=== PATIENT | male | born 1955 | race Caucasian/White ===

== ENCOUNTER 2016-12-25 14:58 | Emergency (ER) | payer MEDICARE ==
--- NOTE | 2016-12-25 15:22 | RAD ---
SINGLE VIEW OF CHEST: Date: 12/25/16 COMPARISON: 06/21/16. HISTORY: Shortness of breath with weakness and dyspnea. FINDINGS: Single view of the chest shows an enlarged but stable cardiomediastinal silhouette. The patient is s tatus post sternotomy. There is no evidence of consolidation, mass, or pleural effusion. Degenerativ e changes are seen in the spine. IMPRESSION: Cardiomegaly without evidence of acute cardiopulmonary disease. POS: [facility]
[2016-12-25 15:29] LABS: #Basophils 0.1 thou/uL (0.0-0.2); #Eosinphils 0.4 thou/uL (0.0-0.7); #Lymphocytes 1.6 thou/uL (1.20-3.40); #Monocytes 0.6 thou/uL (0.11-0.59); #Neutrophils 5.6 thou/uL (1.40-6.50); %Basophils 0.8 % (0.0-1.0); %Eosinophils 4.4 % (0.0-10.0); %Lymphocytes 19.2 % (21.0-51.0); %Monocytes 7.5 % (0.0-10.0); Mean Platelet Volume 7.3 fL (7.4-10.4); Red Blood Cell (RBC) Count 3.84 mill/uL (4.70-6.10); White Blood Cell (WBC) Count 8.2 thou/uL (4.8-10.8)
[2016-12-25 15:55] LABS: ALT (SGPT) 12 U/L (8-55); AST (SGOT) 14 U/L (5-34); Alkaline Phosphatase 75 U/L (40-150); Anion Gap 11 mmol/L (10-20); BUN (Urea Nitrogen) 30 mg/dL (8.4-25.7); Bilirubin, Total 0.6 mg/dL (0.2-1.2); Calc. Creatinine Clearance 0 mL/min (70-130); Calcium 9.1 mg/dL (7.8-10.44); Carbon Dioxide 25 mmol/L (22-29); Chloride 106 mmol/L (98-107); Estimated GFR-MDRD 26; Globulin 3.4 g/dL (2.4-3.5); Protein, Total 7.2 g/dL (6.0-8.3)
[2016-12-25 15:57] LABS: Troponin I 0.016 ng/mL (< 0.028)
== END 2016-12-25 19:02 | disposition home or self-care (01) ==
LOC: ERS 14:58
DX: I11.0 Hypertensive heart disease with heart failure (principal); I50.9 Heart failure, unspecified; E78.5 Hyperlipidemia, unspecified; M10.9 Gout, unspecified; I25.2 Old myocardial infarction; E11.9 Type 2 diabetes mellitus without complications; J45.909 Unspecified asthma, uncomplicated; Z87.891 Personal history of nicotine dependence; Z79.82 Long term (current) use of aspirin; Z79.84 Long term (current) use of oral hypoglycemic drugs; Z86.73 Personal history of transient ischemic attack (TIA), and cerebral infarction without residual deficits; Z79.899 Other long term (current) drug therapy
CPT/HCPCS: 71010; 80053; 82553; 83880; 84484; 85025; 93005

== ENCOUNTER 2017-02-10 22:29 | Inpatient (IN) | payer MEDICARE ==
[2017-02-10 23:31] LABS: #Basophils 0.1 thou/uL (0.0-0.2); #Eosinphils 0.4 thou/uL (0.0-0.7); #Lymphocytes 1.8 thou/uL (1.20-3.40); #Monocytes 0.8 thou/uL (0.11-0.59); #Neutrophils 8.7 thou/uL (1.40-6.50); %Basophils 0.7 % (0.0-1.0); %Eosinophils 3.8 % (0.0-10.0); %Lymphocytes 14.8 % (21.0-51.0); Hematocrit 35.1 % (42.0-52.0); Mean Platelet Volume 7.4 fL (7.4-10.4); Red Blood Cell (RBC) Count 3.78 mill/uL (4.70-6.10); White Blood Cell (WBC) Count 11.8 thou/uL (4.8-10.8)
[2017-02-10 23:52] LABS: ALT (SGPT) 11 U/L (8-55); AST (SGOT) 21 U/L (5-34); Alkaline Phosphatase 91 U/L (40-150); Anion Gap 14 mmol/L (10-20); BUN (Urea Nitrogen) 27 mg/dL (8.4-25.7); Bilirubin, Total 0.9 mg/dL (0.2-1.2); CK (CPK) 74 U/L (30-200); Calc. Creatinine Clearance 0 mL/min (70-130); Carbon Dioxide 24 mmol/L (22-29); Chloride 105 mmol/L (98-107); Estimated GFR-MDRD 22; Globulin 3.8 g/dL (2.4-3.5); Magnesium 2.1 mg/dL (1.6-2.6); Protein, Total 7.6 g/dL (6.0-8.3)
[2017-02-10 23:56] LABS: Troponin I 0.018 ng/mL (< 0.028)
[2017-02-11] MEDS ORDERED: Promethazine HCl 25 MG/ML VIAL ONE (02:35)
[2017-02-11] MEDS ORDERED: Nitroglycerin 2% Ointment 1 INCH/1 GM Packet ONE (02:35)
[2017-02-11] MEDS ORDERED: Morphine 4 MG/ML VIAL ONE (02:35)
[2017-02-11] MEDS ORDERED: Ondansetron HCl/PF 4 MG/2 ML Vial ONE (02:35)
[2017-02-11] MEDS ORDERED: Furosemide 40 MG/4 ML VIAL ONE (03:21)
[2017-02-11 05:32] VITALS: BMI 38.2
[2017-02-11] MEDS ORDERED: PROVENTIL INHALER 6.7 G (200 INHALATIONS) INH PRN (06:14)
[2017-02-11] MEDS ORDERED: Benzonatate 100 MG CAP PO PRN (06:14)
--- NOTE | 2017-02-11 06:14 | PDOC.EVN ---
Event Note - Event Note Event Note: [id number] H&P Dictated 1. Acute CHF Exacerbation 2. HTN 3. Abdominal pain, nausea and vomiting 4. ckd STAGE 4 PLAN: SEE ORDERS
[2017-02-11] MEDS ORDERED: cefTRIAXone\\ROCEPHIN 1 GM in Sodium Chloride 0.9% 100 ML IVPB SCH (06:30)
--- NOTE | 2017-02-11 07:05 | HP ---
DATE OF ADMISSION: 02/11/2017 CHIEF COMPLAINT: Abdominal pain, dyspnea, bilateral lower extremity swelling. HISTORY OF PRESENT ILLNESS: Patient is a 61-year-old male with past medical history of coronary artery disease, congestive heart failure, hypertension, diabetes mellitus, chronic kidney disease stage 4, now came to the ER complaining of bilateral lower extremity swelling. The patient said he is having swelling for the past few weeks, swelling become more persistent. Complaints of dyspnea also, dyspnea occurs at rest and with exertion also. The patient also started having abdominal pain for the last 4 days. Abdominal pain is all over the abdomen, intermittent, in mild to moderate and associated with nausea and vomiting since yesterday. Denies any fever, denies any chills, denies any chest pain, denies any palpations. The patient's symptoms persisted , so he came to the ER. PAST MEDICAL HISTORY: As per HPI. PAST SURGICAL HISTORY: Coronary artery bypass graft. SOCIAL HISTORY: Denies smoking, denies alcohol, denies any drugs. FAMILY HISTORY: Positive for heart problems. REVIEW OF SYSTEMS: Constitutional: Denies any fever, denies any chills. Eyes : Denies any vision problems. Ears: Denies any hearing loss. Neck: Denies any neck pain. Cardiovascular: Denies any chest pain. Respiratory: Positive for dyspnea. Gastrointestinal: Positive for abdominal pain, nausea and vomiting. Musculoskeletal: Positive for bilateral lower extremity edema. Cranial Nerve System: Denies syncope. Positive for dizziness. Integumentary: Denies any rash. Psychiatric: Denies depression, denies anxiety. All other review of systems are reviewed and are negative. PHYSICAL EXAMINATION: CONSTITUTIONAL/VITAL SIGNS: At the time of H&P performed, blood pressure is 141 /83, temperature 98.5, heart rate 62, respiratory rate 18, pulse ox 92%. GENERAL: The patient appears tired. HEENT: Anterior nares patent. Nose normal. Ears normal. Teeth intact. Tongue is moist. NECK: Supple. No JVD. CARDIOVASCULAR: S1, S2 present. Regular rate and rhythm. No murmurs, no rubs , no gallops. RESPIRATORY: Positive for crackles. No wheezing, no rhonchi. Diminished at the bases. GASTROINTESTINAL: Abdomen is distended, soft, no guarding, no rebound tenderness, no organomegaly. MUSCULOSKELETAL: Bilateral lower extremity, 2+ edema present. INTEGUMENTARY: No rashes seen. PSYCHIATRIC: Mood appropriate at this time. : No suprapubic or inguinal tenderness LABORATORY DATA AND IMAGING: At the time of H&P performed, white count 11.8, hemoglobin 11.2, platelet count is 204. BMP showed sodium 139, potassium 4.3, chloride 105, CO2 24, BUN 27, creatinine 2.9, troponin 0.018. BNP 841, albumin 3.8. Chest x-ray, report is pending. CT abdomen and pelvis, report is pending. ASSESSMENT AND PLAN: The patient is a 61-year-old male: 1. Acute congestive heart failure exacerbation. Patient is off Lasix for the past few months. Because of the fluid overload, we will go ahead and start the patient on Lasix 40 mg IV b.i.d. We will go ahead and consult Cardiology to evaluate the patient. The patient's last echo was done in 2013, we will go ahead and check new echo. 2. Chronic kidney disease stage 4. We will monitor creatinine closely. Plan to consult Nephrology to evaluate the patient. 3. Abdominal pain, nausea, and vomiting, etiology unclear. CT of the abdomen and pelvis is pending. We will start the patient empirically on Cipro and Flagyl for possible colitis. We will monitor the patient closely. 4. History of hypertension, monitor blood pressures, continue home medications. 5. Diabetes type 2. Monitor blood sugars. We will do insulin sliding scale. 6. History of coronary artery disease. Continue aspirin. The case was discussed in detail with the patient. Patient is FULL CODE. MTDD
--- NOTE | 2017-02-11 07:59 | RAD ---
PORTABLE CHEST: Date: 02/10/17 HISTORY: Shortness of breath. COMPARISON: 12/25/16. FINDINGS: Cardiomegaly with postop sternotomy change. Mild vascular engorgement. No evidence of focal infiltrat e and no significant effusion. No significant interstitial edema. IMPRESSION: Cardiomegaly and mild vascular engorgement. POS: [facility]
[2017-02-11] MEDS ORDERED: Carvedilol 25 MG TAB PO SCH (08:00)
[2017-02-11] MEDS: hydrALAZINE 25 MG TAB PO SCH ×3 (08:19→21:41)
[2017-02-11] MEDS: Clopidogrel Bisulfate 75 MG TAB PO SCH (08:19)
[2017-02-11] MEDS: Colchicine 0.6 MG TAB PO SCH (08:20)
[2017-02-11] MEDS: Carvedilol 25 MG TAB PO SCH ×3 (08:20→18:00)
[2017-02-11] MEDS: Loratadine 10 MG TAB PO SCH (08:20)
[2017-02-11] MEDS: Fluticasone Propionate Nasal Spray 16 gm Bottle NASAL SCH (08:21)
[2017-02-11] MEDS: cefTRIAXone\\ROCEPHIN 1 GM, Syringe 0.4 ML in Sterile Water 9.6 ML SLOW IVP SCH (08:23)
[2017-02-11] MEDS ORDERED: Pantoprazole 40 MG GRANULES PACKET PO SCH (09:00)
[2017-02-11] MEDS ORDERED: Furosemide 40 MG/4 ML VIAL SLOW IVP SCH (09:00)
[2017-02-11] MEDS ORDERED: Loratadine 10 MG TAB PO SCH (09:00)
[2017-02-11] MEDS ORDERED: Amlodipine 5 MG TAB PO SCH (09:00)
[2017-02-11] MEDS ORDERED: Famotidine 20 MG TAB PO PRN (09:00)
--- NOTE | 2017-02-11 09:38 | CT ---
PRELIMINARY REPORT/[facility]/EMERGENCY AFTER HOURS PROCEDURE: EXAM: CT Abdomen and Pelvis Without Intravenous Contrast CLINICAL HISTORY: 61 years old, male; Pain; Abdominal pain; Generalized TECHNIQUE: Axial computed tomography images of the abdomen and pelvis without intravenous contrast. Coronal reformatted images were created and reviewed. COMPARISON: No relevant prior studies available. FINDINGS: The lung bases are clear. Mild to moderate cardiomegaly. There may be some mucosal/wall thickening involving the lower esophagus. This is nonspecific, but cou ld represent evidence for esophagitis. Please correlate clinically. No definite gallbladder abnormality by CT. No biliary tree dilation. Ultrasound could be more sensitive for detecting gallstones, if clinically needed. Numerous prominent bilateral renal cysts. Largest cyst in each kidney in the upper pole, 6.5 cm on th e right, 6 cm on the left. No hydronephrosis of either kidney. No visible ureteral calculus. Unremarkable appearance of the liver, spleen, adrenal glands, and pancreas. Possibility of somewhat thickened mucosa/wall in the distal antrum of the stomach. This is a nonspeci fic appearance, and could be transient on CT, but could also represent evidence for gastritis or pept ic ulcer disease. Please correlate clinically. No free air, ascites, or bowel distention. 2-3 cm umbilical region ventral hernia, containing no bowel. There is some increased attenuation in the fat within the hernia, and possibly some fluid. Please cor relate clinically for pain in this region. No evidence for abdominal aortic aneurysm. No retroperitoneal adenopathy. CT pelvis: The appendix is visualized and appears normal. There are no CT findings to strongly suggest diverticulitis. No abnormal mass or fluid collection in the pelvis. IMPRESSION: No free air or bowel distention. Possible thickened mucosa/wall in the distal stomach, see above discussion. Prominent renal cysts, details above. No hydronephrosis of either kidney. No visible ureteral calculus. Small umbilical hernia, see above. Possibly some thickening of the lower esophagus, see above discussion. Normal appendix. No diverticulitis. Other findings discussed above. Thank you for allowing us to participate in the care of your patient. Dictated and Authenticated by: Raghav Leonard MD 02/11/2017 3:41 AM Central Time ([place] & [place] FINAL REPORT CT ABDOMEN AND PELVIS WITHOUT IV CONTRAST: No acute intraabdominal process. There are nonacute findings as described on preliminary report. I am in agreement with the preliminary report. POS: [facility]
[2017-02-11 11:14] LABS: Bilirubin Negative (Negative); Blood, Urine Negative (Negative); Glucose, Urine (Dipstick) Negative (Negative); Ketone, Urine Negative (Negative); Nitrite Negative (Negative); Protein, Urine (Dipstick) 30 mg/dL (Neg-Trace)
[2017-02-11 11:16] LABS: Bacteria/HPF None Seen HPF (None Seen); Hyaline Casts/LPF 0-3 HYALINE CAST LPF (0-3 Hyaline); RBC/HPF 0-3 HPF (0-3); Squamous Epithelial None Seen HPF (0-3); WBC/HPF 0-3 HPF (0-3)
[2017-02-11] MEDS: Furosemide 40 MG/4 ML VIAL SLOW IVP SCH (14:07)
[2017-02-11] MEDS: metroNIDAZOLE 500 MG in Premix Bag 1 BAG IVPB SCH ×2 (14:10→22:52)
--- NOTE | 2017-02-11 14:33 | PDOC.EVN ---
Event Note - Event Note Event Note: pt seen and examined.chart reviewed.care discussed with family. Admitted for CHF exacrebation ,MARIE/CKD,and AP. pt reports feeling better. breathing easier and no more abd pain.no stools since admission. CTA b/l. RRR. abdomen is obese,soft,non tender. CT A/P- unremarkable. Cont empiric ABx untill GI evaluation. check C.Diff. Cont IV lasix with close monitoring of renal FX. Home meds as started. monitor hemodynamics. GI,nephrology and cardiology recs requested. am labs
[2017-02-11] MEDS ORDERED: Iopamidol 370 76% 50 ML VIAL FS ONE (15:38)
[2017-02-11] MEDS ORDERED: Non-Formulary Item 1 EACH (Insulin Glargine,Hum.Rec.Anlog 16 UNIT) SQ SCH (21:00)
[2017-02-11] MEDS: Atorvastatin Calcium 10 MG TAB PO SCH (21:41)
[2017-02-11] MEDS: Allopurinol 100 MG TAB PO SCH (21:41)
[2017-02-11] MEDS: Insulin Detemir 100 UNITS/ML 16 UNITS in Pre-Filled Syringe 1 EACH SC SCH (21:42)
[2017-02-11] MEDS: Magnesium Oxide 400 MG TAB PO SCH (21:45)
--- NOTE | 2017-02-11 22:28 | CON ---
NEPHROLOGY CONSULTATION NOTE DATE OF CONSULTATION: 02/11/2017 CONSULTING PHYSICIAN: Dr. Colindres. REASON FOR CONSULTATION: Acute kidney injury on chronic kidney disease. REASON FOR ADMISSION: Swelling. HISTORY OF PRESENT ILLNESS: A 61-year-old white male with history of coronary artery disease, congestive heart failure, CKD, hypertension and diabetes who came to the hospital with swelling and Nephrology is consulted. The patient has been having swelling for the last few days. He has been limiting fluid intake and he used Lasix p.r.n., but the swelling is not getting better. No chest pain, no shortness of breath, no fever or chills, no nausea or vomiting. PAST MEDICAL HISTORY: Positive for possible CHF, coronary artery disease, CKD, hypertension, type 2 diabetes and obesity. PAST SURGICAL HISTORY: CABG. HOME MEDICATIONS: Include hydralazine, magnesium, Lantus, glimepiride, pravastatin, aspirin, furosemide, carvedilol, amlodipine, Ventolin, allopurinol , Protonix and colchicine. ALLERGIES: HYDROCODONE, LEVOFLOXACIN and LOSARTAN. SOCIAL HISTORY: No smoking or alcohol use. FAMILY HISTORY: Positive for heart disease. REVIEW OF SYSTEMS: The following complete review of systems was negative, unless otherwise mentioned in the HPI or below: Constitutional: Weight loss or gain, ability to conduct usual activities. Skin: Rash, itching. Eyes: Double vision, pain. ENT/Mouth: Nose bleeding, neck stiffness, pain, tenderness. Cardiovascular: Palpitations, dyspnea on exertion, orthopnea. Respiratory: Shortness of breath, wheezing, cough, hemoptysis, fever or night sweats. Gastrointestinal: Poor appetite, abdominal pain, heartburn, nausea, vomiting, constipation, or diarrhea. Genitourinary: Urgency, frequency, dysuria, nocturia. Musculoskeletal: Pain, swelling. Neurologic/Psychiatric: Anxiety, depression. Allergy/Immunologic: Skin rash, bleeding tendency. PHYSICAL EXAMINATION: GENERAL: This is an obese male in no apparent distress. VITAL SIGNS: Temperature is 98.3, pulse 64, respiratory 20 and blood pressure 124/67. HEENT: Atraumatic and normocephalic. Oral mucosa is moist. NECK: Supple. CARDIOVASCULAR: S1 and S2 heard. Rate and rhythm regular. RESPIRATORY: Clear to auscultation. GASTROINTESTINAL: Abdomen is soft. MUSCULOSKELETAL: No tenderness. No edema. DERMATOLOGIC: No skin rash. NEUROLOGIC: Alert, awake and oriented x3. No focal neurologic deficits. Moving all the extremities. PSYCHIATRIC: Mood and affect normal LABORATORY DATA: Potassium is 4.3, BUN is 27 and creatinine is 2.9. ASSESSMENT AND PLAN: 1. Acute kidney injury on chronic kidney stage IV. The patient with fluid overload, possible congestive heart failure exacerbation. Agree with Lasix for now. We will monitor the renal function closely. Monitor electrolytes. 2. Anemia, mild. 3. Edema. 4. Fluid overload. 5. Cardiorenal syndrome. 6. Mild hypoalbuminemia. 7. Hypertension, stable. 8. Obesity. 9. Agree with Lasix for now with close monitoring of renal function, avoid nephrotoxins and we will follow. Thank you for the consult. EVELYN
--- NOTE | 2017-02-11 23:26 | PRG ---
DATE OF SERVICE: 02/11/2017 SUBJECTIVE: Mr. Sellers is breathing better now. He is admitted to the hospital with congestive he art failure. OBJECTIVE: VITAL SIGNS: His blood pressure is 125/67 and pulse in the 60s, it is regular. LUNGS: Clear. CARDIAC: Normal S1 and S2. ABDOMEN: Soft and nontender. EXTREMITIES: Only mild edema now. ASSESSMENT: 1. Congestive heart failure. Suspect systolic and diastolic mixed echos, report is pending. 2. Stage IV renal failure. PLAN: 1. Repeat review echo. 2. Continue intravenous diuretics. 3. Reduce carvedilol until he is well compensated. We will continue to follow with you.
--- NOTE | 2017-02-12 04:44 | CON ---
DATE OF CONSULTATION: 02/11/2017 GASTROENTEROLOGY CONSULTATION CHIEF COMPLAINT: Abdominal pain. HISTORY OF PRESENT ILLNESS: Mr. Sellers is a 61-year-old man who presented to the emergency room with abdominal pain and lower extremity swelling. He reports an aching pain in the epigastr ic to right periumbilical region that started a week ago. He initially had some diarrhea on the day and then his bowel movements were back to normal. The day of admission, he again had episodes of diarrhea as well as nausea and vomiting. He has had no blood in the stool. No weight loss or fev er. He was treated with diuretics for exacerbation of congestive heart failure. He did have a CT sc an of the abdomen and pelvis, which was performed in the ER that showed some thickening of the gastri c antrum and also the distal esophagus. He was treated with Cipro and Flagyl. He takes omeprazole a round once a month for heartburn. PAST MEDICAL HISTORY: Coronary artery disease, congestive heart failure, hypertension, diabetes cosme itus, chronic kidney disease, hyperlipidemia. PAST SURGICAL HISTORY: Coronary artery bypass graft. FAMILY HISTORY: Negative for GI malignancies. SOCIAL HISTORY: No alcohol, tobacco, or drugs. ALLERGIES: HYDROCODONE, LEVOFLOXACIN, LOSARTAN. MEDICATIONS: Currently include allopurinol, aspirin, ceftriaxone, clopidogrel, colchicine, famotidin e, hydralazine, pantoprazole, Ranexa, metronidazole, magnesium oxide, loratadine, insulin. REVIEW OF SYSTEMS: Negative x10 systems reviewed except as stated in the history of present illness. PHYSICAL EXAMINATION: VITAL SIGNS: Temperature 97.7, pulse 65, blood pressure 120/59. GENERAL: He is in no acute distress. He is alert and oriented x3. HEENT: Eyes have no scleral icterus. Oropharynx is clear without lesions. NECK: No cervical or supraclavicular lymphadenopathy. LUNGS: Clear to auscultation bilaterally. HEART: Regular rate and rhythm without murmur. ABDOMEN: Soft, nontender, nondistended. Bowel sounds are present. EXTREMITIES: Positive lower extremity edema. LABORATORY DATA: White blood cell count 11.8, hemoglobin 11.3, platelets 204, creatinine 2.91. LFTs were unremarkable. Albumin 3.8. IMPRESSION: 1. Epigastric pain with nausea and vomiting, and diarrhea. This could have been an infectious gastr oenteritis. He has been going on for a week now, but he is finally improving. 2. Abnormal CT scan of the stomach showing thickening at the antrum and thickening of the distal eso phagus. We will plan endoscopy to evaluate this. 3. Congestive heart failure and coronary artery disease, breathing much better now after diuresis. He is on Plavix. RECOMMENDATIONS: 1. Proton-pump inhibitor. 2. EGD tomorrow. 3. Please note that the patient states he had a colonoscopy by the [facility] around 3 years ago and was told this was normal.
[2017-02-12 05:28] LABS: #Basophils 0.1 thou/uL (0.0-0.2); #Eosinphils 0.4 thou/uL (0.0-0.7); #Lymphocytes 1.4 thou/uL (1.20-3.40); #Monocytes 0.8 thou/uL (0.11-0.59); #Neutrophils 5.4 thou/uL (1.40-6.50); %Basophils 0.9 % (0.0-1.0); %Eosinophils 4.7 % (0.0-10.0); %Lymphocytes 17.8 % (21.0-51.0); %Monocytes 9.4 % (0.0-10.0); Mean Platelet Volume 7.2 fL (7.4-10.4); Red Blood Cell (RBC) Count 3.34 mill/uL (4.70-6.10); White Blood Cell (WBC) Count 8.1 thou/uL (4.8-10.8)
[2017-02-12] MEDS: Furosemide 40 MG/4 ML VIAL SLOW IVP SCH ×2 (05:35→14:08)
[2017-02-12] MEDS: metroNIDAZOLE 500 MG in Premix Bag 1 BAG IVPB SCH ×3 (05:35→22:21)
[2017-02-12 05:42] LABS: Anion Gap 12 mmol/L (10-20); BUN (Urea Nitrogen) 32 mg/dL (8.4-25.7); Calc. Creatinine Clearance 43 mL/min (70-130); Calcium 8.4 mg/dL (7.8-10.44); Carbon Dioxide 26 mmol/L (22-29); Chloride 103 mmol/L (98-107); Estimated GFR-MDRD 20
[2017-02-12] MEDS: Carvedilol 25 MG TAB PO SCH ×2 (08:49→18:12)
[2017-02-12] MEDS: cefTRIAXone\\ROCEPHIN 1 GM, Syringe 0.4 ML in Sterile Water 9.6 ML SLOW IVP SCH (09:06)
--- NOTE | 2017-02-12 09:17 | PDOC.PN ---
- Subjective Encounter Start Date: 02/12/17 Encounter Start Time: 07:10 -: old records requested/rev pt has nausea, he is NPO for procedure, still has leg edema, no chest pain - Objective Resuscitation Status: Resuscitation Status FULL:Full Resuscitation MAR Reviewed: Yes Vital Signs & Weight: Vital Signs (12 hours) Temp Pulse Resp BP Pulse Ox 02/12/17 07:54 99.3 F 69 16 02/12/17 07:39 98.6 F 66 18 114/68 94 L 02/12/17 04:28 99.3 F 69 16 122/75 97 02/11/17 23:48 98.7 F 65 20 120/59 L 92 L 02/11/17 21:41 64 Weight Weight 272 lb 9.6 oz I&O: 02/11/17 02/12/17 02/13/17 06:59 06:59 06:59 Intake Total 1318 Output Total 850 975 Balance 468 -975 Result Diagrams: 02/12/17 05:02 02/12/17 05:02 Additional Labs: Accuchecks 02/11/17 02/11/17 02/11/17 20:49 16:54 11:00 POC Glucose 145 H 128 H 145 H EKG Reviewed by me: Yes (NSR) Phys Exam - Physical Examination Constitutional: NAD HEENT: PERRLA, moist MMs, sclera anicteric Neck: no JVD, supple Respiratory: no wheezing, no rales, no rhonchi Cardiovascular: RRR, no significant murmur, no rub Gastrointestinal: soft, non-tender, no distention, positive bowel sounds obesity+ Musculoskeletal: pulses present, edema present Neurological: non-focal, normal sensation, moves all 4 limbs Lymphatic: no nodes Psychiatric: normal affect, A&O x 3 Skin: no rash, normal turgor Dx/Plan (1) Acute on chronic diastolic (congestive) heart failure Code(s): I50.33 - ACUTE ON CHRONIC DIASTOLIC (CONGESTIVE) HEART FAILURE Status : Acute (2) Acute worsening of stage 3 chronic kidney disease Code(s): N18.3 - CHRONIC KIDNEY DISEASE, STAGE 3 (MODERATE) Status: Acute (3) Epigastric abdominal pain Code(s): R10.13 - EPIGASTRIC PAIN Status: Acute (4) Gastroenteritis/colitis, infectious Code(s): A09 - INFECTIOUS GASTROENTERITIS AND COLITIS, UNSPECIFIED Status: Acute (5) Atrial fibrillation Code(s): I48.91 - UNSPECIFIED ATRIAL FIBRILLATION Status: Chronic Comment: Rate controlled (6) CAD (coronary artery disease) Code(s): I25.10 - ATHSCL HEART DISEASE OF [place] CORONARY ARTERY W/O ANG PCTRS Status: Chronic (7) Carotid Artery Disease Code(s): I77.9 - DISORDER OF ARTERIES AND ARTERIOLES, UNSPECIFIED Status: Chronic (8) Dyslipidemia Code(s): E78.5 - HYPERLIPIDEMIA, UNSPECIFIED Status: Chronic (9) GERD (gastroesophageal reflux disease) Code(s): K21.9 - GASTRO-ESOPHAGEAL REFLUX DISEASE WITHOUT ESOPHAGITIS Status: Chronic (10) Gout Code(s): M10.9 - GOUT, UNSPECIFIED Status: Chronic (11) HTN (hypertension) Code(s): I10 - ESSENTIAL (PRIMARY) HYPERTENSION Status: Chronic (12) Obesity (BMI 30-39.9) Code(s): E66.9 - OBESITY, UNSPECIFIED Status: Chronic - Plan cont current plan of care, continue antibiotics * pt still needs diuresis * today plan for EGD * continue selected home medication. * medication reviewed as below * symptomatic treatment * will adjust meds today * expecting discharge soon. * continue rocephin and flagyl Review of Systems - Review of Systems Constitutional: negative: Fever, Chills, Sweats, Weakness, Malaise, Other Eyes: negative: Pain, Vision Change, Conjunctivae Inflammation, Eyelid Inflammation, Redness, Other ENT: negative: Ear Pain, Ear Discharge, Nose Pain, Nose Discharge, Nose Congestion, Mouth Pain, Mouth Swelling, Throat Pain, Throat Swelling, Other Respiratory: negative: Cough, Dry, Shortness of Breath, Hemoptysis, SOB with Excertion, Pleuritic Pain, Sputum, Wheezing Cardiovascular: Edema. negative: Chest Pain, Palpitations, Orthopnea, Paroxysmal Noc. Dyspnea, Light Headedness, Other Gastrointestinal: Abdominal Pain. negative: Nausea, Vomiting, Diarrhea, Constipation, Melena, Hematochezia, Other Genitourinary: negative: Dysuria, Frequency, Incontinence, Hematuria, Retention , Other Musculoskeletal: negative: Neck Pain, Shoulder Pain, Arm Pain, Back Pain, Hand Pain, Leg Pain, Foot Pain, Other Skin: negative: Rash, Lesions, Ced, Bruising, Other - Medications/Allergies Allergies/Adverse Reactions: Allergies Allergy/AdvReac Type Severity Reaction Status Date / Time hydrocodone bitartrate Allergy Verified 02/11/17 05:35 [From [place]] levofloxacin [From Levaquin] Allergy Verified 02/11/17 05:35 losartan Allergy Verified 02/11/17 05:35 Medications: Current Medications Albuterol Sulfate (Proventil Hfa) 2 puff INH Q4H PRN PRN Reason: SOB &/or Wheezing Allopurinol (Zyloprim) 200 mg PO HS [facility] Last Admin: 02/11/17 21:41 Dose: 200 mg Aspirin (Aspirin Chewable) 81 mg PO DAILY [facility] Last Admin: 02/11/17 08:20 Dose: 81 mg Atorvastatin Calcium (Lipitor) 10 mg PO BID [facility] Last Admin: 02/11/17 21:41 Dose: 10 mg Benzonatate (Tessalon) 100 mg PO TID PRN PRN Reason: Cough Carvedilol (Coreg) 12.5 mg PO BID[facility] Last Admin: 02/12/17 08:49 Dose: 12.5 mg Clopidogrel Bisulfate (Plavix) 75 mg PO DAILY [facility] Last Admin: 02/11/17 08:19 Dose: 75 mg Colchicine (Colcrys) 0.6 mg PO DAILY [facility] Last Admin: 02/11/17 08:20 Dose: 0.6 mg Famotidine (Pepcid) 20 mg PO DAILYPRN PRN PRN Reason: INDIGESTION Fluticasone Propionate (Flonase Nasal [place]) 0 gm NASAL DAILY [facility] Last Admin: 02/11/17 08:21 Dose: Not Given Furosemide (Lasix) 40 mg SLOW IVP 0600,1400 [facility] Last Admin: 02/12/17 05:35 Dose: 40 mg Hydralazine HCl (Apresoline) 75 mg PO TID [facility] Last Admin: 02/11/17 21:41 Dose: 75 mg Metronidazole 500 mg/ Device 100 mls @ 100 mls/hr IVPB Q8HR [facility] Last Admin: 02/12/17 05:35 Dose: 100 mls Ceftriaxone Sodium 1 gm/ (Syringe 0.4 ml/ Sterile Water) 10 mls @ 120 mls/hr SLOW IVP 0800 [facility] Last Admin: 02/12/17 09:06 Dose: 10 mls Insulin Detemir 16 units/ (Miscellaneous Medication) 0.16 mls @ 0 mls/hr SC HS [facility] PRN Reason: As Directed Last Admin: 02/11/17 21:42 Dose: 0.16 mls Loratadine (Claritin) 10 mg PO DAILY [facility] Last Admin: 02/11/17 08:20 Dose: 10 mg Magnesium Oxide (Magnesium Oxide) 400 mg PO HS [facility] Last Admin: 02/11/17 21:45 Dose: 400 mg Pantoprazole Sodium (Protonix) 40 mg PO DAILY [facility] Ranolazine (Ranexa) 500 mg PO BID [facility] Last Admin: 02/11/17 21:41 Dose: 500 mg Sodium Chloride (Flush - Normal Saline) 10 ml IVF PRN PRN PRN Reason: Saline Flush Last Admin: 02/12/17 08:51 Dose: 10 ml
[2017-02-12] MEDS: Fluticasone Propionate Nasal Spray 16 gm Bottle NASAL SCH (11:00)
[2017-02-12] MEDS: Loratadine 10 MG TAB PO SCH (11:00)
[2017-02-12] MEDS: Clopidogrel Bisulfate 75 MG TAB PO SCH (11:00)
[2017-02-12] MEDS: Colchicine 0.6 MG TAB PO SCH (11:00)
[2017-02-12] MEDS: hydrALAZINE 25 MG TAB PO SCH ×3 (11:00→22:20)
[2017-02-12] MEDS: Atorvastatin Calcium 10 MG TAB PO SCH ×2 (11:00→22:20)
[2017-02-12] MEDS ORDERED: Lidocaine 1% PF 5 ML VIAL ONE (16:08)
[2017-02-12] MEDS ORDERED: Promethazine HCl 25 MG/ML VIAL IM PRN (17:17)
[2017-02-12] MEDS ORDERED: Promethazine HCl 25 MG/ML VIAL SLOW IVP PRN (17:17)
[2017-02-12] MEDS ORDERED: Ondansetron HCl/PF 4 MG/2 ML Vial IVP PRN (17:17)
--- NOTE | 2017-02-12 20:48 | OP ---
PREOPERATIVE DIAGNOSES: 1. Epigastric pain. 2. Nausea and vomiting. 3. Abnormal CT of the stomach. PROCEDURE: After informed consent was obtained, the patient was placed in the left lateral decubitus position. Anesthesia was administered per the Anesthesia Department. Forward-viewing endoscope was inserted into esophagus under direct visualization with ease and passed to the second portion of the duodenum with ease. Second portion of the duodenum and duodenal bulb were normal. Pylorus was norm al. In the prepyloric antrum, several large gastric folds were noted. No ulcerations or other abnor malities were noted with these folds, but they are quite prominent. Biopsies were taken from several different areas. Retroflexion in the stomach was normal. The esophagus was normal throughout. No blood was seen in the upper GI tract. ASSESSMENT: 1. Enlarged antral folds - status post biopsy. 2. Otherwise, normal esophagogastroduodenoscopy. RECOMMENDATIONS: 1. Continue proton pump inhibitor. 2. Await histopathology. 3. Resume diet.
--- NOTE | 2017-02-12 21:29 | PRG ---
DATE OF SERVICE: 02/12/2017 SUBJECTIVE: Patient was seen and examined at bedside and overnight events noted. Patient denies any shortness of breath or chest pain or palpitation. No history of nausea or vomiting or diarrhea or f ever or chills or cramps. OBJECTIVE: GENERAL: Obese male in no apparent distress. VITAL SIGNS: Temperature 98.2, pulse 60, respiratory rate 18, blood pressure 156/74. HEENT: Atraumatic, normocephalic. Oral mucosa is moist. NECK: Supple. CARDIOVASCULAR: S1, S2 heard. Rate and rhythm regular. RESPIRATORY: Clear to auscultation. GASTROINTESTINAL: Abdomen is soft. MUSCULOSKELETAL: No tenderness, no edema. DERMATOLOGIC: No skin rash. NEUROLOGIC: Alert and awake and oriented x3. No focal neurologic deficits. Moving all the extremit ies. PSYCHIATRIC: Mood and affect normal. LABORATORY DATA: Potassium is 3.7, BUN is 32, creatinine 3.1. ASSESSMENT AND PLAN: 1. Acute kidney injury on chronic kidney disease stage 4. Renal function continues to get worse wit h diuretics. We will continue to monitor. 2. Cardiorenal syndrome. 3. Fluid overload. 4. Edema, better. 5. Hypertension. 6. Obesity. Monitor renal function closely, currently on diuretics. We will follow.
--- NOTE | 2017-02-12 21:47 | PRG ---
DATE OF SERVICE: 02/12/2017 SUBJECTIVE: Mr. Sellers is doing better today. He is breathing much better, can sleep better. The re has been no chest pain. OBJECTIVE: VITAL SIGNS: Blood pressure 166/79, pulse 62 and regular. LUNGS: Clear. CARDIAC: Normal S1, S2. ABDOMEN: Soft, nontender. EXTREMITIES: There is only mild edema. The patient has good urinary output at -2 liters yesterday. ASSESSMENT: 1. Congestive heart failure, systolic, acute on chronic, improved. 2. Underlying coronary disease. 3. Hypercholesterolemia. 4. Renal failure, stable stage 3 to 4 though creatinine is 3.18. PLAN: 1. Continue IV diuretics. 2. Recheck base met tomorrow. 3. Mildly anemic tomorrow we will also draw iron levels.
[2017-02-12] MEDS: Allopurinol 100 MG TAB PO SCH (22:19)
[2017-02-12] MEDS: Insulin Detemir 100 UNITS/ML 16 UNITS in Pre-Filled Syringe 1 EACH SC SCH (22:19)
[2017-02-12] MEDS: Magnesium Oxide 400 MG TAB PO SCH (22:21)
[2017-02-13 05:20] LABS: Anion Gap 12 mmol/L (10-20); BUN (Urea Nitrogen) 35 mg/dL (8.4-25.7); Calc. Creatinine Clearance 43 mL/min (70-130); Carbon Dioxide 27 mmol/L (22-29); Chloride 101 mmol/L (98-107); Estimated GFR-MDRD 20; Iron 23 ug/dL (65-175)
[2017-02-13] MEDS: metroNIDAZOLE 500 MG in Premix Bag 1 BAG IVPB SCH (07:07)
[2017-02-13] MEDS: Furosemide 40 MG/4 ML VIAL SLOW IVP SCH (07:08)
--- NOTE | 2017-02-13 09:10 | PDOC.PN ---
- Subjective Encounter Start Date: 02/13/17 Encounter Start Time: 07:30 Patient seen and examined. No new complaints. No overnight events - Objective Resuscitation Status: Resuscitation Status FULL:Full Resuscitation MAR Reviewed: Yes Vital Signs & Weight: Vital Signs (12 hours) Temp Pulse Resp BP Pulse Ox 02/13/17 08:00 98.2 F 64 20 146/75 H 95 02/12/17 22:20 86 02/12/17 22:00 98.8 F 69 18 148/70 H 95 Weight Weight 272 lb 9.6 oz I&O: 02/12/17 02/13/17 02/14/17 06:59 06:59 06:59 Intake Total 1318 1040 Output Total 850 3875 Balance 468 -1287 Result Diagrams: 02/12/17 05:02 02/13/17 04:25 Additional Labs: Accuchecks 02/13/17 02/12/17 02/12/17 05:43 20:27 18:21 POC Glucose 104 137 H 74 02/12/17 11:21 POC Glucose 77 EKG Reviewed by me: Yes Phys Exam - Physical Examination Constitutional: NAD HEENT: PERRLA, moist MMs, sclera anicteric Neck: no JVD, supple Respiratory: no wheezing, no rales, no rhonchi Cardiovascular: RRR, no significant murmur, no rub Gastrointestinal: soft, non-tender, no distention, positive bowel sounds Musculoskeletal: pulses present, edema present Neurological: non-focal, normal sensation, moves all 4 limbs Psychiatric: normal affect, A&O x 3 Skin: no rash, normal turgor Dx/Plan (1) Acute on chronic diastolic (congestive) heart failure Code(s): I50.33 - ACUTE ON CHRONIC DIASTOLIC (CONGESTIVE) HEART FAILURE Status : Acute (2) Acute worsening of stage 3 chronic kidney disease Code(s): N18.3 - CHRONIC KIDNEY DISEASE, STAGE 3 (MODERATE) Status: Acute (3) Epigastric abdominal pain Code(s): R10.13 - EPIGASTRIC PAIN Status: Acute (4) Gastroenteritis/colitis, infectious Code(s): A09 - INFECTIOUS GASTROENTERITIS AND COLITIS, UNSPECIFIED Status: Acute (5) Atrial fibrillation Code(s): I48.91 - UNSPECIFIED ATRIAL FIBRILLATION Status: Chronic Comment: Rate controlled (6) CAD (coronary artery disease) Code(s): I25.10 - ATHSCL HEART DISEASE OF [place] CORONARY ARTERY W/O ANG PCTRS Status: Chronic (7) Carotid Artery Disease Code(s): I77.9 - DISORDER OF ARTERIES AND ARTERIOLES, UNSPECIFIED Status: Chronic (8) Dyslipidemia Code(s): E78.5 - HYPERLIPIDEMIA, UNSPECIFIED Status: Chronic (9) GERD (gastroesophageal reflux disease) Code(s): K21.9 - GASTRO-ESOPHAGEAL REFLUX DISEASE WITHOUT ESOPHAGITIS Status: Chronic (10) Gout Code(s): M10.9 - GOUT, UNSPECIFIED Status: Chronic (11) HTN (hypertension) Code(s): I10 - ESSENTIAL (PRIMARY) HYPERTENSION Status: Chronic (12) Obesity (BMI 30-39.9) Code(s): E66.9 - OBESITY, UNSPECIFIED Status: Chronic - Plan cont current plan of care, plan discussed w/ family * DC antibiotics * continue protonix * medication reviewed as below * symptomatic treatment * pt wants to go home * discussed with nephro, no need of HD, he will follow up with him outpt * see discharge juice. Review of Systems - Review of Systems ENT: negative: Ear Pain, Ear Discharge, Nose Pain, Nose Discharge, Nose Congestion, Mouth Pain, Mouth Swelling, Throat Pain, Throat Swelling, Other Respiratory: negative: Cough, Dry, Shortness of Breath, Hemoptysis, SOB with Excertion, Pleuritic Pain, Sputum, Wheezing Cardiovascular: negative: Chest Pain, Palpitations, Orthopnea, Paroxysmal Noc. Dyspnea, Edema, Light Headedness, Other Gastrointestinal: negative: Nausea, Vomiting, Abdominal Pain, Diarrhea, Constipation, Melena, Hematochezia, Other Genitourinary: negative: Dysuria, Frequency, Incontinence, Hematuria, Retention , Other Musculoskeletal: negative: Neck Pain, Shoulder Pain, Arm Pain, Back Pain, Hand Pain, Leg Pain, Foot Pain, Other - Medications/Allergies Allergies/Adverse Reactions: Allergies Allergy/AdvReac Type Severity Reaction Status Date / Time hydrocodone bitartrate Allergy Verified 02/11/17 05:35 [From [place]] levofloxacin [From Levaquin] Allergy Verified 02/11/17 05:35 losartan Allergy Verified 02/11/17 05:35 Medications: Current Medications Albuterol Sulfate (Proventil Hfa) 2 puff INH Q4H PRN PRN Reason: SOB &/or Wheezing Allopurinol (Zyloprim) 200 mg PO HS [facility] Last Admin: 02/12/17 22:19 Dose: 200 mg Aspirin (Aspirin Chewable) 81 mg PO DAILY [facility] Last Admin: 02/12/17 11:00 Dose: Not Given Atorvastatin Calcium (Lipitor) 10 mg PO BID [facility] Last Admin: 02/12/17 22:20 Dose: 10 mg Benzonatate (Tessalon) 100 mg PO TID PRN PRN Reason: Cough Carvedilol (Coreg) 12.5 mg PO BID[facility] Last Admin: 02/12/17 18:12 Dose: 12.5 mg Clopidogrel Bisulfate (Plavix) 75 mg PO DAILY [facility] Last Admin: 02/12/17 11:00 Dose: Not Given Colchicine (Colcrys) 0.6 mg PO DAILY [facility] Last Admin: 02/12/17 11:00 Dose: Not Given Famotidine (Pepcid) 20 mg PO DAILYPRN PRN PRN Reason: INDIGESTION Fluticasone Propionate (Flonase Nasal [place]) 0 gm NASAL DAILY [facility] Last Admin: 02/12/17 11:00 Dose: 1 spray Furosemide (Lasix) 40 mg SLOW IVP 0600,1400 [facility] Last Admin: 02/13/17 07:08 Dose: 40 mg Hydralazine HCl (Apresoline) 75 mg PO TID [facility] Last Admin: 02/12/17 22:20 Dose: 75 mg Metronidazole 500 mg/ Device 100 mls @ 100 mls/hr IVPB Q8HR [facility] Last Admin: 02/13/17 07:07 Dose: Not Given Ceftriaxone Sodium 1 gm/ (Syringe 0.4 ml/ Sterile Water) 10 mls @ 120 mls/hr SLOW IVP 0800 [facility] Last Admin: 02/12/17 09:06 Dose: 10 mls Insulin Detemir 16 units/ (Miscellaneous Medication) 0.16 mls @ 0 mls/hr SC [facility] PRN Reason: As Directed Last Admin: 02/12/17 22:19 Dose: 0.16 mls Loratadine (Claritin) 10 mg PO DAILY [facility] Last Admin: 02/12/17 11:00 Dose: Not Given Magnesium Oxide (Magnesium Oxide) 400 mg PO [facility] Last Admin: 02/12/17 22:21 Dose: 400 mg Pantoprazole Sodium (Protonix) 40 mg PO DAILY [facility] Last Admin: 02/12/17 11:00 Dose: Not Given Ranolazine (Ranexa) 500 mg PO BID [facility] Last Admin: 02/12/17 22:20 Dose: 500 mg Sodium Chloride (Flush - Normal Saline) 10 ml IVF PRN PRN PRN Reason: Saline Flush Last Admin: 02/12/17 08:51 Dose: 10 ml
[2017-02-13] MEDS: cefTRIAXone\\ROCEPHIN 1 GM, Syringe 0.4 ML in Sterile Water 9.6 ML SLOW IVP SCH (09:16)
[2017-02-13] MEDS: Clopidogrel Bisulfate 75 MG TAB PO SCH (09:19)
[2017-02-13] MEDS: Atorvastatin Calcium 10 MG TAB PO SCH (09:20)
[2017-02-13] MEDS: hydrALAZINE 25 MG TAB PO SCH (09:20)
[2017-02-13] MEDS: Colchicine 0.6 MG TAB PO SCH (09:20)
[2017-02-13] MEDS: Loratadine 10 MG TAB PO SCH (09:21)
[2017-02-13] MEDS: Fluticasone Propionate Nasal Spray 16 gm Bottle NASAL SCH (09:21)
[2017-02-13] MEDS: Carvedilol 25 MG TAB PO SCH (09:21)
--- NOTE | 2017-02-13 12:25 | DIS ---
DATE OF ADMISSION: 02/11/2017 DATE OF DISCHARGE: 02/13/2017 PRIMARY CARE PHYSICIAN: Dr. Randolph. DISCHARGE DIAGNOSES: 1. Acute on chronic combined systolic and diastolic congestive heart failure exacerbation. 2. Acute on chronic kidney failure. Baseline chronic kidney disease stage 3. 3. Epigastric abdominal pain, likely due to gastritis. 4. Gastroenteritis, resolved. SECONDARY DISCHARGE DIAGNOSES: Chronic atrial fibrillation, coronary artery disease, carotid artery disease, obesity with BMI of 38, gastroesophageal reflux disease, dyslipidemia, gout, hypertension. PRIMARY PROCEDURE/OPERATION: Product Info Specialist did upper endoscopy and found with enlarge antral fo ld, otherwise normal upper endoscopy. RADIOLOGICAL INVESTIGATION: Echocardiography during this admission showed echo EF 35-40%. TEST RESULTS PENDING ON DISCHARGE: None. ALLERGIES: HYDROCODONE, LEVOFLOXACIN, LOSARTAN. DISCHARGE MEDICATIONS: Allopurinol 200 mg p.o. at bedtime, amlodipine 5 mg p.o. daily, aspirin 81 mg p.o. daily, Coreg 25 mg p.o. b.i.d., Plavix 75 mg p.o. daily, colchicine 0.6 mg p.o. daily, Perla 180 mg p.o. daily, Flonase nasal spray daily, Lasix 40 mg p.o. b.i.d., Amaryl 4 mg p.o. b.i.d., hydra lazine 50 mg p.o. b.i.d., Lantus 16 units subQ at bedtime, Imdur 30 mg p.o. daily, Claritin 10 mg p.o . daily, magnesium oxide 400 mg p.o. at bedtime, Protonix 40 mg p.o. daily, pravastatin 40 mg p.o. b. i.d., Xanax 500 mcg p.o. b.i.d., Coenzyme Q10 100 mg p.o. daily, Ventolin inhaler 2 puffs q.4 hourly p.r.n., vitamin B complex 150 mg p.o. daily, Zantac 150 mg p.o. b.i.d. p.r.n. CONTRAINDICATIONS: Patient is not on KATY inhibitor and ARB because of renal failure and that is why he is not on and contraindicated, but patient is instead on hydralazine and mononitrate regimen. INPATIENT CONSULTANTS: Dr. Burgos was following for kidney failure. Dr. Sky was following for c ongestive heart failure. Dr. Cummings was following for epigastric abdominal pain. DISCHARGE PLAN: Post hospital, the patient will follow up with Dr. Cummings in 2-3 weeks. The patient h as appointment with Dr. Randolph on 02/19/2017 at 9:45 a.m. Patient will follow up with Dr. Burgos and Dr. Sky as instructed. HOSPITAL COURSE: A 61-year-old male who was admitted by Dr. Colindres. Please see his H&P for furthe r details. The patient was admitted for epigastric abdominal pain, nausea, vomiting, diarrhea as wel l as increasing bilateral lower extremity swelling and dyspnea on exertion. He was found with gastro enteritis. We presumed initially infectious and that is why we started on Rocephin and Flagyl, but cmkenna loredo did not have any further diarrhea while in hospital and that is why we discontinued antibiotic therapy on discharge, his gastroenteritis completely resolved. The patient was complaining of epigastric abdominal pain and that is why we consulted gastroenterolog ist and did upper endoscopy and found with enlarged antral fold without any acute process. In the em ergency room, the patient had CT of the abdomen and pelvis, which showed findings suggestive of gastr itis as well as esophagitis. Patient was instructed to take proton pump inhibitor upon discharge and advised to avoid NSAIDs. The patient was also having acute on chronic kidney failure, which was related with cardiorenal syndr ome and he was also having acute on chronic congestive heart failure exacerbation. We did echocardio graphy this admission and found with EF 35-40% and this patient was treated with IV Lasix with signif icant improvement. His edema was up to his baseline. His renal function is also stable, but he does not need any dialysis at this point. He is not given KATY inhibitor or ARB because of renal failure. Instead, he is started on hydralazine and mononitrate regimen. Fluid restriction, heart failure education and dietary education was given to him. At this point, radha mckeon is medically stable for discharge. All consultants cleared him for discharge as well. Total time spent on discharge day 31 minutes.
[2017-02-13 13:43] VITALS: TEMP 98.4
[2017-02-13 15:19] VITALS: BP 132/76
--- NOTE | 2017-02-14 00:18 | PRG ---
DATE OF SERVICE: 02/13/2017 SUBJECTIVE: Patient was seen and examined at bedside and overnight events noted. Patient denies any shortness of breath or chest pain or palpitation. No history of nausea or vomiting or diarrhea or f ever or chills or cramps. OBJECTIVE: GENERAL: This is an obese male, in no apparent distress. VITAL SIGNS: Temperature 98.4, pulse 67, respiratory rate 17, blood pressure 131/74. HEENT: Atraumatic, normocephalic. Oral mucosa is moist. NECK: Supple. CARDIOVASCULAR: S1, S2 heard, rate and rhythm regular. RESPIRATORY: Clear to auscultation. GASTROINTESTINAL: Abdomen is soft. MUSCULOSKELETAL: No tenderness, no edema. DERMATOLOGIC: No skin rash. NEUROLOGIC: Alert and awake and oriented x3. No focal neurologic deficits. Moving all the extremit ies. PSYCHIATRIC: Mood and affect normal. LABORATORY DATA: Potassium is 3.4, BUN is 35, potassium is 3.1. ASSESSMENT AND PLAN: 1. Acute kidney injury on chronic kidney disease, stage 4. Renal function seems to be stable. Okay with Lasix with cautious monitoring of renal function. 2. Cardiorenal syndrome . 3. Fluid overload. 4. Edema 5. Hypertension. 6. Obesity. Plan is to monitor renal function closely. Okay with Lasix. We will follow.
== END 2017-02-13 11:57 | disposition home or self-care (01) | DRG 291 ==
LOC: ERS 22:29 → 2SW 02-11 04:20 → OBSVTOIN 02-11 04:20 → 2NO 02-12 10:57
PROVIDERS: ADMIT Internal Medicine; ATTEND Internal Medicine
PROC: 0DB78ZX Excision of Stomach, Pylorus, Via Natural or Artificial Opening Endoscopic, Diagnostic (ICD-10-PCS; principal; 2017-02-12)
DX: I13.0 Hypertensive heart and chronic kidney disease with heart failure and stage 1 through stage 4 chronic kidney disease, or unspecified chronic kidney disease (principal); I50.43 Acute on chronic combined systolic (congestive) and diastolic (congestive) heart failure; E11.22 Type 2 diabetes mellitus with diabetic chronic kidney disease; N17.9 Acute kidney failure, unspecified; N18.4 Chronic kidney disease, stage 4 (severe); E88.09 Other disorders of plasma-protein metabolism, not elsewhere classified; A09 Infectious gastroenteritis and colitis, unspecified; I25.10 Atherosclerotic heart disease of native coronary artery without angina pectoris; Z95.1 Presence of aortocoronary bypass graft; E66.9 Obesity, unspecified; Z68.38 Body mass index [BMI] 38.0-38.9, adult; E78.00 Pure hypercholesterolemia, unspecified; K29.70 Gastritis, unspecified, without bleeding; I48.2 Chronic atrial fibrillation; K21.9 Gastro-esophageal reflux disease without esophagitis; M10.9 Gout, unspecified; Z88.1 Allergy status to other antibiotic agents; Z88.5 Allergy status to narcotic agent; Z88.8 Allergy status to other drugs, medicaments and biological substances; Z79.01 Long term (current) use of anticoagulants; Z79.82 Long term (current) use of aspirin; Z79.4 Long term (current) use of insulin; K20.9 Esophagitis, unspecified; D64.9 Anemia, unspecified; I77.9 Disorder of arteries and arterioles, unspecified
CPT/HCPCS: 36415; 36416; 71010; 74176; 80048; 80053; 81001; 82550; 82553; 82728; 83540; 83550; 83735; 83880; 84484; 85025; 88305; 88312; 93005; 93306; 93798; 96365; 96375; A4216; J0696; J1815; J1940; J2001; J2270; J2405; J2550

== ENCOUNTER 2017-10-20 06:16 | Day surgery (SDC) | payer MEDICARE ==
[2017-10-19 08:40] VITALS: BMI 35.0
[2017-10-20] MEDS ORDERED: PROPOFOL 200 MG/20 ML VIAL ONE (10:19)
[2017-10-20] MEDS ORDERED: Lidocaine 1% PF 5 ML VIAL ONE (10:19)
--- NOTE | 2017-10-20 10:47 | OP ---
DATE OF PROCEDURE: 10/20/2017 PROCEDURE: Esophagogastroduodenoscopy with biopsy and colonoscopy with biopsy and snare polypectomy. PREOPERATIVE DIAGNOSIS: Epigastric to periumbilical abdominal pain and family history of colon cance r. OPERATIVE NOTE: Informed consent was obtained from the patient. He was sedated with total intraveno us anesthesia. The bite block was placed and the endoscope was advanced easily to the second portion of the duodenum and retroflexion was performed in the stomach. The esophagus was normal. The GE ju nction was normal. The stomach had a long fold in the antrum, which was several centimeters long and a centimeter wide that had some polypoid overlying mucosa. Biopsies were obtained from this. The f old was soft. There were a couple other soft up to 1 cm polyps in the antrum as well and biopsies we re obtained. These are likely hyperplastic changes. Biopsies were obtained to rule out adenomatous or dysplastic changes. Retroflexed views in the stomach were normal. The pylorus and first and seco nd portions of the duodenum were normal. The patient was turned around. Rectal exam was performed a nd was normal. The preparation quality was good. The colonoscope was advanced to the terminal ileum without difficulty. The mucosa of the terminal ileum was normal. The ileocecal valve and appendice al orifice were clearly identified. A 5 mm polyp was removed by cold snare polypectomy from the prox imal ascending colon. Two polyps measuring 2 mm were removed by cold biopsy forceps from the hepatic flexure. Four polyps were removed from the transverse colon measuring 5-6 mm. Two of these were re moved with cold snare polypectomy and two were removed with hot snare polypectomy. A 5 mm polyp was removed from the descending colon by snare cautery polypectomy. There was moderate diverticulosis of the sigmoid and descending colon. Retroflex views in the rectum were unremarkable. IMPRESSION: 1. Long fold in the antrum with some polypoid overlying mucosa. The fold was soft and biopsies were obtained. This could be some hyperplastic change. Biopsies were obtained to rule out dysplastic or adenomatous changes that could potentially require further intervention. If hyperplastic or fundic gland polyp changes are seen, then no further intervention should be necessary. 2. Otherwise normal esophagogastroduodenoscopy. 3. A 5 mm ascending polyp. 4. Two polyps measuring 2 mm removed from the hepatic flexure. 5. Four polyps measuring 5-6 mm were removed from the transverse colon. 6. One 5 mm polyp was removed from the descending colon. 7. Sigmoid and descending moderate diverticulosis. RECOMMENDATIONS: 1. Await histopathology. 2. Repeat colonoscopy in 3 years if three or more of the colon polyps are adenomatous. Repeat in 5 years, otherwise. His mother had colon cancer. 3. High fiber diet. 4. Restart aspirin and Plavix today.
== END 2017-10-20 10:40 | disposition home or self-care (01) ==
LOC: SDC 06:16
PROVIDERS: ATTEND Internal Medicine Gastroenterology
PROC: 0DB78ZX Excision of Stomach, Pylorus, Via Natural or Artificial Opening Endoscopic, Diagnostic (ICD-10-PCS; principal; 2017-10-20)
PROC: 0DBK8ZX Excision of Ascending Colon, Via Natural or Artificial Opening Endoscopic, Diagnostic (ICD-10-PCS; 2017-10-20)
PROC: 0DBL8ZX Excision of Transverse Colon, Via Natural or Artificial Opening Endoscopic, Diagnostic (ICD-10-PCS; 2017-10-20)
PROC: 0DBM8ZX Excision of Descending Colon, Via Natural or Artificial Opening Endoscopic, Diagnostic (ICD-10-PCS; 2017-10-20)
PROC: 0DBL8ZX Excision of Transverse Colon, Via Natural or Artificial Opening Endoscopic, Diagnostic (ICD-10-PCS; 2017-10-20)
DX: K31.7 Polyp of stomach and duodenum (principal); D12.2 Benign neoplasm of ascending colon; D12.3 Benign neoplasm of transverse colon; K21.9 Gastro-esophageal reflux disease without esophagitis; K57.30 Diverticulosis of large intestine without perforation or abscess without bleeding; E78.00 Pure hypercholesterolemia, unspecified; I25.10 Atherosclerotic heart disease of native coronary artery without angina pectoris; I25.2 Old myocardial infarction; I48.91 Unspecified atrial fibrillation; I13.0 Hypertensive heart and chronic kidney disease with heart failure and stage 1 through stage 4 chronic kidney disease, or unspecified chronic kidney disease; E11.22 Type 2 diabetes mellitus with diabetic chronic kidney disease; N18.9 Chronic kidney disease, unspecified; I50.9 Heart failure, unspecified; Z86.73 Personal history of transient ischemic attack (TIA), and cerebral infarction without residual deficits; Z80.0 Family history of malignant neoplasm of digestive organs; Z79.02 Long term (current) use of antithrombotics/antiplatelets; Z79.4 Long term (current) use of insulin; Z79.82 Long term (current) use of aspirin; Z79.899 Other long term (current) drug therapy; Z88.1 Allergy status to other antibiotic agents; Z88.5 Allergy status to narcotic agent; Z88.8 Allergy status to other drugs, medicaments and biological substances; Z95.1 Presence of aortocoronary bypass graft
CPT/HCPCS: 88305; 88312; J2001; J2704

== ENCOUNTER 2018-02-06 11:29 | Observation (INO) | payer MEDICARE ==
[2018-02-06 11:57] LABS: #Eosinphils 0.4 thou/uL (0.0-0.7); #Lymphocytes 1.6 thou/uL (1.20-3.40); #Monocytes 0.6 thou/uL (0.11-0.59); #Neutrophils 5.7 thou/uL (1.40-6.50); %Basophils 0.5 % (0.0-1.0); %Eosinophils 5.3 % (0.0-10.0); %Lymphocytes 19.4 % (21.0-51.0); %Monocytes 7.6 % (0.0-10.0); %Neutrophils 67.3 % (42.0-75.0); Hemoglobin 10.9 g/dL (14.0-18.0); Mean Corpuscular HGB CONC 32.8 g/dL (32.0-36.0); Mean Corpuscular Hemoglobin 30.2 pg (27.0-31.0); Mean Corpuscular Volume 91.9 fL (78.0-98.0); Mean Platelet Volume 6.9 fL (7.4-10.4); Platelet Count 218 thou/uL (130-400); RBC Distribution Width 13.7 % (11.5-14.5); Red Blood Cell (RBC) Count 3.62 mill/uL (4.70-6.10); White Blood Cell (WBC) Count 8.5 thou/uL (4.8-10.8)
[2018-02-06 12:18] LABS: ALT (SGPT) 11 U/L (8-55); AST (SGOT) 14 U/L (5-34); Albumin 3.7 g/dL (3.4-4.8); Alkaline Phosphatase 76 U/L (40-150); Anion Gap 14 mmol/L (10-20); BUN (Urea Nitrogen) 31 mg/dL (8.4-25.7); Bilirubin, Total 0.5 mg/dL (0.2-1.2); CK (CPK) 74 U/L (30-200); Calc. Creatinine Clearance 0 mL/min (70-130); Calcium 8.9 mg/dL (7.8-10.44); Carbon Dioxide 25 mmol/L (23-31); Chloride 103 mmol/L (98-107); Estimated GFR-MDRD 21; Globulin 3.8 g/dL (2.4-3.5); Glucose 172 mg/dL (80-115); Lipase 39 U/L (8-78); Potassium 4.7 mmol/L (3.5-5.1); Protein, Total 7.5 g/dL (5.8-8.1); Sodium 137 mmol/L (136-145)
[2018-02-06 12:23] LABS: CKMB 1.8 ng/mL (0-6.6); Troponin I 0.014 ng/mL (< 0.028)
[2018-02-06] MEDS ORDERED: Zolpidem Tartrate 5 MG TAB PO PRN (13:52)
[2018-02-06] MEDS ORDERED: Acetaminophen 325 MG TAB PO PRN ×2 (13:52→13:57)
[2018-02-06 14:54] VITALS: BMI 37.6
[2018-02-06 15:03] LABS: Troponin I 0.015 ng/mL (< 0.028)
--- NOTE | 2018-02-06 15:36 | HP ---
DATE OF ADMISSION: 02/06/2018 PRIMARY CARE PHYSICIAN: Eden Gallego M.D. HOT BOX OPERATOR: Alissa Sky M.D. EVENT PROMOTIONS COORDINATOR: Reno Burgos M.D. CHIEF COMPLAINT: Chest pain. HISTORY OF PRESENT ILLNESS: This is a 62-year-old pleasant male who presented to the ER at [place] for chest pain, which radiated to his back. He reports this is the same pain he had prior to his CABG in 2011. The patient has a medical history of hypertension, diabetes type 2, CHF, atrial fibrillation, GERD , asthma, chronic renal disease, hyperlipidemia and is a former smoker. The patient reports the chest pain as a sharp squeeze, lasted several minutes, was a 10/10. The patient stated he was lifting his right arm to put on a jacket when the pain started. He will be admitted to the observation unit for further management. PAST MEDICAL HISTORY: As above. FAMILY HISTORY: Positive for cardiac disease. PAST SURGICAL HISTORY: CABG with 3-vessel in 2011. SOCIAL HISTORY: The patient drinks socially. He is a former drug user, abuse marijuana, smoke cigarettes, but stopped smoking 25 years ago. Lives at home with his family. ALLERGIES: Include HYDROCODONE, LEVAQUIN, LOSARTAN. CURRENT MEDICATIONS: Include aspirin 81 mg, glimepiride 4 mg, Plavix 75 mg, carvedilol 25, hydralazine 50 mg, allopurinol 100 mg, coenzyme Q 100 mg, amlodipine 5 mg, Lasix 40 mg, Ranexa 500 mg, Lantus 15 units subcu once a day, calcitriol 0.25 mcg, Crestor 40 mg, gabapentin 300 mg t.i.d., fluconazole 2 times a day, magnesium oxide 400 mg, Celexa and takes cranberry tablet every day. REVIEW OF SYSTEMS: Constitutional: Denies fever or chills. Eyes: Denies any photophobia, discharge or any change in vision. ENT: Denies any rhinorrhea, sore throat. Cardiovascular: Reports chest pain with radiation to the back. Denies any syncope. Denies any palpitations. Respiratory: Denies any shortness of breath. No cyanosis. Gastrointestinal: Denies any abdomen pain, nausea, vomiting, diarrhea or constipation. Musculoskeletal: Denies any myalgias, injury or trauma. Skin: Denies any rash or skin changes. Neurologic : Denies any focal weakness. Denies a headache. Heme/Lymphatic: Denies any abnormal clotting or easily bruising. PHYSICAL EXAMINATION: VITAL SIGNS: Blood pressure 140/81, pulse is 63, respirations 17, temperature is 97.4, pulse ox is 97% on room air. CONSTITUTIONAL: The patient is in no distress. HEAD: Atraumatic, normocephalic. EYES: Pupils are equally round and reactive to light. Extraocular muscles are intact. ENT: Mouth is normal. Mucous membranes are moist. NECK: Trachea is midline. No carotid bruits. Normal range of motion. RESPIRATORY/CHEST: Breath sounds are clear. Chest movement is symmetrical. He is in no respiratory distress. CARDIOVASCULAR: Regular rate and rhythm. No murmurs are noted. ABDOMEN: Nontender on palpation. Bowel sounds are heard. BACK: Normal inspection. No tenderness. EXTREMITIES: Upper extremities, motor strength is normal. No cyanosis, no clubbing. Lower extremities, motor strength is normal. No calf tenderness. NEUROLOGIC: The patient is oriented to person, place and time. No sensory deficits. Speech is normal. SKIN: warm and dry. Skin is normal in color. EKG interpretation, normal sinus rhythm, 60 beats per minute, no ectopics, conduction is normal. ST segments are normal. T waves are normal. IMAGING: The patient had a chest x-ray today, which showed mild cardiomegaly with postop midline sternotomy, mild vascular congestion. No pneumonia, edema, pleural effusion or other acute process. LABORATORY DATA: White blood cell count is 8.5, hemoglobin 10.9, hematocrit 33.3, platelet count is 218,000. Chemistry, sodium 137, potassium 4.7, chloride 103, carbon dioxide 25, anion gap is 14, BUN is 31, creatinine is 3.01 , estimated GFR is 21, glucose 172, calcium is 8.9. Liver enzymes are unremarkable. First troponin is undetectable. CK-MB is 1.8. BNP is 566.4. Lipase is 39. ASSESSMENT AND PLAN: 1. Chest pain. We will order a stress test and an echocardiogram. We will consult Cardiology. 2. Congestive heart failure. We will continue his Lasix. 3. Chronic renal disease. We will monitor renal function carefully. 4. Hypertension. We will monitor blood pressures. Continue home medications. 5. Diabetes type 2. We will monitor blood sugars, order insulin sliding scale. 6. History of coronary artery disease. We will continue the aspirin. 7. Hyperlipidemia. We will continue his home medications. The patient had a lipid profile done in November. Hospital course will depend on clinical findings. EVELYN
--- NOTE | 2018-02-06 16:17 | PDOC.EVN ---
Event Note - Event Note Event Note: Reviewed chart, saw patient. Collaborated with Luz Mcclelland CLASSIFICATION CONTROL CLERK. Agree with assessment and plan as documented.
[2018-02-06 18:15] LABS: Troponin I 0.023 ng/mL (< 0.028)
[2018-02-06] MEDS ORDERED: Famotidine 20 MG TAB PO SCH (21:00)
[2018-02-06] MEDS ORDERED: Benzonatate 100 MG CAP PO PRN (22:23)
[2018-02-06] MEDS ORDERED: PROVENTIL INHALER 6.7 G (200 INHALATIONS) INH PRN (22:23)
[2018-02-06] MEDS ORDERED: Insulin Glargine 15 UNITS in Pre-Filled Syringe 1 EACH SC SCH (23:00)
[2018-02-06] MEDS ORDERED: Magnesium Oxide 400 MG TAB PO SCH (23:15)
[2018-02-06] MEDS ORDERED: hydrALAZINE 25 MG TAB PO SCH (23:15)
[2018-02-06] MEDS ORDERED: Gabapentin 300 MG CAP PO SCH (23:15)
[2018-02-06] MEDS ORDERED: Carvedilol 25 MG TAB PO SCH (23:15)
[2018-02-06] MEDS ORDERED: Atorvastatin Calcium 10 MG TAB PO SCH (23:15)
[2018-02-07 07:36] LABS: #Eosinphils 0.4 thou/uL (0.0-0.7); #Lymphocytes 1.7 thou/uL (1.20-3.40); #Monocytes 0.7 thou/uL (0.11-0.59); #Neutrophils 6.6 thou/uL (1.40-6.50); %Basophils 0.5 % (0.0-1.0); %Eosinophils 4.4 % (0.0-10.0); %Lymphocytes 17.7 % (21.0-51.0); %Monocytes 7.3 % (0.0-10.0); %Neutrophils 70.2 % (42.0-75.0); Hemoglobin 10.1 g/dL (14.0-18.0); Mean Corpuscular HGB CONC 32.4 g/dL (32.0-36.0); Mean Corpuscular Hemoglobin 29.8 pg (27.0-31.0); Mean Platelet Volume 7.3 fL (7.4-10.4); Platelet Count 216 thou/uL (130-400); RBC Distribution Width 13.7 % (11.5-14.5); Red Blood Cell (RBC) Count 3.37 mill/uL (4.70-6.10); White Blood Cell (WBC) Count 9.4 thou/uL (4.8-10.8)
[2018-02-07 08:04] LABS: ALT (SGPT) 11 U/L (8-55); AST (SGOT) 12 U/L (5-34); Albumin 3.4 g/dL (3.4-4.8); Alkaline Phosphatase 76 U/L (40-150); Anion Gap 11 mmol/L (10-20); BUN (Urea Nitrogen) 29 mg/dL (8.4-25.7); Bilirubin, Total 0.4 mg/dL (0.2-1.2); Calc. Creatinine Clearance 45 mL/min (70-130); Calcium 8.7 mg/dL (7.8-10.44); Carbon Dioxide 26 mmol/L (23-31); Chloride 105 mmol/L (98-107); Estimated GFR-MDRD 22; Globulin 3.5 g/dL (2.4-3.5); Glucose 89 mg/dL (80-115); Potassium 4.1 mmol/L (3.5-5.1); Protein, Total 6.9 g/dL (5.8-8.1); Sodium 138 mmol/L (136-145)
[2018-02-07] MEDS: Carvedilol 25 MG TAB PO SCH ×2 (08:15→17:35)
[2018-02-07] MEDS ORDERED: Regadenoson 0.4 MG/5 ML SYRINGE ONE (08:38)
[2018-02-07] MEDS ORDERED: Amlodipine 5 MG TAB PO SCH (09:00)
[2018-02-07] MEDS ORDERED: Fluticasone Propionate Nasal Spray 16 gm Bottle NASAL SCH (09:00)
[2018-02-07] MEDS ORDERED: Folic Acid/Vit B Comp W-C PO SCH (09:00)
[2018-02-07] MEDS ORDERED: Clopidogrel Bisulfate 75 MG TAB PO SCH (09:00)
[2018-02-07] MEDS ORDERED: Famotidine 20 MG TAB PO PRN (09:00)
[2018-02-07] MEDS ORDERED: Furosemide 40 MG TAB PO SCH (09:00)
[2018-02-07] MEDS ORDERED: Atorvastatin Calcium 10 MG TAB PO SCH (09:00)
[2018-02-07] MEDS ORDERED: Colchicine 0.6 MG TAB PO SCH (09:00)
[2018-02-07] MEDS ORDERED: Citalopram 20 MG TAB PO SCH (09:00)
[2018-02-07] MEDS ORDERED: Ubidecarenone 50 MG CAP PO SCH (09:00)
[2018-02-07] MEDS ORDERED: Allopurinol 100 MG TAB PO SCH (09:00)
[2018-02-07] MEDS ORDERED: Loratadine 10 MG TAB PO SCH (09:00)
[2018-02-07] MEDS: Gabapentin 300 MG CAP PO SCH ×2 (12:01→15:21)
[2018-02-07] MEDS: hydrALAZINE 25 MG TAB PO SCH ×2 (12:02→15:22)
--- NOTE | 2018-02-07 12:57 | NM ---
NUCLEAR MEDICINE CARDIAC STRESS TEST WITH EJECTION FRACTION: HISTORY: Chest pain, prior CABG, coronary artery disease, congestive heart failure. COMPARISON: Exam from 2014. FINDINGS: Stress and rest performed after the intravenous administration of 31.7 and 9 mCi Technetium 99m sesta mibi. There is no evidence of reversible ischemia. There is global hypokinesia which is worse within the s eptum. The calculated ejection fraction is 43%. IMPRESSION: 1. No evidence of reversible ischemia. 2. Very attenuated and patchy radiotracer uptake suggestive of old infarctions. 3. Global hypokinesis with ejection fraction of 42%, worse at the septum. POS: SUSANA
--- NOTE | 2018-02-07 14:48 | PDOC.PN ---
- Subjective Encounter Start Date: 02/07/18 Encounter Start Time: 14:00 Subjective: f/u on admission for chest pain -: Examined today -: Denies complaints, denies chest pain, SOB today - Objective Vital Signs & Weight: Vital Signs (12 hours) Temp Pulse Resp BP Pulse Ox 02/07/18 12:02 67 02/07/18 12:00 97.3 F L 69 18 151/79 H 97 02/07/18 11:55 67 02/07/18 07:51 98.8 F 67 20 139/78 95 02/07/18 04:16 98.8 F 72 16 139/83 95 Weight Weight 120.656 kg I&O: 02/06/18 02/07/18 02/08/18 06:59 06:59 06:59 Intake Total 1160 Balance 1160 Result Diagrams: 02/07/18 06:34 02/07/18 06:34 Additional Labs: Accuchecks 02/07/18 02/07/18 02/06/18 11:57 06:12 23:44 POC Glucose 246 H 101 137 H 02/06/18 21:50 POC Glucose 182 H Phys Exam - Physical Examination Constitutional: NAD HEENT: PERRLA, moist MMs Neck: no nodes, no JVD, supple Respiratory: no wheezing, no rhonchi, clear to auscultation bilateral Cardiovascular: RRR, no significant murmur Gastrointestinal: soft, non-tender Musculoskeletal: no edema, pulses present Neurological: non-focal, normal sensation Lymphatic: no nodes Psychiatric: normal affect, A&O x 3 Skin: no rash, normal turgor Dx/Plan (1) Acute on chronic combined systolic and diastolic congestive heart failure Code(s): I50.43 - ACUTE ON CHRONIC COMBINED SYSTOLIC AND DIASTOLIC HRT FAIL Status: Acute (2) CAD (coronary artery disease) Code(s): I25.10 - ATHSCL HEART DISEASE OF [place] CORONARY ARTERY W/O ANG PCTRS Status: Chronic (3) Dyslipidemia Code(s): E78.5 - HYPERLIPIDEMIA, UNSPECIFIED Status: Chronic (4) HTN (hypertension) Code(s): I10 - ESSENTIAL (PRIMARY) HYPERTENSION Status: Chronic - Plan cont current plan of care, DVT proph w/SCDs -: Stress test performed today, no acute ischemia was noted -: EF: 42% similar to last reading. Echo taken, awaiting interpretation -: Awaiting Cardiology consult due to known CAD/CHF -: Will monitor VS and labs * .
[2018-02-07] MEDS ORDERED: Dextrose 5% in Water 1,000 ML IV PRN (15:59)
[2018-02-07] MEDS ORDERED: HumaLOG 300 UNITS/3 ML VIAL SC PRN (15:59)
[2018-02-07] MEDS ORDERED: Dextrose 50% Abboject 50 ML SYRINGE SLOW IVP PRN (15:59)
[2018-02-07 16:12] VITALS: BP 149/77; TEMP 98.2
--- NOTE | 2018-02-07 16:27 | PDOC.EVN ---
Event Note - Event Note Event Note: Reviewed chart, saw patient. Collaborated with Luz Mcclelland GI TECHNICIAN. Agree with assessment and plan as documented.
--- NOTE | 2018-02-07 17:14 | PDOC.PN ---
- Subjective Encounter Start Date: 02/06/18 Encounter Start Time: 13:00 (late entry) Pt seen re: chest pain. Reports feeling better. - Objective Vital Signs & Weight: Vital Signs (12 hours) Temp Pulse Resp BP Pulse Ox 02/07/18 15:56 98.2 F 68 20 149/77 H 95 02/07/18 15:22 67 02/07/18 12:02 67 02/07/18 12:00 97.3 F L 69 18 151/79 H 97 02/07/18 11:55 67 02/07/18 07:51 98.8 F 67 20 139/78 95 Weight Weight 266 lb I&O: 02/06/18 02/07/18 02/08/18 06:59 06:59 06:59 Intake Total 1160 Balance 1160 Result Diagrams: 02/07/18 06:34 02/07/18 06:34 Additional Labs: Accuchecks 02/07/18 02/07/18 02/07/18 16:34 11:57 06:12 POC Glucose 305 H 246 H 101 02/06/18 02/06/18 23:44 21:50 POC Glucose 137 H 182 H Phys Exam - Physical Examination Constitutional: NAD Neck: supple Cardiovascular: RRR Gastrointestinal: soft Neurological: moves all 4 limbs Psychiatric: normal affect Dx/Plan (1) Chest pain Code(s): R07.9 - CHEST PAIN, UNSPECIFIED Status: Acute Comment: workup in progress - Plan * . Reviewed chart, saw patient. Collaborated with Luz Mcclelland TECHNICIAN'S HELPER. Agree with assessment and plan as documented. Review of Systems - Medications/Allergies Allergies/Adverse Reactions: Allergies Allergy/AdvReac Type Severity Reaction Status Date / Time hydrocodone bitartrate Allergy Verified 02/11/17 05:35 [From [place]] levofloxacin [From Levaquin] Allergy Verified 02/11/17 05:35 losartan Allergy Verified 02/11/17 05:35 tramadol Allergy Verified 02/06/18 15:00 Medications: Current Medications Acetaminophen (Tylenol) 650 mg PO Q4H PRN PRN Reason: Headache/Fever/Mild Pain (1-3) Albuterol Sulfate (Proventil Hfa) 2 puff INH Q4H PRN PRN Reason: SOB &/or Wheezing Allopurinol (Zyloprim) 200 mg PO DAILY [facility] Last Admin: 02/07/18 11:58 Dose: 200 mg Amlodipine Besylate (Norvasc) 5 mg PO DAILY [facility] Last Admin: 02/07/18 11:55 Dose: 5 mg Aspirin (Aspirin Chewable) 81 mg PO DAILY [facility] Last Admin: 02/07/18 11:54 Dose: 81 mg Atorvastatin Calcium (Lipitor) 10 mg PO BID [facility] Last Admin: 02/07/18 11:55 Dose: 10 mg Benzonatate (Tessalon) 100 mg PO TIDPRN PRN PRN Reason: Cough Carvedilol (Coreg) 25 mg PO BID[facility] Last Admin: 02/07/18 08:15 Dose: Not Given Citalopram Hydrobromide (Celexa) 20 mg PO DAILY [facility] Last Admin: 02/07/18 11:57 Dose: 20 mg Clopidogrel Bisulfate (Plavix) 75 mg PO DAILY [facility] Last Admin: 02/07/18 11:57 Dose: 75 mg Coenzyme Q10 (Coenzyme Q10) 200 mg PO DAILY [facility] Last Admin: 02/07/18 11:54 Dose: 200 mg Colchicine (Colcrys) 0.6 mg PO DAILY [facility] Last Admin: 02/07/18 11:57 Dose: 0.6 mg Dextrose/Water (Dextrose 50%) 25 gm SLOW IVP PRN PRN PRN Reason: Hypoglycemia Famotidine (Pepcid) 20 mg PO DAILYPRN PRN PRN Reason: INDIGESTION Fluticasone Propionate (Flonase Nasal [place]) 0 gm NASAL BID [facility] Last Admin: 02/07/18 12:02 Dose: Not Given Furosemide (Lasix) 40 mg PO DAILY [facility] Last Admin: 02/07/18 11:59 Dose: 40 mg Gabapentin (Neurontin) 300 mg PO TID [facility] Last Admin: 02/07/18 15:21 Dose: 300 mg Glucagon (Glucagon) 1 mg IM PRN PRN PRN Reason: Hypoglycemia Hydralazine HCl (Apresoline) 50 mg PO TID [facility] Last Admin: 02/07/18 15:22 Dose: 50 mg Insulin Glargine 15 units/ (Miscellaneous Medication) 0.15 mls @ 0 mls/hr SC [facility] Dextrose/Water (D5w) 1,000 mls @ 0 mls/hr IV .Q0M PRN PRN Reason: Hypoglycemia Insulin Human Lispro (Humalog) 0 units SC .MODERATE SLIDING SC PRN PRN Reason: Moderate Correctional Scale Loratadine (Claritin) 10 mg PO DAILY [facility] Last Admin: 02/07/18 12:00 Dose: Not Given Magnesium Oxide (Magnesium Oxide) 400 mg PO HS [facility] Pantoprazole Sodium (Protonix) 40 mg PO DAILY PRN PRN Reason: Indigestion Ranolazine (Ranexa) 500 mg PO BID [facility] Last Admin: 02/07/18 11:58 Dose: 500 mg Sodium Chloride (Flush - Normal Saline) 10 ml IVF Q12HR PRN PRN Reason: Saline Flush Last Admin: 02/06/18 21:47 Dose: 10 ml Vitamin B Complex/Vit C/Folic Acid (Nephro-Rivka Tablet) 1 tab PO DAILY [facility] Last Admin: 02/07/18 11:58 Dose: 1 tab Zolpidem Tartrate (Ambien) 5 mg PO HSPRN PRN PRN Reason: Insomnia
--- NOTE | 2018-02-07 17:16 | PDOC.PN ---
- Subjective Encounter Start Date: 02/07/18 Encounter Start Time: 17:15 Pt seen for followup re: chest pain. Feels better. - Objective MAR Reviewed: Yes Vital Signs & Weight: Vital Signs (12 hours) Temp Pulse Resp BP Pulse Ox 02/07/18 15:56 98.2 F 68 20 149/77 H 95 02/07/18 15:22 67 02/07/18 12:02 67 02/07/18 12:00 97.3 F L 69 18 151/79 H 97 02/07/18 11:55 67 02/07/18 07:51 98.8 F 67 20 139/78 95 Weight Weight 266 lb I&O: 02/06/18 02/07/18 02/08/18 06:59 06:59 06:59 Intake Total 1160 Balance 1160 Result Diagrams: 02/07/18 06:34 02/07/18 06:34 Additional Labs: Accuchecks 02/07/18 02/07/18 02/07/18 16:34 11:57 06:12 POC Glucose 305 H 246 H 101 02/06/18 02/06/18 23:44 21:50 POC Glucose 137 H 182 H EKG Reviewed by me: Yes (Tele: NSR) Phys Exam - Physical Examination Constitutional: NAD HEENT: moist MMs Neck: supple Respiratory: clear to auscultation bilateral Cardiovascular: RRR Gastrointestinal: soft Neurological: moves all 4 limbs Psychiatric: normal affect Dx/Plan (1) Chest pain Code(s): R07.9 - CHEST PAIN, UNSPECIFIED Status: Acute Comment: waiting cardiology service input - Plan * . Reviewed chart, saw patient. Collaborated with Luz Mcclelland NP. Agree with assessment and plan as documented. Review of Systems - Medications/Allergies Allergies/Adverse Reactions: Allergies Allergy/AdvReac Type Severity Reaction Status Date / Time hydrocodone bitartrate Allergy Verified 02/11/17 05:35 [From [place]] levofloxacin [From Levaquin] Allergy Verified 02/11/17 05:35 losartan Allergy Verified 02/11/17 05:35 tramadol Allergy Verified 02/06/18 15:00 Medications: Current Medications Acetaminophen (Tylenol) 650 mg PO Q4H PRN PRN Reason: Headache/Fever/Mild Pain (1-3) Albuterol Sulfate (Proventil Hfa) 2 puff INH Q4H PRN PRN Reason: SOB &/or Wheezing Allopurinol (Zyloprim) 200 mg PO DAILY [facility] Last Admin: 02/07/18 11:58 Dose: 200 mg Amlodipine Besylate (Norvasc) 5 mg PO DAILY [facility] Last Admin: 02/07/18 11:55 Dose: 5 mg Aspirin (Aspirin Chewable) 81 mg PO DAILY [facility] Last Admin: 02/07/18 11:54 Dose: 81 mg Atorvastatin Calcium (Lipitor) 10 mg PO BID [facility] Last Admin: 02/07/18 11:55 Dose: 10 mg Benzonatate (Tessalon) 100 mg PO TIDPRN PRN PRN Reason: Cough Carvedilol (Coreg) 25 mg PO BID-[facility] Last Admin: 02/07/18 08:15 Dose: Not Given Citalopram Hydrobromide (Celexa) 20 mg PO DAILY [facility] Last Admin: 02/07/18 11:57 Dose: 20 mg Clopidogrel Bisulfate (Plavix) 75 mg PO DAILY [facility] Last Admin: 02/07/18 11:57 Dose: 75 mg Coenzyme Q10 (Coenzyme Q10) 200 mg PO DAILY [facility] Last Admin: 02/07/18 11:54 Dose: 200 mg Colchicine (Colcrys) 0.6 mg PO DAILY [facility] Last Admin: 02/07/18 11:57 Dose: 0.6 mg Dextrose/Water (Dextrose 50%) 25 gm SLOW IVP PRN PRN PRN Reason: Hypoglycemia Famotidine (Pepcid) 20 mg PO DAILYPRN PRN PRN Reason: INDIGESTION Fluticasone Propionate (Flonase Nasal [place]) 0 gm NASAL BID [facility] Last Admin: 02/07/18 12:02 Dose: Not Given Furosemide (Lasix) 40 mg PO DAILY [facility] Last Admin: 02/07/18 11:59 Dose: 40 mg Gabapentin (Neurontin) 300 mg PO TID [facility] Last Admin: 02/07/18 15:21 Dose: 300 mg Glucagon (Glucagon) 1 mg IM PRN PRN PRN Reason: Hypoglycemia Hydralazine HCl (Apresoline) 50 mg PO TID [facility] Last Admin: 02/07/18 15:22 Dose: 50 mg Insulin Glargine 15 units/ (Miscellaneous Medication) 0.15 mls @ 0 mls/hr SC [facility] Dextrose/Water (D5w) 1,000 mls @ 0 mls/hr IV .Q0M PRN PRN Reason: Hypoglycemia Insulin Human Lispro (Humalog) 0 units SC .MODERATE SLIDING SC PRN PRN Reason: Moderate Correctional Scale Loratadine (Claritin) 10 mg PO DAILY [facility] Last Admin: 02/07/18 12:00 Dose: Not Given Magnesium Oxide (Magnesium Oxide) 400 mg PO [facility] Pantoprazole Sodium (Protonix) 40 mg PO DAILY PRN PRN Reason: Indigestion Ranolazine (Ranexa) 500 mg PO BID [facility] Last Admin: 02/07/18 11:58 Dose: 500 mg Sodium Chloride (Flush - Normal Saline) 10 ml IVF Q12HR PRN PRN Reason: Saline Flush Last Admin: 02/06/18 21:47 Dose: 10 ml Vitamin B Complex/Vit C/Folic Acid (Nephro-Rivka Tablet) 1 tab PO DAILY [facility] Last Admin: 02/07/18 11:58 Dose: 1 tab Zolpidem Tartrate (Ambien) 5 mg PO HSPRN PRN PRN Reason: Insomnia
--- NOTE | 2018-02-07 18:36 | DIS ---
DATE OF ADMISSION: 02/06/2018 DATE OF DISCHARGE: 02/07/2018 PRIMARY CARE PHYSICIAN: Eden Gallego M.D. COAL TRAMMER: Reno Burgos M.D. DISABILITY INSURANCE CLAIM EXAMINER: Alissa Sky M.D. CONSULTANTS: Shabana Fierro M.D. PROCEDURES: The patient had a nuclear stress test today with impression: 1. No evidence of reversible ischemia. 2. Very attenuated and patchy radiotracer uptake suggestive of old infarctions. 3. Global hypokinesis with ejection fraction of 42%, worse at the septum. HOSPITAL COURSE: Mr. Sellers is a very pleasant 62-year-old male who presented to the emergency [facility] in [place] yesterday for chest pain which radiated to his back. He reports that he was putting hi s arms over his jacket when he had this pain. Reports this is the same pain he had prior to his CABG in 2011. The patient also has a history of hypertension, diabetes, congestive heart failure, and at rial fibrillation with controlled rate, GERD, asthma, chronic renal failure, hyperlipidemia, and is a former smoker. Based on symptoms and past medical history, patient was admitted to observation for further evaluation. A stress test was ordered resulted as above. Patient also had an echocardiogram , results are pending. Patient had three troponins which were also undetectable. The patient's edgar l signs have remained stable. The patient denies any current chest pain or shortness of breath. Dr. Fierro was consulted and visited with the patient. After reviewing labs and stress test, patient was safe to go home and to follow up with Dr. Sky in the next 2-3 weeks. DISCHARGE DIAGNOSES: 1. Coronary artery disease. 2. Chest pain is atypical. 3. Congestive heart failure. 4. Chronic renal disease. 5. Hypertension. 6. Diabetes type 2. 7. Hyperlipidemia. REVIEW OF SYSTEMS: The patient was seen this morning. Denies chest pain, shortness of breath and di zziness. All other symptoms were reviewed and are negative, unless stated in hospital course. PHYSICAL EXAMINATION: VITAL SIGNS: Temperature 98.8, pulse is 72, respirations 16, blood pressure is 139/83, pulse oximetr y is 95% on room air. GENERAL: Patient is in no distress. He is alert and oriented x3. HEENT: Head is atraumatic, normocephalic. Eyes equally round and reactive to light. Extraocular mu scles are intact. ENT: Mouth is normal. Mucous membranes are moist. NECK: Trachea is midline. No carotid bruits. Normal range of motion. RESPIRATORY: Chest: Breath sounds are clear. Chest movement is symmetrical. He is in no respirato ry distress. CARDIOVASCULAR: Regular rate and rhythm. No murmurs are noted. ABDOMEN: Nontender on palpation. Bowel sounds are heard x4. BACK: Normal inspection, no tenderness. EXTREMITIES: Upper extremities motor strength is normal. No cyanosis, no clubbing. Lower extremiti es, motor strength is normal. No calf tenderness. A +2 edema noted bilaterally. NEUROLOGIC: Patient is oriented to person, place and time. No sensory deficits. Speech is normal. SKIN: Warm and dry. Skin color is normal. MEDICATIONS: The patient will be continued on his medications which include aspirin 81 mg p.o. daily , allopurinol 200 mg p.o. daily, amlodipine 5 mg p.o. daily, aspirin 81 mg p.o. daily, Tessalon 100 m g t.i.d., Coreg 25 mg b.i.d., Celexa 20 mg p.o. daily, Plavix 75 mg p.o. daily, colchicine 0.6 mg p.o . daily, fexofenadine 180 mg p.o. daily, fluconazole 1 spray each nostril every day, furosemide 40 mg p.o. daily, gabapentin 300 mg p.o. t.i.d., Apresoline 50 mg p.o. t.i.d., Lantus 15 units subcu at be dtinv, magnesium oxide 400 mg p.o. at bedtime, Protonix 40 mg p.o. daily, Pravachol 40 mg p.o. b.i.d. , Ranexa 500 mg b.i.d., coenzyme Q 200 mg p.o. daily, Ventolin inhaler 2 puffs q.4 hours as needed, v itamin B complex 150 mg p.o. daily, Zantac 150 mg p.o. as needed. The patient is allergic to HYDROCODONE, LEVAQUIN, LEVOFLOXACIN, LOSARTAN, and TRAMADOL. Discharge condition is stable. Patient will be discharged home. REFERRALS: Patient is instructed to follow up with Dr. Gallego within 1 week. Also follow up with Dr. Sky within the next 2-3 weeks.
[2018-02-07] MEDS ORDERED: Insulin Glargine 15 UNITS in Pre-Filled Syringe 1 EACH SC SCH (21:00)
[2018-02-07] MEDS ORDERED: Magnesium Oxide 400 MG TAB PO SCH (21:00)
[2018-02-07] MEDS ORDERED: Non-Formulary Item 1 EACH (Insulin Glargine,Hum.Rec.Anlog [Lantus Solostar] 15 UNIT) SQ SCH (21:00)
--- NOTE | 2018-02-08 00:34 | CON ---
DATE OF CONSULTATION: 02/07/2018 CARDIOLOGY CONSULT ROOM #: [id number]. PRIMARY C DEVELOPER: Dr. Eden Gallego, Dr. Sky. PRIMARY ROAD BOSS: Dr. Burgos. GI DOCTOR: Dr. Gandhi. REASON FOR CARDIOLOGY CONSULTATION: Chest pain and history of CABG and congestive heart failure. HISTORY OF PRESENT ILLNESS: Mr. Sellers is 62-year-old male with a significant history of coronary artery disease with CABG x3 in 2011, chronic systolic heart failure, insulin-dependent diab etes, hypertension, and chronic kidney disease stage 4. Patient started having sharp pain to the med iastinal area, which radiated between shoulder blade. Since yesterday morning from 10/04/2017 at 10: 00 in the morning, after patient received nitroglycerin at the ER, patient's symptoms improved and al so patient received I believe Pepcid and patient's symptoms improved and the patient's sharp pain and pressure in the chest were improved. Patient denied any shortness of breath, dizziness, lightheaded ness, or any other cardiac complaints during the episode. Patient had a history of coronary artery d isease with status post CABG x3 in 2011. However, his symptom is really totally different from the e pisode when he has prior to the CABG in 2011. During the initial Cardiology consult assessment, chong ent denied any sharp or any discomfort in his chest or shortness of breath or any other cardiac compl aints. Patient's last echocardiogram was done in 01/2017, which shows EF 35% to 40%, mildly elevated left ve ntricular size and severely dilated left atrium, mildly enlarged right artery, mild mitral valve regu rgitation, moderate tricuspid regurgitation, and severely elevated pulmonary artery pressure. Umair t had a stress test today, which shows no evidence of reversible ischemia, EF 43%. Patient had sugge stive of old infarctions and global hypokinesis with ejection fraction 42% worsening at the septum. At this moment, the patient denied any cardiac complaints. PAST MEDICAL HISTORY: 1. Coronary artery disease, status post CABG x3 in 2011. 2. Hypertension. 3. Insulin-dependent diabetes. 4. Chronic systolic heart failure. 5. History of paroxysmal atrial fibrillation. 6. Gastroesophageal reflux disease. 7. Asthma. 8. Chronic kidney disease, stage 4. He has seen in followup with Dr. Burgos. 9. Hyperlipidemia. 10. Gout. 11. History of gastroenteritis. 12. Multiple TIAs last one in 2007. PAST SURGICAL HISTORY: CABG x3 in 2012. FAMILY HISTORY: Patient's mother has a medical history of hypertension, congestive heart failure, [place] PD, and insulin-dependent diabetes. Patient's father has diabetes. SOCIAL HISTORY: He lives with his . He has six children and one . He is ex-smoker, myron t 37 years ago. He used marijuana long time ago when he was young. He enjoys one glass of wine abou t once every 2 weeks. He tried to exercise 2 to 3 times a week. He drinks a cup of tea in the [place] ng and he has soda 2 or 3 cans a week. He tried to watch his fluid intake, which limited by [address] Burgos. He and his states that they do not use any salt intake and additional rojas t. ALLERGIES: Patient is allergic to HYDROCODONE, LEVAQUIN, and LOSARTAN. HOME MEDICATIONS: Please refers patient's home medication list on the computer and patient's medical record. REVIEW OF SYSTEMS: A 12-point review of systems was negative, unless otherwise mentioned in the HPI. PHYSICAL EXAMINATION: VITAL SIGNS: Blood pressure 139/78, temperature 98.8, pulse is 67 with sinus rhythm, respiratory rat e 20, O2 sat 95% with room air. GENERAL: The patient is alert and oriented x4, not in acute distress. HEAD: Normocephalic, atraumatic. EYES: Extraocular muscle movement intact. The patient wear glasses. ENT AND MOUTH: Patient oral and nasal mucosa moist without lesion. NECK: No JVD. Normal range of motion, supple. RESPIRATORY: Clear to auscultate bilaterally, but very diminished at the bases. No wheezing, rhonch i, click are noted. CARDIOVASCULAR: Regular rate and rhythm. Normal S1, S2. There are no S3, S4, no significant murmur , hives, thrill noted. Carotid pulse are present without bruit or thrill. EXTREMITIES: 2+ pulses in the bilateral upper and lower extremities. No edema. ABDOMEN: Nontender or mass to palpate. Bowel sounds are present. SKIN: Warm and dry. No lesions or bruise or rash noted. MUSCULOSKELETAL: Patient is able to move all extremities. Patient denied claudication. PSYCHIATRIC: Patient's mood is appropriate. NEUROLOGIC: Nonfocal. Patient alert, awake, oriented x4. LABORATORY DATA: A 12-lead EKG at ER showed sinus rhythm with IVCD, heart rate of [address]-segm ent change or T-wave inversion. . WBC 9.4, hemoglobin 10.1, hematocrit 31.1, platelet 216. So dium of 138, potassium 4.1, BUN 29, creatinine of 2.92 which was 3.01 yesterday, glucose 248. AST 12 , ALT 11, and troponin level is 0.014, 0.015, 0.023. CK-MB 1.8. The patient's total cholesterol 119 , triglyceride is 106, HDL 33, LDL 65, TSH 4.1854, vitamin D is 26.5. PTH 106.9. ASSESSMENT AND PLAN: PLAN: 1. Chest pain. Patient's stress test showing normal with old infarction. Echocardiogram was done, the result is pending at this moment. He has been on aspirin 81 mg once a day, atorvastatin 10 mg __ ___, Coreg 25 mg twice a day. At this moment, we would like to continue the current medication. 2. Chronic systolic heart failure, patient's condition is stable at this moment. Patient denies any shortness of breath or abdomen bloating and there are no edema in the bilateral lower extremities. Patient having on the beta maggy and Lasix 40 mg once a day. Patient's KATY inhibitor or ARBs are o n hold due to history of chronic kidney disease. 3. Chronic kidney disease, patient's creatinine level is slightly improved this morning. We would l ramon to continue to monitor at this moment. 4. Coronary artery disease with a history of coronary artery bypass grafting x3 in 2011. Patient's condition is stable at this moment, we would like to continue to monitor patient on the beta maggy, aspirin, and statin. 5. Hypertension. Patient's blood pressure is stable with current medication. 6. Insulin-dependent diabetes, which is managed by the primary care doctor. 7. Hyperlipidemia. Patient LDL in 11/2017 was 65 with Lipitor 10. We would like to continue to mon itor current medication. 8. History of paroxysmal atrial fibrillation, patient remained in the sinus rhythm at this moment. We would like to continue current medication. 9. Gastroesophageal reflux disease. Patient's chest pressure/pain has improved with the PPI. Rosaura farah was instructed to continue taking those medications and the patient is going on those medications. Thank you for allowing Cardiology service to participate in the care of this patient. We will follow along the patient care team and make a further evaluation as appropriate.
--- NOTE | 2018-02-08 01:52 | CON ---
DATE OF ADMISSION: 02/06/2018 DATE OF CONSULTATION: 02/07/2018 CARDIOLOGY CONSULT NOTE INDICATION FOR CONSULTATION: A 62-year-old patient with history of known coronary artery disease, congestive heart failure symptoms and history of myocardial infarction in the past, was admitted with chest pain. HISTORY OF PRESENT ILLNESS: This very unfortunate 62-year-old gentleman who underwent bypass surgery, I believe in 2013, I am uncertain exactly which date he did have bypass surgery and he has not had any stress testing since that time , at least what he says, but he had some chest pain yesterday, which he felt as very sharp pain. He presented to [facility] and was given nitroglycerin and eased the pain slightly and then overnight the pain gradually went away. He had a stress test today, which showed no evidence of ischemia. He does have an inferior scar. He also had negative enzymes. The EKG did not show any evidence of acute ischemic changes. On the EKG, he had some nonspecific IVCD, but some nonspecific T-wave inversions in 1 and aVL and decreased R-wave progression in V1 through V3 and the stress test also showed a slight decrease or mild decrease in left ventricular systolic function. Ejection fraction was in the 40% range. The lead was documented as 43% with no evidence of reversible ischemia. There was some decreased radioactive tracer uptake compatible with old myocardial infarction, but no evidence of ischemia. He did have some septal hypokinesis, which may be related to his previous bypass surgery. At this time, he has had no further chest discomfort since last night. The patient was wanting to go home and overall appears to be relatively stable per his past medical history, social history, family history, review of systems, please refer to the notes dictated by the nurse practitioner and also his most recent medications list which would also be there. LABORATORY DATA: Showed a BNP of 566. Cardiac enzymes are negative. His creatinine is 3.01. Hemoglobin was 10.1, WBC of 9.4. PHYSICAL EXAMINATION: GENERAL: Reveals a middle-aged obese gentleman who is in no acute distress. VITAL SIGNS: Blood pressure is stable, heart rates in the 60s and shows a sinus rhythm. He is afebrile, respiratory rate is about 20, O2 saturation 95%. HEENT: Shows head to be normocephalic and atraumatic. Carotid pulses are present. I did not hear any bruits. CHEST: Clear to auscultation. CARDIOVASCULAR: Exam reveals a regular rate and rhythm. I did not hear any significant murmurs, heaves, thrills, bruits or rubs. ABDOMEN: Soft and nontender. It is obese. Positive bowel sounds are present. EXTREMITIES: Showed no clubbing, cyanosis or edema. He has well-healed midline surgical incision after median sternotomy. EXTREMITIES: Show no clubbing or cyanosis. He had minimal lower extremity edema. NEUROLOGIC: The patient appears to be intact. IMPRESSION: 1. Chest pain which appears to be noncardiac in nature. I did explain to the patient that should he have further chest pain, he will need to report back to the emergency room as best stress test can be wrong in 10-15% of the population. He does have a history of known coronary artery disease. 2. History of chronic kidney disease. This appears to be relatively stable. He has not had any significant change. He also has a history of hypertension, which is under good control at this time. 3. Type 2 diabetes, which is dealt with by the primary care service. 4. History of atrial fibrillation, but remains in sinus rhythm today. 5. History of tobacco abuse in the past. He no longer smokes. He has also had a history of illicit drug use in the past. I do not believe he is no longer of using any type of illicit drug use. At this time from a cardiac standpoint, he appears to be stable. He wants to go home and I will agree with the discharge of the patient to home. He is to follow with Dr. Sky in the next 2-3 weeks in the office, but was strictly informed that should he have any further chest pain, he will need to report back to the emergency room and also he was given, I believe a prescription for nitroglycerin, which was given to him actually when he was in [place] and he still has the tablets with him. EVELYN
== END 2018-02-07 18:31 | disposition home or self-care (01) ==
LOC: ERS 11:29 → 2SW 13:21
PROVIDERS: ADMIT Internal Medicine; ATTEND Internal Medicine
DX: R07.89 Other chest pain (principal); I13.0 Hypertensive heart and chronic kidney disease with heart failure and stage 1 through stage 4 chronic kidney disease, or unspecified chronic kidney disease; E11.22 Type 2 diabetes mellitus with diabetic chronic kidney disease; N18.4 Chronic kidney disease, stage 4 (severe); I50.43 Acute on chronic combined systolic (congestive) and diastolic (congestive) heart failure; K21.9 Gastro-esophageal reflux disease without esophagitis; J45.909 Unspecified asthma, uncomplicated; E78.5 Hyperlipidemia, unspecified; I25.10 Atherosclerotic heart disease of native coronary artery without angina pectoris; F12.11 Cannabis abuse, in remission; I48.0 Paroxysmal atrial fibrillation; M10.9 Gout, unspecified; I25.2 Old myocardial infarction; E66.9 Obesity, unspecified; Z68.37 Body mass index [BMI] 37.0-37.9, adult; Z86.73 Personal history of transient ischemic attack (TIA), and cerebral infarction without residual deficits; Z87.891 Personal history of nicotine dependence; Z79.02 Long term (current) use of antithrombotics/antiplatelets; Z79.4 Long term (current) use of insulin; Z79.51 Long term (current) use of inhaled steroids; Z79.899 Other long term (current) drug therapy; Z88.1 Allergy status to other antibiotic agents; Z88.5 Allergy status to narcotic agent; Z88.8 Allergy status to other drugs, medicaments and biological substances; Z95.1 Presence of aortocoronary bypass graft
CPT/HCPCS: 78452; 80053 ×2; 82550; 82553; 82962 ×2; 83690; 83880; 84484; 85025 ×2; 90686; 93005; 93017; 93306; 94760; 97139; 99285; A9500; G0008; G0378 ×2; 36415; 36416; 90471; J2785

== ENCOUNTER 2018-04-03 20:57 | Inpatient (IN) | payer MEDICARE ==
[2018-04-03 21:44] LABS: #Basophils 0.1 thou/uL (0.0-0.2); #Eosinphils 0.4 thou/uL (0.0-0.7); #Lymphocytes 1.2 thou/uL (1.20-3.40); #Monocytes 0.6 thou/uL (0.11-0.59); #Neutrophils 7.4 thou/uL (1.40-6.50); %Basophils 0.6 % (0.0-1.0); %Eosinophils 4.4 % (0.0-10.0); %Lymphocytes 12.8 % (21.0-51.0); %Monocytes 6.2 % (0.0-10.0); Hemoglobin 10.3 g/dL (14.0-18.0); Mean Corpuscular HGB CONC 31.5 g/dL (32.0-36.0); Mean Corpuscular Hemoglobin 29.1 pg (27.0-31.0); Mean Corpuscular Volume 92.4 fL (78.0-98.0); Platelet Count 190 thou/uL (130-400); Red Blood Cell (RBC) Count 3.55 mill/uL (4.70-6.10); White Blood Cell (WBC) Count 9.7 thou/uL (4.8-10.8)
[2018-04-03 22:01] LABS: ALT (SGPT) 14 U/L (8-55); AST (SGOT) 14 U/L (5-34); Albumin 3.9 g/dL (3.4-4.8); Alkaline Phosphatase 92 U/L (40-150); Anion Gap 19 mmol/L (10-20); BUN (Urea Nitrogen) 39 mg/dL (8.4-25.7); Bilirubin, Total 0.5 mg/dL (0.2-1.2); Calc. Creatinine Clearance 0 mL/min (70-130); Carbon Dioxide 19 mmol/L (23-31); Chloride 105 mmol/L (98-107); Estimated GFR-MDRD 18; Globulin 3.6 g/dL (2.4-3.5); Glucose 130 mg/dL (80-115); Protein, Total 7.5 g/dL (5.8-8.1); Sodium 139 mmol/L (136-145)
--- NOTE | 2018-04-03 22:06 | RAD ---
PORTABLE AP CHEST X-RAY 04/03/18 HISTORY: Dyspnea. COMPARISON: 02/10/17. FINDINGS: Postsurgical changes related to CABG are again noted. The cardiac silhouette is enlarged. The pulmona ry vasculature is within normal limits. The lungs remain clear. There has been no interval change fro m prior study. IMPRESSION: 1. No acute cardiopulmonary process. 2. Cardiomegaly. POS: SUSANA
[2018-04-03] MEDS ORDERED: Nitroglycerin 2% Ointment 1 INCH/1 GM Packet ONE (22:42)
[2018-04-03] MEDS ORDERED: Furosemide 40 MG/4 ML VIAL ONE (22:42)
[2018-04-03] MEDS ORDERED: Famotidine 20 MG TAB PO PRN (23:45)
[2018-04-03] MEDS ORDERED: Benzonatate 100 MG CAP PO PRN (23:45)
[2018-04-03] MEDS ORDERED: PROVENTIL INHALER 6.7 G (200 INHALATIONS) INH PRN (23:45)
[2018-04-03] MEDS ORDERED: Acetaminophen 325 MG TAB PO PRN (23:48)
[2018-04-03] MEDS ORDERED: Ondansetron PF 4 MG/2 ML Vial IVP PRN (23:48)
[2018-04-03] MEDS ORDERED: Dextrose 50% Abboject 50 ML SYRINGE SLOW IVP PRN (23:58)
[2018-04-03] MEDS ORDERED: Dextrose 5% in Water 1,000 ML IV PRN (23:58)
[2018-04-04 01:22] VITALS: BMI 41.6
[2018-04-04 04:52] LABS: #Eosinphils 0.4 thou/uL (0.0-0.7); #Lymphocytes 1.5 thou/uL (1.20-3.40); #Monocytes 0.7 thou/uL (0.11-0.59); #Neutrophils 6.5 thou/uL (1.40-6.50); %Basophils 0.4 % (0.0-1.0); %Eosinophils 3.9 % (0.0-10.0); %Lymphocytes 16.1 % (21.0-51.0); %Monocytes 7.2 % (0.0-10.0); %Neutrophils 72.3 % (42.0-75.0); Hemoglobin 9.5 g/dL (14.0-18.0); Mean Corpuscular HGB CONC 32.4 g/dL (32.0-36.0); Mean Corpuscular Hemoglobin 29.9 pg (27.0-31.0); Mean Corpuscular Volume 92.3 fL (78.0-98.0); Mean Platelet Volume 7.5 fL (7.4-10.4); Platelet Count 170 thou/uL (130-400); RBC Distribution Width 14.9 % (11.5-14.5); Red Blood Cell (RBC) Count 3.18 mill/uL (4.70-6.10); White Blood Cell (WBC) Count 9.1 thou/uL (4.8-10.8)
[2018-04-04 05:15] LABS: Anion Gap 16 mmol/L (10-20); BUN (Urea Nitrogen) 40 mg/dL (8.4-25.7); Calc. Creatinine Clearance 44 mL/min (70-130); Calcium 8.8 mg/dL (7.8-10.44); Carbon Dioxide 22 mmol/L (23-31); Chloride 106 mmol/L (98-107); Estimated GFR-MDRD 19; Glucose 83 mg/dL (80-115); Potassium 3.5 mmol/L (3.5-5.1); Sodium 140 mmol/L (136-145)
[2018-04-04] MEDS: Furosemide 40 MG/4 ML VIAL SLOW IVP SCH ×2 (06:28→15:08)
[2018-04-04] MEDS: Allopurinol 100 MG TAB PO SCH (08:30)
[2018-04-04] MEDS: Ubidecarenone 50 MG CAP PO SCH (08:30)
[2018-04-04] MEDS: Loratadine 10 MG TAB PO SCH (08:31)
[2018-04-04] MEDS: Gabapentin 300 MG CAP PO SCH ×3 (08:31→20:42)
[2018-04-04] MEDS: hydrALAZINE 25 MG TAB PO SCH ×3 (08:32→20:42)
[2018-04-04] MEDS: Folic Acid/Vit B Comp W-C PO SCH (08:32)
[2018-04-04] MEDS: Pravastatin Sodium 40 MG TAB PO SCH ×2 (08:32→20:43)
[2018-04-04] MEDS: Citalopram 20 MG TAB PO SCH (08:32)
[2018-04-04] MEDS: Carvedilol 25 MG TAB PO SCH ×2 (08:33→15:10)
[2018-04-04] MEDS: Clopidogrel Bisulfate 75 MG TAB PO SCH (08:33)
[2018-04-04] MEDS: Amlodipine 5 MG TAB PO SCH (08:33)
[2018-04-04] MEDS: Heparin 5,000 UNITS/ML VIAL SC SCH ×3 (08:34→20:42)
[2018-04-04] MEDS ORDERED: Colchicine 0.6 MG TAB PO SCH (09:00)
--- NOTE | 2018-04-04 12:46 | HP ---
PRIMARY CARE PHYSICIAN: Dr. Gallego. CODE STATUS: Full code. TIME OF EVALUATION: 11:20 p.m. CHIEF COMPLAINT: Shortness of breath. HISTORY OF PRESENT ILLNESS: This is a 62-year-old male patient with past medical history of coronary artery disease, hypertension, CHF, came to the hospital after having gradually worsening inability to function due to shortness of breath. The symptoms have been going on for 2 months, has been gradually worsening. The patient cannot sleep at night, has to be sitting and sleep in a sitting position during the daytime only. No clear triggers, no alleviating factors. All seem to be secondary to CHF exacerbation. The patient has some question of cough. No fever. No nausea. No vomiting. No complaints of any abdominal pain. He reported as being compliant with medications. Symptoms are severe. He follows with as outpatient. Walking make his symptoms worse. REVIEW OF SYSTEMS: CONSTITUTIONAL: No fever, chills or generalized weakness. RESPIRATORY: The patient has cough. No sputum production. The patient has shortness of breath. CARDIOVASCULAR: Shortness of breath. No chest pain, palpitation, bilateral leg edema, exertional dyspnea. GASTROINTESTINAL: No nausea. No vomiting. No abdominal pain. No diarrhea. ASSOCIATE FIELD SERVICE ENGINEER: No dizziness, headache or feeling lightheaded. GENITOURINARY: No burning on urination. EXTREMITIES: Bilateral leg swelling. All other systems were reviewed and negative except for the findings mentioned noted. PAST MEDICAL HISTORY: As mentioned in the HPI. FAMILY HISTORY: Positive for mother having heart problems. Father is a step-father. SOCIAL HISTORY: The patient drinks socially twice a month. The patient is a former drug user, abuses marijuana, smokes cigarettes, but quit smoking more than 10 years ago. KNOWN ALLERGIES: Hydrocodone, compound syrup, Levaquin, and losartan. REPORTED MEDICATIONS: 1. Aspirin. 2. Glimepiride. 3. Clopidogrel. 4. Carvedilol. 5. Hydralazine. 6. Allopurinol. 7. CoQ10. 8. Amlodipine. 9. Lasix. 10. Ranexa. 11. Lantus. 12. Calcitriol. 13. Crestor. 14. Gabapentin. 15. Fluticasone. 16. Magnesium oxide. 17. Celexa. 18. Cranberry. PHYSICAL EXAMINATION: VITAL SIGNS: On presentation, blood pressure 169/83 with heart rate 70, respiratory rate 26, temperature 97.8, pain was 10, and oxygen saturation was 97% on room air. GENERAL APPEARANCE: The patient is alert, oriented, not in acute distress. HEENT: Eyes, normal conjunctivae. Moist oral mucosa. Anicteric. Bilateral JVD. RESPIRATORY: Bilateral air entry is decreased. The patient has bilateral rales. No wheezing. Symmetric expansion. CARDIOVASCULAR: Normal rate, regular rhythm. No murmurs. No gallop. Bilateral leg edema. ABDOMEN: Soft. Normal bowel sounds. MUSCULOSKELETAL: Baseline range of motion and strength. No tenderness. SKIN: Warm and intact. No pallor. No rash. No redness. Peripheral pulses are present. Capillary refill seems to be intact. NEUROLOGIC: No evidence of any new focal weakness. Baseline speech. Cranial nerves seems to be intact. PSYCHIATRIC: The patient is in good mood. No anxiety. Oriented, optimal judgment. DIAGNOSTIC DATA: Chest x-ray was reviewed. The patient has no acute cardiopulmonary process or cardiomegaly. LABORATORY DATA: The labs were reviewed. The patient has white count of 9.7 with hemoglobin 10.3, MCV 92, and platelet count 190. Chemistry: Sodium 139; potassium 4.0; chloride 105; carbon dioxide 19; anion gap 19; BUN 39; creatinine 3.47, in previous admissions, the patient has a creatinine of 3.3, so this is chronic; GFR glucose 130; calcium 9.0. LFTs were normal. Beta-natriuretic peptide was 1023. ASSESSMENT AND PLAN: The patient had been placed in the hospital with following medical problems: 1. Severe congestive heart failure exacerbation. The patient is in facundo volume overload. We will start diuresis. The patient has underlying chronic kidney disease. Follows up with Dr. Burgos as outpatient. We will start Lasix. If kidney function worsen, may need help with Dr. Burgos for fluid balance. Reconcile home medications. 2. History of chronic kidney disease, BUN and creatinine are on the same range on the previous records, that has been reviewed by myself, as mentioned above if needed may need help from Dr. Burgos for diuresis. 3. Chronic normocytic anemia. This is likely secondary to end-stage renal disease. We will defer to Nephro any further management. Does not need any acute intervention at this point. 4. History of gout, this seems to be stable, chronic, we will reconcile home medications. 5. Morbidly obese. The patient has been advised to lose weight. 6. Uncontrolled diabetes with blood sugar of 130. The patient's medication has been reconciled, and we will place the patient on sliding scale for optimal control. 7. Uncontrolled hypertension. The patient presented with systolic blood pressure of 169. We will reconcile home medications, we will adjust treatment as needed. 8. Deep venous thrombosis prophylaxis. 9. History of atrial fibrillation, this is chronic, stable, reconcile home medications, we will adjust as needed. 10. Hyperlipidemia. Low-cholesterol diet is advised, reconcile home medications. 11. History of asthma, reconcile home medications, this is chronic, seems to be stable. RISK ASSESSMENT: The patient is a high risk due to severe decompensation of congestive heart failure needing Job ID: [id number]
--- NOTE | 2018-04-04 18:39 | PDOC.PN ---
- Subjective Encounter Start Date: 04/04/18 Encounter Start Time: 18:37 Subjective: Seen and examined with no new complaint--still short of breath - Objective Resuscitation Status - Order Detail: 04/03/18 23:48 Resuscitation Status Routine Resuscitation Status: FULL: Full Resuscitation Vital Signs & Weight: Vital Signs (12 hours) Temp Pulse Resp BP BP Pulse Ox 04/04/18 15:51 98.2 F 66 18 126/67 95 04/04/18 15:09 86 108/57 L 04/04/18 11:57 98 F 86 18 108/57 L 94 L 04/04/18 08:33 67 144/71 H 04/04/18 08:32 67 144/71 H 04/04/18 08:00 95 04/04/18 07:56 98.5 F 67 18 144/71 H 95 Weight Weight 290 lb 3.2 oz I&O: 04/03/18 04/04/18 04/05/18 06:59 06:59 06:59 Intake Total 500 Output Total 925 Balance -425 Result Diagrams: 04/04/18 04:07 04/04/18 04:07 Additional Labs: Accuchecks 04/04/18 04/04/18 16:43 10:47 POC Glucose 160 H 100 Phys Exam - Physical Examination Constitutional: NAD HEENT: PERRLA, moist MMs, sclera anicteric Neck: no nodes, supple, full ROM Respiratory: no wheezing, no rhonchi, clear to auscultation bilateral Cardiovascular: no significant murmur, no rub Gastrointestinal: soft, non-tender, positive bowel sounds Musculoskeletal: pulses present, edema present Dx/Plan (1) Acute on chronic combined systolic and diastolic congestive heart failure Code(s): I50.43 - ACUTE ON CHRONIC COMBINED SYSTOLIC AND DIASTOLIC HRT FAIL Status: Acute (2) Acute worsening of stage 3 chronic kidney disease Code(s): N18.3 - CHRONIC KIDNEY DISEASE, STAGE 3 (MODERATE) Status: Acute (3) Atrial fibrillation Code(s): I48.91 - UNSPECIFIED ATRIAL FIBRILLATION Status: Chronic Comment: Rate controlled (4) CAD (coronary artery disease) Code(s): I25.10 - ATHSCL HEART DISEASE OF [place] CORONARY ARTERY W/O ANG PCTRS Status: Chronic (5) Dyslipidemia Code(s): E78.5 - HYPERLIPIDEMIA, UNSPECIFIED Status: Chronic (6) GERD (gastroesophageal reflux disease) Code(s): K21.9 - GASTRO-ESOPHAGEAL REFLUX DISEASE WITHOUT ESOPHAGITIS Status: Chronic (7) Gout Code(s): M10.9 - GOUT, UNSPECIFIED Status: Chronic (8) HTN (hypertension) Code(s): I10 - ESSENTIAL (PRIMARY) HYPERTENSION Status: Chronic (9) Obesity (BMI 30-39.9) Code(s): E66.9 - OBESITY, UNSPECIFIED Status: Chronic - Plan PT/OT, social service coordinator, respiratory therapy Diuresis -: Consider Cardiology and Renal consult * .
[2018-04-04] MEDS: HumaLOG 300 UNITS/3 ML VIAL SC PRN (20:43)
[2018-04-04] MEDS: Magnesium Oxide 400 MG TAB PO SCH (20:43)
[2018-04-05] MEDS: Furosemide 40 MG/4 ML VIAL SLOW IVP SCH ×2 (05:45→13:18)
[2018-04-05] MEDS: Ubidecarenone 50 MG CAP PO SCH (08:07)
[2018-04-05] MEDS: Folic Acid/Vit B Comp W-C PO SCH (08:08)
[2018-04-05] MEDS: Gabapentin 300 MG CAP PO SCH ×3 (08:08→20:11)
[2018-04-05] MEDS: Carvedilol 25 MG TAB PO SCH ×2 (08:08→17:06)
[2018-04-05] MEDS: Allopurinol 100 MG TAB PO SCH (08:08)
[2018-04-05] MEDS: Pravastatin Sodium 40 MG TAB PO SCH ×2 (08:08→20:10)
[2018-04-05] MEDS: Citalopram 20 MG TAB PO SCH (08:09)
[2018-04-05] MEDS: Clopidogrel Bisulfate 75 MG TAB PO SCH (08:09)
[2018-04-05] MEDS: hydrALAZINE 25 MG TAB PO SCH ×3 (08:09→20:11)
[2018-04-05] MEDS: Amlodipine 5 MG TAB PO SCH (08:09)
[2018-04-05] MEDS: Heparin 5,000 UNITS/ML VIAL SC SCH ×3 (08:09→20:11)
[2018-04-05] MEDS: Loratadine 10 MG TAB PO SCH (08:09)
[2018-04-05] MEDS ORDERED: Colchicine 0.6 MG TAB PO SCH (09:00)
--- NOTE | 2018-04-05 09:24 | PDOC.PN ---
- Subjective Encounter Start Date: 04/05/18 Encounter Start Time: 09:22 Subjective: Seen and examined feeling ok - Objective Resuscitation Status - Order Detail: 04/03/18 23:48 Resuscitation Status Routine Resuscitation Status: FULL: Full Resuscitation Vital Signs & Weight: Vital Signs (12 hours) Temp Pulse Resp BP Pulse Ox 04/05/18 08:09 61 04/05/18 07:24 98.6 F 61 20 136/80 95 04/05/18 03:36 97.7 F 61 20 127/63 95 Weight Weight 280 lb 1.6 oz I&O: 04/04/18 04/05/18 04/06/18 06:59 06:59 06:59 Intake Total 500 730 Output Total 925 1350 Balance -425 -620 Result Diagrams: 04/04/18 04:07 04/04/18 04:07 Additional Labs: Accuchecks 04/05/18 04/04/18 04/04/18 05:48 20:38 16:43 POC Glucose 111 H 214 H 160 H 04/04/18 04/04/18 10:47 00:25 POC Glucose 100 115 H Phys Exam - Physical Examination Constitutional: NAD HEENT: PERRLA, moist MMs, sclera anicteric, TM's clear Neck: no nodes, no JVD, supple, full ROM Respiratory: no wheezing, no rales, no rhonchi, clear to auscultation bilateral Cardiovascular: RRR, no significant murmur, no rub Gastrointestinal: soft, non-tender, no distention, positive bowel sounds Musculoskeletal: pulses present Dx/Plan (1) Acute on chronic combined systolic and diastolic congestive heart failure Code(s): I50.43 - ACUTE ON CHRONIC COMBINED SYSTOLIC AND DIASTOLIC HRT FAIL Status: Acute (2) Acute worsening of stage 3 chronic kidney disease Code(s): N18.3 - CHRONIC KIDNEY DISEASE, STAGE 3 (MODERATE) Status: Acute (3) Atrial fibrillation Code(s): I48.91 - UNSPECIFIED ATRIAL FIBRILLATION Status: Chronic Comment: Rate controlled (4) CAD (coronary artery disease) Code(s): I25.10 - ATHSCL HEART DISEASE OF [place] CORONARY ARTERY W/O ANG PCTRS Status: Chronic (5) Dyslipidemia Code(s): E78.5 - HYPERLIPIDEMIA, UNSPECIFIED Status: Chronic (6) GERD (gastroesophageal reflux disease) Code(s): K21.9 - GASTRO-ESOPHAGEAL REFLUX DISEASE WITHOUT ESOPHAGITIS Status: Chronic (7) Gout Code(s): M10.9 - GOUT, UNSPECIFIED Status: Chronic (8) HTN (hypertension) Code(s): I10 - ESSENTIAL (PRIMARY) HYPERTENSION Status: Chronic (9) Obesity (BMI 30-39.9) Code(s): E66.9 - OBESITY, UNSPECIFIED Status: Chronic - Plan PT/OT, vp digital marketing social media and crm, respiratory therapy Diuresis -: Cardiology consult -: Get labs today * .
[2018-04-05 10:47] LABS: Anion Gap 15 mmol/L (10-20); BUN (Urea Nitrogen) 42 mg/dL (8.4-25.7); Calc. Creatinine Clearance 36 mL/min (70-130); Calcium 8.6 mg/dL (7.8-10.44); Carbon Dioxide 24 mmol/L (23-31); Chloride 102 mmol/L (98-107); Estimated GFR-MDRD 16; Glucose 225 mg/dL (80-115); Potassium 3.6 mmol/L (3.5-5.1); Sodium 137 mmol/L (136-145)
[2018-04-05] MEDS: HumaLOG 300 UNITS/3 ML VIAL SC PRN ×2 (11:34→20:10)
--- NOTE | 2018-04-05 16:54 | CON ---
DATE OF CONSULTATION: 04/05/2018 REASON FOR CONSULTATION: Shortness of breath. PRIMARY GRIEVANCE MANAGER: Alissa Sky MD. HISTORY OF PRESENT ILLNESS: Mr. Sellers is a pleasant 62-year-old white gentleman, who comes to the hospital for worsening shortness of breath. He has noticed for the last month, his edema has increased and his abdominal girth is worse and he has been getting slowly more short of breath with any exertion now to the point where he cannot sleep, he cannot lay down at night, and he is short of breath at rest. He came in, he was diagnosed with an acute heart failure exacerbation. He was given IV Lasix. He has already put out about 12 pounds worth of fluids. He feels much better, but he still has some fluid in him. PAST MEDICAL HISTORY: 1. Coronary artery disease, status post CABG x3 in 2011. 2. Hypertension. 3. Diabetes, insulin dependent. 4. Chronic systolic heart failure, last EF at about 35% to 40% on echo and 43% on a stress MPI back in January of 2018. 5. Paroxysmal atrial fibrillation. 6. GERD. 7. Bronchial asthma. 8. Chronic kidney disease stage 4. 9. Hyperlipidemia. 10. Gout. 11. Gastroenteritis in the past. 12. TIAs in the past, last in 2007. PAST SURGICAL HISTORY: CABG x3 in 2011. SOCIAL HISTORY: Quit smoking 37 years ago. Social alcohol use. No drug use. FAMILY HISTORY: Heart failure, COPD, and diabetes in mother and father with diabetes. OUTPATIENT MEDICATIONS: 1. Hydralazine 50 mg p.o. b.i.d. 2. Vitamin B complex. 3. Ventolin inhaler. 4. CoQ10. 5. Crestor 40 mg. 6. Ranexa 500 mg b.i.d. 7. Ranitidine 150 b.i.d. 8. Pantoprazole 20 mg daily. 9. Sublingual nitroglycerin. 10. Mag-Ox. 11. Insulin Lantus. 12. Glimepiride 4 mg b.i.d. 13. Gabapentin 300 p.o. t.i.d. 14. Lasix 40 mg every day and 40 extra mg Thursday, Thursday, Thursday. 15. Flonase. 16. Fexofenadine. 17. Plavix 75 mg. 18. Celexa. 19. Coreg 25 mg b.i.d. 20. Calcitriol. 21. Tessalon Perles. 22. Aspirin 81 a day. 23. Amlodipine 5 mg a day. 24. Allopurinol 100 at bedtime. 25. Tylenol extra-strength p.r.n. ALLERGIES: 1. HYDROCODONE. 2. LEVOFLOXACIN. 3. LOSARTAN. 4. TRAMADOL. REVIEW OF SYSTEMS: A 12-point review of systems was done and was found to be negative unless stated in the history of present illness. PHYSICAL EXAMINATION: VITAL SIGNS: Temperature 97.9, pulse 61, respiratory rate 20, sat 97% on room air, and blood pressure 126/56. GENERAL: Awake, alert, and oriented x3, in no distress. HEENT: Normocephalic and atraumatic. NECK: Supple. LUNGS: Have crackles at the bases. CARDIOVASCULAR: S1 and S2. No S3 or S4. Distant heart sounds. ABDOMEN: Prominent. EXTREMITIES: 2+ edema. SKIN: Warm and dry. LABORATORY DATA: Laboratory work was reviewed. CBC and chemistries were reviewed. Creatinine of 3.86 with a GFR of 16, glucose of 225. BNP was 1023. Troponin was negative x1, undetectable actually. Albumin at 3.9. ASSESSMENT: 1. Acute on chronic systolic heart failure. 2. Ischemic cardiomyopathy, last EF at 43% on MPI. 3. Stage 4 chronic kidney disease. 4. Obesity. PLAN: 1. Continue IV diuresis. 2. We will repeat echocardiogram to assess LV function and compare to the one back in January of last year. 3. We will need to have a change in his home dose of Lasix more than likely will just need 40 in the morning and 20 in the evenings every day. 4. We will follow with you. Job ID: [id number]
[2018-04-05] MEDS: Magnesium Oxide 400 MG TAB PO SCH (20:11)
[2018-04-06 05:09] LABS: Anion Gap 15 mmol/L (10-20); BUN (Urea Nitrogen) 44 mg/dL (8.4-25.7); Calc. Creatinine Clearance 37 mL/min (70-130); Calcium 8.6 mg/dL (7.8-10.44); Carbon Dioxide 24 mmol/L (23-31); Chloride 103 mmol/L (98-107); Estimated GFR-MDRD 17; Glucose 116 mg/dL (80-115); Potassium 3.7 mmol/L (3.5-5.1); Sodium 138 mmol/L (136-145)
[2018-04-06] MEDS: Furosemide 40 MG/4 ML VIAL SLOW IVP SCH ×2 (05:47→12:49)
--- NOTE | 2018-04-06 07:24 | PDOC.PN ---
- Subjective Encounter Start Date: 04/06/18 Encounter Start Time: 07:22 Subjective: sob much improved,still has edema - Objective Resuscitation Status - Order Detail: 04/03/18 23:48 Resuscitation Status Routine Resuscitation Status: FULL: Full Resuscitation MAR Reviewed: Yes Vital Signs & Weight: Vital Signs (12 hours) Temp Pulse Resp BP Pulse Ox 04/06/18 05:44 97.9 F 61 20 156/80 H 95 04/05/18 20:11 60 Weight Weight 279 lb 1.6 oz I&O: 04/05/18 04/06/18 04/07/18 06:59 06:59 06:59 Intake Total 730 410 Output Total 1350 1975 Balance -638 -7328 Result Diagrams: 04/04/18 04:07 04/06/18 04:06 Additional Labs: Accuchecks 04/05/18 04/05/18 04/05/18 20:10 16:49 11:32 POC Glucose 264 H 134 H 223 H Phys Exam - Physical Examination Neck: no JVD Respiratory: clear to auscultation bilateral Cardiovascular: RRR, no significant murmur Gastrointestinal: soft, positive bowel sounds 2+ edema Dx/Plan (1) DM type 2 causing CKD stage 4 Code(s): E11.22 - TYPE 2 DIABETES MELLITUS W DIABETIC CHRONIC KIDNEY DISEASE; N18.4 - CHRONIC KIDNEY DISEASE, STAGE 4 (SEVERE) Status: Acute Qualifiers: Diabetes mellitus senior care insulin use: with oysterman use Qualified Code( s): E11.22 - Type 2 diabetes mellitus with diabetic chronic kidney disease; N18.4 - Chronic kidney disease, stage 4 (severe); Z79.4 - termination clerk (current) use of insulin (2) Acute on chronic combined systolic and diastolic congestive heart failure Code(s): I50.43 - ACUTE ON CHRONIC COMBINED SYSTOLIC AND DIASTOLIC HRT FAIL Status: Acute (3) Atrial fibrillation Code(s): I48.91 - UNSPECIFIED ATRIAL FIBRILLATION Status: Chronic Qualifiers: Atrial fibrillation type: paroxysmal Qualified Code(s): I48.0 - Paroxysmal atrial fibrillation Comment: Rate controlled (4) CAD (coronary artery disease) Code(s): I25.10 - ATHSCL HEART DISEASE OF [place] CORONARY ARTERY W/O ANG PCTRS Status: Chronic Qualifiers: Coronary Disease-Associated Artery/Lesion type: [place] artery [place] vs. transplanted heart: [place] heart Associated angina: without angina Qualified Code(s): I25.10 - Atherosclerotic heart disease of [place] coronary artery without angina pectoris (5) Dyslipidemia Code(s): E78.5 - HYPERLIPIDEMIA, UNSPECIFIED Status: Chronic (6) GERD (gastroesophageal reflux disease) Code(s): K21.9 - GASTRO-ESOPHAGEAL REFLUX DISEASE WITHOUT ESOPHAGITIS Status: Chronic (7) HTN (hypertension) Code(s): I10 - ESSENTIAL (PRIMARY) HYPERTENSION Status: Chronic Qualifiers: Hypertension type: essential hypertension Qualified Code(s): I10 - Essential (primary) hypertension - Plan cont iv diuresis -: cont accu/ss/ reinstitute LA insulin -: cont amlodipine , coreg, hydralazine -: no KATY , ARB- renal failure * .
[2018-04-06] MEDS: Citalopram 20 MG TAB PO SCH (08:33)
[2018-04-06] MEDS: hydrALAZINE 25 MG TAB PO SCH ×3 (08:33→21:30)
[2018-04-06] MEDS: Carvedilol 25 MG TAB PO SCH ×2 (08:33→16:51)
[2018-04-06] MEDS: Ubidecarenone 50 MG CAP PO SCH (08:33)
[2018-04-06] MEDS: Loratadine 10 MG TAB PO SCH (08:34)
[2018-04-06] MEDS: Gabapentin 300 MG CAP PO SCH ×3 (08:34→21:30)
[2018-04-06] MEDS: Allopurinol 100 MG TAB PO SCH (08:34)
[2018-04-06] MEDS: Folic Acid/Vit B Comp W-C PO SCH (08:34)
[2018-04-06] MEDS: Amlodipine 5 MG TAB PO SCH (08:34)
[2018-04-06] MEDS: Clopidogrel Bisulfate 75 MG TAB PO SCH (08:35)
[2018-04-06] MEDS: Pravastatin Sodium 40 MG TAB PO SCH ×2 (08:35→21:30)
[2018-04-06] MEDS: Heparin 5,000 UNITS/ML VIAL SC SCH ×3 (08:35→21:29)
[2018-04-06] MEDS: Rosuvastatin 20 MG TAB PO SCH (08:48)
[2018-04-06] MEDS: HumaLOG 300 UNITS/3 ML VIAL SC PRN (12:48)
--- NOTE | 2018-04-06 18:03 | PDOC.CTH ---
Cardiology Progress Note - Subjective He is doing better. He has diuresed well. - Objective Vital Signs Temp Pulse Resp BP Pulse Ox 04/06/18 15:53 97.6 F 59 L 21 H 128/70 94 L 04/06/18 15:20 58 L 04/06/18 11:13 98.2 F 58 L 20 127/61 93 L 04/06/18 07:46 98.0 F 60 24 H 128/66 94 L Weight 279 lb 1.6 oz 04/05/18 04/06/18 04/07/18 06:59 06:59 06:59 Intake Total 730 410 550 Output Total 1350 1975 1075 Balance -049 -3420 -707 - Physical Examination General/Neuro: alert & oriented x3, NAD Neck: no JVD present Lungs: CTA, unlabored respirations Heart: RRR Abdomen: NT/ND Extremities: + edema B (1+) - Telemetry Telemetry Rhythm: NSR - Labs Result Diagrams: 04/04/18 04:07 04/06/18 04:06 Troponin/CKMB Troponin I Less than 0.010 ng/mL (< 0.028) 04/03/18 21:22 - Assessment/Plan 1. Acute on chronic systolic heart failure 2. Ischemic CM 3. CAD s/p CABG x 3 in 2012 4. CKD Stage 4 PLAN: - Continue IV diuresis - Echo pending.
[2018-04-06] MEDS ORDERED: Non-Formulary Item 1 EACH (Insulin Glargine,Hum.Rec.Anlog [Lantus Solostar] 15 UNIT) SQ SCH (21:00)
[2018-04-06] MEDS ORDERED: Insulin Glargine 15 UNITS in Pre-Filled Syringe 1 EACH SC SCH (21:00)
[2018-04-06] MEDS: Magnesium Oxide 400 MG TAB PO SCH (21:30)
[2018-04-07] MEDS: Furosemide 40 MG/4 ML VIAL SLOW IVP SCH (06:04)
[2018-04-07 08:23] VITALS: BP 147/77; TEMP 97.8
--- NOTE | 2018-04-07 08:59 | DIS ---
DATE OF ADMISSION: 04/03/2018 DATE OF DISCHARGE: 04/07/2018 TRANSFER OF CARE: PRIMARY CARE PROVIDER: Eden Gallego MD DISPOSITION: Discharged home. FINAL DIAGNOSES: 1. Acute on chronic systolic heart failure. 2. Cardiomyopathy. 3. Coronary artery disease. 4. Type 2 diabetes with chronic kidney disease, stage 4. 5. Dyslipidemia. 6. Atrial fibrillation. 7. Hypertension. DISCHARGE MEDICATIONS: 1. Hydralazine 50 mg p.o. b.i.d. 2. Ventolin inhaler 2 puffs q.4 hours p.r.n. 3. Coenzyme Q10 of 200 mg a day. 4. Crestor 40 mg a day. 5. Ranexa 500 mg twice a day. 6. Ranitidine 150 mg p.o. b.i.d. 7. Protonix 20 mg p.o. daily p.r.n. 8. Lantus insulin 15 units subcu at bedtime. 9. Amaryl 4 mg p.o. b.i.d. 10. Gabapentin 300 mg t.i.d. 11. Lasix 40 mg p.o. b.i.d. 12. Plavix 75 mg a day. 13. Celexa 20 mg a day. 14. Coreg 25 mg p.o. b.i.d. 15. Aspirin 81 mg a day. 16. Amlodipine 5 mg a day. 17. Allopurinol 100 mg at bedtime. ALLERGIES: HYDROCODONE, LEVOFLOXACIN, LOSARTAN, TRAMADOL. DIET: Diabetic, salt restriction. CODE STATUS: Full. PENDING AT THE TIME OF DISCHARGE: Echocardiogram has not been read yet. HOSPITAL [facility]RSE: [facility] with shortness of breath. He was diagnosed as acute on chronic systolic heart failure. BNP was elevated to the 1093. His chest x-ray, cardiomegaly with mild vascular congestion. Laboratory, creatinine 3.47, BUN 39. Lytes are balanced. Liver function tests normal. Cardiac enzyme, troponin 0.01. The patient was diuresed with IV Lasix. Home medicines continued. Accu-Cheks and sliding scales were followed. The patient's chest cleared during his hospital stay. He had a good diuresis. His weight dropped from 290 to 279 pounds. He has trace edema in his legs. He is being discharged home on 40 mg of Lasix twice a day plus his usual home medicines. He was seen in consultation by Dr. Toni Mays, Cardiology. No procedures were done. He has been asked to see his primary care provider, Dr. Gallego in 1 week for followup. He states he already has an appointment. Job ID: [id number]
[2018-04-07] MEDS ORDERED: Calcitriol 0.25 MCG CAP PO SCH (09:00)
[2018-04-07] MEDS: Rosuvastatin 20 MG TAB PO SCH (10:23)
[2018-04-07] MEDS: Folic Acid/Vit B Comp W-C PO SCH (10:23)
[2018-04-07] MEDS: Ubidecarenone 50 MG CAP PO SCH (10:23)
[2018-04-07] MEDS: Amlodipine 5 MG TAB PO SCH (10:24)
[2018-04-07] MEDS: Gabapentin 300 MG CAP PO SCH (10:24)
[2018-04-07] MEDS: Allopurinol 100 MG TAB PO SCH (10:24)
[2018-04-07] MEDS: hydrALAZINE 25 MG TAB PO SCH (10:24)
[2018-04-07] MEDS: Carvedilol 25 MG TAB PO SCH (10:24)
[2018-04-07] MEDS: Citalopram 20 MG TAB PO SCH (10:24)
[2018-04-07] MEDS: Loratadine 10 MG TAB PO SCH (10:24)
[2018-04-07] MEDS: Clopidogrel Bisulfate 75 MG TAB PO SCH (10:25)
[2018-04-07] MEDS: Pravastatin Sodium 40 MG TAB PO SCH (10:25)
[2018-04-07] MEDS: Heparin 5,000 UNITS/ML VIAL SC SCH (10:26)
== END 2018-04-07 12:38 | disposition home or self-care (01) | DRG 291 ==
LOC: ERS 20:57 → ERHOLD 22:46 → 2SW 04-04 00:23
PROVIDERS: ADMIT Hospitalist; ATTEND Hospitalist
DX: I13.0 Hypertensive heart and chronic kidney disease with heart failure and stage 1 through stage 4 chronic kidney disease, or unspecified chronic kidney disease (principal); I50.43 Acute on chronic combined systolic (congestive) and diastolic (congestive) heart failure; N18.4 Chronic kidney disease, stage 4 (severe); Z68.41 Body mass index [BMI] 40.0-44.9, adult; E11.22 Type 2 diabetes mellitus with diabetic chronic kidney disease; Z79.4 Long term (current) use of insulin; I25.5 Ischemic cardiomyopathy; I25.10 Atherosclerotic heart disease of native coronary artery without angina pectoris; Z95.1 Presence of aortocoronary bypass graft; I48.0 Paroxysmal atrial fibrillation; E78.5 Hyperlipidemia, unspecified; K21.9 Gastro-esophageal reflux disease without esophagitis; F19.11 Other psychoactive substance abuse, in remission; F12.11 Cannabis abuse, in remission; Z87.891 Personal history of nicotine dependence; D63.1 Anemia in chronic kidney disease; M10.9 Gout, unspecified; E66.01 Morbid (severe) obesity due to excess calories; J45.909 Unspecified asthma, uncomplicated; I48.2 Chronic atrial fibrillation; Z86.73 Personal history of transient ischemic attack (TIA), and cerebral infarction without residual deficits
CPT/HCPCS: 36415; 36416; 71045; 80048; 80053; 83880; 84484; 85025; 93005; 93306; 93798; 96374; J1644; J1940

== ENCOUNTER 2018-07-25 00:49 | Inpatient (IN) | payer MEDICARE ==
[2018-07-25 01:45] LABS: #Eosinphils 0.3 thou/uL (0.0-0.7); #Lymphocytes 1.2 thou/uL (1.20-3.40); #Monocytes 0.7 thou/uL (0.11-0.59); #Neutrophils 5.6 thou/uL (1.40-6.50); %Basophils 0.6 % (0.0-1.0); %Eosinophils 3.2 % (0.0-10.0); %Lymphocytes 15.9 % (21.0-51.0); %Monocytes 8.4 % (0.0-10.0); %Neutrophils 71.9 % (42.0-75.0); Hemoglobin 9.7 g/dL (14.0-18.0); Mean Corpuscular HGB CONC 32.2 g/dL (32.0-36.0); Mean Corpuscular Hemoglobin 28.3 pg (27.0-31.0); Mean Corpuscular Volume 87.9 fL (78.0-98.0); Mean Platelet Volume 7.9 fL (7.4-10.4); Platelet Count 142 thou/uL (130-400); RBC Distribution Width 16.6 % (11.5-14.5); Red Blood Cell (RBC) Count 3.43 mill/uL (4.70-6.10); White Blood Cell (WBC) Count 7.8 thou/uL (4.8-10.8)
[2018-07-25 02:02] LABS: ALT (SGPT) 15 U/L (8-55); AST (SGOT) 21 U/L (5-34); Albumin 3.8 g/dL (3.4-4.8); Alkaline Phosphatase 128 U/L (40-150); Anion Gap 14 mmol/L (10-20); BUN (Urea Nitrogen) 41 mg/dL (8.4-25.7); Bilirubin, Total 0.6 mg/dL (0.2-1.2); Calc. Creatinine Clearance 0 mL/min (70-130); Carbon Dioxide 26 mmol/L (23-31); Chloride 103 mmol/L (98-107); Estimated GFR-MDRD 16; Globulin 3.7 g/dL (2.4-3.5); Glucose 177 mg/dL (80-115); Potassium 3.9 mmol/L (3.5-5.1); Protein, Total 7.5 g/dL (5.8-8.1); Sodium 139 mmol/L (136-145)
[2018-07-25] MEDS ORDERED: Furosemide 40 MG/4 ML VIAL ONE (03:06)
[2018-07-25 05:38] VITALS: BMI 39.3
[2018-07-25] MEDS ORDERED: Dextrose 5% in Water 1,000 ML IV PRN (06:25)
[2018-07-25] MEDS ORDERED: Dextrose 50% Abboject 50 ML SYRINGE SLOW IVP PRN (06:25)
[2018-07-25] MEDS ORDERED: Ondansetron PF 4 MG/2 ML Vial IVP PRN (06:25)
[2018-07-25] MEDS ORDERED: Ondansetron ODT 4 MG TAB PO PRN (06:25)
[2018-07-25] MEDS ORDERED: Acetaminophen 500 MG TAB PO PRN (06:27)
[2018-07-25] MEDS ORDERED: Non-Formulary Item 1 EACH (Ranitidine Hcl [Ranitidine Hcl] 150 MG) PO PRN (06:27)
[2018-07-25] MEDS ORDERED: Nitroglycerin 0.4 MG TAB (25 Tab Bottle) SL PRN (06:27)
[2018-07-25] MEDS ORDERED: Benzonatate 100 MG CAP PO PRN (06:27)
[2018-07-25] MEDS ORDERED: FEXOFENADINE HCL 180 MG PO PRN (06:27)
[2018-07-25] MEDS ORDERED: PROVENTIL INHALER 6.7 G (200 INHALATIONS) INH PRN (06:27)
[2018-07-25] MEDS ORDERED: Fluticasone Propionate Nasal Spray 16 gm Bottle NASAL PRN ×2 (06:27→06:52)
[2018-07-25] MEDS ORDERED: Citalopram 20 MG TAB PO PRN (06:27)
[2018-07-25 06:40] LABS: Troponin I 0.012 ng/mL (< 0.028)
[2018-07-25] MEDS ORDERED: Loratadine 10 MG TAB PO PRN (06:55)
[2018-07-25] MEDS ORDERED: Famotidine 20 MG TAB PO PRN (06:59)
--- NOTE | 2018-07-25 07:36 | HP ---
PRIMARY CARE DOCTOR: Dr. Eden Gallego. CODE STATUS: Full code. TIME OF EVALUATION: 4:30 CHIEF COMPLAINT: Shortness of breath. HISTORY OF PRESENT ILLNESS: This is a 63-year-old male patient with past medical history of shortness of breath, atrial fibrillation, heart valve insufficiency, diabetes, GERD, came to the hospital after having shortness of breath associated with weight gain of around 30 pounds. No clear triggers, no alleviating factors. The patient reported he is taking his Lasix, but it is not working properly. He has had some on and off associated chest pain with these symptoms and decreased tolerance to exertion. Symptoms were moderate. REVIEW OF SYSTEMS: CONSTITUTIONAL: No fever, chills, or generalized weakness. RESPIRATORY: The patient has some cough, scant sputum production, and shortness of breath. CARDIOVASCULAR: No chest pain or palpitation. GASTROINTESTINAL: No nausea. No vomiting, diarrhea, or abdominal pain. 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 GENITOURINARY: No burning on urination. EXTREMITIES: Bilateral leg swelling. All other systems were reviewed and negative except for the findings mentioned above. PAST MEDICAL HISTORY: As mentioned in the HPI. PAST SURGICAL HISTORY: Coronary artery bypass graft surgery x3 vessels. PSYCHIATRIC HISTORY: No previous psych history. SOCIAL HISTORY: The patient drinks socially twice a month. The patient is a former drug user, abused marijuana. Quit smoking more than 10 years ago. Lives at home with the family. FAMILY HISTORY: Reviewed, noncontributory for current presentation. KNOWN ALLERGIES: Hydrocodone, Levaquin, losartan, tramadol. REPORTED MEDICATIONS: 1. Aspirin. 2. Glimepiride. 3. Clopidogrel. 4. Carvedilol. 5. Hydralazine. 6. Allopurinol. 7. Coenzyme Q10. 8. Amlodipine. 9. Lasix. 10. Calcitriol. 11. Gabapentin. 12. Tamsulosin. 13. Magnesium. 14. Cranberry. 15. Fiber Choice. 16. Vitamin B and C. 17. Crestor. 18. Ranexa. 19. Ranitidine. 20. Acetaminophen. 21. Citalopram. 22. Benzonatate. PHYSICAL EXAMINATION: VITAL SIGNS: On presentation, blood pressure 133/75 with heart rate 63, respiratory rate was 18, temperature 97.8, pain 0/10, oxygen saturation 95 on room air. GENERAL APPEARANCE: The patient is alert, oriented, not in acute distress. HEENT: Eyes; normal conjunctivae. Moist oral mucosa. Anicteric. Bilateral JVD. RESPIRATORY: Bilateral air entry that is decreased. The patient has no wheezing. Symmetric expansion. The patient has bilateral rales. CARDIOVASCULAR: Normal rate. Regular rhythm. No murmurs. No gallop. Bilateral leg edema. ABDOMEN: Soft. The patient is morbidly obese. Normal bowel sounds. MUSCULOSKELETAL: Baseline range of motion and strength. No tenderness. SKIN: Warm, intact. No pallor. No rash. No redness. Peripheral pulses are present. Capillary refill seems to intact. NEURO: No evidence of any new focal weakness. Baseline speech. Cranial nerves seems to be intact. PSYCH: The patient is in good mood. No anxiety. Optimal judgment. DIAGNOSTIC DATA: EKG was reviewed. The patient has normal sinus rhythm at a rate of 62, nonspecific interventricular conduction delay. Chest x-ray was reviewed. The patient has cardiomegaly, bilateral pulmonary congestion, a sternotomy. LABORATORY DATA: The labs were reviewed. Hematology; white count 7.8, hemoglobin 9.7, MCV 87.9, platelet count 142. Chemistry: Sodium 139, potassium 3.9, chloride 103, carbon dioxide 26, anion gap 14, BUN 41, creatinine 3.87, the previous creatinine was around 3.9 or the same, GFR 16, glucose 177, calcium 9.0. Total bilirubin 0.6, AST 21, ALT 15, alkaline phosphatase 128. Troponin was negative. Beta natriuretic peptide 133. Serum total protein 7.5, albumin 3.8, globulin 3.7, albumin-globulin ratio is 1.0. ASSESSMENT AND PLAN: The patient will be placed in the hospital with following medical problems. 1. Acute exacerbation of congestive heart failure. The last echo on record was from January and shows an EF of 40% to 45% with inferior hypokinesis, also has diastolic dysfunction. We will continue Lasix. We will reconcile home medication and adjust treatment as per the patient's clinical response. The patient has an increase in creatinine, might be a component of cardiorenal, but if the chronic kidney disease is not improving or not able to diurese, might need help from Nephrology for better diuresis and fluid balance. 2. Chronic normocytic anemia, this is stable, likely secondary to chronic kidney disease, can be followed as outpatient. No need for any acute intervention. 3. Chronic kidney disease stage 4 with GFR of 16. The patient will need diuresis as mentioned above; if unable to diurese probably, may need help from Nephrology. 4. Uncontrolled diabetes with blood sugar 177. Reconcile home medications. We will adjust dosing as needed for optimal control. 5. History of coronary artery disease. Home medication has been reconciled. Initial troponin was negative. 6. Hyperlipidemia. Low-cholesterol diet is advised. Reconcile home medications. 7. Uncontrolled hypertension. The patient presented with systolic blood pressure of 150. We will reconcile home medications and adjust treatment as needed. IV p.r.n. medication may be needed for optimal control. 8. History of atrial fibrillation, this is chronic, stable, reconcile home medications. Monitor on tele. Job ID: [id number]
[2018-07-25] MEDS ORDERED: Carvedilol 25 MG TAB PO SCH (08:00)
--- NOTE | 2018-07-25 08:00 | RAD ---
CHEST 1 VIEW: Date: 07/25/18 INDICATION: Shortness of breath. COMPARISON: Prior exam dated 04/03/18. FINDINGS: There is stable cardiomegaly with mild pulmonary vascular congestion. No air space opacity or pleural effusion is evident. No acute osseous abnormality is evident. IMPRESSION: Stable cardiomegaly and mild pulmonary vascular congestion. POS: BH
[2018-07-25] MEDS: hydrALAZINE 25 MG TAB PO SCH ×2 (08:41→20:46)
[2018-07-25] MEDS: Carvedilol 25 MG TAB PO SCH ×2 (08:42→17:50)
[2018-07-25] MEDS: Gabapentin 300 MG CAP PO SCH ×3 (08:42→20:46)
[2018-07-25] MEDS: Aspirin Chewable 81 MG TAB PO SCH (08:42)
[2018-07-25] MEDS: Clopidogrel Bisulfate 75 MG TAB PO SCH (08:42)
[2018-07-25] MEDS: Amlodipine 5 MG TAB PO SCH (08:42)
[2018-07-25] MEDS: Glimepiride 4 MG TAB PO SCH ×2 (08:42→17:50)
[2018-07-25] MEDS: Ubidecarenone 50 MG CAP PO SCH (08:43)
[2018-07-25] MEDS: Stress 600 With Zinc 1 TAB PO SCH (08:43)
[2018-07-25] MEDS: Rosuvastatin 20 MG TAB PO SCH (08:44)
[2018-07-25 08:56] LABS: Troponin I 0.019 ng/mL (< 0.028)
[2018-07-25] MEDS ORDERED: Non-Formulary Item 1 EACH (Rosuvastatin Calcium [Crestor] 40 MG) PO SCH (09:00)
[2018-07-25] MEDS ORDERED: Pantoprazole 40 MG GRANULES PACKET PO PRN (09:00)
[2018-07-25] MEDS ORDERED: Enoxaparin Sodium 40 MG/0.4 ML SYRINGE SC SCH (09:00)
[2018-07-25] MEDS ORDERED: HYDRALAZINE HCL PO SCH (09:00)
[2018-07-25] MEDS ORDERED: RANOLAZINE 500 MG PO SCH (09:00)
[2018-07-25] MEDS ORDERED: Non-Formulary Item 1 EACH (Ubidecarenone [Co Q-10] 200 MG) PO SCH (09:00)
[2018-07-25] MEDS ORDERED: VITAMIN B COMPLEX VIT C NO 4 150 MG PO SCH (09:00)
[2018-07-25] MEDS: HumaLOG 300 UNITS/3 ML VIAL SC PRN ×2 (11:12→17:49)
--- NOTE | 2018-07-25 13:36 | PDOC.PN ---
- Subjective Encounter Start Date: 07/25/18 Encounter Start Time: 08:00 Subjective: breathing better, still has exertional sob -: no chest pain -: at bedside - Objective Resuscitation Status - Order Detail: 07/25/18 06:25 Resuscitation Status Routine Resuscitation Status: FULL: Full Resuscitation MAR Reviewed: Yes Vital Signs & Weight: Vital Signs (12 hours) Temp Pulse Resp BP BP Pulse Ox 07/25/18 12:00 98.7 F 62 16 131/72 96 07/25/18 08:44 92 L 07/25/18 08:42 63 158/87 H 07/25/18 08:41 63 158/87 H 07/25/18 07:58 98.0 F 65 16 158/87 H 90 L 07/25/18 05:47 97 07/25/18 04:45 98.0 F 62 16 149/90 H 97 Weight Weight 281 lb 12.8 oz I&O: 07/24/18 07/25/18 07/26/18 06:59 06:59 06:59 Intake Total 580 Output Total 475 Balance 105 Result Diagrams: 07/25/18 01:33 07/25/18 01:33 Additional Labs: Accuchecks 07/25/18 10:46 POC Glucose 203 H Phys Exam - Physical Examination HEENT: PERRLA, moist MMs Neck: no JVD, supple Respiratory: no wheezing rales+ Cardiovascular: RRR, no significant murmur Gastrointestinal: soft, non-tender, positive bowel sounds Musculoskeletal: pulses present, edema present Neurological: non-focal, moves all 4 limbs Psychiatric: normal affect, A&O x 3 Dx/Plan (1) Acute on chronic combined systolic and diastolic congestive heart failure Code(s): I50.43 - ACUTE ON CHRONIC COMBINED SYSTOLIC AND DIASTOLIC HRT FAIL Status: Acute (2) Acute worsening of stage 3 chronic kidney disease Code(s): N18.3 - CHRONIC KIDNEY DISEASE, STAGE 3 (MODERATE) Status: Acute (3) DM type 2 causing CKD stage 4 Code(s): E11.22 - TYPE 2 DIABETES MELLITUS W DIABETIC CHRONIC KIDNEY DISEASE; N18.4 - CHRONIC KIDNEY DISEASE, STAGE 4 (SEVERE) Status: Acute Qualifiers: Diabetes mellitus ad terminal makeup operator insulin use: with mcfp use (4) Atrial fibrillation Code(s): I48.91 - UNSPECIFIED ATRIAL FIBRILLATION Status: Chronic Qualifiers: Atrial fibrillation type: chronic Qualified Code(s): I48.2 - Chronic atrial fibrillation Comment: Rate controlled (5) CAD (coronary artery disease) Code(s): I25.10 - ATHSCL HEART DISEASE OF [place] CORONARY ARTERY W/O ANG PCTRS Status: Chronic Qualifiers: Coronary Disease-Associated Artery/Lesion type: bypass graft [place] vs. transplanted heart: [place] heart Associated angina: without angina Qualified Code(s): I25.810 - Atherosclerosis of coronary artery bypass graft(s) without angina pectoris Comment: cabgx3 done at [facility] in [place] 08/2011 (6) Dyslipidemia Code(s): E78.5 - HYPERLIPIDEMIA, UNSPECIFIED Status: Chronic (7) GERD (gastroesophageal reflux disease) Code(s): K21.9 - GASTRO-ESOPHAGEAL REFLUX DISEASE WITHOUT ESOPHAGITIS Status: Chronic Qualifiers: Esophagitis presence: esophagitis presence not specified Qualified Code(s) : K21.9 - Gastro-esophageal reflux disease without esophagitis (8) Gout Code(s): M10.9 - GOUT, UNSPECIFIED Status: Chronic Qualifiers: Gout site: unspecified site Gout etiology: unspecified cause Chronicity: chronic Presence of tophus: without tophus Qualified Code(s): M1A.9XX0 - Chronic gout, unspecified, without tophus (tophi) (9) HTN (hypertension) Code(s): I10 - ESSENTIAL (PRIMARY) HYPERTENSION Status: Chronic Qualifiers: (10) Obesity (BMI 30-39.9) Code(s): E66.9 - OBESITY, UNSPECIFIED Status: Chronic - Plan is on lasix, watch for renal function -: continue home dose of coreg, hydralazine, norvasc, ranexa -: asp, plavix, crestor, lantus and glimepride -: to mobilize as tolerated -: will obtain consultation with renal and cardio * . Review of Systems - Medications/Allergies Allergies/Adverse Reactions: Allergies Allergy/AdvReac Type Severity Reaction Status Date / Time hydrocodone bitartrate Allergy Verified 07/25/18 05:02 [From [place]] levofloxacin [From Levaquin] Allergy Verified 07/25/18 05:02 losartan Allergy Verified 07/25/18 05:02 tramadol Allergy Verified 07/25/18 05:02 Medications: Current Medications Acetaminophen (Tylenol) 1,000 mg PO Q6H PRN PRN Reason: Pain Albuterol Sulfate (Proventil Hfa) 2 puff INH Q4H PRN PRN Reason: SOB &/or Wheezing Allopurinol (Zyloprim) 100 mg PO [facility] Amlodipine Besylate (Norvasc) 5 mg PO DAILY REPLACED BY [facility] Last Admin: 07/25/18 08:42 Dose: 5 mg Aspirin (Aspirin Chewable) 81 mg PO DAILY REPLACED BY [facility] Last Admin: 07/25/18 08:42 Dose: 81 mg Benzonatate (Tessalon) 100 mg PO Q4H PRN PRN Reason: Cough Calcitriol (Rocaltrol) 0.[address] [facility] Last Admin: 07/25/18 08:42 Dose: 25 mg Citalopram Hydrobromide (Celexa) 20 mg PO DAILY PRN PRN Reason: anxiety Clopidogrel Bisulfate (Plavix) 75 mg PO DAILY REPLACED BY [facility] Last Admin: 07/25/18 08:42 Dose: 75 mg Coenzyme Q10 (Coenzyme Q10) 200 mg PO DAILY REPLACED BY [facility] Last Admin: 07/25/18 08:43 Dose: 200 mg Dextrose/Water (Dextrose 50%) 25 gm SLOW IVP PRN PRN PRN Reason: Hypoglycemia Enoxaparin Sodium (Lovenox) 40 mg SC 0900 REPLACED BY [facility] Last Admin: 07/25/18 08:43 Dose: 40 mg Famotidine (Pepcid) 20 mg PO BIDPRN PRN PRN Reason: INDIGESTION Fluticasone Propionate (Flonase Nasal [place]) 0 gm NASAL BID PRN PRN Reason: Allergies Furosemide (Lasix) 40 mg SLOW IVP 0600,1400 REPLACED BY [facility] Gabapentin (Neurontin) 300 mg PO TID REPLACED BY [facility] Last Admin: 07/25/18 08:42 Dose: 300 mg [facility] (Amaryl) [facility] Last Admin: 07/25/18 08:42 Dose: 4 mg Glucagon (Glucagon) 1 mg IM PRN PRN PRN Reason: Hypoglycemia Hydralazine HCl (Apresoline) 50 mg PO BID REPLACED BY [facility] Last Admin: 07/25/18 08:41 Dose: 50 mg Dextrose/Water (D5w) 1,000 mls @ 0 mls/hr IV .Q0M PRN PRN Reason: Hypoglycemia Insulin Glargine 15 units/ (Miscellaneous Medication) 0.15 mls @ 0 mls/hr SC [facility] Insulin Human Lispro (Humalog) 0 units SC .MILD SLIDING SCALE PRN PRN Reason: Mild Correctional Scale Last Admin: 07/25/18 11:12 Dose: 3 unit Loratadine (Claritin) 10 mg PO DAILYPRN PRN PRN Reason: ALLERGY Magnesium Oxide (Magnesium Oxide) 250 mg PO [facility] Multivitamins/Zinc (Stress 600 With Zinc) 1 tab PO DAILY REPLACED BY [facility] Last Admin: 07/25/18 08:43 Dose: 1 tab Nitroglycerin (Nitrostat) 0.4 mg SL Q5MIN PRN PRN Reason: Chest Pain Ondansetron HCl (Zofran Odt) 4 mg PO Q6H PRN PRN Reason: Nausea/Vomiting Ondansetron HCl (Zofran) 4 mg IVP Q6H PRN PRN Reason: Nausea/Vomiting Pantoprazole Sodium (Protonix) 20 mg PO DAILYPRN PRN PRN Reason: INDIGESTION Ranolazine (Ranexa) 500 mg PO BID REPLACED BY [facility] Last Admin: 07/25/18 08:43 Dose: 500 mg Rosuvastatin Calcium (Crestor) 40 mg PO DAILY REPLACED BY [facility] Last Admin: 07/25/18 08:44 Dose: 40 mg Sodium Chloride (Flush - Normal Saline) 10 ml IVF Q12HR REPLACED BY [facility] Last Admin: 07/25/18 08:44 Dose: 10 ml Sodium Chloride (Flush - Normal Saline) 10 ml IVF PRN PRN PRN Reason: Saline Flush Tamsulosin HCl (Flomax) 0.4 mg PO [facility]
[2018-07-25] MEDS: Furosemide 40 MG/4 ML VIAL SLOW IVP SCH (14:38)
[2018-07-25] MEDS: Magnesium Oxide 250 MG TAB PO SCH (20:45)
[2018-07-25] MEDS: Allopurinol 100 MG TAB PO SCH (20:45)
[2018-07-25] MEDS: Tamsulosin HCl 0.4 MG CAP PO SCH (20:46)
[2018-07-25] MEDS: Insulin Glargine 15 UNITS in Pre-Filled Syringe 1 EACH SC SCH (20:47)
[2018-07-25] MEDS ORDERED: MAGNESIUM OXIDE 250 MG PO SCH (21:00)
[2018-07-25] MEDS ORDERED: Non-Formulary Item 1 EACH (Insulin Glargine,Hum.Rec.Anlog [Lantus Solostar] 15 UNIT) SQ SCH (21:00)
--- NOTE | 2018-07-26 01:03 | CON ---
DATE OF CONSULTATION: CONSULTING PHYSICIAN: Apurva Almazan MD. REASON FOR CONSULT: Acute kidney injury. REASON FOR ADMISSION: Shortness of breath. HISTORY OF PRESENT ILLNESS: This is a 63-year-old male with history of congestive heart failure, chronic kidney disease, atrial fibrillation, GERD, came to the hospital with shortness of breath, found to have CHF exacerbation, is being treated for CHF exacerbation with IV Lasix. Acute renal function, worsened from baseline. Nephrology was consulted. The patient does have CKD stage 4. No nausea or vomiting. No chest pain palpitation reported. No fever or chills. No rash. PAST MEDICAL HISTORY: Positive for CHF, atrial fibrillation, type 2 diabetes, chronic kidney disease stage 4. PAST SURGICAL HISTORY: CABG. HOME MEDICATION: 1. Aspirin. 2. Glimepiride. 3. Plavix. 4. Carvedilol. 5. Hydralazine. 6. Allopurinol. 7. Amlodipine. 8. Lasix. 9. Gabapentin. 10. Tamsulosin. 11. Cranberry. 12. Restoril. 13. Ranexa. 14. Ranitidine. 15. Tylenol. 16. Citalopram. 17. Benzonatate. ALLERGIES: HYDROCODONE, LEVOFLOXACIN, LOSARTAN, TRAMADOL. SOCIAL HISTORY: No smoking, alcohol or drugs. FAMILY HISTORY: No significant disease. REVIEW OF SYSTEMS: CONSTITUTIONAL: Negative for weight loss or gain, sense of well-being, ability to conduct usual activities, exercise tolerance. SKIN/BREAST: Negative for rash, itching, changes in hair growth or loss, nail changes, breast lumps, tenderness, swelling, nipple discharge. EYES: Negative for vision, double vision, tearing, blind spots, pain. ENT/MOUTH: Negative for headaches, vertigo, lightheadedness, injury. Vision, double vision, tearing, blind spots, pain, nose bleeding, colds, obstruction, discharge, dental difficulties, gingival bleeding, dentures, neck stiffness, pain, tenderness, masses in thyroid or other areas CARDIOVASCULAR: Negative for precordial pain, substernal distress, palpitations, syncope, dyspnea on exertion, orthopnea, nocturnal paroxysmal dyspnea, edema, cyanosis, hypertension, heart murmurs, varicosities, phlebitis, claudication. RESPIRATORY: Negative for pain, shortness of breath, wheezing, stridor, cough, hemoptysis, fever or night sweats GASTROINTESTINAL: Negative for poor appetite, dysphagia, indigestion, abdominal pain, heartburn, eructation, nausea, vomiting, hematemesis, jaundice, constipation, or diarrhea, abnormal stools (aaron-colored, tarry, bloody, greasy, foul smelling), flatulence, hemorrhoids, recent changes in bowel habits. GENITOURINARY: Negative for urgency, frequency, dysuria, nocturia, hematuria, polyuria, oliguria, unusual (or change in) color of urine, stones, hesitancy, change in size of stream, dribbling, acute retention or incontinence, libido, potency. MUSCULOSKELETAL: Negative for pain, swelling, redness or heat of muscles or joints, limitation of motion, muscular weakness, atrophy, cramps. NEUROLOGIC/PSYCHIATRIC: Negative for convulsions, paralyses, tremor, incoordination, parasthesias, difficulties with memory of speech, sensory or motor disturbances, or muscular coordination (ataxia, tremor), emotional problems, anxiety, depression, previous psychiatric care, unusual perceptions, hallucinations. ALLERGY/IMMUNOLOGIC: Negative for skin rash, anemia, bleeding tendency, polydipsia, polyuria, intolerance to heat or cold. PHYSICAL EXAMINATION: GENERAL: This is obese a male, in no apparent distress. VITAL SIGNS: Temperature 98.2, pulse 64, respiratory rate 22, blood pressure 123/62. HEENT: Atraumatic and normocephalic. Oral mucosa is moist. NECK: Supple. CVS: S1, S2 heard. RESPIRATORY: Clear. GI: Abdomen is soft. MUSCULOSKELETAL: 2+ edema. DERMATOLOGIC: No skin rash. NEUROLOGIC: Alert and awake. PSYCHIATRIC: Normal mood and affect. LABORATORY DATA: Hemoglobin is 9.7, potassium 3.9, BUN is 41, creatinine is 3.8. ASSESSMENT AND PLAN: 1. Acute kidney disease on chronic kidney disease stage 4 with worsening renal function, most likely from cardiorenal syndrome. Agree with IV Lasix. We will monitor. 2. Elevated BNP. 3. Cardiorenal syndrome with fluid overload. 4. Edema, remove fluid with diuretics. Continue Lasix. 5. Anemia. 6. Morbid obesity. 7. Mild hypoalbuminemia. 8. History of hypertension, stable. 9. Plan to continue on IV Lasix. Monitor renal function and electrolytes closely. Check magnesium and potassium levels and we will follow. Thank you for the consult. Job ID: [id number]
[2018-07-26 05:37] LABS: #Basophils 0.1 thou/uL (0.0-0.2); #Eosinphils 0.2 thou/uL (0.0-0.7); #Lymphocytes 1.2 thou/uL (1.20-3.40); #Monocytes 0.6 thou/uL (0.11-0.59); #Neutrophils 4.8 thou/uL (1.40-6.50); %Basophils 0.9 % (0.0-1.0); %Lymphocytes 17.1 % (21.0-51.0); %Monocytes 8.2 % (0.0-10.0); %Neutrophils 70.7 % (42.0-75.0); Hemoglobin 9.5 g/dL (14.0-18.0); Mean Corpuscular Hemoglobin 28.3 pg (27.0-31.0); Mean Corpuscular Volume 88.4 fL (78.0-98.0); Mean Platelet Volume 7.9 fL (7.4-10.4); Platelet Count 123 thou/uL (130-400); RBC Distribution Width 16.6 % (11.5-14.5); Red Blood Cell (RBC) Count 3.35 mill/uL (4.70-6.10); White Blood Cell (WBC) Count 6.8 thou/uL (4.8-10.8)
[2018-07-26] MEDS: Furosemide 40 MG/4 ML VIAL SLOW IVP SCH ×2 (05:56→14:30)
[2018-07-26 06:06] LABS: Anion Gap 14 mmol/L (10-20); BUN (Urea Nitrogen) 41 mg/dL (8.4-25.7); Calc. Creatinine Clearance 38 mL/min (70-130); Calcium 8.7 mg/dL (7.8-10.44); Carbon Dioxide 25 mmol/L (23-31); Chloride 103 mmol/L (98-107); Estimated GFR-MDRD 17; Glucose 129 mg/dL (80-115); Magnesium 2.2 mg/dL (1.6-2.6); Potassium 3.6 mmol/L (3.5-5.1); Sodium 138 mmol/L (136-145)
[2018-07-26] MEDS: Carvedilol 25 MG TAB PO SCH ×2 (08:51→16:28)
[2018-07-26] MEDS: Glimepiride 4 MG TAB PO SCH ×2 (08:51→16:28)
[2018-07-26] MEDS: Amlodipine 5 MG TAB PO SCH (08:51)
[2018-07-26] MEDS: hydrALAZINE 25 MG TAB PO SCH ×2 (08:52→21:36)
[2018-07-26] MEDS: Calcitriol 0.25 MCG CAP PO SCH (08:52)
[2018-07-26] MEDS: Gabapentin 300 MG CAP PO SCH ×3 (08:52→21:36)
[2018-07-26] MEDS: Aspirin Chewable 81 MG TAB PO SCH (08:52)
[2018-07-26] MEDS: Clopidogrel Bisulfate 75 MG TAB PO SCH (08:52)
[2018-07-26] MEDS: Ubidecarenone 50 MG CAP PO SCH (08:53)
[2018-07-26] MEDS: Rosuvastatin 20 MG TAB PO SCH (08:53)
[2018-07-26] MEDS: Stress 600 With Zinc 1 TAB PO SCH (08:53)
[2018-07-26] MEDS ORDERED: Potassium Chloride 20 MEQ TAB PO SCH (10:30)
--- NOTE | 2018-07-26 10:56 | PRG ---
DATE OF SERVICE: 07/26/2018 SUBJECTIVE: Patient was seen and examined at bedside and overnight events noted. Patient denies any shortness of breath or chest pain or palpitation. No history of nausea or vomiting or diarrhea or fever or chills or cramps. OBJECTIVE: GENERAL: This is an obese male, in no apparent distress. VITAL SIGNS: Temperature 97.6. Heart rate 59. Respiratory rate 16. Blood pressure 148/76. HEENT: Atraumatic, normocephalic. Oral mucosa is moist NECK: Supple. CARDIOVASCULAR: S1, S2 heard. Rate and rhythm regular. RESPIRATORY: Clear to auscultation. GASTROINTESTINAL: Abdomen is soft. MUSCULOSKELETAL: No tenderness. No edema. DERMATOLOGIC: No skin rash. NEUROLOGIC: Alert and awake and oriented X3. No focal neurologic deficits. Moving all the extremities. PSYCHIATRIC: Mood and affect normal. LABORATORY DATA: Potassium is 3.6, BUN is 41, creatinine is 3.0. ASSESSMENT AND PLAN: 1. Acute kidney injury on chronic kidney disease, stage 4, with improvement in renal function, most likely from cardiorenal syndrome. Continue diuretics with close monitoring. 2. Cardiorenal syndrome. Continue diuretics. 3. Fluid overload. 4. Anemia. 5. Morbid obesity. 6. History of hypertension. Plan to continue diuretics with close monitoring of renal function. Potassium and magnesium levels are stable, although replace potassium 1 dose today. We will follow. Job ID: [id number]
--- NOTE | 2018-07-26 12:43 | PDOC.PN ---
- Subjective Encounter Start Date: 07/26/18 Encounter Start Time: 08:00 Subjective: sob is better, is amb in hallway -: no chest pain or palp -: at bedside - Objective Resuscitation Status - Order Detail: 07/25/18 06:25 Resuscitation Status Routine Resuscitation Status: FULL: Full Resuscitation MAR Reviewed: Yes Vital Signs & Weight: Vital Signs (12 hours) Temp Pulse Resp BP BP Pulse Ox 07/26/18 11:54 98.4 F 59 L 18 112/60 95 07/26/18 08:52 59 L 148/76 H 07/26/18 08:51 59 L 148/76 H 07/26/18 07:50 95 07/26/18 07:29 97.6 F 59 L 16 148/76 H 95 07/26/18 04:00 98.2 F 67 20 147/67 H 93 L Weight Weight 280 lb 9.6 oz I&O: 07/25/18 07/26/18 07/27/18 06:59 06:59 06:59 Intake Total 1340 300 Output Total 1475 550 Balance -135 -250 Result Diagrams: 07/26/18 05:05 07/26/18 05:05 Additional Labs: Accuchecks 07/26/18 07/26/18 07/25/18 10:50 06:15 21:14 POC Glucose 185 H 146 H 113 H 07/25/18 16:45 POC Glucose 224 H Phys Exam - Physical Examination HEENT: PERRLA, moist MMs Neck: no JVD, supple Respiratory: no wheezing, no rales Cardiovascular: RRR, no significant murmur Gastrointestinal: soft, non-tender, positive bowel sounds Musculoskeletal: pulses present, edema present Neurological: non-focal, moves all 4 limbs Psychiatric: normal affect, A&O x 3 Dx/Plan (1) Acute on chronic combined systolic and diastolic congestive heart failure Code(s): I50.43 - ACUTE ON CHRONIC COMBINED SYSTOLIC AND DIASTOLIC HRT FAIL Status: Acute Comment: ef of 40%, Class C (2) Acute worsening of stage 3 chronic kidney disease Code(s): N18.3 - CHRONIC KIDNEY DISEASE, STAGE 3 (MODERATE) Status: Acute (3) DM type 2 causing CKD stage 4 Code(s): E11.22 - TYPE 2 DIABETES MELLITUS W DIABETIC CHRONIC KIDNEY DISEASE; N18.4 - CHRONIC KIDNEY DISEASE, STAGE 4 (SEVERE) Status: Chronic Qualifiers: Diabetes mellitus long-term insulin use: with long-term use (4) Atrial fibrillation Code(s): I48.91 - UNSPECIFIED ATRIAL FIBRILLATION Status: Chronic Qualifiers: Atrial fibrillation type: chronic Qualified Code(s): I48.2 - Chronic atrial fibrillation Comment: Rate controlled (5) CAD (coronary artery disease) Code(s): I25.10 - ATHSCL HEART DISEASE OF [place] CORONARY ARTERY W/O ANG PCTRS Status: Chronic Qualifiers: Coronary Disease-Associated Artery/Lesion type: bypass graft [place] vs. transplanted heart: [place] heart Associated angina: without angina Qualified Code(s): I25.810 - Atherosclerosis of coronary artery bypass graft(s) without angina pectoris Comment: cabgx3 done at [facility] 08/2011 (6) Dyslipidemia Code(s): E78.5 - HYPERLIPIDEMIA, UNSPECIFIED Status: Chronic (7) GERD (gastroesophageal reflux disease) Code(s): K21.9 - GASTRO-ESOPHAGEAL REFLUX DISEASE WITHOUT ESOPHAGITIS Status: Chronic Qualifiers: Esophagitis presence: esophagitis presence not specified Qualified Code(s) : K21.9 - Gastro-esophageal reflux disease without esophagitis (8) Gout Code(s): M10.9 - GOUT, UNSPECIFIED Status: Chronic Qualifiers: Gout site: unspecified site Gout etiology: unspecified cause Chronicity: chronic Presence of tophus: without tophus Qualified Code(s): M1A.9XX0 - Chronic gout, unspecified, without tophus (tophi) (9) HTN (hypertension) Code(s): I10 - ESSENTIAL (PRIMARY) HYPERTENSION Status: Chronic Qualifiers: (10) Obesity (BMI 30-39.9) Code(s): E66.9 - OBESITY, UNSPECIFIED Status: Chronic - Plan continue gentle diuresis, renal function is holding up -: on coreg, norvasc, hydralazine, ranexa, crestor, asp, plavix -: no pamela/arb's due to jefe/ckd -: to mobilize more in hallway -: carissa wilson to [place] * . Review of Systems - Medications/Allergies Allergies/Adverse Reactions: Allergies Allergy/AdvReac Type Severity Reaction Status Date / Time hydrocodone bitartrate Allergy Verified 07/25/18 05:02 [From [place]] levofloxacin [From Levaquin] Allergy Verified 07/25/18 05:02 losartan Allergy Verified 07/25/18 05:02 tramadol Allergy Verified 07/25/18 05:02 Medications: Current Medications Acetaminophen (Tylenol) 1,000 mg PO Q6H PRN PRN Reason: Pain Albuterol Sulfate (Proventil Hfa) 2 puff INH Q4H PRN PRN Reason: SOB &/or Wheezing Allopurinol (Zyloprim) 100 mg PO HS [facility] Last Admin: 07/25/18 20:45 Dose: 100 mg Amlodipine Besylate (Norvasc) 5 mg PO DAILY [facility] Last Admin: 07/26/18 08:51 Dose: 5 mg Aspirin (Aspirin Chewable) 81 mg PO DAILY [facility] Last Admin: 07/26/18 08:52 Dose: 81 mg Benzonatate (Tessalon) 100 mg PO Q4H PRN PRN Reason: Cough Calcitriol (Rocaltrol) 0.25 mcg PO MWF [facility] Last Admin: 07/26/18 08:52 Dose: 0.25 mcg Carvedilol (Coreg) 25 mg PO BID-[facility] Last Admin: 07/26/18 08:51 Dose: 25 mg Citalopram Hydrobromide (Celexa) 20 mg PO DAILY PRN PRN Reason: anxiety Clopidogrel Bisulfate (Plavix) 75 mg PO DAILY [facility] Last Admin: 07/26/18 08:52 Dose: 75 mg Coenzyme Q10 (Coenzyme Q10) 200 mg PO DAILY [facility] Last Admin: 07/26/18 08:53 Dose: 200 mg Dextrose/Water (Dextrose 50%) 25 gm SLOW IVP PRN PRN PRN Reason: Hypoglycemia Enoxaparin Sodium (Lovenox) 30 mg SC 2100 [facility] Famotidine (Pepcid) 20 mg PO BIDPRN PRN PRN Reason: INDIGESTION Fluticasone Propionate (Flonase Nasal [place]) 0 gm NASAL BID PRN PRN Reason: Allergies Furosemide (Lasix) 40 mg SLOW IVP 0600,1400 [facility] Last Admin: 07/26/18 05:56 Dose: 40 mg Gabapentin (Neurontin) 300 mg PO TID [facility] Last Admin: 07/26/18 08:52 Dose: 300 mg Glimepiride (Amaryl) 4 mg PO BID-[facility] Last Admin: 07/26/18 08:51 Dose: 4 mg Glucagon (Glucagon) 1 mg IM PRN PRN PRN Reason: Hypoglycemia Hydralazine HCl (Apresoline) 50 mg PO BID [facility] Last Admin: 07/26/18 08:52 Dose: 50 mg Dextrose/Water (D5w) 1,000 mls @ 0 mls/hr IV .Q0M PRN PRN Reason: Hypoglycemia Insulin Glargine 15 units/ (Miscellaneous Medication) 0.15 mls @ 0 mls/hr SC [facility] Last Admin: 07/25/18 20:47 Dose: Not Given Insulin Human Lispro (Humalog) 0 units SC .MILD SLIDING SCALE PRN PRN Reason: Mild Correctional Scale Last Admin: 07/25/18 17:49 Dose: 3 unit Loratadine (Claritin) 10 mg PO DAILYPRN PRN PRN Reason: ALLERGY Magnesium Oxide (Magnesium Oxide) 250 mg PO [facility] Last Admin: 07/25/18 20:45 Dose: 250 mg Multivitamins/Zinc (Stress 600 With Zinc) 1 tab PO DAILY [facility] Last Admin: 07/26/18 08:53 Dose: 1 tab Nitroglycerin (Nitrostat) 0.4 mg SL Q5MIN PRN PRN Reason: Chest Pain Ondansetron HCl (Zofran Odt) 4 mg PO Q6H PRN PRN Reason: Nausea/Vomiting Ondansetron HCl (Zofran) 4 mg IVP Q6H PRN PRN Reason: Nausea/Vomiting Pantoprazole Sodium (Protonix) 20 mg PO DAILYPRN PRN PRN Reason: INDIGESTION Ranolazine (Ranexa) 500 mg PO BID [facility] Last Admin: 07/26/18 08:53 Dose: 500 mg Rosuvastatin Calcium (Crestor) 40 mg PO DAILY [facility] Last Admin: 07/26/18 08:53 Dose: 40 mg Sodium Chloride (Flush - Normal Saline) 10 ml IVF Q12HR [facility] Last Admin: 07/26/18 08:53 Dose: 10 ml Sodium Chloride (Flush - Normal Saline) 10 ml IVF PRN PRN PRN Reason: Saline Flush Last Admin: 07/26/18 05:57 Dose: 10 ml Tamsulosin HCl (Flomax) 0.4 mg PO [facility] Last Admin: 07/25/18 20:46 Dose: 0.4 mg
--- NOTE | 2018-07-26 15:54 | CON ---
DATE OF CONSULTATION: 07/26/2018 REASON FOR CONSULTATION: Congestive heart failure. HISTORY OF PRESENT ILLNESS: Mr. Sellers is a very pleasant 63-year-old gentleman with history of renal insufficiency, coronary artery disease, and congestive heart failure. He is admitted to the hospital with refractory swelling of his lower extremities. He is receiving intravenous diuretics now with good response. No chest pain or pressure. He cannot lie flat, but he said he has never been able to lie flat even as a child. He states that his main complaint is increasing amounts of edema in his lower extremities, swelling of his legs, which is not responding to the diuretics. PAST MEDICAL HISTORY: 1. The patient does have a history of previous bypass. 2. Congestive heart failure. 3. Stage 4 renal failure. 4. Morbid obesity. 5. Gout. MEDICATIONS: Currently, he is on intravenous diuretics. At home, he was on, 1. Oral furosemide 40 mg twice a day. 2. Plavix 75 mg a day. 3. Aspirin 81 mg a day. 4. Coreg 25 mg twice a day. 5. Hydralazine 50 mg twice a day. 6. Amlodipine 5 mg a day. 7. Ranexa 1000 mg twice a day. 8. Vitamin B. 9. Insulin. 10. Gabapentin. 11. Rosuvastatin. 12. Ranitidine. 13. Tamsulosin. ALLERGIES: HYDROCODONE, LEVOFLOXACIN, LOSARTAN, TRAMADOL. REVIEW OF SYSTEMS: CONSTITUTIONAL: No significant weight loss. He has been gaining weight due to fluid. VISION: No changes. HEARING: No changes. PULMONARY: No cough or wheezing. CARDIAC: As outlined above. No chest pain. GASTROINTESTINAL: No nausea, vomiting, or diarrhea. SKIN: No rashes. NEUROLOGIC: No unilateral weakness or numbness. PSYCHIATRIC: No unusual depression or anxiety. FAMILY HISTORY: Negative for heart disease at young age. PHYSICAL EXAMINATION: GENERAL: This is a pleasant 63-year-old man in no distress. VITAL SIGNS: Blood pressure 148/76, pulse 60, it is sinus. HEENT: Eyes, sclerae are nonicteric. Mouth, mucous membranes are moist. NECK: Supple. No lymphadenopathy. LUNGS: Clear. No wheezing, rales, or rhonchi. CARDIAC: Normal S1. Normal S2. ABDOMEN: Obese and nontender. EXTREMITIES: No clubbing or cyanosis. There is severe peripheral edema. Peripheral pulses, I still feel dorsalis pedis pulses bilaterally. PERTINENT LABORATORY DATA: Creatinine 3.87 on admission, 3.66 at followup. Estimated GFR 17. BNP 933. IMAGING STUDIES: The EKG shows sinus rhythm. Most recent echocardiogram in last January, ejection fraction 40% to 45%. ASSESSMENT: 1. Congestive heart failure, systolic-diastolic mixed, acute on chronic. 2. Coronary artery disease, previous bypass surgery. 3. Stage IV renal failure. 4. Hypertension. 5. Hypercholesterolemia. PLAN: 1. Agree with intravenous diuretics. 2. Agree with not giving KATY inhibitors or angiotensin receptor blockers with stage IV renal failure. 3. We will be glad to follow with you. No other recommendations currently. Job ID: [id number]
[2018-07-26] MEDS: HumaLOG 300 UNITS/3 ML VIAL SC PRN (17:45)
[2018-07-26] MEDS: Allopurinol 100 MG TAB PO SCH (21:34)
[2018-07-26] MEDS: Enoxaparin Sodium 30 MG/0.3 ML SYRINGE SC SCH (21:34)
[2018-07-26] MEDS: Tamsulosin HCl 0.4 MG CAP PO SCH (21:36)
[2018-07-26] MEDS: Insulin Glargine 15 UNITS in Pre-Filled Syringe 1 EACH SC SCH (21:37)
[2018-07-26] MEDS: Magnesium Oxide 250 MG TAB PO SCH (21:37)
[2018-07-27] MEDS: Furosemide 40 MG/4 ML VIAL SLOW IVP SCH ×2 (06:38→15:29)
[2018-07-27 09:18] LABS: Anion Gap 12 mmol/L (10-20); BUN (Urea Nitrogen) 41 mg/dL (8.4-25.7); Calc. Creatinine Clearance 39 mL/min (70-130); Calcium 8.6 mg/dL (7.8-10.44); Carbon Dioxide 28 mmol/L (23-31); Chloride 102 mmol/L (98-107); Estimated GFR-MDRD 17; Glucose 88 mg/dL (80-115); Potassium 3.9 mmol/L (3.5-5.1); Sodium 138 mmol/L (136-145)
[2018-07-27] MEDS: Carvedilol 25 MG TAB PO SCH ×2 (09:32→16:52)
[2018-07-27] MEDS: Glimepiride 4 MG TAB PO SCH ×2 (09:32→16:52)
[2018-07-27] MEDS: Aspirin Chewable 81 MG TAB PO SCH (09:32)
[2018-07-27] MEDS: Amlodipine 5 MG TAB PO SCH (09:32)
[2018-07-27] MEDS: Clopidogrel Bisulfate 75 MG TAB PO SCH (09:33)
[2018-07-27] MEDS: Rosuvastatin 20 MG TAB PO SCH (09:33)
[2018-07-27] MEDS: hydrALAZINE 25 MG TAB PO SCH ×2 (09:33→20:34)
[2018-07-27] MEDS: Gabapentin 300 MG CAP PO SCH ×3 (09:33→20:35)
[2018-07-27] MEDS: Ubidecarenone 50 MG CAP PO SCH (09:34)
[2018-07-27] MEDS: Stress 600 With Zinc 1 TAB PO SCH (09:34)
--- NOTE | 2018-07-27 11:24 | PDOC.PN ---
- Subjective Encounter Start Date: 07/27/18 Encounter Start Time: 06:45 Subjective: no sob, is amb in hallway -: no chest pain or palp -: leg swelling is better with carissa wilson - Objective Resuscitation Status - Order Detail: 07/25/18 06:25 Resuscitation Status Routine Resuscitation Status: FULL: Full Resuscitation MAR Reviewed: Yes Vital Signs & Weight: Vital Signs (12 hours) Temp Pulse Resp BP BP Pulse Ox 07/27/18 09:33 63 97/54 L 07/27/18 09:32 63 97/54 L 07/27/18 07:50 94 L 07/27/18 07:32 98.3 F 63 18 97/54 L 94 L 07/27/18 04:00 98.4 F 63 19 125/75 97 07/26/18 23:55 98.1 F 61 19 145/85 H 98 Weight Weight 281 lb I&O: 07/26/18 07/27/18 07/28/18 06:59 06:59 06:59 Intake Total 1340 1380 Output Total 1475 5855 9941 Balance 917 -215 -9295 Result Diagrams: 07/26/18 05:05 07/27/18 08:38 Additional Labs: Accuchecks 07/27/18 07/27/18 07/26/18 10:44 06:02 19:10 POC Glucose 136 H 109 335 H 07/26/18 16:44 POC Glucose 273 H Phys Exam - Physical Examination HEENT: PERRLA, moist MMs Neck: no JVD, supple Respiratory: no wheezing, no rales Cardiovascular: RRR, no significant murmur Gastrointestinal: soft, non-tender, positive bowel sounds Musculoskeletal: pulses present, edema present Neurological: non-focal, moves all 4 limbs Psychiatric: normal affect, A&O x 3 Dx/Plan (1) Acute on chronic combined systolic and diastolic congestive heart failure Code(s): I50.43 - ACUTE ON CHRONIC COMBINED SYSTOLIC AND DIASTOLIC HRT FAIL Status: Acute Comment: ef of 40%, Class C (2) DM type 2 causing CKD stage 4 Code(s): E11.22 - TYPE 2 DIABETES MELLITUS W DIABETIC CHRONIC KIDNEY DISEASE; N18.4 - CHRONIC KIDNEY DISEASE, STAGE 4 (SEVERE) Status: Chronic Qualifiers: Diabetes mellitus intermediate teacher insulin use: with intermediate teacher use (3) Atrial fibrillation Code(s): I48.91 - UNSPECIFIED ATRIAL FIBRILLATION Status: Chronic Qualifiers: Atrial fibrillation type: chronic Qualified Code(s): I48.2 - Chronic atrial fibrillation Comment: Rate controlled (4) CAD (coronary artery disease) Code(s): I25.10 - ATHSCL HEART DISEASE OF [place] CORONARY ARTERY W/O ANG PCTRS Status: Chronic Qualifiers: Coronary Disease-Associated Artery/Lesion type: bypass graft [place] vs. transplanted heart: [place] heart Associated angina: without angina Qualified Code(s): I25.810 - Atherosclerosis of coronary artery bypass graft(s) without angina pectoris Comment: cabgx3 done at [facility] in [place] 08/2011 (5) Dyslipidemia Code(s): E78.5 - HYPERLIPIDEMIA, UNSPECIFIED Status: Chronic (6) GERD (gastroesophageal reflux disease) Code(s): K21.9 - GASTRO-ESOPHAGEAL REFLUX DISEASE WITHOUT ESOPHAGITIS Status: Chronic Qualifiers: Esophagitis presence: esophagitis presence not specified Qualified Code(s) : K21.9 - Gastro-esophageal reflux disease without esophagitis (7) Gout Code(s): M10.9 - GOUT, UNSPECIFIED Status: Chronic Qualifiers: Gout site: unspecified site Gout etiology: unspecified cause Chronicity: chronic Presence of tophus: without tophus Qualified Code(s): M1A.9XX0 - Chronic gout, unspecified, without tophus (tophi) (8) HTN (hypertension) Code(s): I10 - ESSENTIAL (PRIMARY) HYPERTENSION Status: Chronic Qualifiers: (9) Obesity (BMI 30-39.9) Code(s): E66.9 - OBESITY, UNSPECIFIED Status: Chronic (10) CKD (chronic kidney disease) stage 4, GFR 15-29 ml/min Code(s): N18.4 - CHRONIC KIDNEY DISEASE, STAGE 4 (SEVERE) Status: Chronic - Plan is gently diuresing, renal funciton is holding up -: continue coreg, norvasc, hydralazine, ranexa, crestor, asp, plavix -: on lantus and glimepride for dm -: hemostable -: will need some more active diuresis prior to dc * . Review of Systems - Medications/Allergies Allergies/Adverse Reactions: Allergies Allergy/AdvReac Type Severity Reaction Status Date / Time hydrocodone bitartrate Allergy Verified 07/25/18 05:02 [From [place]] levofloxacin [From Levaquin] Allergy Verified 07/25/18 05:02 losartan Allergy Verified 07/25/18 05:02 tramadol Allergy Verified 07/25/18 05:02 Medications: Current Medications Acetaminophen (Tylenol) 1,000 mg PO Q6H PRN PRN Reason: Pain Albuterol Sulfate (Proventil Hfa) 2 puff INH Q4H PRN PRN Reason: SOB &/or Wheezing Allopurinol (Zyloprim) 100 mg PO HS [facility] Last Admin: 07/26/18 21:34 Dose: 100 mg Amlodipine Besylate (Norvasc) 5 mg PO DAILY [facility] Last Admin: 07/27/18 09:32 Dose: 5 mg Aspirin (Aspirin Chewable) 81 mg PO DAILY [facility] Last Admin: 07/27/18 09:32 Dose: 81 mg Benzonatate (Tessalon) 100 mg PO Q4H PRN PRN Reason: Cough Calcitriol (Rocaltrol) 0.25 mcg PO MWF [facility] Last Admin: 07/26/18 08:52 Dose: 0.25 mcg Carvedilol (Coreg) 25 mg PO BID-[facility] Last Admin: 07/27/18 09:32 Dose: 25 mg Citalopram Hydrobromide (Celexa) 20 mg PO DAILY PRN PRN Reason: anxiety Clopidogrel Bisulfate (Plavix) 75 mg PO DAILY [facility] Last Admin: 07/27/18 09:33 Dose: 75 mg Coenzyme Q10 (Coenzyme Q10) 200 mg PO DAILY [facility] Last Admin: 07/27/18 09:34 Dose: 200 mg Dextrose/Water (Dextrose 50%) 25 gm SLOW IVP PRN PRN PRN Reason: Hypoglycemia Enoxaparin Sodium (Lovenox) 30 mg SC 2100 [facility] Last Admin: 07/26/18 21:34 Dose: 30 mg Famotidine (Pepcid) 20 mg PO BIDPRN PRN PRN Reason: INDIGESTION Fluticasone Propionate (Flonase Nasal [place]) 0 gm NASAL BID PRN PRN Reason: Allergies Furosemide (Lasix) 40 mg SLOW IVP 0600,1400 [facility] Last Admin: 07/27/18 06:38 Dose: 40 mg Gabapentin (Neurontin) 300 mg PO TID [facility] Last Admin: 07/27/18 09:33 Dose: 300 mg Glimepiride (Amaryl) 4 mg PO BID-[facility] Last Admin: 07/27/18 09:32 Dose: 4 mg Glucagon (Glucagon) 1 mg IM PRN PRN PRN Reason: Hypoglycemia Hydralazine HCl (Apresoline) 50 mg PO BID [facility] Last Admin: 07/27/18 09:33 Dose: 50 mg Dextrose/Water (D5w) 1,000 mls @ 0 mls/hr IV .Q0M PRN PRN Reason: Hypoglycemia Insulin Glargine 15 units/ (Miscellaneous Medication) 0.15 mls @ 0 mls/hr SC [facility] Last Admin: 07/26/18 21:37 Dose: 0.15 mls Insulin Human Lispro (Humalog) 0 units SC .MILD SLIDING SCALE PRN PRN Reason: Mild Correctional Scale Last Admin: 07/26/18 17:45 Dose: 4 unit Loratadine (Claritin) 10 mg PO DAILYPRN PRN PRN Reason: ALLERGY Magnesium Oxide (Magnesium Oxide) 250 mg PO [facility] Last Admin: 07/26/18 21:37 Dose: 250 mg Multivitamins/Zinc (Stress 600 With Zinc) 1 tab PO DAILY [facility] Last Admin: 07/27/18 09:34 Dose: 1 tab Nitroglycerin (Nitrostat) 0.4 mg SL Q5MIN PRN PRN Reason: Chest Pain Ondansetron HCl (Zofran Odt) 4 mg PO Q6H PRN PRN Reason: Nausea/Vomiting Ondansetron HCl (Zofran) 4 mg IVP Q6H PRN PRN Reason: Nausea/Vomiting Pantoprazole Sodium (Protonix) 20 mg PO DAILYPRN PRN PRN Reason: INDIGESTION Ranolazine (Ranexa) 500 mg PO BID [facility] Last Admin: 07/27/18 09:33 Dose: 500 mg Rosuvastatin Calcium (Crestor) 40 mg PO DAILY [facility] Last Admin: 07/27/18 09:33 Dose: 40 mg Sodium Chloride (Flush - Normal Saline) 10 ml IVF Q12HR [facility] Last Admin: 07/27/18 09:34 Dose: 10 ml Sodium Chloride (Flush - Normal Saline) 10 ml IVF PRN PRN PRN Reason: Saline Flush Last Admin: 07/26/18 05:57 Dose: 10 ml Tamsulosin HCl (Flomax) 0.4 mg PO [facility] Last Admin: 07/26/18 21:36 Dose: 0.4 mg
--- NOTE | 2018-07-27 15:40 | PRG ---
DATE OF SERVICE: 07/27/2018 SUBJECTIVE: Patient was seen and examined at bedside and overnight events noted. Patient denies any shortness of breath or chest pain or palpitation. No history of nausea or vomiting or diarrhea or fever or chills or cramps. OBJECTIVE: GENERAL: This is a well-built male, in no apparent distress. VITAL SIGNS: Temperature 97. Heart rate 59. Respiratory rate 18. Blood pressure 112/60. HEENT: Atraumatic, normocephalic. Oral mucosa is moist NECK: Supple. CARDIOVASCULAR: S1, S2 heard. Rate and rhythm regular. RESPIRATORY: Clear to auscultation. GASTROINTESTINAL: Abdomen is soft. MUSCULOSKELETAL: No tenderness. No edema. DERMATOLOGIC: No skin rash. NEUROLOGIC: Alert and awake and oriented X3. No focal neurologic deficits. Moving all the extremities. PSYCHIATRIC: Mood and affect normal. LABORATORY DATA: Potassium is 3.9, BUN is 41, and creatinine is 3.5. ASSESSMENT AND PLAN: 1. Acute kidney injury on chronic kidney disease stage 4. Cardiorenal syndrome with stable creatinine. 2. Cardiorenal syndrome on diuretic. 3. Fluid overload. 4. Morbid obesity. 5. History of hypertension. Plan, we will monitor renal function closely. Job ID: [id number]
[2018-07-27] MEDS ORDERED: Famotidine 20 MG TAB PO PRN (17:44)
[2018-07-27] MEDS: Allopurinol 100 MG TAB PO SCH (20:34)
[2018-07-27] MEDS: Tamsulosin HCl 0.4 MG CAP PO SCH (20:34)
[2018-07-27] MEDS: Magnesium Oxide 250 MG TAB PO SCH (20:34)
[2018-07-27] MEDS: Enoxaparin Sodium 30 MG/0.3 ML SYRINGE SC SCH (20:34)
[2018-07-27] MEDS: Insulin Glargine 15 UNITS in Pre-Filled Syringe 1 EACH SC SCH (20:35)
[2018-07-28 05:41] LABS: Anion Gap 13 mmol/L (10-20); BUN (Urea Nitrogen) 40 mg/dL (8.4-25.7); Calc. Creatinine Clearance 39 mL/min (70-130); Calcium 8.8 mg/dL (7.8-10.44); Carbon Dioxide 29 mmol/L (23-31); Chloride 101 mmol/L (98-107); Estimated GFR-MDRD 18; Glucose 94 mg/dL (80-115); Potassium 3.7 mmol/L (3.5-5.1); Sodium 139 mmol/L (136-145)
[2018-07-28] MEDS: Furosemide 40 MG/4 ML VIAL SLOW IVP SCH ×2 (05:55→14:56)
[2018-07-28] MEDS: Stress 600 With Zinc 1 TAB PO SCH (08:53)
[2018-07-28] MEDS: Gabapentin 300 MG CAP PO SCH ×3 (08:54→22:36)
[2018-07-28] MEDS: Ubidecarenone 50 MG CAP PO SCH (08:55)
[2018-07-28] MEDS: Clopidogrel Bisulfate 75 MG TAB PO SCH (08:56)
[2018-07-28] MEDS: Rosuvastatin 20 MG TAB PO SCH (08:56)
[2018-07-28] MEDS: Calcitriol 0.25 MCG CAP PO SCH (08:57)
[2018-07-28] MEDS: Aspirin Chewable 81 MG TAB PO SCH (08:57)
[2018-07-28] MEDS: Glimepiride 4 MG TAB PO SCH ×2 (08:57→17:31)
[2018-07-28] MEDS: hydrALAZINE 25 MG TAB PO SCH ×2 (09:05→22:36)
[2018-07-28] MEDS: Amlodipine 5 MG TAB PO SCH (09:06)
[2018-07-28] MEDS: Carvedilol 25 MG TAB PO SCH ×2 (09:06→17:32)
--- NOTE | 2018-07-28 13:35 | PDOC.PN ---
- Subjective Encounter Start Date: 07/28/18 Encounter Start Time: 07:40 Subjective: no sob, is sleeping better - Objective Resuscitation Status - Order Detail: 07/25/18 06:25 Resuscitation Status Routine Resuscitation Status: FULL: Full Resuscitation MAR Reviewed: Yes Vital Signs & Weight: Vital Signs (12 hours) Temp Pulse Resp BP BP Pulse Ox 07/28/18 11:38 97.9 F 63 16 116/58 L 94 L 07/28/18 09:06 60 157/88 H 07/28/18 09:05 60 157/88 H 07/28/18 08:49 94 L 07/28/18 07:39 97.6 F 60 17 116/60 94 L 07/28/18 04:00 97.9 F 61 19 117/70 96 Weight Weight 275 lb 7 oz I&O: 07/27/18 07/28/18 07/29/18 06:59 06:59 06:59 Intake Total 1380 1080 Output Total 1999 2375 Balance -515 -0444 Result Diagrams: 07/26/18 05:05 07/28/18 04:51 Additional Labs: Accuchecks 07/28/18 07/28/18 07/27/18 10:36 05:56 19:40 POC Glucose 132 H 94 239 H 07/27/18 16:32 POC Glucose 111 H Phys Exam - Physical Examination HEENT: PERRLA, moist MMs Neck: no JVD, supple Respiratory: no wheezing, no rales Cardiovascular: RRR, no significant murmur Gastrointestinal: soft, non-tender, positive bowel sounds Musculoskeletal: pulses present, edema present Neurological: non-focal, moves all 4 limbs Psychiatric: normal affect, A&O x 3 Dx/Plan (1) Acute on chronic combined systolic and diastolic congestive heart failure Code(s): I50.43 - ACUTE ON CHRONIC COMBINED SYSTOLIC AND DIASTOLIC HRT FAIL Status: Acute Comment: ef of 40%, Class C (2) DM type 2 causing CKD stage 4 Code(s): E11.22 - TYPE 2 DIABETES MELLITUS W DIABETIC CHRONIC KIDNEY DISEASE; N18.4 - CHRONIC KIDNEY DISEASE, STAGE 4 (SEVERE) Status: Chronic Qualifiers: Diabetes mellitus manager intermediate insulin use: with snf use (3) Atrial fibrillation Code(s): I48.91 - UNSPECIFIED ATRIAL FIBRILLATION Status: Chronic Qualifiers: Atrial fibrillation type: chronic Qualified Code(s): I48.2 - Chronic atrial fibrillation Comment: Rate controlled (4) CAD (coronary artery disease) Code(s): I25.10 - ATHSCL HEART DISEASE OF [place] CORONARY ARTERY W/O ANG PCTRS Status: Chronic Qualifiers: Coronary Disease-Associated Artery/Lesion type: bypass graft [place] vs. transplanted heart: [place] heart Associated angina: without angina Qualified Code(s): I25.810 - Atherosclerosis of coronary artery bypass graft(s) without angina pectoris Comment: cabgx3 done at [facility] in [place] 08/2011 (5) Dyslipidemia Code(s): E78.5 - HYPERLIPIDEMIA, UNSPECIFIED Status: Chronic (6) GERD (gastroesophageal reflux disease) Code(s): K21.9 - GASTRO-ESOPHAGEAL REFLUX DISEASE WITHOUT ESOPHAGITIS Status: Chronic Qualifiers: Esophagitis presence: esophagitis presence not specified Qualified Code(s) : K21.9 - Gastro-esophageal reflux disease without esophagitis (7) Gout Code(s): M10.9 - GOUT, UNSPECIFIED Status: Chronic Qualifiers: Gout site: unspecified site Gout etiology: unspecified cause Chronicity: chronic Presence of tophus: without tophus Qualified Code(s): M1A.9XX0 - Chronic gout, unspecified, without tophus (tophi) (8) HTN (hypertension) Code(s): I10 - ESSENTIAL (PRIMARY) HYPERTENSION Status: Chronic Qualifiers: (9) Obesity (BMI 30-39.9) Code(s): E66.9 - OBESITY, UNSPECIFIED Status: Chronic (10) CKD (chronic kidney disease) stage 4, GFR 15-29 ml/min Code(s): N18.4 - CHRONIC KIDNEY DISEASE, STAGE 4 (SEVERE) Status: Chronic - Plan gentle diuresis, says he is passing more urine now as he stopped drinking -: -soda from day before, last 24hrs UO is 2375ml -: is on asp, plavix, coreg, hydralazine, ranexa and crestor -: continue lantus, glimepride -: renal function is holding, dc plan per cardio adv * . Review of Systems - Medications/Allergies Allergies/Adverse Reactions: Allergies Allergy/AdvReac Type Severity Reaction Status Date / Time hydrocodone bitartrate Allergy Verified 07/25/18 05:02 [From [place]] levofloxacin [From Levaquin] Allergy Verified 07/25/18 05:02 losartan Allergy Verified 07/25/18 05:02 tramadol Allergy Verified 07/25/18 05:02 Medications: Current Medications Acetaminophen (Tylenol) 1,000 mg PO Q6H PRN PRN Reason: Pain Albuterol Sulfate (Proventil Hfa) 2 puff INH Q4H PRN PRN Reason: SOB &/or Wheezing Allopurinol (Zyloprim) [address] [facility] Last Admin: 07/27/18 20:34 Dose: 100 mg Amlodipine Besylate (Norvasc) [address] [facility] Last Admin: 07/28/18 09:06 Dose: 5 mg Aspirin (Aspirin Chewable) [address] [facility] Last Admin: 07/28/18 08:57 Dose: 81 mg Benzonatate (Tessalon) 100 mg PO Q4H PRN PRN Reason: Cough Calcitriol (Rocaltrol) 0.[address] [facility] Last Admin: 07/28/18 08:57 Dose: 0.25 mcg Carvedilol (Coreg) 25 mg PO BID-[facility] Last Admin: 07/28/18 09:06 Dose: 25 mg Citalopram Hydrobromide (Celexa) 20 mg PO DAILY PRN PRN Reason: anxiety Clopidogrel Bisulfate (Plavix) [address] [facility] Last Admin: 07/28/18 08:56 Dose: 75 mg Coenzyme Q10 (Coenzyme Q10) [address] [facility] Last Admin: 07/28/18 08:55 Dose: 200 mg Dextrose/Water (Dextrose 50%) 25 gm SLOW IVP PRN PRN PRN Reason: Hypoglycemia Enoxaparin Sodium (Lovenox) [address] [facility] Last Admin: 07/27/18 20:34 Dose: 30 mg Famotidine (Pepcid) 20 mg PO DAILYPRN PRN PRN Reason: INDIGESTION Fluticasone Propionate (Flonase Nasal [place]) 0 gm NASAL BID PRN PRN Reason: Allergies Furosemide (Lasix) 40 mg SLOW IVP 0600,1400 [facility] Last Admin: 07/28/18 05:55 Dose: 40 mg Gabapentin (Neurontin) [address] [facility] Last Admin: 07/28/18 08:54 Dose: 300 mg Glimepiride (Amaryl) 4 mg PO BID-[facility] Last Admin: 07/28/18 08:57 Dose: 4 mg Glucagon (Glucagon) 1 mg IM PRN PRN PRN Reason: Hypoglycemia Hydralazine HCl (Apresoline) [address] [facility] Last Admin: 07/28/18 09:05 Dose: 50 mg Dextrose/Water (D5w) 1,000 mls @ 0 mls/hr IV .Q0M PRN PRN Reason: Hypoglycemia Insulin Glargine 15 units/ (Miscellaneous Medication) 0.15 mls @ 0 mls/hr SC [facility] Last Admin: 07/27/18 20:35 Dose: 0.15 mls Insulin Human Lispro (Humalog) 0 units SC .MILD SLIDING SCALE PRN PRN Reason: Mild Correctional Scale Last Admin: 07/26/18 17:45 Dose: 4 unit Loratadine (Claritin) 10 mg PO DAILYPRN PRN PRN Reason: ALLERGY Magnesium Oxide (Magnesium Oxide) 250 mg PO [facility] Last Admin: 07/27/18 20:34 Dose: 250 mg Multivitamins/Zinc (Stress 600 With Zinc) [address] [facility] Last Admin: 07/28/18 08:53 Dose: 1 tab Nitroglycerin (Nitrostat) 0.4 mg SL Q5MIN PRN PRN Reason: Chest Pain Ondansetron HCl (Zofran Odt) 4 mg PO Q6H PRN PRN Reason: Nausea/Vomiting Ondansetron HCl (Zofran) 4 mg IVP Q6H PRN PRN Reason: Nausea/Vomiting Pantoprazole Sodium (Protonix) 20 mg PO DAILYPRN PRN PRN Reason: INDIGESTION Ranolazine (Ranexa) [address] [facility] Last Admin: 07/28/18 08:53 Dose: 500 mg Rosuvastatin Calcium (Crestor) [address] [facility] Last Admin: 07/28/18 08:56 Dose: 40 mg Sodium Chloride (Flush - Normal Saline) [address] [facility] Last Admin: 07/28/18 08:58 Dose: 10 ml Sodium Chloride (Flush - Normal Saline) 10 ml IVF PRN PRN PRN Reason: Saline Flush Last Admin: 07/28/18 05:55 Dose: 10 ml Tamsulosin HCl (Flomax) 0.4 mg PO [facility] Last Admin: 07/27/18 20:34 Dose: 0.4 mg
--- NOTE | 2018-07-28 16:02 | PRG ---
DATE OF SERVICE: 07/28/2018 SUBJECTIVE: Patient was seen and examined at bedside and overnight events noted. Patient denies any shortness of breath or chest pain or palpitation. No history of nausea or vomiting or diarrhea or fever or chills or cramps. OBJECTIVE: GENERAL: This is an obese male, in no apparent distress. VITAL SIGNS: Temperature 97.9. Heart rate 63. Respiratory rate 18. Blood pressure 116/58. HEENT: Atraumatic, normocephalic. Oral mucosa is moist NECK: Supple. CARDIOVASCULAR: S1, S2 heard. Rate and rhythm regular. RESPIRATORY: Clear to auscultation. GASTROINTESTINAL: Abdomen is soft. MUSCULOSKELETAL: No tenderness. No edema. DERMATOLOGIC: No skin rash. NEUROLOGIC: Alert and awake and oriented X3. No focal neurologic deficits. Moving all the extremities. PSYCHIATRIC: Mood and affect normal. LABORATORY DATA: Potassium 3.7, BUN is 40, and creatinine 3.4. ASSESSMENT AND PLAN: 1. Acute kidney injury, chronic kidney disease stage 4, better. 2. Cardiorenal syndrome. 3. Fluid overload. 4. Morbid obesity. 5. Hypertension. Overall feeling better. Continue diuretics. We with close monitoring of renal function twice. We will follow. Job ID: [id number]
[2018-07-28] MEDS: HumaLOG 300 UNITS/3 ML VIAL SC PRN (17:32)
[2018-07-28] MEDS: Allopurinol 100 MG TAB PO SCH (22:35)
[2018-07-28] MEDS: Magnesium Oxide 250 MG TAB PO SCH (22:35)
[2018-07-28] MEDS: Enoxaparin Sodium 30 MG/0.3 ML SYRINGE SC SCH (22:36)
[2018-07-28] MEDS: Insulin Glargine 15 UNITS in Pre-Filled Syringe 1 EACH SC SCH (22:37)
[2018-07-28] MEDS: Tamsulosin HCl 0.4 MG CAP PO SCH (22:37)
[2018-07-29] MEDS: HumaLOG 300 UNITS/3 ML VIAL SC PRN ×2 (06:35→17:38)
[2018-07-29] MEDS: Furosemide 40 MG/4 ML VIAL SLOW IVP SCH ×2 (06:35→15:23)
--- NOTE | 2018-07-29 08:45 | PRG ---
DATE OF SERVICE: 07/29/2018 SUBJECTIVE: Patient was seen and examined at bedside and overnight events noted. Patient denies any shortness of breath or chest pain or palpitation. No history of nausea or vomiting or diarrhea or fever or chills or cramps. OBJECTIVE: GENERAL: This is an obese male in no apparent distress. VITAL SIGNS: Temperature Heart rate 62. Respiratory rate 18. Blood pressure 139/73. HEENT: Atraumatic, normocephalic. Oral mucosa is moist NECK: Supple. CARDIOVASCULAR: S1, S2 heard. Rate and rhythm regular. RESPIRATORY: Clear to auscultation. GASTROINTESTINAL: Abdomen is soft. MUSCULOSKELETAL: No tenderness. No edema. DERMATOLOGIC: No skin rash. NEUROLOGIC: Alert and awake and oriented X3. No focal neurologic deficits. Moving all the extremities. PSYCHIATRIC: Mood and affect normal. LABORATORY DATA: Not done today. ASSESSMENT AND PLAN: 1. Acute kidney injury on chronic kidney disease stage IV secondary to cardiorenal syndrome. Continue diuresis. 2. Cardiorenal syndrome. 3. Fluid overload, better. 4. Morbid obesity. 5. Hypertension, stable. Continue diuretics. Monitor renal function. Job ID: [id number]
[2018-07-29] MEDS: Aspirin Chewable 81 MG TAB PO SCH (09:17)
[2018-07-29] MEDS: Ubidecarenone 50 MG CAP PO SCH (09:18)
[2018-07-29] MEDS: Stress 600 With Zinc 1 TAB PO SCH (09:18)
[2018-07-29] MEDS: Rosuvastatin 20 MG TAB PO SCH (09:18)
[2018-07-29] MEDS: Clopidogrel Bisulfate 75 MG TAB PO SCH (09:19)
[2018-07-29] MEDS: Gabapentin 300 MG CAP PO SCH ×3 (09:19→20:40)
[2018-07-29] MEDS: Glimepiride 4 MG TAB PO SCH ×2 (09:19→17:38)
[2018-07-29] MEDS: Carvedilol 25 MG TAB PO SCH ×2 (09:20→17:38)
[2018-07-29] MEDS: Amlodipine 5 MG TAB PO SCH (09:20)
[2018-07-29] MEDS: hydrALAZINE 25 MG TAB PO SCH ×2 (09:20→20:40)
--- NOTE | 2018-07-29 10:58 | PRG ---
DATE OF SERVICE: 07/29/2018 SUBJECTIVE: Mr. Sellers is breathing better, feels better. OBJECTIVE: VITAL SIGNS: Blood pressure 134/76, pulse 60, it is regular. LUNGS: Clear. CARDIAC: Normal S1 and S2. ABDOMEN: Soft and nontender. EXTREMITIES: Still moderate edema. LABORATORY DATA: Most recent creatinine is 3.48, estimated GFR is 18. ASSESSMENT: 1. Congestive heart failure, systolic, acute on chronic, improved, but still volume overloaded. 2. Stage 4 renal failure. PLAN: 1. Should be able to go back to oral furosemide tomorrow 40 mg twice a day. 2. Other medicines to be unchanged. Prognosis long-term is poor, and chance of dialysis in the near future is significant. Job ID: [id number]
--- NOTE | 2018-07-29 12:11 | PDOC.PN ---
- Subjective Encounter Start Date: 07/29/18 Encounter Start Time: 07:15 Subjective: no sob, is ambulating well in hallway -: still has edema in legs but is wearing carissa hose -: no chest pain or palp, at bedside - Objective Resuscitation Status - Order Detail: 07/25/18 06:25 Resuscitation Status Routine Resuscitation Status: FULL: Full Resuscitation MAR Reviewed: Yes Vital Signs & Weight: Vital Signs (12 hours) Temp Pulse Resp BP BP Pulse Ox 07/29/18 11:54 97.3 F L 66 18 117/67 97 07/29/18 09:25 95 07/29/18 09:20 59 L 134/76 07/29/18 07:53 97.3 F L 62 18 139/73 95 07/29/18 04:00 97.6 F 61 16 112/64 94 L Weight Weight 274 lb 4 oz I&O: 07/28/18 07/29/18 07/30/18 06:59 06:59 06:59 Intake Total 1080 720 Output Total 2375 1800 Balance -1295 -1080 Result Diagrams: 07/26/18 05:05 07/28/18 04:51 Additional Labs: Accuchecks 07/29/18 07/29/18 07/28/18 10:36 06:00 20:32 POC Glucose 155 H 345 H 189 H 07/28/18 17:01 POC Glucose 210 H Phys Exam - Physical Examination HEENT: PERRLA, moist MMs Neck: no JVD, supple Respiratory: no wheezing, no rales Cardiovascular: RRR, no significant murmur Gastrointestinal: soft, non-tender, positive bowel sounds Musculoskeletal: pulses present, edema present Neurological: non-focal, moves all 4 limbs Psychiatric: normal affect, A&O x 3 Dx/Plan (1) Acute on chronic combined systolic and diastolic congestive heart failure Code(s): I50.43 - ACUTE ON CHRONIC COMBINED SYSTOLIC AND DIASTOLIC HRT FAIL Status: Acute Comment: ef of 40%, Class C (2) DM type 2 causing CKD stage 4 Code(s): E11.22 - TYPE 2 DIABETES MELLITUS W DIABETIC CHRONIC KIDNEY DISEASE; N18.4 - CHRONIC KIDNEY DISEASE, STAGE 4 (SEVERE) Status: Chronic Qualifiers: Diabetes mellitus middle or intermediate school principal insulin use: with middle or intermediate school principal use (3) Atrial fibrillation Code(s): I48.91 - UNSPECIFIED ATRIAL FIBRILLATION Status: Chronic Qualifiers: Atrial fibrillation type: chronic Qualified Code(s): I48.2 - Chronic atrial fibrillation Comment: Rate controlled (4) CAD (coronary artery disease) Code(s): I25.10 - ATHSCL HEART DISEASE OF [place] CORONARY ARTERY W/O ANG PCTRS Status: Chronic Qualifiers: Coronary Disease-Associated Artery/Lesion type: bypass graft [place] vs. transplanted heart: [place] heart Associated angina: without angina Qualified Code(s): I25.810 - Atherosclerosis of coronary artery bypass graft(s) without angina pectoris Comment: cabgx3 done at [facility] 08/2011 (5) Dyslipidemia Code(s): E78.5 - HYPERLIPIDEMIA, UNSPECIFIED Status: Chronic (6) GERD (gastroesophageal reflux disease) Code(s): K21.9 - GASTRO-ESOPHAGEAL REFLUX DISEASE WITHOUT ESOPHAGITIS Status: Chronic Qualifiers: Esophagitis presence: esophagitis presence not specified Qualified Code(s) : K21.9 - Gastro-esophageal reflux disease without esophagitis (7) Gout Code(s): M10.9 - GOUT, UNSPECIFIED Status: Chronic Qualifiers: Gout site: unspecified site Gout etiology: unspecified cause Chronicity: chronic Presence of tophus: without tophus Qualified Code(s): M1A.9XX0 - Chronic gout, unspecified, without tophus (tophi) (8) HTN (hypertension) Code(s): I10 - ESSENTIAL (PRIMARY) HYPERTENSION Status: Chronic Qualifiers: (9) Obesity (BMI 30-39.9) Code(s): E66.9 - OBESITY, UNSPECIFIED Status: Chronic (10) CKD (chronic kidney disease) stage 4, GFR 15-29 ml/min Code(s): N18.4 - CHRONIC KIDNEY DISEASE, STAGE 4 (SEVERE) Status: Chronic - Plan hemostable, has lost a total of 7 lbs so far -: gentle diuresis, renal function is holding up -: d/w , likely dc in am -: continue asp, plavix, coreg, hydralazine, ranexa, crestor -: glimepride and lantus for dm * . Review of Systems - Medications/Allergies Allergies/Adverse Reactions: Allergies Allergy/AdvReac Type Severity Reaction Status Date / Time hydrocodone bitartrate Allergy Verified 07/25/18 05:02 [From [place]] levofloxacin [From Levaquin] Allergy Verified 07/25/18 05:02 losartan Allergy Verified 07/25/18 05:02 tramadol Allergy Verified 07/25/18 05:02 Medications: Current Medications Acetaminophen (Tylenol) 1,000 mg PO Q6H PRN PRN Reason: Pain Albuterol Sulfate (Proventil Hfa) 2 puff INH Q4H PRN PRN Reason: SOB &/or Wheezing Allopurinol (Zyloprim) 100 mg PO HS [facility] Last Admin: 07/28/18 22:35 Dose: 100 mg Amlodipine Besylate (Norvasc) 5 mg PO DAILY [facility] Last Admin: 07/29/18 09:20 Dose: 5 mg Aspirin (Aspirin Chewable) 81 mg PO DAILY [facility] Last Admin: 07/29/18 09:17 Dose: 81 mg Benzonatate (Tessalon) 100 mg PO Q4H PRN PRN Reason: Cough Calcitriol (Rocaltrol) 0.25 mcg PO MWF [facility] Last Admin: 07/28/18 08:57 Dose: 0.25 mcg Carvedilol (Coreg) 25 mg PO BID-[facility] Last Admin: 07/29/18 09:20 Dose: 25 mg Citalopram Hydrobromide (Celexa) 20 mg PO DAILY PRN PRN Reason: anxiety Clopidogrel Bisulfate (Plavix) 75 mg PO DAILY [facility] Last Admin: 07/29/18 09:19 Dose: 75 mg Coenzyme Q10 (Coenzyme Q10) 200 mg PO DAILY [facility] Last Admin: 07/29/18 09:18 Dose: 200 mg Dextrose/Water (Dextrose 50%) 25 gm SLOW IVP PRN PRN PRN Reason: Hypoglycemia Enoxaparin Sodium (Lovenox) 30 mg SC 2100 [facility] Last Admin: 07/28/18 22:36 Dose: 30 mg Famotidine (Pepcid) 20 mg PO DAILYPRN PRN PRN Reason: INDIGESTION Fluticasone Propionate (Flonase Nasal [place]) 0 gm NASAL BID PRN PRN Reason: Allergies Furosemide (Lasix) 40 mg SLOW IVP 0600,1400 [facility] Last Admin: 07/29/18 06:35 Dose: 40 mg Gabapentin (Neurontin) 300 mg PO TID [facility] Last Admin: 05/16/19 09:19 Dose: 300 mg Glimepiride (Amaryl) 4 mg PO BID-[facility] Last Admin: 07/29/18 09:19 Dose: 4 mg Glucagon (Glucagon) 1 mg IM PRN PRN PRN Reason: Hypoglycemia Hydralazine HCl (Apresoline) 50 mg PO BID [facility] Last Admin: 07/29/18 09:20 Dose: 50 mg Dextrose/Water (D5w) 1,000 mls @ 0 mls/hr IV .Q0M PRN PRN Reason: Hypoglycemia Insulin Glargine 15 units/ (Miscellaneous Medication) 0.15 mls @ 0 mls/hr SC [facility] Last Admin: 07/28/18 22:37 Dose: 0.15 mls Insulin Human Lispro (Humalog) 0 units SC .MILD SLIDING SCALE PRN PRN Reason: Mild Correctional Scale Last Admin: 07/29/18 06:35 Dose: 5 unit Loratadine (Claritin) 10 mg PO DAILYPRN PRN PRN Reason: ALLERGY Magnesium Oxide (Magnesium Oxide) [address] [facility] Last Admin: 07/28/18 22:35 Dose: 250 mg Multivitamins/Zinc (Stress 600 With Zinc) 1 tab PO DAILY [facility] Last Admin: 07/29/18 09:18 Dose: 1 tab Nitroglycerin (Nitrostat) 0.4 mg SL Q5MIN PRN PRN Reason: Chest Pain Ondansetron HCl (Zofran Odt) 4 mg PO Q6H PRN PRN Reason: Nausea/Vomiting Ondansetron HCl (Zofran) 4 mg IVP Q6H PRN PRN Reason: Nausea/Vomiting Pantoprazole Sodium (Protonix) 20 mg PO DAILYPRN PRN PRN Reason: INDIGESTION Ranolazine (Ranexa) 500 mg PO BID [facility] Last Admin: 07/29/18 09:18 Dose: 500 mg Rosuvastatin Calcium (Crestor) 40 mg PO DAILY [facility] Last Admin: 07/29/18 09:18 Dose: 40 mg Sodium Chloride (Flush - Normal Saline) 10 ml IVF Q12HR [facility] Last Admin: 07/29/18 09:21 Dose: 10 ml Sodium Chloride (Flush - Normal Saline) 10 ml IVF PRN PRN PRN Reason: Saline Flush Last Admin: 07/28/18 05:55 Dose: 10 ml Tamsulosin HCl (Flomax) 0.[address] [facility] Last Admin: 07/28/18 22:37 Dose: 0.4 mg
[2018-07-29] MEDS ORDERED: Ipratropium Oral Inhaler (200 INHALATIONS) ONE (19:29)
[2018-07-29] MEDS: Insulin Glargine 15 UNITS in Pre-Filled Syringe 1 EACH SC SCH (20:38)
[2018-07-29] MEDS: Enoxaparin Sodium 30 MG/0.3 ML SYRINGE SC SCH (20:39)
[2018-07-29] MEDS: Allopurinol 100 MG TAB PO SCH (20:40)
[2018-07-29] MEDS: Magnesium Oxide 250 MG TAB PO SCH (20:40)
[2018-07-29] MEDS: Tamsulosin HCl 0.4 MG CAP PO SCH (20:40)
[2018-07-30] MEDS: Furosemide 40 MG TAB PO SCH ×2 (06:01→14:38)
[2018-07-30 07:50] LABS: Anion Gap 12 mmol/L (10-20); BUN (Urea Nitrogen) 39 mg/dL (8.4-25.7); Calc. Creatinine Clearance 35 mL/min (70-130); Calcium 8.9 mg/dL (7.8-10.44); Carbon Dioxide 31 mmol/L (23-31); Chloride 99 mmol/L (98-107); Estimated GFR-MDRD 16; Glucose 104 mg/dL (80-115); Potassium 3.9 mmol/L (3.5-5.1); Sodium 138 mmol/L (136-145)
[2018-07-30] MEDS: Ubidecarenone 50 MG CAP PO SCH (10:07)
[2018-07-30] MEDS: Calcitriol 0.25 MCG CAP PO SCH (10:07)
[2018-07-30] MEDS: Stress 600 With Zinc 1 TAB PO SCH (10:07)
[2018-07-30] MEDS: Rosuvastatin 20 MG TAB PO SCH (10:07)
[2018-07-30] MEDS: Amlodipine 5 MG TAB PO SCH (10:08)
[2018-07-30] MEDS: Clopidogrel Bisulfate 75 MG TAB PO SCH (10:08)
[2018-07-30] MEDS: Glimepiride 4 MG TAB PO SCH (10:08)
[2018-07-30] MEDS: Aspirin Chewable 81 MG TAB PO SCH (10:08)
[2018-07-30] MEDS: Gabapentin 300 MG CAP PO SCH ×2 (10:08→14:38)
[2018-07-30] MEDS: Carvedilol 25 MG TAB PO SCH (10:09)
[2018-07-30] MEDS: hydrALAZINE 25 MG TAB PO SCH (10:09)
--- NOTE | 2018-07-30 11:34 | PDOC.PN ---
- Subjective Encounter Start Date: 07/30/18 Encounter Start Time: 08:00 Subjective: no sob, feels better -: wants to go home - Objective Resuscitation Status - Order Detail: 07/25/18 06:25 Resuscitation Status Routine Resuscitation Status: FULL: Full Resuscitation MAR Reviewed: Yes Vital Signs & Weight: Vital Signs (12 hours) Temp Pulse Resp BP BP BP Pulse Ox 07/30/18 10:09 61 122/66 07/30/18 10:08 61 122/66 07/30/18 07:51 98.4 F 61 14 122/66 95 07/30/18 03:34 98.1 F 72 16 121/72 93 L 07/29/18 23:35 98.4 F 65 20 129/62 94 L Weight Weight 272 lb 11.2 oz I&O: 07/29/18 07/30/18 07/31/18 06:59 06:59 06:59 Intake Total 720 1490 Output Total 1800 1625 Balance -1080 -135 Result Diagrams: 07/26/18 05:05 07/30/18 07:06 Additional Labs: Accuchecks 07/30/18 07/30/18 07/29/18 10:40 05:35 20:40 POC Glucose 202 H 115 H 179 H 07/29/18 17:00 POC Glucose 242 H Phys Exam - Physical Examination HEENT: PERRLA, moist MMs Neck: no JVD, supple Respiratory: no wheezing, no rales Cardiovascular: RRR, no significant murmur Gastrointestinal: soft, non-tender, positive bowel sounds Musculoskeletal: pulses present, edema present Neurological: non-focal, moves all 4 limbs Psychiatric: normal affect, A&O x 3 Dx/Plan (1) Acute on chronic combined systolic and diastolic congestive heart failure Code(s): I50.43 - ACUTE ON CHRONIC COMBINED SYSTOLIC AND DIASTOLIC HRT FAIL Status: Acute Comment: ef of 40%, Class C (2) DM type 2 causing CKD stage 4 Code(s): E11.22 - TYPE 2 DIABETES MELLITUS W DIABETIC CHRONIC KIDNEY DISEASE; N18.4 - CHRONIC KIDNEY DISEASE, STAGE 4 (SEVERE) Status: Chronic Qualifiers: Diabetes mellitus residential insulin use: with residential use (3) Atrial fibrillation Code(s): I48.91 - UNSPECIFIED ATRIAL FIBRILLATION Status: Chronic Qualifiers: Atrial fibrillation type: chronic Qualified Code(s): I48.2 - Chronic atrial fibrillation Comment: Rate controlled (4) CAD (coronary artery disease) Code(s): I25.10 - ATHSCL HEART DISEASE OF [place] CORONARY ARTERY W/O ANG PCTRS Status: Chronic Qualifiers: Coronary Disease-Associated Artery/Lesion type: bypass graft [place] vs. transplanted heart: [place] heart Associated angina: without angina Qualified Code(s): I25.810 - Atherosclerosis of coronary artery bypass graft(s) without angina pectoris Comment: cabgx3 done at [facility] in [place] 08/2011 (5) Dyslipidemia Code(s): E78.5 - HYPERLIPIDEMIA, UNSPECIFIED Status: Chronic (6) GERD (gastroesophageal reflux disease) Code(s): K21.9 - GASTRO-ESOPHAGEAL REFLUX DISEASE WITHOUT ESOPHAGITIS Status: Chronic Qualifiers: Esophagitis presence: esophagitis presence not specified Qualified Code(s) : K21.9 - Gastro-esophageal reflux disease without esophagitis (7) Gout Code(s): M10.9 - GOUT, UNSPECIFIED Status: Chronic Qualifiers: Gout site: unspecified site Gout etiology: unspecified cause Chronicity: chronic Presence of tophus: without tophus Qualified Code(s): M1A.9XX0 - Chronic gout, unspecified, without tophus (tophi) (8) HTN (hypertension) Code(s): I10 - ESSENTIAL (PRIMARY) HYPERTENSION Status: Chronic Qualifiers: (9) Obesity (BMI 30-39.9) Code(s): E66.9 - OBESITY, UNSPECIFIED Status: Chronic (10) CKD (chronic kidney disease) stage 4, GFR 15-29 ml/min Code(s): N18.4 - CHRONIC KIDNEY DISEASE, STAGE 4 (SEVERE) Status: Chronic - Plan hemostable -: has adv ckd, likely will need outpt fistula in prep for HD -: may dc home if ok with -: counselled reg fluid restriction and diet along with med compliance -: meds reconciled for discharge, no new meds * .
--- NOTE | 2018-07-30 11:53 | PRG ---
DATE OF SERVICE: 07/30/2018 SUBJECTIVE: A 63-year-old gentleman being seen for acute kidney injury. The patient denied any nausea, vomiting, or chest pain. OBJECTIVE: See above. CONSTITUTIONAL: The patient is awake, alert, in no acute distress. VITAL SIGNS: Afebrile. Pulse 75, breathing 16, blood pressure 132/60. GENERAL APPEARANCE AND MENTAL STATUS: Fair. HEAD/NECK: Normocephalic. Atraumatic. EYES: EOMI. No deformity. EARS: Clear. No ulcers. NOSE: Intact. No lesions. MOUTH: Clear. No discharge. THROAT: Clear. No exudate. LUNGS: Clear. No crackles. CARDIAC: S1, S2. No rub. ABDOMEN: Benign. Bowel sounds positive. GENITALIA/RECTUM: Ledbetter absent. BACK/EXTREMITIES: Edema 0+. NEUROLOGICAL: Alert and motor intact. SKIN: LYMPHATICS: LABORATORY DATA: Reviewed. IMPRESSION AND PLAN: 1. Stage 5 chronic kidney disease. No indication for dialysis. 2. Hypertension, stable. 3. Anemia, stable. 4. Medication based on GFR, decrease Neurontin to 100 b.i.d. and avoid Lovenox. Job ID: [id number]
[2018-07-30 12:25] VITALS: BP 127/66; TEMP 97.6
[2018-07-30] MEDS: HumaLOG 300 UNITS/3 ML VIAL SC PRN (12:45)
--- NOTE | 2018-07-31 11:12 | DIS ---
DATE OF ADMISSION: 07/25/2018 DATE OF DISCHARGE: 07/30/2018 DISCHARGE DISPOSITION: To home. PRIMARY DISCHARGE DIAGNOSES: 1. Acute congestive heart exacerbation with ejection fraction of around 40%, class C. 2. Acute worsening of chronic kidney disease, stage 4. SECONDARY DISCHARGE DIAGNOSES: 1. Diabetes mellitus, type 2. 2. Chronic atrial fibrillation. 3. Coronary artery disease with prior coronary artery bypass grafting done in [facility] in August of 2011. 4. History of gout. 5. Hypertension. 6. Dyslipidemia. 7. Gastroesophageal reflux disease. 8. Obesity. PROCEDURES DONE DURING HOSPITALIZATION: Chest x-ray done on the day of admission showed cardiomegaly with mild pulmonary vascular congestion. H and H 9.5 and 29 , platelet count 123, and MCV is 88. Discharge BUN and creatinine are 39 and 3.8. Had a BNP of 933 on the day of admission. Troponin x3 was negative. DISCHARGE MEDICATIONS: 1. Allopurinol 100 mg p.o. at bedtime. 2. Norvasc 5 mg p.o. daily. 3. Aspirin 81 mg p.o. daily. 4. Calcitriol 0.25 mcg p.o. on Mondays, Wednesdays and Fridays. 5. Coreg 25 mg twice daily. 6. Celexa 20 mg daily. 7. Plavix 75 mg daily. 8. Fluticasone nasal spray twice daily p.r.n. 9. Gabapentin 300 mg 3 times daily. 10. Glimepiride 4 mg twice daily. 11. Hydralazine 50 mg twice daily. 12. Lantus 15 units subcu at bedtime. 13. Protonix 40 mg daily. 14. Ranexa 500 mg twice daily. 15. Crestor 40 mg daily. 16. Flomax 0.4 mg p.o. at bedtime. 17. CoQ10 of 200 mg p.o. daily. 18. Lasix 80 mg twice daily. ALLERGIES: TO HYDROCODONE, LEVAQUIN, LOSARTAN, AND ULTRAM. INPATIENT CONSULTS: 1. Dr. Sky for Cardiology. 2. Dr. Burgos/[place] for Nephrology. DISCHARGE PLAN: The patient to follow up with Dr. Sky in 4 weeks and he also needs to follow up with Dr. Figueroa in 2 weeks and primary care physician in 1 week. BRIEF COURSE DURING HOSPITALIZATION: The patient initially came to ER with complaints of shortness of breath with prior history of chronic kidney disease, stage 4 and heart failure. He had gained nearly 30 pounds prior to arrival here. The patient had gentle diuresis done in view of his CKD, stage 4. He had massive edema in both lower extremities. The patient also has a BMI of 38. He has had consultations with Dr. Sky for Cardiology and Dr. Burgos for Nephrology. The patient's renal function has remained stable with gentle diuresis. The patient has lost around 9 pounds during his stay with cautious diuresis. He has been placed on 80 mg Lasix, which he needs to continue twice daily and follow strict 2 g sodium and 1500 mL per day fluid restricted diet. He was counseled with regarding the same and medication compliance as well. The patient appears to be very close to end- stage renal disease. Please see a [id number] documentation for the day of discharge on [employer]. Prior to discharge, the patient is ambulating with his in the hallway. Job ID: [id number] [facility]
== END 2018-07-30 14:58 | disposition home or self-care (01) | DRG 291 ==
LOC: ERS 00:49 → 2SE 03:22
PROVIDERS: ADMIT Hospitalist; ATTEND Hospitalist
DX: I13.0 Hypertensive heart and chronic kidney disease with heart failure and stage 1 through stage 4 chronic kidney disease, or unspecified chronic kidney disease (principal); I50.43 Acute on chronic combined systolic (congestive) and diastolic (congestive) heart failure; N18.4 Chronic kidney disease, stage 4 (severe); N17.9 Acute kidney failure, unspecified; E11.22 Type 2 diabetes mellitus with diabetic chronic kidney disease; K21.9 Gastro-esophageal reflux disease without esophagitis; D63.1 Anemia in chronic kidney disease; I25.10 Atherosclerotic heart disease of native coronary artery without angina pectoris; I48.2 Chronic atrial fibrillation; M10.9 Gout, unspecified; E78.00 Pure hypercholesterolemia, unspecified; E66.01 Morbid (severe) obesity due to excess calories; Z88.8 Allergy status to other drugs, medicaments and biological substances; Z79.82 Long term (current) use of aspirin; Z95.1 Presence of aortocoronary bypass graft; Z87.891 Personal history of nicotine dependence; Z88.5 Allergy status to narcotic agent; Z88.1 Allergy status to other antibiotic agents; Z79.899 Other long term (current) drug therapy; Z79.4 Long term (current) use of insulin
CPT/HCPCS: 36415; 36416; 71045; 80048; 80053; 83735; 83880; 84484; 85025; 93005; 96374; J1650; J1825; J1940

== ENCOUNTER 2019-01-11 09:19 | Outpatient (CLI) | payer MEDICARE, MEDICAID ==
--- NOTE | 2019-01-11 11:51 | MRI ---
MRI Lumbar Spine Noncontrast: HISTORY: Pain and radiculopathy COMPARISON: None FINDINGS: Conus medullaris is normal in morphology and terminates at the L1 level. Numerous cysts, some of which are complex with septation are demonstrated involving kidneys, bilatera lly, incompletely evaluated. Correlate with recent CT exam 11/27/2018 for additional details.. There is multilevel bilateral moderate facet osteoarthritis throughout the lumbar spine. L1-2:Mild disc bulge without significant central canal or foraminal stenosis L2-3:Broad-based disc bulge without significant central canal stenosis. There is minimal narrowing of the neural foramina bilaterally. L3-4:Broad-based disc osteophyte results in mild narrowing of the central canal. There is mild bilate ral neural foraminal stenosis. L4-5:Broad-based disc osteophyte results in moderate central canal stenosis and crowding of the bilat eral traversing L5 nerve roots. There is mild bilateral neural foraminal stenosis. L5-S1:No significant central canal or neural foraminal stenosis IMPRESSION: Multilevel degenerative change of the lumbar spine, as outlined above. Findings are most pronounced a t L4-5 level. Transcribed Date/Time: 01/11/2019 12:03 PM
== END 2019-01-11 09:20 | disposition home or self-care (01) ==
LOC: BICMRI 09:19
PROVIDERS: ATTEND Internal Medicine
DX: M47.26 Other spondylosis with radiculopathy, lumbar region (principal)
CPT/HCPCS: 71046; 72148; J1885

== ENCOUNTER 2019-01-11 12:09 | Emergency (ER) | payer MEDICARE, MEDICAID ==
--- NOTE | 2019-01-11 13:22 | RAD ---
XR Chest Pa Lat STANDARD History: Rib pain. Comparison: Rib radiograph November 2018 Findings: Heart size is enlarged. No pneumothorax. No effusion. Mild increased extra pleural fat left lateral hemithorax. Numerous midline median sternotomy wires. Impression: No acute intrathoracic abnormality.
[2019-01-11] MEDS ORDERED: Ketorolac Tromethamine 30 MG/ML VIAL ONE (13:35)
== END 2019-01-11 14:15 | disposition home or self-care (01) ==
LOC: ERS 12:09
DX: R07.81 Pleurodynia (principal); I25.10 Atherosclerotic heart disease of native coronary artery without angina pectoris; I13.2 Hypertensive heart and chronic kidney disease with heart failure and with stage 5 chronic kidney disease, or end stage renal disease; E11.22 Type 2 diabetes mellitus with diabetic chronic kidney disease; N18.6 End stage renal disease; I50.9 Heart failure, unspecified; I25.2 Old myocardial infarction; I49.9 Cardiac arrhythmia, unspecified; I48.91 Unspecified atrial fibrillation; K21.9 Gastro-esophageal reflux disease without esophagitis; E78.5 Hyperlipidemia, unspecified; E78.00 Pure hypercholesterolemia, unspecified; M10.9 Gout, unspecified; J45.909 Unspecified asthma, uncomplicated; Z87.891 Personal history of nicotine dependence; Z79.82 Long term (current) use of aspirin; Z79.01 Long term (current) use of anticoagulants; Z99.2 Dependence on renal dialysis; Z79.899 Other long term (current) drug therapy; Z79.84 Long term (current) use of oral hypoglycemic drugs; Z86.73 Personal history of transient ischemic attack (TIA), and cerebral infarction without residual deficits
CPT/HCPCS: 71046; J1885

== ENCOUNTER 2019-04-17 22:14 | Observation (INO) | payer MEDICARE, MEDICAID ==
[2019-04-17 23:04] LABS: #Basophils 0.1 thou/uL (0.0-0.2); #Eosinphils 0.3 thou/uL (0.0-0.7); #Monocytes 0.7 thou/uL (0.11-0.59); #Neutrophils 6.6 thou/uL (1.40-6.50); %Basophils 0.7 % (0.0-1.0); %Eosinophils 2.8 % (0.0-10.0); %Lymphocytes 20.6 % (21.0-51.0); %Monocytes 7.3 % (0.0-10.0); %Neutrophils 68.7 % (42.0-75.0); Hemoglobin 10.8 g/dL (14.0-18.0); Mean Corpuscular HGB CONC 33.8 g/dL (32.0-36.0); Mean Corpuscular Hemoglobin 32.5 pg (27.0-31.0); Mean Corpuscular Volume 96.1 fL (78.0-98.0); Mean Platelet Volume 7.2 fL (7.4-10.4); Platelet Count 202 thou/uL (130-400); RBC Distribution Width 12.8 % (11.5-14.5); Red Blood Cell (RBC) Count 3.33 mill/uL (4.70-6.10); White Blood Cell (WBC) Count 9.7 thou/uL (4.8-10.8)
--- NOTE | 2019-04-17 23:09 | RAD ---
XR Knee Rt 4 View STANDARD: 04/17/2019 10:26 PM CLINICAL INDICATION: Right knee pain COMPARISON: None. FINDINGS: Bones: No acute fracture is demonstrated. Joints: There is moderate to severe osteoarthrosis of the right knee. No joint capsular distention is noted.. Soft Tissue: There are moderate vascular calcifications seen involving the visualized vasculature. Th ere are surgical clips within the posterior medial right foreleg soft tissues likely related to saphenous vein graft harvesting. IMPRESSION: No acute osseous abnormality..
--- NOTE | 2019-04-17 23:09 | RAD ---
Chest AP view INDICATION: Fall with chest pain COMPARISON: July 25, 2018 FINDINGS: Lungs:The lungs are clear Cardiac silhouette:Stable post-CABG change and moderate cardiomegaly Pulmonary vasculature:Normal Pleural spaces:No pleural effusion or pneumothorax is demonstrated. Upper abdomen:No abnormality seen. Osseous structures: No acute osseous abnormality. Additional findings:None. IMPRESSION: No acute cardiopulmonary abnormality.
[2019-04-17 23:32] LABS: ALT (SGPT) 16 U/L (8-55); AST (SGOT) 17 U/L (5-34); Albumin 3.6 g/dL (3.4-4.8); Alkaline Phosphatase 85 U/L (40-110); Anion Gap 14 mmol/L (10-20); BUN (Urea Nitrogen) 46 mg/dL (8.4-25.7); Bilirubin, Total 0.4 mg/dL (0.2-1.2); Calc. Creatinine Clearance 0 mL/min (70-130); Calcium 8.7 mg/dL (7.8-10.44); Carbon Dioxide 27 mmol/L (23-31); Chloride 101 mmol/L (98-107); Estimated GFR-MDRD 16; Globulin 3.7 g/dL (2.4-3.5); Glucose 338 mg/dL (80-115); Potassium 4.2 mmol/L (3.5-5.1); Protein, Total 7.3 g/dL (5.8-8.1); Sodium 138 mmol/L (136-145)
--- NOTE | 2019-04-17 23:32 | CT ---
CT Brain WO Con: 04/17/2019 11:01 PM CLINICAL HISTORY: Syncope. IMAGING TECHNIQUE: Multiple CT images were obtained of the brain without IV contrast. COMPARISON: None. FINDINGS: Brain: No acute infarct or hemorrhage is evident. No midline shift. Ventricles: Normal. No hydrocephalus. Skull: Intact. Visualized Paranasal sinuses: There is complete opacification of the left maxillary sinus. There is m oderate mucosal thickening involving the left anterior to mid ethmoid air cells and right anterior ethmoid air cells. Mastoid air cells:Clear. Extracranial soft tissues:Normal. IMPRESSION: No acute intracranial abnormality. Moderate paranasal sinus disease.
[2019-04-17] MEDS ORDERED: Aspirin 325 MG TAB ONE (23:50)
[2019-04-17 23:54] LABS: CKMB 2.2 ng/mL (0-6.6)
[2019-04-18 01:14] LABS: Bacteria/HPF None Seen HPF (None Seen); Bilirubin Negative (Negative); Blood, Urine Negative (Negative); Clarity Clear (Clear); Glucose, Urine (Dipstick) 200 mg/dL (Negative); Leukocyte Negative Leu/uL (Negative); Nitrite Negative (Negative); Protein, Urine (Dipstick) 70 mg/dL (Neg-Trace); RBC/HPF 0-3 HPF (0-3); Squamous Epithelial 0-3 HPF (0-3); Urobilinogen Normal mg/dL (Less than 2); WBC/HPF 0-3 HPF (0-3)
[2019-04-18 02:00] VITALS: BMI 37.3
[2019-04-18 02:54] LABS: Troponin I 0.033 ng/mL (< 0.028)
[2019-04-18] MEDS ORDERED: Nitroglycerin 0.4 MG TAB (25 Tab Bottle) PO PRN (03:46)
[2019-04-18] MEDS ORDERED: Acetaminophen 325 MG TAB PO PRN (03:47)
[2019-04-18] MEDS ORDERED: Bisacodyl 10 MG SUPP PR PRN (03:47)
[2019-04-18] MEDS ORDERED: Calcium Carbonate 500 MG ChewTAB PO PRN (03:47)
[2019-04-18] MEDS ORDERED: Fluticasone Propionate Nasal Spray 16 gm Bottle NASAL PRN (03:49)
[2019-04-18] MEDS ORDERED: Meclizine HCl 25 MG TAB PO PRN (03:49)
[2019-04-18] MEDS ORDERED: Benzonatate 100 MG CAP PO PRN (03:49)
[2019-04-18] MEDS ORDERED: Citalopram 20 MG TAB PO PRN (03:49)
--- NOTE | 2019-04-18 04:10 | HP ---
CHIEF COMPLAINT: Syncopal episode. PRIMARY CARE: Eden Gallego MD. PRIMARY STATION WORKER: Alissa Sky MD. HISTORY OF PRESENT ILLNESS: The patient is a 63-year-old male, with diabetes mellitus type 2, coronary artery disease status post CABG, hypertension, dyslipidemia, and combined heart failure with ejection fraction 40% range, presented to the emergency room with above complaints. The patient had 3 episodes of syncope between 3 p.m. to 5 p.m. During the first episode he gradually landed on the floor without significant injury. During the 2nd episode, he landed on the ground with an injury on his head. Prior to the above episode, he felt dizzy and lightheaded. No chest pain or palpitations reported. He lost consciousness for few seconds. There was no confusion after the episodes. No tongue biting or incontinence reported. No similar episodes in the past. No recent changes in his medications except for insulin dose. Last month, he was evaluated by Cardiology, Dr. Sky and had an echocardiogram that was in normal range according to the family. He presented to the emergency room around 10 p.m. since he did not want to miss the [place] Bowl. In the emergency room, his initial vital signs showed temperature 97.8, respirations 21, pulse of 71 with a blood pressure of 131/63 with O2 saturation 97% on room air. His EKG showed sinus rhythm. He received aspirin in the emergency room. PAST MEDICAL HISTORY: 1. Chronic systolic and diastolic heart failure, ejection fraction 40% range. 2. CKD, stage 4, followed by Dr. Burgos. 3. Diabetes mellitus type 2. 4. Paroxysmal atrial fibrillation. 5. Coronary artery disease status post CABG in 2011. 6. Hypertension. 7. Dyslipidemia. 8. GERD. 9. Obesity with a BMI of 37.4. 10. History of gout. 11. History of CVA. 12. Degenerative joint disease. 13. Polycystic kidney disease. PAST SURGICAL HISTORY: 1. Coronary artery bypass grafting. 2. Penile surgery in the remote past due to accident. ALLERGIES: THE PATIENT IS ALLERGIC TO HYDROCODONE, LEVAQUIN, LOSARTAN, AND TRAMADOL. CURRENT HOME MEDICATIONS: 1. Allopurinol 100 mg at bedtime. 2. Aspirin 81 mg daily. 3. Calcitriol Thursday, Thursday, Thursday. 4. Carvedilol 25 mg b.i.d. 5. Celexa as needed. 6. Plavix 75 mg daily. 7. Gabapentin 300 mg 3 times a day. 8. Glimepiride 4 mg b.i.d. 9. Hydralazine 50 mg b.i.d. 10. Lantus 25 units at bedtime. 11. Meclizine as needed. 12. Protonix as needed. 13. Ranitidine as needed. 14. Ranexa 1000 mg b.i.d. 15. Crestor 40 mg daily. 16. Flomax 0.4 at bedtime. 17. Lasix 80 mg b.i.d. 18. Albuterol inhaler as needed. 19. Sublingual nitroglycerin as needed. SOCIAL HISTORY: The patient currently lives at home with his . The patient is a former smoker. He quit smoking more than 40 years ago. Drinks alcohol socially. FAMILY HISTORY: Negative for heart disease. REVIEW OF SYSTEMS: All other review of systems was reviewed and were found negative. PHYSICAL EXAMINATION: VITAL SIGNS: As discussed above. GENERAL: A 63-year-old male, in no apparent distress. HEENT: Head, atraumatic and normocephalic. Sclerae anicteric. Moist mucous membranes. No oral lesion. NECK: Supple. No JVD. No carotid bruit. LUNGS: Clear to auscultation bilaterally. No wheezing, rales, or rhonchi. HEART: S1 and S2 present. Regular rate and rhythm. Healed midline scar from previous CABG. No heaves or pulsation. ABDOMEN: Soft. Bowel sounds present. No rebound or guarding. EXTREMITIES: No edema or calf tenderness. NEUROLOGY: Grossly nonfocal. Moves all 4 extremities. Power was 5/5 in all extremities. PSYCHIATRY: Alert, awake, oriented x3. SKIN: Warm and dry. LYMPH NODES: No palpable lymph nodes in the neck. PERIPHERAL VASCULAR: Radial pulses palpable bilaterally. MUSCULOSKELETAL: No joint swelling tenderness. LABORATORY FINDINGS: WBC 9.7 with hemoglobin 10.8, platelet 202. Creatinine 3.91 with normal sodium, potassium, chloride, and bicarbonate. Troponin of 0.044. BNP was 304. EKG by my review as discussed above. CT scan of the brain by my review was negative for acute findings. It showed moderate paranasal sinus disease. Chest x-ray by my review was negative for infiltrate or edema. IMPRESSION: 1. Syncope, suspected cardiogenic. 2. Chronic systolic and diastolic heart failure. 3. Coronary artery disease status post coronary artery bypass graft. 4. Chronic kidney disease, stage 4. 5. Hypertension. 6. Hyperlipidemia. 7. Type 2 myocardial infarction. 8. Obesity with a BMI of 37.4. 9. Chronic anemia, suspected due to renal insufficiency. 10. Diabetes mellitus type 2 with diabetic nephropathy. 11. Paroxysmal atrial fibrillation. 12. Gastroesophageal reflux disease. PLAN: The patient will be monitored on the telemetry unit as observation. He will be kept n.p.o. for Cardiology evaluation. The patient had an echocardiogram last month with Dr. Sky. Cardiology will be consulted. Orthostatic vitals will be checked. We will resume most of his medications. We will start him on sliding scale. Fall precaution. Physical Therapy evaluation. The patient and the family understands the above plan of care. Job ID: [id number]
[2019-04-18] MEDS ORDERED: Aspirin 325 MG TAB PO SCH (08:00)
[2019-04-18] MEDS: Aspirin Chewable 81 MG TAB PO SCH (09:00)
[2019-04-18] MEDS: Gabapentin 300 MG CAP PO SCH ×3 (09:00→20:43)
[2019-04-18] MEDS: Ubidecarenone 50 MG CAP PO SCH (09:00)
[2019-04-18] MEDS ORDERED: Calcitriol 0.25 MCG CAP PO SCH (09:00)
[2019-04-18] MEDS: Clopidogrel Bisulfate 75 MG TAB PO SCH (09:00)
--- NOTE | 2019-04-18 12:01 | CON ---
DATE OF CONSULTATION: 04/18/2019 REASON FOR CONSULTATION: One episode of near syncope and one episode of true syncope. HISTORY OF PRESENT ILLNESS: Mr. Sellers is a 63-year-old gentleman with a history of congestive heart failure and previous coronary artery disease. The patient had 2 episodes of concern yesterday. One he had taken a family member to visit a grandchild who was incarcerated, they were on the grounds and were walking, he felt lightheaded, felt he extremely dizzy like, he was losing his balance, was able to sit down, and that resolved. Later at about 5 in the afternoon, he had been in a car, he got out of the car, walked around to the other side, started feeling more lightheaded, and then next thing he knew he was found himself on the ground. The patient otherwise had been doing relatively well. No chest pain or pressure. No shortness of breath. PAST MEDICAL HISTORY: 1. The patient has a history of previous coronary artery bypass grafting. 2. Moderately depressed left ventricular function as will be outlined below. 3. Stage 4 renal failure, very close to dialysis levels. 4. Diabetes. MEDICATIONS: 1. Clopidogrel. 2. Amaryl. 3. Aspirin. 4. Carvedilol 25 mg twice a day. 5. Hydralazine 50 mg twice a day. 6. Ranexa 1000 mg twice a day. 7. Ventolin inhaler. 8. Rosuvastatin. 9. Ranitidine. 10. Nitroglycerin. 11. Tamsulosin 0.4 mg at bedtime. 12. Lasix 80 mg twice a day. 13. Meclizine. ALLERGIES: HYDROCODONE, LEVOFLOXACIN, LOSARTAN, AND TRAMADOL. REVIEW OF SYSTEMS: CONSTITUTIONAL: Otherwise has been feeling relatively well. No significant weight gain or loss. VISION: No changes. HEARING: No changes. PULMONARY: No cough or wheezing. GASTROINTESTINAL: No nausea, vomiting, or diarrhea. SKIN: No rashes. NEUROLOGIC: No unilateral weakness or numbness. PSYCHIATRIC: No unusual depression or anxiety. PHYSICAL EXAMINATION: GENERAL: This is a pleasant gentleman, in no distress. VITAL SIGNS: Blood pressure earlier today supine was 156/78, it dropped to 99/50 standing. Pulse 62. EYES: Sclerae nonicteric. MOUTH: Mucous membranes moist. NECK: Supple. No lymphadenopathy. LUNGS: Clear. No wheezing. CARDIAC: Normal S1 and normal S2. ABDOMEN: Obese and nontender. EXTREMITIES: No clubbing or cyanosis. There is no edema. PERTINENT LABORATORY DATA: Troponin 0.044, probably within normal limits for the patient with stage 4 renal failure. Creatinine is 3.9 and estimated GFR 16. EKG, looks like a normal sinus rhythm, rate of 64, no acute changes. ASSESSMENT: 1. Syncopal episode, probably orthostatic hypotension, but due to some degree of left ventricular dysfunction, he is at increased risk for dysrhythmias. 2. Stage 4 renal failure. 3. Congestive heart failure, systolic, chronic, may be mildly volume depleted. 4. Previous coronary artery disease with previous bypass surgery. PLAN: 1. Stress testing to risk stratify. 2. Repeat echocardiogram. 3. Continue to monitor. 4. We will give him some intravenous fluid. 5. Hold blood pressure medicines for now. Job ID: [id number]
[2019-04-18] MEDS ORDERED: Regadenoson 0.4 MG/5 ML SYRINGE ONE (12:11)
--- NOTE | 2019-04-18 14:45 | NM ---
Exam: Nuclear medicine cardiac stress with EF and wall motion HISTORY: Coronary disease. Status post CABG. Congestive heart failure. COMPARISON: 02/07/2018 TECHNIQUE: Patient was administered 9.10 mCi of technetium 99 sestamibi for rest imaging and 29 mCi o f technetium sestamibi for stress imaging. Cardiac gating was performed FINDINGS: Homogeneous distribution of radiotracer on the stress attenuation correction images. There does not a ppear to be any significant reversibility. End-diastolic volume is 162 mL End systolic volume is 89 mL TID is 1.0 Cardiac gating: Decreased motion and thickening involving the septum. Overall, there is also evidence of global hypokinesis. 45% ejection fraction IMPRESSION: 1. No reversibility. 2. Global hypokinesis with decreased motion of the septum. 45% ejection fraction
[2019-04-18] MEDS: Glimepiride 4 MG TAB PO SCH ×2 (14:57→17:13)
[2019-04-18] MEDS: Sodium Chloride 0.9% 1,000 ML IV SCH (14:57)
[2019-04-18] MEDS: hydrALAZINE 25 MG TAB PO SCH ×2 (14:57→20:53)
[2019-04-18] MEDS: Furosemide 80 MG TAB PO SCH ×2 (14:57→20:53)
[2019-04-18] MEDS: Carvedilol 25 MG TAB PO SCH ×2 (14:57→17:13)
[2019-04-18] MEDS ORDERED: Allopurinol 100 MG TAB PO SCH (21:00)
[2019-04-18] MEDS ORDERED: Rosuvastatin 20 MG TAB PO SCH (21:00)
[2019-04-18] MEDS ORDERED: Tamsulosin HCl 0.4 MG CAP PO SCH (21:00)
[2019-04-18] MEDS ORDERED: Dextrose 5% in Water 1,000 ML IV PRN (21:22)
[2019-04-18] MEDS ORDERED: HumaLOG 300 UNITS/3 ML VIAL SC PRN ×2 (21:22)
[2019-04-18] MEDS ORDERED: Dextrose 50% Abboject 50 ML SYRINGE SLOW IVP PRN (21:22)
[2019-04-19] MEDS: Sodium Chloride 0.9% 1,000 ML IV SCH (04:56)
[2019-04-19 04:59] LABS: #Basophils 0.1 thou/uL (0.0-0.2); #Eosinphils 0.4 thou/uL (0.0-0.7); #Lymphocytes 1.9 thou/uL (1.20-3.40); #Monocytes 0.7 thou/uL (0.11-0.59); #Neutrophils 6.3 thou/uL (1.40-6.50); %Basophils 0.9 % (0.0-1.0); %Eosinophils 3.8 % (0.0-10.0); %Lymphocytes 20.2 % (21.0-51.0); %Monocytes 7.3 % (0.0-10.0); %Neutrophils 67.9 % (42.0-75.0); Hemoglobin 10.2 g/dL (14.0-18.0); Mean Corpuscular Hemoglobin 30.8 pg (27.0-31.0); Mean Corpuscular Volume 96.3 fL (78.0-98.0); Mean Platelet Volume 7.3 fL (7.4-10.4); Platelet Count 185 thou/uL (130-400); RBC Distribution Width 12.9 % (11.5-14.5); White Blood Cell (WBC) Count 9.3 thou/uL (4.8-10.8)
[2019-04-19 05:09] LABS: Anion Gap 11 mmol/L (10-20); BUN (Urea Nitrogen) 38 mg/dL (8.4-25.7); Calc. Creatinine Clearance 38 mL/min (70-130); Calcium 8.5 mg/dL (7.8-10.44); Carbon Dioxide 27 mmol/L (23-31); Chloride 105 mmol/L (98-107); Estimated GFR-MDRD 18; Glucose 108 mg/dL (80-115); Potassium 4.1 mmol/L (3.5-5.1); Sodium 139 mmol/L (136-145)
[2019-04-19] MEDS: Glimepiride 4 MG TAB PO SCH (08:06)
[2019-04-19] MEDS: Ubidecarenone 50 MG CAP PO SCH (08:06)
[2019-04-19] MEDS: Gabapentin 300 MG CAP PO SCH ×2 (08:06→14:02)
[2019-04-19] MEDS: Aspirin Chewable 81 MG TAB PO SCH (08:06)
[2019-04-19] MEDS: Clopidogrel Bisulfate 75 MG TAB PO SCH (08:06)
[2019-04-19] MEDS: Carvedilol 25 MG TAB PO SCH (08:08)
[2019-04-19] MEDS: hydrALAZINE 25 MG TAB PO SCH (08:09)
--- NOTE | 2019-04-19 08:46 | PDOC.HOSPP ---
- Subjective Encounter Date: 04/19/19 Encounter Time: 10:50 Subjective: Patient feeling better today. Still with orthostatic BPs this AM, but numbers are higher and no dizzy/syncope with standing if goes slow. No chest pain or other symptoms. - Objective Vital Signs & Weight: Vital Signs (12 hours) Temp Pulse Resp BP BP BP Pulse Ox 04/19/19 08:00 97.9 F 63 19 170/81 H 146/77 H 146/69 H 97 04/19/19 07:35 97 04/19/19 04:09 98.5 F 65 19 159/76 H 97 04/18/19 23:25 98.9 F 67 18 168/89 H 97 04/18/19 20:53 60 Weight Weight 262 lb I&O: 04/18/19 04/19/19 04/20/19 06:59 06:59 06:59 Intake Total 2076 Output Total 1025 Balance 1051 Result Diagrams: 04/19/19 04:35 04/19/19 04:35 Additional Labs: Accuchecks 04/18/19 21:03 POC Glucose 382 H Hospitalist ROS - Review of Systems Constitutional: denies: fever, chills Respiratory: denies: cough, shortness of breath Cardiovascular: denies: chest pain, palpitations Gastrointestinal: denies: nausea, vomiting, abdominal pain Neurological: denies: weakness - Medication Medications: Active Medications Generic Name Dose Route Start Last Admin Trade Name Freq PRN Reason Stop Dose Admin Allopurinol 100 mg 04/18/19 21:00 04/18/19 20:43 Zyloprim PO 100 mg HS ARY Administration Aspirin 81 mg 04/18/19 09:00 04/19/19 08:06 Aspirin Chewable PO 81 mg DAILY ARY Administration Calcitriol 0.25 mcg 04/18/19 09:00 04/18/19 09:00 Rocaltrol PO 0.25 mcg MoWeFr ARY Administration Carvedilol 25 mg 04/18/19 08:00 04/19/19 08:08 Coreg PO Not Given BID-WM ARY Clopidogrel Bisulfate 75 mg 04/18/19 09:00 04/19/19 08:06 Plavix PO 75 mg DAILY ARY Administration Coenzyme Q10 200 mg 04/18/19 09:00 04/19/19 08:06 Coenzyme Q10 PO 200 mg DAILY ARY Administration Gabapentin 300 mg 04/18/19 09:00 04/19/19 08:06 Neurontin PO 300 mg TID ARY Administration Glimepiride 4 mg 04/18/19 08:00 04/19/19 08:06 Amaryl PO 4 mg BID-WM ARY Administration Hydralazine HCl 50 mg 04/18/19 09:00 04/19/19 08:09 Apresoline PO Not Given BID ARY Sodium Chloride 1,000 mls @ 75 mls/hr 04/18/19 10:15 04/19/19 04:56 Normal Saline 0.9% IV 1,000 mls .[id number] ARY Administration Insulin Human Lispro 0 units 04/18/19 21:22 04/18/19 21:54 Humalog SC 5 units .BEDTIME SLIDING SC PRN Administration Bedtime Correctional Scale Ranolazine 1,000 mg 04/18/19 09:00 04/19/19 08:06 Ranexa PO 1,000 mg BID ARY Administration Rosuvastatin Calcium 40 mg 04/18/19 21:00 04/18/19 21:55 Crestor PO 40 mg HS ARY Administration Tamsulosin HCl 0.4 mg 04/18/19 21:00 04/18/19 20:43 Flomax PO 0.4 mg HS ARY Administration - Exam General Appearance: NAD, awake alert ENT: moist mucosa Heart: RRR, no murmur, no gallops, no rubs Respiratory: CTAB, no wheezes, no rales, no ronchi Gastrointestinal: soft, non-tender, non-distended, normal bowel sounds Extremities: no cyanosis, no clubbing, no edema Psychiatric: normal affect, normal behavior, A&O x 3 Hosp A/P (1) Syncope Code(s): R55 - SYNCOPE AND COLLAPSE Status: Acute (2) Orthostatic hypotension Code(s): I95.1 - ORTHOSTATIC HYPOTENSION Status: Acute (3) Chronic combined systolic and diastolic CHF (congestive heart failure) Code(s): I50.42 - CHRONIC COMBINED SYSTOLIC AND DIASTOLIC HRT FAIL Status: Acute (4) CKD (chronic kidney disease) stage 4, GFR 15-29 ml/min Code(s): N18.4 - CHRONIC KIDNEY DISEASE, STAGE 4 (SEVERE) Status: Chronic (5) Diabetes mellitus type 2 in obese Code(s): E11.69 - TYPE 2 DIABETES MELLITUS WITH OTHER SPECIFIED COMPLICATION; E66.9 - OBESITY, UNSPECIFIED Status: Chronic (6) Paroxysmal atrial fibrillation Code(s): I48.0 - PAROXYSMAL ATRIAL FIBRILLATION Status: Chronic (7) CAD (coronary artery disease) Code(s): I25.10 - ATHSCL HEART DISEASE OF [place] CORONARY ARTERY W/O ANG PCTRS Status: Chronic Qualifiers: Coronary Disease-Associated Artery/Lesion type: bypass graft [place] vs. transplanted heart: [place] heart Associated angina: without angina Qualified Code(s): I25.810 - Atherosclerosis of coronary artery bypass graft(s) without angina pectoris (8) Carotid Artery Disease Code(s): I77.9 - DISORDER OF ARTERIES AND ARTERIOLES, UNSPECIFIED Status: Chronic (9) Dyslipidemia Code(s): E78.5 - HYPERLIPIDEMIA, UNSPECIFIED Status: Chronic (10) GERD (gastroesophageal reflux disease) Code(s): K21.9 - GASTRO-ESOPHAGEAL REFLUX DISEASE WITHOUT ESOPHAGITIS Status: Chronic Qualifiers: Esophagitis presence: esophagitis presence not specified Qualified Code(s) : K21.9 - Gastro-esophageal reflux disease without esophagitis (11) Gout Code(s): M10.9 - GOUT, UNSPECIFIED Status: Chronic Qualifiers: Gout site: unspecified site Gout etiology: unspecified cause Chronicity: chronic Presence of tophus: without tophus Qualified Code(s): M1A.9XX0 - Chronic gout, unspecified, without tophus (tophi) (12) HTN (hypertension) Code(s): I10 - ESSENTIAL (PRIMARY) HYPERTENSION Status: Chronic Qualifiers: (13) Obesity (BMI 30-39.9) Code(s): E66.9 - OBESITY, UNSPECIFIED Status: Chronic - Plan Patient better after fluids yesterday. Still with orthostatic drop in blood pressures. Stress test negative for inducible ischemia. Spoke with Dr. Sky and he cleared him to discharge home, adjusted meds to minimize orthostasis, restarted Lasix at lower dose.
[2019-04-19 11:31] VITALS: BP 164/78; TEMP 97.5
--- NOTE | 2019-04-19 14:29 | PRG ---
DATE OF SERVICE: 04/19/2019 SUBJECTIVE: Mr. Sellers is doing better. He has been receiving normal saline 75 mL an hour since yesterday. His blood pressure is now elevated. OBJECTIVE: VITAL SIGNS: Blood pressure 170/80, drops to 146/69 standing. LUNGS: Clear. CARDIAC: Normal S1 and normal S2. ABDOMEN: Soft and nontender. ASSESSMENT: 1. Orthostatic hypotension. 2. Left ventricular ejection fraction 35% to 40% on echocardiogram. 3. Ejection fraction 45% on nuclear medicine scanning with no reversible ischemia, it is global hypokinesis. At this time, it looks likely this is orthostatic hypotension. PLAN: 1. Change hydralazine to 25 mg three times a day. 2. Reduce furosemide to 40 mg twice a day. 3. Continue carvedilol. 4. If needed, increase furosemide to 80 mg in the morning and 40 in the afternoon. 5. His creatinine is improved with intravenous fluid. As would be expected, his creatinine is down to 3.4. He still has stage 4 renal failure. Hopefully, we tried to keep him off dialysis as long as possible. Estimated GFR was 16 yesterday and 18 today. 6. Other medicines unchanged for completeness and we will go ahead and put an event monitor on him for a couple of weeks. The symptoms sound like orthostatic hypotension. He does have some degree of left ventricular dysfunction; therefore, we will screen for dysrhythmias. Job ID: [id number]
[2019-04-19] MEDS ORDERED: Non-Formulary Item 1 EACH (Insulin Glargine,Hum.Rec.Anlog [Lantus Solostar] 25 UNIT) SQ SCH (21:00)
[2019-04-19] MEDS ORDERED: Insulin Glargine 25 UNITS in Pre-Filled Syringe 1 EACH SC SCH (21:00)
[2019-04-20] MEDS ORDERED: Furosemide 40 MG TAB PO SCH (09:00)
--- NOTE | 2019-04-20 11:34 | DIS ---
DATE OF ADMISSION: 04/18/2019 DATE OF DISCHARGE: 04/19/2019 PRIMARY CARE PHYSICIAN: Dr. Gallego. REASON FOR ADMISSION: Syncopal episode. DIAGNOSES AT DISCHARGE: 1. Syncope secondary to orthostatic hypotension. 2. Chronic combined systolic and diastolic congestive heart failure. 3. Chronic kidney disease, stage 4. 4. Hypertension. 5. Diabetes mellitus type 2. 6. Paroxysmal atrial fibrillation. 7. Coronary artery disease. 8. Carotid artery disease. 9. Dyslipidemia. 10. Gastroesophageal reflux disease. 11. Gout. 12. Obesity. PROCEDURES: 1. CT brain without contrast showing moderate paranasal sinus disease, but no acute intracranial abnormality. 2. Nuclear medicine stress test showing no reversible ischemia, but with global hypokinesis. 3. Echocardiogram showing ejection fraction of 35% to 40% and markedly elevated pulmonary artery pressure. CONSULTATIONS: Cardiology, Dr. Sky. SUMMARY OF HOSPITAL COURSE: This is a 63-year-old male with a history of known coronary artery disease, status post CABG along with combined systolic and diastolic congestive heart failure and hypertension and chronic renal failure from diabetes. He presented with three episodes of syncope. He was brought to the emergency room. His monitor technician has been okay. Since he arrived in the hospital, he had marked orthostatic hypotension. Dr. Sky was consulted. The patient was given gentle fluids. He had echocardiogram and stress test done with the above results. The patient's symptoms improved. He remained orthostatically hypotensive, but the blood pressure on the day of discharge was dropping from the 150s down to the 120s from lying to standing and he had minimal dizziness with standing and walking. Dr. Sky determined that orthostatic hypotension was likely the source of his syncopal episode. He did make some changes, specifically broke up the hydralazine into three times per day with a smaller dose and made some other medication alterations and cleared him to be discharged. DISCHARGE MANAGEMENT: Discharged home. Follow up with Dr. Sky in [address] Randolph in one week. ACTIVITY: As tolerated. DIET: Healthy heart fluid-restricted low-sodium diet. MEDICATIONS: 1. Furosemide decreased to 40 mg twice a day, 60 tablets dispensed. 2. Change hydralazine to 25 mg 3 times a day 90 tablets dispensed. 3. Allopurinol 100 mg at night. 4. Aspirin 81 mg daily. 5. Tessalon Perles as needed for cough. 6. Calcitriol 0.25 mcg three times a week. 7. Carvedilol 25 mg twice a day. 8. Citalopram 20 mg daily. 9. Clopidogrel 75 mg daily. 10. Fluticasone one spray each nostril twice a day. 11. Gabapentin 300 mg 3 times a day. 12. Glimepiride 4 mg twice a day. 13. Meclizine 1 tablet daily as needed for dizziness. 14. Ranexa 1000 mg twice a day. 15. Crestor 40 mg daily. 16. Flomax 0.4 mg at night. 17. CoQ10 of 200 mg daily. 18. Acetaminophen as needed for pain and fever. 19. Lantus insulin 25 units at night. 20. Nitroglycerin as needed for pain. 21. Protonix 20 mg daily. 22. Ranitidine as needed. 23. Ventolin as needed. 24. Super B complex 150 mg daily. Job ID: [id number]
--- NOTE | 2019-04-25 12:47 | STRESS ---
Acquisition Time: 2019-04-18 12:19:19 Total Exercise Time: 00:01:00 Test Indications: Syncope Medications: Protocol: LEXISCAN Max HR: 075 BPM 47% of Pred: 158 BPM Max BP: 110/072 mmHG Max Work Load: 1.0 METS RESTING ECG: SINUS BRADYCARDIA AT 58 BPM WITH FIRST DEGREE AV BLOCK, POOR R-WAVE PROGRESSION, NON-SPECIFIC ST SEGMENT AND T-WAVE CHANGES SYMPTOMS: NONE NORMAL BP RESPONSE ECTOPY: RARE PVC'S ECG STRESS: NO SIGNIFICANT CHANGES INTERPRETATION: INDETERMINATE ECG/AWAIT NUCLEAR IMAGES FOR DEFINITIVE DIAGNOSIS Confirmed by ALTAGRACIA MCNALLY ([id number]) on 04/25/2019 12:47:35 PM Referred By: MD Olga CALLAHAN Confirmed By:ALTAGRACIA MCNALLY
== END 2019-04-19 14:30 | disposition home or self-care (01) ==
LOC: ERS 22:14 → 2SW 04-18 00:43
PROVIDERS: ADMIT Internal Medicine; ATTEND Internal Medicine
DX: I95.1 Orthostatic hypotension (principal); I13.0 Hypertensive heart and chronic kidney disease with heart failure and stage 1 through stage 4 chronic kidney disease, or unspecified chronic kidney disease; E11.22 Type 2 diabetes mellitus with diabetic chronic kidney disease; N18.4 Chronic kidney disease, stage 4 (severe); I50.43 Acute on chronic combined systolic (congestive) and diastolic (congestive) heart failure; D63.1 Anemia in chronic kidney disease; I48.0 Paroxysmal atrial fibrillation; I25.10 Atherosclerotic heart disease of native coronary artery without angina pectoris; I77.9 Disorder of arteries and arterioles, unspecified; E78.5 Hyperlipidemia, unspecified; K21.9 Gastro-esophageal reflux disease without esophagitis; M10.9 Gout, unspecified; M19.90 Unspecified osteoarthritis, unspecified site; Q61.3 Polycystic kidney, unspecified; E11.21 Type 2 diabetes mellitus with diabetic nephropathy; J32.9 Chronic sinusitis, unspecified; E66.9 Obesity, unspecified; Z68.37 Body mass index [BMI] 37.0-37.9, adult; Z86.73 Personal history of transient ischemic attack (TIA), and cerebral infarction without residual deficits; Z87.891 Personal history of nicotine dependence; Z79.02 Long term (current) use of antithrombotics/antiplatelets; Z79.4 Long term (current) use of insulin; Z79.82 Long term (current) use of aspirin; Z79.899 Other long term (current) drug therapy; Z88.1 Allergy status to other antibiotic agents; Z88.5 Allergy status to narcotic agent; Z88.8 Allergy status to other drugs, medicaments and biological substances; Z95.1 Presence of aortocoronary bypass graft
CPT/HCPCS: 70450; 71045; 73564; 78452; 80048; 80053; 82553; 82962 ×2; 83880; 84484 ×2; 85025 ×2; 93005; 93017; 93306; 96360; 96361 ×2; 97139 ×3; 99285; A9500; G0378 ×3; 36415; 36416; 81003; 81015; J2785

== ENCOUNTER 2019-09-15 17:14 | Emergency (ER) | payer MEDICARE, MEDICAID ==
[2019-09-15 17:44] LABS: #Eosinphils 0.1 thou/uL (0.0-0.7); #Lymphocytes 1.3 thou/uL (1.20-3.40); #Monocytes 0.5 thou/uL (0.11-0.59); #Neutrophils 5.7 thou/uL (1.40-6.50); %Basophils 0.6 % (0.0-1.0); %Eosinophils 1.6 % (0.0-10.0); %Lymphocytes 17.2 % (21.0-51.0); %Monocytes 6.9 % (0.0-10.0); %Neutrophils 73.7 % (42.0-75.0); Mean Corpuscular HGB CONC 32.9 g/dL (32.0-36.0); Mean Corpuscular Hemoglobin 31.1 pg (27.0-31.0); Mean Corpuscular Volume 94.5 fL (78.0-98.0); Mean Platelet Volume 7.1 fL (7.4-10.4); Platelet Count 194 thou/uL (130-400); RBC Distribution Width 14.6 % (11.5-14.5); Red Blood Cell (RBC) Count 3.53 mill/uL (4.70-6.10); White Blood Cell (WBC) Count 7.8 thou/uL (4.8-10.8)
[2019-09-15 18:03] LABS: ALT (SGPT) 11 U/L (8-55); AST (SGOT) 12 U/L (5-34); Albumin 4.1 g/dL (3.4-4.8); Alkaline Phosphatase 85 U/L (40-110); Anion Gap 13 mmol/L (10-20); BUN (Urea Nitrogen) 37 mg/dL (8.4-25.7); Bilirubin, Total 0.7 mg/dL (0.2-1.2); Calc. Creatinine Clearance 0 mL/min (70-130); Calcium 9.6 mg/dL (7.8-10.44); Carbon Dioxide 25 mmol/L (23-31); Chloride 102 mmol/L (98-107); Estimated GFR-MDRD 16; Globulin 3.8 g/dL (2.4-3.5); Glucose 108 mg/dL (80-115); Lipase 26 U/L (8-78); Potassium 3.8 mmol/L (3.5-5.1); Protein, Total 7.9 g/dL (5.8-8.1); Sodium 136 mmol/L (136-145)
[2019-09-15] MEDS ORDERED: Ondansetron PF 4 MG/2 ML Vial ONE (18:32)
--- NOTE | 2019-09-15 18:38 | CT ---
CT Abdomen Pelvis WO Con History: Epigastric pain. Comparison: CT exam 2019 Findings: Lung bases are clear. No pericardial effusion. Numerous cysts throughout both kidneys somew hat calcified septations. Small fat-containing periumbilical hernia. No free intraperitoneal gas or fluid. No dilated loops of large or small bowel. The appendix is visualized and is normal. Mild parietal atrophy of the pancreas. Multiple calcified granulomas of the spleen. Gallbladder is un remarkable. No retroperitoneal periaortic adenopathy. Moderate degenerative disc space disease and facet arthrosi s of the lumbar spine. No acute osseous abnormality Impression: No acute inflammatory process in the abdomen or pelvis. Chronic findings.
[2019-09-15] MEDS ORDERED: Famotidine/PF 20 mg/2ml Vial ONE (18:50)
[2019-09-15 18:51] LABS: CKMB 1.1 ng/mL (0-6.6)
== END 2019-09-15 19:46 | disposition home or self-care (01) ==
LOC: ERS 17:14
DX: I13.2 Hypertensive heart and chronic kidney disease with heart failure and with stage 5 chronic kidney disease, or end stage renal disease (principal); I50.9 Heart failure, unspecified; N18.6 End stage renal disease; E11.22 Type 2 diabetes mellitus with diabetic chronic kidney disease; R11.2 Nausea with vomiting, unspecified; R79.89 Other specified abnormal findings of blood chemistry; I25.2 Old myocardial infarction; I48.91 Unspecified atrial fibrillation; K21.9 Gastro-esophageal reflux disease without esophagitis; E78.5 Hyperlipidemia, unspecified; M10.9 Gout, unspecified; Z86.73 Personal history of transient ischemic attack (TIA), and cerebral infarction without residual deficits; F32.9 Major depressive disorder, single episode, unspecified; Z87.891 Personal history of nicotine dependence; Z79.899 Other long term (current) drug therapy; Z79.82 Long term (current) use of aspirin
CPT/HCPCS: 74176; 80053; 82553; 83690; 84484; 85025; 93005; 96374; J2405; S0028

== ENCOUNTER 2019-09-27 23:33 | Inpatient (IN) | payer MEDICARE, MEDICAID, OTHER ==
[2019-09-28] MEDS ORDERED: metroNIDAZOLE 500 MG/100 ML BAG ONE (00:30)
[2019-09-28] MEDS ORDERED: Calcium Carbonate 500 MG ChewTAB PO PRN (04:27)
[2019-09-28] MEDS ORDERED: Acetaminophen 325 MG TAB PO PRN (04:27)
[2019-09-28] MEDS ORDERED: Acetaminophen 650 MG Suppository PR PRN (04:27)
--- NOTE | 2019-09-28 04:33 | PDOC.HHP ---
Hospitalist HPI - History of Present Illness nause vomiting chest pain History of Present Illness: Case of an 64y/o male with pmhx of atrial fibrillation, hx of cva, htn , hld, chf, cad and ckd secondary to pkd who comes to hospital due to nause vomiting and chest pain. patient states he was on his usual states of health until today when he woke up and had diarrhea. patient refers 4 episodes of watery diarrhea non bloody in the morning. after that he refers he got hungry and his made an frozen pizzas and after about 1 hour patient started with multiple episodes of vomiting. at some point after a few episodes of vomiting patient started with chest pain for which he took a sublingual nitro with resolution of his pain. patient continued to have nause and vomiting for which he ask his to bring him to the ED. there patient was diagnosed with possible sepsis due to elevated LA at 2.3 and fever. Hospitalist ROS - Review of Systems All other systems reviewed; all pertinent +/- noted in HPI/Subj Hospitalist History - Past Surgical History Past Surgical History: reports: CABG - Social History Alcohol: reports: None, Rare - Exam General Appearance: NAD, awake alert Eye: PERRL, anicteric sclera ENT: normocephalic atraumatic, no oropharyngeal lesions Neck: supple, symmetric, no JVD, no thyromegaly Heart: RRR, no murmur, no gallops Respiratory: CTAB, no wheezes, no rales Gastrointestinal: soft, non-tender, non-distended Extremities: no cyanosis, no clubbing, no edema Skin: normal turgor, no lesions, no rashes Neurological: cranial nerve grossly intact, normal sensation to touch Musculoskeletal: normal strength, no muscle wasting Psychiatric: normal affect, normal behavior, A&O x 3 Hospitalist H&P A/P - Problem (1) Sepsis Code(s): A41.9 - SEPSIS, UNSPECIFIED ORGANISM Status: Acute (2) Nausea and vomiting Code(s): R11.2 - NAUSEA WITH VOMITING, UNSPECIFIED Status: Acute (3) CKD (chronic kidney disease) Code(s): N18.9 - CHRONIC KIDNEY DISEASE, UNSPECIFIED Status: Acute (4) Polycystic kidney disease Code(s): Q61.3 - POLYCYSTIC KIDNEY, UNSPECIFIED Status: Acute (5) Chest pain Code(s): R07.9 - CHEST PAIN, UNSPECIFIED Status: Acute (6) Chronic combined systolic and diastolic CHF (congestive heart failure) Code(s): I50.42 - CHRONIC COMBINED SYSTOLIC AND DIASTOLIC HRT FAIL Status: Acute (7) Gastroenteritis/colitis, infectious Code(s): A09 - INFECTIOUS GASTROENTERITIS AND COLITIS, UNSPECIFIED Status: Acute (8) Atrial fibrillation Code(s): I48.91 - UNSPECIFIED ATRIAL FIBRILLATION Status: Chronic Qualifiers: Atrial fibrillation type: chronic (9) Diabetes mellitus type 2 in obese Code(s): E11.69 - TYPE 2 DIABETES MELLITUS WITH OTHER SPECIFIED COMPLICATION; E66.9 - OBESITY, UNSPECIFIED Status: Chronic (10) Dyslipidemia Code(s): E78.5 - HYPERLIPIDEMIA, UNSPECIFIED Status: Chronic (11) Gout Code(s): M10.9 - GOUT, UNSPECIFIED Status: Chronic Qualifiers: Gout site: unspecified site Gout etiology: unspecified cause Chronicity: chronic Presence of tophus: without tophus Qualified Code(s): M1A.9XX0 - Chronic gout, unspecified, without tophus (tophi) (12) HTN (hypertension) Code(s): I10 - ESSENTIAL (PRIMARY) HYPERTENSION Status: Chronic Qualifiers: - Plan Plan: chest pain - hx of cad on ranexa - troponins chronically elevated likely due to ckd, seems to be at base will trend - chest pain improve after sublingual nitro - no acute ischemic st changes nause / vomiting - symptomatic tx prn sepsis secondary to gastroenteritis - LA 2.8 + fever complaining of diarrha nause and vomiting - ivfs - cultures taken - had a similar episode about 2 weeks ago - covid test negative - on zosyn - f/u LA - elevated LA might be due to dehydration, has remain afebrile. states his temp was up because of his car heated seats afib /cad/ hn / hld /chf continue home meds for chronic conditons
[2019-09-28] MEDS: Sodium Chloride 0.9% 1,000 ML IV SCH ×2 (04:53→17:41)
[2019-09-28] MEDS ORDERED: Piperacillin/Tazobactam 4.5 GM VIAL ONE ×3 (05:12→13:29)
[2019-09-28 05:49] LABS: Troponin I 0.072 ng/mL (< 0.028)
[2019-09-28] MEDS: Piperacillin/Tazobactam 4.5 GM in Sodium Chloride 0.9% 100 ML IVPB SCH ×4 (05:54→23:26)
[2019-09-28] MEDS ORDERED: Enoxaparin Sodium 30 MG/0.3 ML SYRINGE ONE (08:51)
[2019-09-28] MEDS ORDERED: Famotidine/PF 20 mg/2ml Vial ONE (08:51)
[2019-09-28] MEDS: Famotidine/PF 20 mg/2ml Vial SLOW IVP SCH (08:58)
[2019-09-28] MEDS: Enoxaparin Sodium 30 MG/0.3 ML SYRINGE SC SCH (08:58)
[2019-09-28 09:03] LABS: Lactic Acid 2.3 mmol/L (0.5-2.2)
[2019-09-28 09:13] LABS: Troponin I 0.056 ng/mL (< 0.028)
[2019-09-28 11:20] LABS: ALT (SGPT) 130 U/L (8-55); AST (SGOT) 168 U/L (5-34); Albumin 3.6 g/dL (3.4-4.8); Alkaline Phosphatase 109 U/L (40-110); Anion Gap 19 mmol/L (10-20); BUN (Urea Nitrogen) 43 mg/dL (8.4-25.7); Bilirubin, Total 0.8 mg/dL (0.2-1.2); Calc. Creatinine Clearance 0 mL/min (70-130); Calcium 8.9 mg/dL (7.8-10.44); Carbon Dioxide 21 mmol/L (23-31); Chloride 102 mmol/L (98-107); Estimated GFR-MDRD 16; Glucose 142 mg/dL (80-115); Potassium 4.7 mmol/L (3.5-5.1); Protein, Total 7.6 g/dL (5.8-8.1); Sodium 137 mmol/L (136-145)
[2019-09-28 16:40] VITALS: BMI 37.3
[2019-09-28 18:20] LABS: Troponin I 0.041 ng/mL (< 0.028)
--- NOTE | 2019-09-28 18:48 | PDOC.EVN ---
Event Note - Event Note Event Note: pt seen and examined, will get ruq ultrasound. will recheck lactic acid and trops. elevated trops possible demand related type 2 mi. Recent stress test .
--- NOTE | 2019-09-28 19:04 | ULT ---
RIGHT UPPER QUADRANT ULTRASOUND: 09/28/19 INDICATIONS: Nausea and vomiting. Gallbladder has a normal sonographic appearance. No evidence of gallstones. Common duct is mildly pro minent measured at approximately 7 mm. No evidence of intrahepatic ductal dilatation. The visualized liver appears unremarkable. The pancreas is obscured. The right kidney shows multiple cysts which wer e also noted on recent CT dated 09/15/19. IMPRESSION: 1. No evidence of gallstones. 2. Mildly prominent common bile duct of uncertain significance. POS: AGW
[2019-09-29 05:02] LABS: #Eosinphils 0.3 thou/uL (0.0-0.7); #Lymphocytes 1.4 thou/uL (1.20-3.40); #Monocytes 0.8 thou/uL (0.11-0.59); #Neutrophils 5.8 thou/uL (1.40-6.50); %Basophils 0.4 % (0.0-1.0); %Eosinophils 3.5 % (0.0-10.0); %Lymphocytes 16.7 % (21.0-51.0); %Monocytes 9.4 % (0.0-10.0); %Neutrophils 70.1 % (42.0-75.0); Hemoglobin 9.5 g/dL (14.0-18.0); Mean Corpuscular HGB CONC 31.9 g/dL (32.0-36.0); Mean Corpuscular Hemoglobin 30.9 pg (27.0-31.0); Mean Corpuscular Volume 96.7 fL (78.0-98.0); Mean Platelet Volume 8.1 fL (7.4-10.4); Platelet Count 123 thou/uL (130-400); RBC Distribution Width 14.4 % (11.5-14.5); Red Blood Cell (RBC) Count 3.08 mill/uL (4.70-6.10); White Blood Cell (WBC) Count 8.2 thou/uL (4.8-10.8)
[2019-09-29 05:03] LABS: ALT (SGPT) 82 U/L (8-55); AST (SGOT) 64 U/L (5-34); Alkaline Phosphatase 83 U/L (40-110); Anion Gap 13 mmol/L (10-20); BUN (Urea Nitrogen) 36 mg/dL (8.4-25.7); Bilirubin, Total 0.9 mg/dL (0.2-1.2); Calc. Creatinine Clearance 35 mL/min (70-130); Calcium 8.4 mg/dL (7.8-10.44); Carbon Dioxide 21 mmol/L (23-31); Chloride 106 mmol/L (98-107); Estimated GFR-MDRD 17; Globulin 3.1 g/dL (2.4-3.5); Glucose 76 mg/dL (80-115); Potassium 4.3 mmol/L (3.5-5.1); Protein, Total 6.1 g/dL (5.8-8.1); Sodium 136 mmol/L (136-145)
[2019-09-29] MEDS: Piperacillin/Tazobactam 4.5 GM in Sodium Chloride 0.9% 100 ML IVPB SCH ×2 (05:26→12:50)
[2019-09-29] MEDS: hydrALAZINE 25 MG TAB PO SCH ×2 (08:43→21:18)
[2019-09-29] MEDS: Enoxaparin Sodium 30 MG/0.3 ML SYRINGE SC SCH (08:43)
[2019-09-29] MEDS: Famotidine/PF 20 mg/2ml Vial SLOW IVP SCH (08:43)
[2019-09-29] MEDS: Glimepiride 4 MG TAB PO SCH ×2 (08:44→17:44)
[2019-09-29] MEDS: Carvedilol 25 MG TAB PO SCH (08:45)
[2019-09-29] MEDS: Aspirin Chewable 81 MG TAB PO SCH (08:45)
[2019-09-29] MEDS: Gabapentin 300 MG CAP PO SCH ×3 (08:45→21:18)
[2019-09-29] MEDS: Clopidogrel Bisulfate 75 MG TAB PO SCH (08:45)
[2019-09-29] MEDS ORDERED: Non-Formulary Item 1 EACH (Ranolazine [Ranexa] 1,000 MG) PO SCH (09:00)
[2019-09-29] MEDS ORDERED: Non-Formulary Item 1 EACH (Rosuvastatin Calcium [Crestor] 40 MG) PO SCH (09:00)
[2019-09-29] MEDS ORDERED: VITAMIN B COMPLEX VIT C NO 4 150 MG PO SCH (09:00)
[2019-09-29] MEDS: Sodium Chloride 0.9% 1,000 ML IV SCH (09:43)
[2019-09-29] MEDS: Stress 600 With Zinc 1 TAB PO SCH (09:44)
--- NOTE | 2019-09-29 17:45 | PDOC.HOSPP ---
- Subjective Encounter Date: 09/29/19 Encounter Time: 12:30 Subjective: pt up in bed no complains. He has had 3 bm one was diarrhea. - Objective Vital Signs & Weight: Vital Signs (12 hours) Temp Pulse Resp BP BP BP Pulse Ox 09/29/19 16:15 97.7 F 53 L 16 174/84 H 100 09/29/19 12:49 98.2 F 55 L 14 152/73 H 98 09/29/19 08:43 64 153/78 H 97 09/29/19 07:15 97.4 F L 64 13 153/78 H 97 Weight Weight 259 lb 14.8 oz I&O: 09/28/19 09/29/19 09/30/19 06:59 06:59 06:59 Intake Total 540 240 Output Total 600 Balance -60 240 Result Diagrams: 09/29/19 04:20 09/29/19 04:20 Additional Labs: Accuchecks 09/29/19 09/29/19 09/28/19 17:13 10:50 20:25 POC Glucose 143 H 147 H 148 H Hospitalist ROS - Review of Systems Cardiovascular: denies: chest pain, palpitations, orthopnea, paroxysmal noc. dyspnea, edema, light headedness, other Gastrointestinal: denies: nausea, vomiting, abdominal pain, diarrhea, constipation, melena, hematochezia, other Genitourinary: denies: dysuria, frequency, incontinence, hematuria, retention, other - Medication Medications: Active Medications Generic Name Dose Route Start Last Admin Trade Name Freq PRN Reason Stop Dose Admin Aspirin 81 mg 09/29/19 09:00 09/29/19 08:45 Aspirin Chewable PO 81 mg DAILY ARY Administration Carvedilol 25 mg 09/29/19 09:00 09/29/19 08:45 Coreg PO 25 mg DAILY ARY Administration Clopidogrel Bisulfate 75 mg 09/29/19 09:00 09/29/19 08:45 Plavix PO 75 mg DAILY ARY Administration Enoxaparin Sodium 30 mg 09/28/19 09:00 09/29/19 08:43 Lovenox SC 30 mg 0900 ARY Administration Famotidine 20 mg 09/28/19 09:00 09/29/19 08:43 Pepcid SLOW IVP 20 mg QAM ARY Administration Gabapentin 300 mg 09/29/19 09:00 09/29/19 14:19 Neurontin PO 300 mg TID ARY Administration Glimepiride 4 mg 09/29/19 08:00 09/29/19 08:44 Amaryl PO 4 mg BID-WM ARY Administration Hydralazine HCl 25 mg 09/29/19 09:00 09/29/19 08:43 Apresoline PO 25 mg BID ARY Administration Multivitamins/Zinc 1 tab 09/29/19 09:00 09/29/19 09:44 Stress 600 With Zinc PO 1 tab DAILY ARY Administration Ranolazine 1,000 mg 09/29/19 09:00 09/29/19 08:44 Ranexa PO 1,000 mg BID ARY Administration Sodium Chloride 10 ml 09/29/19 09:00 09/29/19 08:45 Flush - Normal Saline IVF 10 ml Q12HR ARY Administration - Exam Heart: negative: RRR, no murmur, no gallops, no rubs, normal peripheral pulses, irregular, diminshed peripheral pulses, murmur present, II/IV, III/IV Respiratory: negative: CTAB, no wheezes, no rales, no ronchi, normal chest expansion, no tachypnea, normal percussion, rales, rhonchi, tachypneic, wheezes Gastrointestinal: negative: soft, non-tender, non-distended, normal bowel sounds , no palpable masses, no hepatomegaly, no splenomegaly, no bruit, no guarding, no rigidity, tender to palpation, distended, diminished bowl sounds, voluntary guarding Extremities: negative: no cyanosis, no clubbing, no edema, 1+ LE edema, 2+ LE edema, clubbing Hosp A/P (1) Elevated troponin Code(s): R79.89 - OTHER SPECIFIED ABNORMAL FINDINGS OF BLOOD CHEMISTRY Status : Acute (2) Nausea and vomiting Code(s): R11.2 - NAUSEA WITH VOMITING, UNSPECIFIED Status: Acute (3) GERD (gastroesophageal reflux disease) Code(s): K21.9 - GASTRO-ESOPHAGEAL REFLUX DISEASE WITHOUT ESOPHAGITIS Status: Chronic Qualifiers: Esophagitis presence: esophagitis presence not specified Qualified Code(s) : K21.9 - Gastro-esophageal reflux disease without esophagitis (4) HTN (hypertension) Code(s): I10 - ESSENTIAL (PRIMARY) HYPERTENSION Status: Chronic Qualifiers: (5) Obesity (BMI 30-39.9) Code(s): E66.9 - OBESITY, UNSPECIFIED Status: Chronic - Plan stool studies negative but had elevated wbc's. will advance diet and if he does well possible discharge in am. His RUQ ultrasound indicated mild elevated cbd possible from N/v. pt had ct abd/pel which did not show any new findings.
[2019-09-29] MEDS ORDERED: Rosuvastatin 20 MG TAB PO SCH (21:00)
[2019-09-29] MEDS ORDERED: Allopurinol 100 MG TAB PO SCH (21:00)
[2019-09-29] MEDS ORDERED: Tamsulosin HCl 0.4 MG CAP PO SCH (21:00)
[2019-09-30 08:38] LABS: ALT (SGPT) 78 U/L (8-55); AST (SGOT) 50 U/L (5-34); Albumin 3.3 g/dL (3.4-4.8); Alkaline Phosphatase 105 U/L (40-110); Anion Gap 14 mmol/L (10-20); BUN (Urea Nitrogen) 32 mg/dL (8.4-25.7); Bilirubin, Total 0.6 mg/dL (0.2-1.2); Calc. Creatinine Clearance 34 mL/min (70-130); Calcium 8.7 mg/dL (7.8-10.44); Carbon Dioxide 22 mmol/L (23-31); Chloride 107 mmol/L (98-107); Estimated GFR-MDRD 17; Globulin 3.5 g/dL (2.4-3.5); Glucose 135 mg/dL (80-115); Potassium 4.3 mmol/L (3.5-5.1); Protein, Total 6.8 g/dL (5.8-8.1); Sodium 139 mmol/L (136-145)
[2019-09-30] MEDS: Glimepiride 4 MG TAB PO SCH (08:46)
[2019-09-30] MEDS: Clopidogrel Bisulfate 75 MG TAB PO SCH (08:46)
[2019-09-30] MEDS: Enoxaparin Sodium 30 MG/0.3 ML SYRINGE SC SCH (08:46)
[2019-09-30] MEDS: Aspirin Chewable 81 MG TAB PO SCH (08:46)
[2019-09-30] MEDS: hydrALAZINE 25 MG TAB PO SCH (08:46)
[2019-09-30] MEDS: Famotidine/PF 20 mg/2ml Vial SLOW IVP SCH (08:46)
[2019-09-30] MEDS: Gabapentin 300 MG CAP PO SCH (08:46)
[2019-09-30] MEDS: Stress 600 With Zinc 1 TAB PO SCH (08:46)
[2019-09-30] MEDS: Carvedilol 25 MG TAB PO SCH (08:46)
[2019-09-30 11:44] VITALS: BP 154/84; TEMP 97.6
--- NOTE | 2019-09-30 22:13 | DIS ---
DATE OF ADMISSION: 09/28/2019 DATE OF DISCHARGE: 09/30/2019 DISCHARGE DIAGNOSES: As of the followin. Nausea, vomiting, diarrhea. 2. Mildly elevated troponins. 3. Hypertension. 4. Systolic heart failure, compensated. HOSPITAL COURSE: The patient is a 64-year-old male, who initially presented to the hospital with abdominal pain, nausea, vomiting, diarrhea. At this time, he had similar symptoms prior. Earlier this month, he underwent a CT abdomen and pelvis, which was essentially normal. I went ahead and did a right upper quadrant ultrasound, which was normal. It only indicated CBD dilation of 7 mm. The patient was watched overnight and was hydrated. His diarrhea resolved. He was able to eat soft diet. He had mildly elevated LFTs, which improved. He had no more chest pain. His troponins were mildly elevated, however, they were trending downwards. He did not have any chest pain while he was in the hospital. He recently had a stress test done in April of 2019, which was essentially normal. PHYSICAL EXAMINATION: VITAL SIGNS: Temperature 97.6, pulse 65, respirations 18, blood pressure 154/84. GENERAL: He is awake, alert, and oriented x3. Does not appear in distress. CV: S1, S2 with no murmurs, rubs, or gallops. MEDICATIONS: His home medications were all resumed. They are: 1. Carvedilol 25 twice a day. 2. Calcitriol 0.25 mcg Thursday, Thursday, Thursday. 3. Tessalon Perles 100 mg as needed. 4. Aspirin 81 mg daily. 5. Allopurinol 100 mg at bedtime. 6. Gabapentin 300 mg t.i.d. 7. Lasix 40 mg b.i.d. 8. Clopidogrel 75 mg daily. 9. Meclizine 1 tab as needed. 10. Glimepiride 4 mg twice a day. 11. Pantoprazole 20 mg daily. 12. Flomax 0.4 mg daily. 13. Ranexa 1000 mg b.i.d. Again, the patient will be discharged home to follow up with his primary and he has an appointment with his heart doctor next month. Job ID: [id number]
--- NOTE | 2019-10-02 06:59 | PQF ---
CLINICAL DOCUMENTATION CLARIFICATION FORM: Dear : ____Martha Clayton Date / Time: ____10/02/2019__ Please exercise your independent, professional judgment in responding to the clarification form. Clinical indicators are provided on the bottom of this form for your review Please check appropriate box(es) to clarify if the following diagnosis has been ruled in our ruled out: Sepsis [ ] Ruled in diagnosis [ ] Continue to treat [ x ] Resolved [ ] Ruled out diagnosis [ ] Improving [ ] Cannot rule out diagnosis [ ] Other diagnosis [ ] Unable to determine Physician Signature: Date/Time: For continuity of documentation, please document condition throughout progress notes and discharge summary. Thank You. To be completed by CDI/Coding staff for physician review: w Present w Clinical Indicators - Signs / Symptoms / Labs w Results and Location in Medical Record w [ x] w Sepsis 2/2 gastroenteritis w H&P, 09/27, Fercho Yuan MD w [ x] w Temp: 96.9F on 09/28, 97.4F on 09/29 w Vital signs report w [ x] w WBC: 8.2 w Laboratory report, 09/28 w [ x] w Possible sepsis due to elevated LA at 2.3 and fever w H&P, 09/27, Fercho Yuan MD w Present w Risk Factors w Results and Location in Medical Record w [ x] w Gastroenteritis w H&P, 09/27, Fercho Yuan MD w w w w w w w w w w Present w Treatments w Results and Location in Medical Record w [ x] w Zosyn.IV w MAR, 09/27 w w w w w w w w w CDS/Leather Lacer Signature: Arturo Motnalvo Phone #: [phone] Date/Time:_ 10/02/2019 This is a permanent part of the Medical Record [facility]
== END 2019-09-30 14:40 | disposition home or self-care (01) | DRG 871 ==
LOC: ERS 23:33 → ERHOLD 09-28 02:57 → 2NO 09-28 16:38
PROVIDERS: ADMIT Internal Medicine; ATTEND Internal Medicine
PROC: 8E0ZXY6 Isolation (ICD-10-PCS; principal; 2019-09-28)
DX: A41.9 Sepsis, unspecified organism (principal); N18.6 End stage renal disease; I13.2 Hypertensive heart and chronic kidney disease with heart failure and with stage 5 chronic kidney disease, or end stage renal disease; I50.42 Chronic combined systolic (congestive) and diastolic (congestive) heart failure; I48.20 Chronic atrial fibrillation, unspecified; Z20.828 Contact with and (suspected) exposure to other viral communicable diseases; K52.9 Noninfective gastroenteritis and colitis, unspecified; K21.9 Gastro-esophageal reflux disease without esophagitis; E86.0 Dehydration; I25.10 Atherosclerotic heart disease of native coronary artery without angina pectoris; E66.9 Obesity, unspecified; E78.00 Pure hypercholesterolemia, unspecified; F32.9 Major depressive disorder, single episode, unspecified; M1A.9XX0 Chronic gout, unspecified, without tophus (tophi); E78.5 Hyperlipidemia, unspecified; F12.10 Cannabis abuse, uncomplicated; R79.89 Other specified abnormal findings of blood chemistry; Z86.73 Personal history of transient ischemic attack (TIA), and cerebral infarction without residual deficits; Z95.1 Presence of aortocoronary bypass graft; Z88.6 Allergy status to analgesic agent; Z88.1 Allergy status to other antibiotic agents; Z88.8 Allergy status to other drugs, medicaments and biological substances; Z68.37 Body mass index [BMI] 37.0-37.9, adult
CPT/HCPCS: 36415; 36416; 76705; 80053; 83605; 83630; 83735; 84484; 85025; 87040; 87045; 87046; 87324; 87427; 87449; 96365; J1650; J2543; J3490; S0028; U0002

== ENCOUNTER 2020-05-18 19:04 | Inpatient (IN) | payer MEDICARE, MEDICAID ==
[2020-05-18 20:06] LABS: #Eosinphils 0.1 thou/uL (0.0-0.7); #Lymphocytes 0.8 thou/uL (1.20-3.40); #Monocytes 0.6 thou/uL (0.11-0.59); #Neutrophils 6.8 thou/uL (1.40-6.50); %Basophils 0.4 % (0.0-1.0); %Eosinophils 1.6 % (0.0-10.0); %Monocytes 7.4 % (0.0-10.0); %Neutrophils 81.6 % (42.0-75.0); Mean Corpuscular HGB CONC 33.2 g/dL (32.0-36.0); Mean Corpuscular Hemoglobin 31.7 pg (27.0-31.0); Mean Corpuscular Volume 95.5 fL (78.0-98.0); Mean Platelet Volume 7.9 fL (7.4-10.4); Platelet Count 150 thou/uL (130-400); RBC Distribution Width 14.4 % (11.5-14.5); Red Blood Cell (RBC) Count 3.14 mill/uL (4.70-6.10); White Blood Cell (WBC) Count 8.3 thou/uL (4.8-10.8)
[2020-05-18 20:25] LABS: ALT (SGPT) 25 U/L (8-55); AST (SGOT) 17 U/L (5-34); Albumin 3.4 g/dL (3.4-4.8); Alkaline Phosphatase 84 U/L (40-110); Anion Gap 16 mmol/L (10-20); BUN (Urea Nitrogen) 45 mg/dL (8.4-25.7); Bilirubin, Total 0.5 mg/dL (0.2-1.2); Calc. Creatinine Clearance 0 mL/min (70-130); Calcium 7.9 mg/dL (7.8-10.44); Carbon Dioxide 24 mmol/L (23-31); Chloride 102 mmol/L (98-107); Glucose 102 mg/dL (80-115); Potassium 4.2 mmol/L (3.5-5.1); Protein, Total 6.4 g/dL (5.8-8.1); Sodium 138 mmol/L (136-145)
[2020-05-18] MEDS ORDERED: Boostrix 0.5 ML (Tdap) VIAL ONE (20:30)
[2020-05-18 20:51] LABS: CKMB 1.6 ng/mL (0-6.6)
[2020-05-18] MEDS ORDERED: Acetaminophen 500 MG TAB ONE (22:19)
[2020-05-18] MEDS ORDERED: Dextrose 5% in Water 1,000 ML IV PRN (22:26)
[2020-05-18] MEDS ORDERED: HumaLOG 300 UNITS/3 ML VIAL SC PRN (22:26)
[2020-05-18] MEDS ORDERED: Dextrose 50% Abboject 50 ML SYRINGE SLOW IVP PRN (22:26)
[2020-05-18] MEDS ORDERED: Calcium Carbonate 500 MG ChewTAB PO PRN (22:28)
[2020-05-18] MEDS ORDERED: Ondansetron PF 4 MG/2 ML Vial IVP PRN (22:28)
[2020-05-18] MEDS ORDERED: Senokot S 8.6-50 MG TAB PO PRN (22:28)
[2020-05-18] MEDS ORDERED: Bisacodyl 5 MG TAB PO PRN (22:28)
[2020-05-18] MEDS ORDERED: Ondansetron ODT 4 MG TAB PO PRN (22:28)
[2020-05-18] MEDS ORDERED: Albuterol Sulfate 2.5 mg/3 ml Neb NEB PRN (22:38)
[2020-05-18 22:39] LABS: Bacteria/HPF None Seen HPF (None Seen); Bilirubin Negative (Negative); Blood, Urine Negative (Negative); Clarity Clear (Clear); Glucose, Urine (Dipstick) Normal (Negative); Ketone, Urine Negative (Negative); Leukocyte Negative Leu/uL (Negative); Nitrite Negative (Negative); Protein, Urine (Dipstick) 70 mg/dL (Neg-Trace); RBC/HPF 0-3 HPF (0-3); Specific Gravity, Urine 1.013 (1.002-1.036); Squamous Epithelial None Seen HPF (0-3); Urobilinogen Normal mg/dL (Less than 2); WBC/HPF 0-3 HPF (0-3); pH, Urine 6.5 (5.0-9.0)
[2020-05-18 22:49] LABS: Amphetamine Not Detected (NotDetected); Barbiturates Screen Not Detected (NotDetected); Benzodiazepine Screen Not Detected (NotDetected); Cocaine Metabolite Screen Not Detected (NotDetected); Medtox Control Line Valid? VALID (VALID); Medtox Reader # READER 4; Methadone Not Detected (NotDetected); Methamphetamine Not Detected (NotDetected); Opiate Screen Not Detected (NotDetected); Oxycodone Screen Not Detected (NotDetected); Phencyclidine (PCP) Not Detected (NotDetected); THC/Cannabinoid Screen Not Detected (NotDetected); Tricyclic Screen Not Detected (NotDetected)
[2020-05-18 23:51] LABS: Magnesium 2.1 mg/dL (1.6-2.6)
[2020-05-18 23:57] LABS: Troponin I 0.057 ng/mL (< 0.028)
[2020-05-19 05:55] LABS: SARS-CoV-2 PCR by NAA DETECTED (NotDetected)
[2020-05-19 06:15] LABS: #Eosinphils 0.2 thou/uL (0.0-0.7); #Lymphocytes 0.8 thou/uL (1.20-3.40); #Monocytes 0.4 thou/uL (0.11-0.59); #Neutrophils 4.1 thou/uL (1.40-6.50); %Basophils 0.3 % (0.0-1.0); %Eosinophils 4.4 % (0.0-10.0); %Lymphocytes 14.1 % (21.0-51.0); %Monocytes 7.3 % (0.0-10.0); Hemoglobin 9.4 g/dL (14.0-18.0); Mean Corpuscular HGB CONC 33.1 g/dL (32.0-36.0); Mean Corpuscular Hemoglobin 31.8 pg (27.0-31.0); Mean Corpuscular Volume 96.1 fL (78.0-98.0); Mean Platelet Volume 7.9 fL (7.4-10.4); Platelet Count 126 thou/uL (130-400); RBC Distribution Width 14.6 % (11.5-14.5); Red Blood Cell (RBC) Count 2.95 mill/uL (4.70-6.10); White Blood Cell (WBC) Count 5.6 thou/uL (4.8-10.8)
[2020-05-19] MEDS: Acetaminophen 325 MG TAB PO PRN ×2 (06:32→21:24)
[2020-05-19 06:33] LABS: Anion Gap 13 mmol/L (10-20); BUN (Urea Nitrogen) 47 mg/dL (8.4-25.7); Calc. Creatinine Clearance 31 mL/min (70-130); Calcium 8.1 mg/dL (7.8-10.44); Carbon Dioxide 26 mmol/L (23-31); Chloride 102 mmol/L (98-107); Glucose 161 mg/dL (80-115); Potassium 4.3 mmol/L (3.5-5.1); Sodium 137 mmol/L (136-145)
[2020-05-19 07:00] LABS: Thyroid Stimulating Hormone 1.5892 uIU/mL (0.35-4.94)
[2020-05-19] MEDS ORDERED: Clopidogrel Bisulfate 75 MG TAB PO SCH (09:00)
[2020-05-19] MEDS ORDERED: Aspirin Chewable 81 MG TAB PO SCH (09:00)
[2020-05-19] MEDS: Famotidine 20 MG TAB PO SCH (09:03)
[2020-05-19] MEDS: Triple Antibiotic Ointment 30 GM TUBE TOP SCH ×2 (09:15→21:20)
[2020-05-19] MEDS: Insulin Glargine 15 UNITS in Pre-Filled Syringe 1 EACH SC SCH (12:11)
[2020-05-19] MEDS: HumaLOG 300 UNITS/3 ML VIAL SC PRN (12:13)
[2020-05-19 18:34] LABS: Hemoglobin A1c 7.3 % (4.0-6.0)
[2020-05-19] MEDS ORDERED: Heparin 5,000 UNITS/ML VIAL SC SCH (21:00)
[2020-05-19] MEDS: Gabapentin 300 MG CAP PO SCH (21:19)
[2020-05-19] MEDS: Allopurinol 100 MG TAB PO SCH (21:20)
[2020-05-19] MEDS ORDERED: guaiFENesin 200 MG TAB PO PRN (22:36)
[2020-05-20] MEDS: Acetaminophen 500 MG TAB PO PRN ×2 (03:50→19:50)
[2020-05-20 03:59] LABS: #Eosinphils 0.4 thou/uL (0.0-0.7); #Lymphocytes 1.1 thou/uL (1.20-3.40); #Monocytes 0.5 thou/uL (0.11-0.59); #Neutrophils 4.7 thou/uL (1.40-6.50); %Basophils 0.2 % (0.0-1.0); %Eosinophils 6.2 % (0.0-10.0); %Lymphocytes 15.8 % (21.0-51.0); %Monocytes 7.6 % (0.0-10.0); %Neutrophils 70.2 % (42.0-75.0); Hemoglobin 10.1 g/dL (14.0-18.0); Mean Corpuscular HGB CONC 32.8 g/dL (32.0-36.0); Mean Corpuscular Hemoglobin 31.8 pg (27.0-31.0); Mean Platelet Volume 8.1 fL (7.4-10.4); Platelet Count 134 thou/uL (130-400); RBC Distribution Width 14.9 % (11.5-14.5); Red Blood Cell (RBC) Count 3.19 mill/uL (4.70-6.10); White Blood Cell (WBC) Count 6.6 thou/uL (4.8-10.8)
[2020-05-20 04:05] LABS: INR-International Normal Ratio 1.2; PTT 39.5 sec (22.9-36.1); Prothrombin Time 15.8 sec (12.0-14.7)
[2020-05-20 04:21] LABS: Anion Gap 17 mmol/L (10-20); BUN (Urea Nitrogen) 44 mg/dL (8.4-25.7); Calc. Creatinine Clearance 32 mL/min (70-130); Calcium 8.3 mg/dL (7.8-10.44); Carbon Dioxide 21 mmol/L (23-31); Chloride 102 mmol/L (98-107); Glucose 108 mg/dL (80-115); Magnesium 2.2 mg/dL (1.6-2.6); Potassium 4.1 mmol/L (3.5-5.1); Sodium 136 mmol/L (136-145)
[2020-05-20 04:27] LABS: Troponin I 0.056 ng/mL (< 0.028)
[2020-05-20] MEDS: Benzonatate 100 MG CAP PO PRN (04:51)
[2020-05-20] MEDS ORDERED: Labetalol HCl 100 MG/20 ML VIAL SLOW IVP PRN (04:56)
[2020-05-20] MEDS ORDERED: Electrolyte Replacement Protocol 1 EACH IVPB ONE (04:56)
[2020-05-20 05:31] VITALS: BMI 37.8
[2020-05-20] MEDS ORDERED: hydrALAZINE 20 MG/ML VIAL ONE (06:02)
[2020-05-20] MEDS: hydrALAZINE 20 MG/ML VIAL SLOW IVP PRN ×3 (06:11→23:41)
[2020-05-20] MEDS: Gabapentin 300 MG CAP PO SCH ×3 (08:25→19:51)
[2020-05-20] MEDS: Triple Antibiotic Ointment 30 GM TUBE TOP SCH ×2 (08:26→19:52)
[2020-05-20] MEDS: Famotidine 20 MG TAB PO SCH (08:26)
[2020-05-20] MEDS: Insulin Glargine 15 UNITS in Pre-Filled Syringe 1 EACH SC SCH (08:26)
[2020-05-20] MEDS: Senokot S 8.6-50 MG TAB PO SCH ×2 (08:26→19:50)
[2020-05-20] MEDS: Allopurinol 100 MG TAB PO SCH (19:52)
[2020-05-21 03:39] LABS: Cardiac Risk 3.2 (Less than 4.5)
[2020-05-21] MEDS: Famotidine 20 MG TAB PO SCH (07:46)
[2020-05-21] MEDS: Gabapentin 300 MG CAP PO SCH ×3 (07:46→20:26)
[2020-05-21] MEDS: Triple Antibiotic Ointment 30 GM TUBE TOP SCH ×2 (07:47→20:27)
[2020-05-21] MEDS: Senokot S 8.6-50 MG TAB PO SCH ×2 (07:47→20:26)
[2020-05-21] MEDS: Insulin Glargine 15 UNITS in Pre-Filled Syringe 1 EACH SC SCH (12:21)
[2020-05-21] MEDS: Acetaminophen 500 MG TAB PO PRN (14:07)
[2020-05-21] MEDS: Allopurinol 100 MG TAB PO SCH (20:26)
[2020-05-21] MEDS: Acetaminophen 325 MG TAB PO PRN (20:46)
[2020-05-21] MEDS: hydrALAZINE 20 MG/ML VIAL SLOW IVP PRN (23:00)
[2020-05-22] MEDS: Acetaminophen 325 MG TAB PO PRN ×3 (00:42→21:53)
[2020-05-22] MEDS: Ubidecarenone 50 MG CAP PO SCH (09:07)
[2020-05-22] MEDS: Triple Antibiotic Ointment 30 GM TUBE TOP SCH ×2 (09:07→21:54)
[2020-05-22] MEDS: Senokot S 8.6-50 MG TAB PO SCH ×3 (09:07→21:51)
[2020-05-22] MEDS: Famotidine 20 MG TAB PO SCH (09:08)
[2020-05-22] MEDS: Gabapentin 300 MG CAP PO SCH ×3 (09:08→21:53)
[2020-05-22] MEDS: Carvedilol 6.25 MG TAB PO SCH ×2 (09:09→21:51)
[2020-05-22] MEDS: Insulin Glargine 5 UNITS in Pre-Filled Syringe 1 EACH SC SCH ×2 (09:09→09:38)
[2020-05-22] MEDS: Citalopram 20 MG TAB PO SCH (09:09)
[2020-05-22] MEDS: Tamsulosin HCl 0.4 MG CAP PO SCH ×2 (09:09→21:51)
[2020-05-22] MEDS: HumaLOG 300 UNITS/3 ML VIAL SC PRN (12:06)
[2020-05-22] MEDS: Rosuvastatin 20 MG TAB PO SCH (21:52)
[2020-05-22] MEDS: Allopurinol 100 MG TAB PO SCH (21:53)
[2020-05-23] MEDS: Gabapentin 300 MG CAP PO SCH ×3 (08:28→20:51)
[2020-05-23] MEDS: Triple Antibiotic Ointment 30 GM TUBE TOP SCH ×2 (08:28→20:53)
[2020-05-23] MEDS: Citalopram 20 MG TAB PO SCH (08:28)
[2020-05-23] MEDS: Carvedilol 6.25 MG TAB PO SCH ×2 (08:28→20:50)
[2020-05-23] MEDS: Calcitriol 0.25 MCG CAP PO SCH (08:28)
[2020-05-23] MEDS: Famotidine 20 MG TAB PO SCH (08:28)
[2020-05-23] MEDS: Tamsulosin HCl 0.4 MG CAP PO SCH ×2 (08:28→20:52)
[2020-05-23] MEDS: Ubidecarenone 50 MG CAP PO SCH (08:29)
[2020-05-23] MEDS: Insulin Glargine 5 UNITS in Pre-Filled Syringe 1 EACH SC SCH (08:30)
[2020-05-23] MEDS: Senokot S 8.6-50 MG TAB PO SCH ×2 (08:30→21:13)
[2020-05-23] MEDS: Acetaminophen 325 MG TAB PO PRN ×2 (08:43→18:11)
[2020-05-23] MEDS: HumaLOG 300 UNITS/3 ML VIAL SC PRN (12:17)
[2020-05-23] MEDS: Allopurinol 100 MG TAB PO SCH (20:50)
[2020-05-23] MEDS: Rosuvastatin 20 MG TAB PO SCH (20:52)
[2020-05-23] MEDS: Benzonatate 100 MG CAP PO PRN (20:53)
[2020-05-24] MEDS: Acetaminophen 325 MG TAB PO PRN ×2 (06:07→20:13)
[2020-05-24] MEDS ORDERED: hydrALAZINE 25 MG TAB PO SCH (09:00)
[2020-05-24] MEDS: Insulin Glargine 5 UNITS in Pre-Filled Syringe 1 EACH SC SCH (10:12)
[2020-05-24] MEDS: hydrALAZINE 25 MG TAB PO SCH ×3 (10:14→20:12)
[2020-05-24] MEDS: Citalopram 20 MG TAB PO SCH (10:15)
[2020-05-24] MEDS: Carvedilol 6.25 MG TAB PO SCH ×2 (10:15→20:11)
[2020-05-24] MEDS: Tamsulosin HCl 0.4 MG CAP PO SCH ×2 (10:16→20:12)
[2020-05-24] MEDS: Furosemide 40 MG TAB PO SCH (10:16)
[2020-05-24] MEDS: Senokot S 8.6-50 MG TAB PO SCH ×3 (10:16→20:37)
[2020-05-24] MEDS: Gabapentin 300 MG CAP PO SCH ×3 (10:16→20:11)
[2020-05-24] MEDS: Triple Antibiotic Ointment 30 GM TUBE TOP SCH ×2 (10:22→20:37)
[2020-05-24] MEDS: HumaLOG 300 UNITS/3 ML VIAL SC PRN (12:58)
[2020-05-24 16:18] LABS: #Eosinphils 0.3 thou/uL (0.0-0.7); #Lymphocytes 1.1 thou/uL (1.20-3.40); #Monocytes 0.6 thou/uL (0.11-0.59); #Neutrophils 4.4 thou/uL (1.40-6.50); %Basophils 0.6 % (0.0-1.0); %Eosinophils 4.4 % (0.0-10.0); %Lymphocytes 16.6 % (21.0-51.0); %Monocytes 9.5 % (0.0-10.0); Hemoglobin 9.6 g/dL (14.0-18.0); Mean Corpuscular HGB CONC 32.4 g/dL (32.0-36.0); Mean Corpuscular Hemoglobin 31.5 pg (27.0-31.0); Mean Corpuscular Volume 97.1 fL (78.0-98.0); Mean Platelet Volume 6.9 fL (7.4-10.4); Platelet Count 177 thou/uL (130-400); RBC Distribution Width 15.6 % (11.5-14.5); Red Blood Cell (RBC) Count 3.05 mill/uL (4.70-6.10); White Blood Cell (WBC) Count 6.3 thou/uL (4.8-10.8)
[2020-05-24 16:25] LABS: INR-International Normal Ratio 1.2; Prothrombin Time 15.1 sec (12.0-14.7)
[2020-05-24 16:36] LABS: Anion Gap 10 mmol/L (10-20); BUN (Urea Nitrogen) 34 mg/dL (8.4-25.7); Calc. Creatinine Clearance 41 mL/min (70-130); Calcium 8.4 mg/dL (7.8-10.44); Carbon Dioxide 29 mmol/L (23-31); Chloride 103 mmol/L (98-107); Glucose 97 mg/dL (80-115); Potassium 4.9 mmol/L (3.5-5.1); Sodium 137 mmol/L (136-145)
[2020-05-24] MEDS: Allopurinol 100 MG TAB PO SCH (20:11)
[2020-05-24] MEDS: Rosuvastatin 20 MG TAB PO SCH (20:12)
[2020-05-25] MEDS: Senokot S 8.6-50 MG TAB PO SCH (07:53)
[2020-05-25] MEDS: Tamsulosin HCl 0.4 MG CAP PO SCH (07:53)
[2020-05-25] MEDS: Calcitriol 0.25 MCG CAP PO SCH (07:54)
[2020-05-25] MEDS: Furosemide 40 MG TAB PO SCH (07:54)
[2020-05-25] MEDS: Carvedilol 6.25 MG TAB PO SCH (07:54)
[2020-05-25] MEDS: Citalopram 20 MG TAB PO SCH (07:55)
[2020-05-25] MEDS: Gabapentin 300 MG CAP PO SCH (07:55)
[2020-05-25] MEDS: hydrALAZINE 25 MG TAB PO SCH (07:55)
[2020-05-25] MEDS: Insulin Glargine 5 UNITS in Pre-Filled Syringe 1 EACH SC SCH (07:56)
[2020-05-25 08:16] VITALS: BP 168/88; TEMP 97.5
[2020-05-25] MEDS: Triple Antibiotic Ointment 30 GM TUBE TOP SCH (10:04)
== END 2020-05-25 10:14 | disposition home health service (06) | DRG 82 ==
LOC: ERS 19:04 → T4-B 21:45 → OBSVTOIN 21:45 → CCU 05-20 05:18 → IMCU/EMU 05-20 13:16 → T4-B 05-21 15:32
PROVIDERS: ADMIT Student in an Organized Health Care Education/Training Program; ATTEND Internal Medicine
PROC: 3E0234Z Introduction of Serum, Toxoid and Vaccine into Muscle, Percutaneous Approach (ICD-10-PCS; principal; 2020-05-18)
DX: S06.6X0A Traumatic subarachnoid hemorrhage without loss of consciousness, initial encounter (principal); U07.1 COVID-19; S06.5X9A Traumatic subdural hemorrhage with loss of consciousness of unspecified duration, initial encounter; Z23 Encounter for immunization; I50.42 Chronic combined systolic (congestive) and diastolic (congestive) heart failure; N18.4 Chronic kidney disease, stage 4 (severe); I13.2 Hypertensive heart and chronic kidney disease with heart failure and with stage 5 chronic kidney disease, or end stage renal disease; I25.10 Atherosclerotic heart disease of native coronary artery without angina pectoris; E11.22 Type 2 diabetes mellitus with diabetic chronic kidney disease; E78.5 Hyperlipidemia, unspecified; R77.8 Other specified abnormalities of plasma proteins; R29.6 Repeated falls; I08.1 Rheumatic disorders of both mitral and tricuspid valves; I48.0 Paroxysmal atrial fibrillation; J45.909 Unspecified asthma, uncomplicated; K21.9 Gastro-esophageal reflux disease without esophagitis; N52.9 Male erectile dysfunction, unspecified; M10.9 Gout, unspecified; F32.9 Major depressive disorder, single episode, unspecified; E66.9 Obesity, unspecified; S00.81XA Abrasion of other part of head, initial encounter; S80.211A Abrasion, right knee, initial encounter; W18.30XA Fall on same level, unspecified, initial encounter; E11.40 Type 2 diabetes mellitus with diabetic neuropathy, unspecified; M51.36 Other intervertebral disc degeneration, lumbar region; R55 Syncope and collapse; S01.512A Laceration without foreign body of oral cavity, initial encounter; W18.12XA Fall from or off toilet with subsequent striking against object, initial encounter; Y92.231 Patient bathroom in hospital as the place of occurrence of the external cause; R40.2362 Coma scale, best motor response, obeys commands, at arrival to emergency department; R40.2142 Coma scale, eyes open, spontaneous, at arrival to emergency department; R40.2252 Coma scale, best verbal response, oriented, at arrival to emergency department; Q61.3 Polycystic kidney, unspecified; Z95.1 Presence of aortocoronary bypass graft; Z87.891 Personal history of nicotine dependence; Z86.73 Personal history of transient ischemic attack (TIA), and cerebral infarction without residual deficits; Z88.1 Allergy status to other antibiotic agents; Z88.5 Allergy status to narcotic agent; Z88.8 Allergy status to other drugs, medicaments and biological substances; Z79.01 Long term (current) use of anticoagulants; Z79.82 Long term (current) use of aspirin; Z79.4 Long term (current) use of insulin; Z79.51 Long term (current) use of inhaled steroids; Z79.899 Other long term (current) drug therapy; Z68.37 Body mass index [BMI] 37.0-37.9, adult; I25.2 Old myocardial infarction
CPT/HCPCS: 36415; 36416; 70450; 72125; 72141; 72146; 72148; 80048; 80053; 80061; 80306; 81003; 81015; 82550; 82553; 82607; 82746; 83036; 83735; 83930; 84146; 84443; 84484; 85025; 85610; 85730; 87635; 90471; 90715; 93005; 93010; 96372; G0378; J0360; J1644; J1815; U0003; U0005

== ENCOUNTER 2020-06-23 19:08 | Inpatient (IN) | payer MEDICARE, MEDICAID ==
[2020-06-23 22:42] LABS: #Eosinphils 0.1 thou/uL (0.0-0.7); #Lymphocytes 1.1 thou/uL (1.20-3.40); #Monocytes 0.5 thou/uL (0.11-0.59); #Neutrophils 6.1 thou/uL (1.40-6.50); %Basophils 0.2 % (0.0-1.0); %Eosinophils 1.8 % (0.0-10.0); %Monocytes 6.7 % (0.0-10.0); %Neutrophils 77.3 % (42.0-75.0); Hemoglobin 9.5 g/dL (14.0-18.0); Mean Corpuscular HGB CONC 32.9 g/dL (32.0-36.0); Mean Corpuscular Hemoglobin 31.6 pg (27.0-31.0); Mean Corpuscular Volume 96.1 fL (78.0-98.0); Mean Platelet Volume 7.4 fL (7.4-10.4); Platelet Count 165 thou/uL (130-400); RBC Distribution Width 15.6 % (11.5-14.5); Red Blood Cell (RBC) Count 2.99 mill/uL (4.70-6.10); White Blood Cell (WBC) Count 7.9 thou/uL (4.8-10.8)
[2020-06-23 23:02] LABS: ALT (SGPT) 26 U/L (8-55); AST (SGOT) 20 U/L (5-34); Albumin 3.4 g/dL (3.4-4.8); Alkaline Phosphatase 88 U/L (40-110); Anion Gap 14 mmol/L (10-20); BUN (Urea Nitrogen) 52 mg/dL (8.4-25.7); Bilirubin, Total 0.4 mg/dL (0.2-1.2); Calc. Creatinine Clearance 0 mL/min (70-130); Calcium 8.2 mg/dL (7.8-10.44); Carbon Dioxide 26 mmol/L (23-31); Chloride 101 mmol/L (98-107); Globulin 3.4 g/dL (2.4-3.5); Glucose 144 mg/dL (80-115); Potassium 4.5 mmol/L (3.5-5.1); Protein, Total 6.8 g/dL (5.8-8.1); Sodium 136 mmol/L (136-145)
[2020-06-23 23:57] LABS: Bacteria/HPF None Seen HPF (None Seen); Bilirubin Negative (Negative); Blood, Urine Negative (Negative); Clarity Clear (Clear); Glucose, Urine (Dipstick) Normal (Negative); Ketone, Urine Negative (Negative); Leukocyte Negative Leu/uL (Negative); Nitrite Negative (Negative); Protein, Urine (Dipstick) 70 mg/dL (Neg-Trace); RBC/HPF 0-3 HPF (0-3); Specific Gravity, Urine 1.012 (1.002-1.036); Squamous Epithelial None Seen HPF (0-3); Urobilinogen Normal mg/dL (Less than 2); WBC/HPF 0-3 HPF (0-3)
[2020-06-23] MEDS ORDERED: Acetaminophen 500 MG TAB ONE (23:59)
[2020-06-24] MEDS ORDERED: Ondansetron PF 4 MG/2 ML Vial IVP PRN (01:15)
[2020-06-24] MEDS ORDERED: Sodium Chloride 0.9% 1,000 ML IV SCH (01:15)
[2020-06-24] MEDS ORDERED: Ondansetron ODT 4 MG TAB SL PRN (01:15)
[2020-06-24] MEDS ORDERED: Acetaminophen 325 MG TAB PO PRN (01:15)
[2020-06-24 02:42] VITALS: BMI 38.0
[2020-06-24] MEDS ORDERED: HYDROcodone/Acetaminophen 5/325 mg Tablet PO PRN (04:04)
[2020-06-24] MEDS ORDERED: Dextrose 5% in Water 1,000 ML IV PRN (08:25)
[2020-06-24] MEDS ORDERED: Insulin Regular 300 UNITS/3 ML VIAL SC PRN (08:25)
[2020-06-24] MEDS ORDERED: Dextrose 50% Abboject 50 ML SYRINGE SLOW IVP PRN (08:25)
[2020-06-24] MEDS ORDERED: Heparin 5,000 UNITS/ML VIAL SC SCH (09:00)
[2020-06-24] MEDS: hydrALAZINE 25 MG TAB PO SCH ×3 (09:14→21:48)
[2020-06-24] MEDS: Acetaminophen 325 MG TAB PO PRN (21:47)
[2020-06-24] MEDS: hydrALAZINE 20 MG/ML VIAL SLOW IVP PRN (21:47)
[2020-06-24] MEDS: Ondansetron PF 4 MG/2 ML Vial IVP PRN (21:47)
[2020-06-25] MEDS: hydrALAZINE 20 MG/ML VIAL SLOW IVP PRN (00:19)
[2020-06-25] MEDS ORDERED: Labetalol HCl 100 MG/20 ML VIAL SLOW IVP PRN (03:11)
[2020-06-25 05:29] LABS: #Eosinphils 0.1 thou/uL (0.0-0.7); #Lymphocytes 0.6 thou/uL (1.20-3.40); #Monocytes 0.4 thou/uL (0.11-0.59); #Neutrophils 6.7 thou/uL (1.40-6.50); %Eosinophils 1.1 % (0.0-10.0); %Lymphocytes 8.2 % (21.0-51.0); %Monocytes 5.3 % (0.0-10.0); %Neutrophils 85.4 % (42.0-75.0); Hemoglobin 9.7 g/dL (14.0-18.0); Mean Corpuscular HGB CONC 33.1 g/dL (32.0-36.0); Mean Corpuscular Hemoglobin 31.8 pg (27.0-31.0); Mean Platelet Volume 7.5 fL (7.4-10.4); Platelet Count 146 thou/uL (130-400); RBC Distribution Width 15.5 % (11.5-14.5); Red Blood Cell (RBC) Count 3.04 mill/uL (4.70-6.10); White Blood Cell (WBC) Count 7.8 thou/uL (4.8-10.8)
[2020-06-25 05:49] LABS: Anion Gap 14 mmol/L (10-20); BUN (Urea Nitrogen) 47 mg/dL (8.4-25.7); Calc. Creatinine Clearance 33 mL/min (70-130); Calcium 8.3 mg/dL (7.8-10.44); Carbon Dioxide 23 mmol/L (23-31); Chloride 101 mmol/L (98-107); Glucose 172 mg/dL (80-115); Potassium 4.3 mmol/L (3.5-5.1); Sodium 134 mmol/L (136-145)
[2020-06-25] MEDS: Insulin Regular 300 UNITS/3 ML VIAL SC PRN (05:51)
[2020-06-25] MEDS: hydrALAZINE 25 MG TAB PO SCH ×4 (09:23→22:14)
[2020-06-25] MEDS: Acetaminophen 325 MG TAB PO PRN (14:20)
[2020-06-25] MEDS: guaiFENesin ER 600 MG TAB PO SCH (15:02)
[2020-06-25] MEDS: Gabapentin 300 MG CAP PO SCH ×2 (15:02→22:15)
[2020-06-25] MEDS: Rosuvastatin 20 MG TAB PO SCH (22:14)
[2020-06-26] MEDS: Acetaminophen 325 MG TAB PO PRN (02:40)
[2020-06-26] MEDS: hydrALAZINE 20 MG/ML VIAL SLOW IVP PRN ×2 (06:46→19:51)
[2020-06-26] MEDS ORDERED: Labetalol HCl 100 MG/20 ML VIAL SLOW IVP PRN (07:49)
[2020-06-26] MEDS: Allopurinol 100 MG TAB PO SCH (09:13)
[2020-06-26] MEDS: Fluticasone Propionate Nasal Spray 16 gm Bottle NASAL SCH (09:13)
[2020-06-26] MEDS: guaiFENesin ER 600 MG TAB PO SCH (09:15)
[2020-06-26] MEDS: Tamsulosin HCl 0.4 MG CAP PO SCH (09:15)
[2020-06-26] MEDS: hydrALAZINE 25 MG TAB PO SCH ×2 (09:15→18:06)
[2020-06-26] MEDS: Gabapentin 300 MG CAP PO SCH ×3 (09:15→23:59)
[2020-06-26] MEDS ORDERED: Bacitracin Zinc Ointment 30 gm TUBE ONE (11:47)
[2020-06-26] MEDS ORDERED: Thrombin 5000 UNITS/5 ML VIAL ONE (11:47)
[2020-06-26] MEDS ORDERED: Lidocaine 0.5%/Epinephrine 1:200,000 50 ml Vial ONE (11:47)
[2020-06-26] MEDS ORDERED: Fentanyl 100 MCG/2 ML VIAL ONE ×2 (13:02→16:54)
[2020-06-26] MEDS ORDERED: PROPOFOL 200 MG/20 ML VIAL ONE (13:09)
[2020-06-26] MEDS ORDERED: Lidocaine 1% PF 5 ML VIAL ONE (13:09)
[2020-06-26] MEDS ORDERED: ePHEDrine Sulfate 50 MG/10 ML VIAL ONE (13:09)
[2020-06-26] MEDS ORDERED: PHENYLEPHRINE-NS 100 MCG/ML 10 ML SYRINGE ONE (13:09)
[2020-06-26] MEDS ORDERED: Rocuronium Bromide 10 MG/ML (10ML VIAL) ONE (13:09)
[2020-06-26] MEDS ORDERED: Dexamethasone 20 MG/5 ML VIAL ONE (13:09)
[2020-06-26] MEDS ORDERED: Ondansetron PF 4 MG/2 ML Vial ONE (13:09)
[2020-06-26] MEDS ORDERED: EPINEPHrine 1 MG/ML AMP ONE (13:48)
[2020-06-26] MEDS ORDERED: Bupivacaine PF 0.5% 30 ML VIAL ONE (13:48)
[2020-06-26] MEDS ORDERED: Promethazine HCl 25 MG/ML VIAL IM PRN (15:17)
[2020-06-26] MEDS ORDERED: Ondansetron HCl/PF 4 MG/2 ML Vial IVP PRN (15:17)
[2020-06-26] MEDS ORDERED: Promethazine HCl 25 MG/ML VIAL SLOW IVP PRN (15:17)
[2020-06-26] MEDS ORDERED: SUGAMMADEX SODIUM 200 MG/2 ML VIAL ONE (15:19)
[2020-06-26] MEDS: Ondansetron PF 4 MG/2 ML Vial IVP PRN (18:44)
[2020-06-26] MEDS ORDERED: levETIRAcetam in NS 500 MG in Premix Bag 1 BAG IVPB SCH ×2 (18:45→21:00)
[2020-06-26] MEDS ORDERED: Lorazepam 2 MG/ML VIAL ONE (18:53)
[2020-06-26] MEDS ORDERED: Lorazepam 2 MG/ML VIAL SLOW IVP PRN (19:08)
[2020-06-26 19:32] LABS: #Lymphocytes 0.5 thou/uL (1.20-3.40); #Monocytes 0.3 thou/uL (0.11-0.59); #Neutrophils 9.3 thou/uL (1.40-6.50); %Eosinophils 0.3 % (0.0-10.0); %Lymphocytes 4.6 % (21.0-51.0); %Monocytes 2.8 % (0.0-10.0); %Neutrophils 92.4 % (42.0-75.0); Hemoglobin 9.8 g/dL (14.0-18.0); Mean Corpuscular HGB CONC 32.1 g/dL (32.0-36.0); Mean Corpuscular Volume 96.7 fL (78.0-98.0); Mean Platelet Volume 7.5 fL (7.4-10.4); Platelet Count 142 thou/uL (130-400); RBC Distribution Width 15.6 % (11.5-14.5); Red Blood Cell (RBC) Count 3.16 mill/uL (4.70-6.10); White Blood Cell (WBC) Count 10.1 thou/uL (4.8-10.8)
[2020-06-26 19:54] LABS: Glucose POC Confirmation 168 mg/dl (80-115)
[2020-06-26 19:55] LABS: Lactic Acid 1.7 mmol/L (0.5-2.2)
[2020-06-26 19:59] LABS: ALT (SGPT) 23 U/L (8-55); AST (SGOT) 20 U/L (5-34); Albumin 3.4 g/dL (3.4-4.8); Alkaline Phosphatase 92 U/L (40-110); Anion Gap 18 mmol/L (10-20); BUN (Urea Nitrogen) 42 mg/dL (8.4-25.7); Bilirubin, Total 0.7 mg/dL (0.2-1.2); CK (CPK) 39 U/L (30-200); Calc. Creatinine Clearance 35 mL/min (70-130); Calcium 8.5 mg/dL (7.8-10.44); Carbon Dioxide 17 mmol/L (23-31); Chloride 102 mmol/L (98-107); Globulin 3.6 g/dL (2.4-3.5); Glucose 170 mg/dL (80-115); Sodium 132 mmol/L (136-145)
[2020-06-26] MEDS: CEFAZOLIN 2 GM in Premix Bag 1 BAG IVPB SCH (20:59)
[2020-06-26] MEDS: niCARdipine 25 MG in Sodium Chloride 0.9% 250 ML 240 ML IVPB SCH (21:25)
[2020-06-26 22:36] LABS: INR-International Normal Ratio 1.3; PTT 37.5 sec (22.9-36.1); Prothrombin Time 16.9 sec (12.0-14.7)
[2020-06-26 22:46] LABS: Hemoglobin 8.7 g/dL (14.0-18.0)
[2020-06-27] MEDS: Rosuvastatin 20 MG TAB PO SCH (00:01)
[2020-06-27] MEDS: CEFAZOLIN 2 GM in Premix Bag 1 BAG IVPB SCH ×3 (05:29→20:43)
[2020-06-27] MEDS: Insulin Regular 300 UNITS/3 ML VIAL SC PRN ×3 (07:37→21:55)
[2020-06-27] MEDS: niCARdipine 25 MG in Sodium Chloride 0.9% 250 ML 240 ML IVPB SCH (08:33)
[2020-06-27] MEDS: Calcitriol 0.25 MCG CAP PO SCH (08:58)
[2020-06-27] MEDS: Gabapentin 300 MG CAP PO SCH (08:58)
[2020-06-27] MEDS: Allopurinol 100 MG TAB PO SCH (08:58)
[2020-06-27] MEDS: hydrALAZINE 25 MG TAB PO SCH ×4 (08:59→20:43)
[2020-06-27] MEDS: guaiFENesin ER 600 MG TAB PO SCH ×3 (08:59→20:45)
[2020-06-27] MEDS ORDERED: levETIRAcetam in NS 250 MG in Premix Bag 1 BAG IVPB SCH (09:00)
[2020-06-27] MEDS ORDERED: levETIRAcetam in NS 500 MG in Premix Bag 1 BAG IVPB SCH ×2 (09:00)
[2020-06-27] MEDS: Tamsulosin HCl 0.4 MG CAP PO SCH (09:02)
[2020-06-27] MEDS: Acetaminophen 325 MG TAB PO PRN (10:07)
[2020-06-27] MEDS: Fluticasone Propionate Nasal Spray 16 gm Bottle NASAL SCH (12:04)
[2020-06-27] MEDS: Rosuvastatin 10 MG TAB PO SCH (20:44)
[2020-06-27] MEDS: Gabapentin 100 MG CAP PO SCH ×2 (20:44→20:45)
[2020-06-28] MEDS: Acetaminophen 325 MG TAB PO PRN ×3 (00:24→13:34)
[2020-06-28 04:22] LABS: Anion Gap 15 mmol/L (10-20); BUN (Urea Nitrogen) 53 mg/dL (8.4-25.7); Calc. Creatinine Clearance 32 mL/min (70-130); Calcium 8.3 mg/dL (7.8-10.44); Carbon Dioxide 20 mmol/L (23-31); Chloride 101 mmol/L (98-107); Glucose 159 mg/dL (80-115); Potassium 4.2 mmol/L (3.5-5.1); Sodium 132 mmol/L (136-145)
[2020-06-28 04:53] LABS: Band 9 % (5-11); Hemoglobin 7.3 g/dL (14.0-18.0); Lymphocytes 6 % (21-51); MDiff Complete? YES; Mean Corpuscular HGB CONC 31.9 g/dL (32.0-36.0); Mean Corpuscular Hemoglobin 30.6 pg (27.0-31.0); Mean Corpuscular Volume 95.8 fL (78.0-98.0); Mean Platelet Volume 6.8 fL (7.4-10.4); Monocytes 5 % (0-10); Neutrophil 80 % (42-75); Platelet Count 133 thou/uL (130-400); RBC Distribution Width 15.4 % (11.5-14.5); Red Blood Cell (RBC) Count 2.37 mill/uL (4.70-6.10); White Blood Cell (WBC) Count 9.5 thou/uL (4.8-10.8)
[2020-06-28] MEDS: CEFAZOLIN 2 GM in Premix Bag 1 BAG IVPB SCH ×2 (05:48→12:28)
[2020-06-28] MEDS: Glimepiride 4 MG TAB PO SCH ×2 (08:18→17:24)
[2020-06-28] MEDS: hydrALAZINE 25 MG TAB PO SCH ×3 (08:19→20:20)
[2020-06-28] MEDS: Allopurinol 100 MG TAB PO SCH (08:20)
[2020-06-28] MEDS: guaiFENesin ER 600 MG TAB PO SCH ×2 (08:20→20:20)
[2020-06-28] MEDS: Citalopram 20 MG TAB PO SCH (08:20)
[2020-06-28] MEDS: Tamsulosin HCl 0.4 MG CAP PO SCH (08:21)
[2020-06-28] MEDS: Fluticasone Propionate Nasal Spray 16 gm Bottle NASAL SCH (08:46)
[2020-06-28] MEDS: Gabapentin 100 MG CAP PO SCH (20:20)
[2020-06-28] MEDS: Rosuvastatin 10 MG TAB PO SCH (20:21)
[2020-06-29] MEDS: hydrALAZINE 20 MG/ML VIAL SLOW IVP PRN (03:11)
[2020-06-29 04:11] LABS: Band 1 % (5-11); Hemoglobin 7.3 g/dL (14.0-18.0); Hypochromia SLIGHT = 6-15 cells (100X) (0-5/hpf); Lymphocytes 12 % (21-51); MDiff Complete? YES; Mean Corpuscular HGB CONC 32.1 g/dL (32.0-36.0); Mean Corpuscular Hemoglobin 30.9 pg (27.0-31.0); Mean Corpuscular Volume 96.1 fL (78.0-98.0); Mean Platelet Volume 7.2 fL (7.4-10.4); Monocytes 5 % (0-10); Neutrophil 82 % (42-75); Platelet Count 138 thou/uL (130-400); Platelet Morphology Comment Appears Adequate; RBC Distribution Width 15.7 % (11.5-14.5); Red Blood Cell (RBC) Count 2.36 mill/uL (4.70-6.10); White Blood Cell (WBC) Count 7.8 thou/uL (4.8-10.8)
[2020-06-29 04:16] LABS: Anion Gap 14 mmol/L (10-20); BUN (Urea Nitrogen) 52 mg/dL (8.4-25.7); Calc. Creatinine Clearance 34 mL/min (70-130); Calcium 8.1 mg/dL (7.8-10.44); Carbon Dioxide 19 mmol/L (23-31); Chloride 103 mmol/L (98-107); Glucose 137 mg/dL (80-115); Potassium 4.3 mmol/L (3.5-5.1); Sodium 132 mmol/L (136-145)
[2020-06-29] MEDS: Acetaminophen 325 MG TAB PO PRN (04:39)
[2020-06-29] MEDS: guaiFENesin ER 600 MG TAB PO SCH ×2 (08:28→21:48)
[2020-06-29] MEDS: Citalopram 20 MG TAB PO SCH (08:28)
[2020-06-29] MEDS: Fluticasone Propionate Nasal Spray 16 gm Bottle NASAL SCH (08:28)
[2020-06-29] MEDS: Allopurinol 100 MG TAB PO SCH (08:28)
[2020-06-29] MEDS: Tamsulosin HCl 0.4 MG CAP PO SCH (08:28)
[2020-06-29] MEDS: Calcitriol 0.25 MCG CAP PO SCH (08:28)
[2020-06-29] MEDS: hydrALAZINE 25 MG TAB PO SCH ×2 (08:28→21:50)
[2020-06-29] MEDS: Insulin Regular 300 UNITS/3 ML VIAL SC PRN (11:14)
[2020-06-29] MEDS: levETIRAcetam 500 MG TAB PO SCH (21:47)
[2020-06-29] MEDS: Rosuvastatin 10 MG TAB PO SCH (21:50)
[2020-06-30] MEDS: Acetaminophen 325 MG TAB PO PRN (02:44)
[2020-06-30 05:13] LABS: Hemoglobin 7.3 g/dL (14.0-18.0); Mean Corpuscular HGB CONC 31.4 g/dL (32.0-36.0); Mean Corpuscular Hemoglobin 30.2 pg (27.0-31.0); Mean Corpuscular Volume 96.1 fL (78.0-98.0); Mean Platelet Volume 7.3 fL (7.4-10.4); Platelet Count 155 thou/uL (130-400); RBC Distribution Width 15.4 % (11.5-14.5); Red Blood Cell (RBC) Count 2.41 mill/uL (4.70-6.10); White Blood Cell (WBC) Count 7.4 thou/uL (4.8-10.8)
[2020-06-30 05:15] LABS: Anion Gap 14 mmol/L (10-20); BUN (Urea Nitrogen) 50 mg/dL (8.4-25.7); Calc. Creatinine Clearance 37 mL/min (70-130); Calcium 8.2 mg/dL (7.8-10.44); Carbon Dioxide 21 mmol/L (23-31); Chloride 103 mmol/L (98-107); Glucose 136 mg/dL (80-115); Potassium 4.4 mmol/L (3.5-5.1); Sodium 134 mmol/L (136-145)
[2020-06-30 05:16] LABS: Eosinophils 1 % (0-10); Lymphocytes 10 % (21-51); MDiff Complete? YES; Monocytes 6 % (0-10); Neutrophil 83 % (42-75); Platelet Morphology Comment Appears Adequate
[2020-06-30] MEDS: hydrALAZINE 25 MG TAB PO SCH (09:40)
[2020-06-30] MEDS: guaiFENesin ER 600 MG TAB PO SCH (09:41)
[2020-06-30] MEDS: Tamsulosin HCl 0.4 MG CAP PO SCH (09:41)
[2020-06-30] MEDS: Citalopram 20 MG TAB PO SCH (09:41)
[2020-06-30] MEDS: Calcitriol 0.25 MCG CAP PO SCH (09:42)
[2020-06-30] MEDS: levETIRAcetam 500 MG TAB PO SCH (09:43)
[2020-06-30] MEDS: Allopurinol 100 MG TAB PO SCH (09:44)
[2020-06-30] MEDS: Fluticasone Propionate Nasal Spray 16 gm Bottle NASAL SCH (09:44)
[2020-06-30] MEDS ORDERED: Acetaminophen/Codeine 30-300mg Tablet PO PRN (10:02)
[2020-06-30] MEDS: Insulin Regular 300 UNITS/3 ML VIAL SC PRN (11:01)
[2020-06-30] MEDS ORDERED: Polyethylene Glycol 3350 17 GM Packet PO PRN (11:09)
[2020-06-30] MEDS ORDERED: Amlodipine 10 MG TAB PO SCH (11:15)
[2020-06-30 15:06] LABS: SARS-CoV-2 NAA Rapid Test Not Detected (NotDetected)
[2020-06-30 15:43] VITALS: TEMP 97.9
[2020-06-30 17:27] VITALS: BP 152/91
== END 2020-06-30 16:20 | disposition swing bed (61) | DRG 25 ==
LOC: ERS 19:08 → 2SE 06-24 00:03 → CCU 06-24 00:56 → OBSVTOIN 06-26 11:20 → CCU 06-26 17:55 → 2SE 06-29 16:45
PROVIDERS: ADMIT Student in an Organized Health Care Education/Training Program; ATTEND Internal Medicine
PROC: 00C40ZZ Extirpation of Matter from Intracranial Subdural Space, Open Approach (ICD-10-PCS; principal; 2020-06-26)
PROC: 009400Z Drainage of Intracranial Subdural Space with Drainage Device, Open Approach (ICD-10-PCS; 2020-06-26)
DX: I62.01 Nontraumatic acute subdural hemorrhage (principal); G93.5 Compression of brain; N18.4 Chronic kidney disease, stage 4 (severe); I48.20 Chronic atrial fibrillation, unspecified; I13.0 Hypertensive heart and chronic kidney disease with heart failure and stage 1 through stage 4 chronic kidney disease, or unspecified chronic kidney disease; I50.42 Chronic combined systolic (congestive) and diastolic (congestive) heart failure; Z20.822 Contact with and (suspected) exposure to COVID-19; I77.9 Disorder of arteries and arterioles, unspecified; E11.22 Type 2 diabetes mellitus with diabetic chronic kidney disease; E78.5 Hyperlipidemia, unspecified; I62.03 Nontraumatic chronic subdural hemorrhage; I25.10 Atherosclerotic heart disease of native coronary artery without angina pectoris; M85.88 Other specified disorders of bone density and structure, other site; K21.9 Gastro-esophageal reflux disease without esophagitis; M48.02 Spinal stenosis, cervical region; R56.9 Unspecified convulsions; D63.1 Anemia in chronic kidney disease; D50.0 Iron deficiency anemia secondary to blood loss (chronic); E66.9 Obesity, unspecified; Z68.34 Body mass index [BMI] 34.0-34.9, adult; Z95.1 Presence of aortocoronary bypass graft; Z79.899 Other long term (current) drug therapy; Z87.891 Personal history of nicotine dependence; Z88.1 Allergy status to other antibiotic agents; Z88.8 Allergy status to other drugs, medicaments and biological substances; Z79.84 Long term (current) use of oral hypoglycemic drugs; Z79.51 Long term (current) use of inhaled steroids; Z79.02 Long term (current) use of antithrombotics/antiplatelets; I25.2 Old myocardial infarction
CPT/HCPCS: 36415; 36416; 51702; 70450; 71045; 72131; 80048; 80053; 80177; 81003; 81015; 82550; 83605; 84146; 85007; 85025; 85027; 85610; 85730; 93005; 93010; 94660; 95712; 95819; 95957; 96374; 96375; 96376; G0378; J0171; J0360; J0690; J1100; J1815; J1953; J2001; J2060; J2405; J2704; J3010; J3490; J7050; S0020; U0002

== ENCOUNTER 2020-07-10 14:36 | Inpatient (IN) | payer MEDICARE, MEDICAID ==
[~2020-07-10 14:36] MED LIST: Heparin 10,000 UNITS/ 10 ML VIAL ONE
[2020-07-10 16:19] LABS: Bacteria/HPF None Seen HPF (None Seen); Bilirubin Negative (Negative); Blood, Urine 3+ (Negative); Clarity Turbid (Clear); Glucose, Urine (Dipstick) Normal (Negative); Ketone, Urine Negative (Negative); Leukocyte Negative Leu/uL (Negative); Nitrite Negative (Negative); Protein, Urine (Dipstick) 200 mg/dL (Neg-Trace); RBC/HPF Greater than 50 HPF (0-3); Specific Gravity, Urine 1.016 (1.002-1.036); Squamous Epithelial None Seen HPF (0-3); Urobilinogen Normal mg/dL (Less than 2); WBC/HPF 0-3 HPF (0-3); pH, Urine 5.5 (5.0-9.0)
[2020-07-10 16:23] LABS: #Lymphocytes 0.8 thou/uL (1.20-3.40); #Monocytes 0.6 thou/uL (0.11-0.59); #Neutrophils 8.3 thou/uL (1.40-6.50); %Basophils 0.2 % (0.0-1.0); %Eosinophils 0.4 % (0.0-10.0); %Lymphocytes 8.4 % (21.0-51.0); %Monocytes 5.9 % (0.0-10.0); %Neutrophils 85.1 % (42.0-75.0); Hemoglobin 7.3 g/dL (14.0-18.0); Mean Corpuscular HGB CONC 31.6 g/dL (32.0-36.0); Mean Corpuscular Hemoglobin 29.7 pg (27.0-31.0); Mean Corpuscular Volume 94.1 fL (78.0-98.0); Mean Platelet Volume 6.5 fL (7.4-10.4); Platelet Count 237 thou/uL (130-400); RBC Distribution Width 15.6 % (11.5-14.5); Red Blood Cell (RBC) Count 2.46 mill/uL (4.70-6.10); White Blood Cell (WBC) Count 9.7 thou/uL (4.8-10.8)
[2020-07-10 16:50] LABS: ALT (SGPT) Less than 7 U/L (8-55); AST (SGOT) 17 U/L (5-34); Albumin 3.6 g/dL (3.4-4.8); Alkaline Phosphatase 124 U/L (40-110); Anion Gap 18 mmol/L (10-20); BUN (Urea Nitrogen) 59 mg/dL (8.4-25.7); Bilirubin, Total 0.7 mg/dL (0.2-1.2); Calc. Creatinine Clearance 0 mL/min (70-130); Calcium 8.9 mg/dL (7.8-10.44); Carbon Dioxide 19 mmol/L (23-31); Chloride 95 mmol/L (98-107); Glucose 155 mg/dL (80-115); Potassium 5.6 mmol/L (3.5-5.1); Protein, Total 7.6 g/dL (5.8-8.1); Sodium 126 mmol/L (136-145)
[2020-07-10] MEDS ORDERED: Furosemide 40 MG/4 ML VIAL ONE (17:04)
[2020-07-10] MEDS ORDERED: HumaLOG 300 UNITS/3 ML VIAL SC PRN (18:06)
[2020-07-10] MEDS ORDERED: Dextrose 5% in Water 1,000 ML IV PRN (18:06)
[2020-07-10] MEDS ORDERED: Dextrose 50% Abboject 50 ML SYRINGE SLOW IVP PRN (18:06)
[2020-07-10] MEDS ORDERED: levETIRAcetam in NS 250 MG in Premix Bag 1 BAG IVPB SCH (21:00)
[2020-07-10 21:59] LABS: HBSAB Concentration Less than 8.00 mIU/mL; HBSAg Index 0.39 S/CO (0-0.99); Hep B Core Total Ab Non-Reactive (NonReactive); Hep B Core Total Index 0.17 S/CO (0-0.79); Hep B Surf AB Non-Reactive (NonReactive); Hep B Surf Ag Non-Reactive S/CO (NonReactive); Hep C IgG Ab Non-Reactive (NonReactive); Hep C Index 0.11 S/CO (0-0.79)
[2020-07-10] MEDS ORDERED: ADMIXTURE FEE IVPB SCH ×2 (23:30)
[2020-07-10] MEDS ORDERED: NS IVPB SCH ×2 (23:30)
[2020-07-10] MEDS ORDERED: LEVETIRACETAM IVPB SCH ×2 (23:30)
[2020-07-11] MEDS: Heparin 5,000 UNITS/ML VIAL SC SCH ×2 (00:24→12:35)
[2020-07-11 06:17] LABS: #Lymphocytes 0.7 thou/uL (1.20-3.40); #Monocytes 0.8 thou/uL (0.11-0.59); #Neutrophils 8.9 thou/uL (1.40-6.50); %Basophils 0.2 % (0.0-1.0); %Eosinophils 0.1 % (0.0-10.0); %Lymphocytes 6.5 % (21.0-51.0); %Monocytes 7.2 % (0.0-10.0); Mean Corpuscular HGB CONC 31.9 g/dL (32.0-36.0); Mean Corpuscular Hemoglobin 29.9 pg (27.0-31.0); Mean Corpuscular Volume 93.7 fL (78.0-98.0); Mean Platelet Volume 6.6 fL (7.4-10.4); Platelet Count 239 thou/uL (130-400); RBC Distribution Width 15.8 % (11.5-14.5); Red Blood Cell (RBC) Count 2.36 mill/uL (4.70-6.10); White Blood Cell (WBC) Count 10.4 thou/uL (4.8-10.8)
[2020-07-11 06:37] LABS: Anion Gap 20 mmol/L (10-20); BUN (Urea Nitrogen) 47 mg/dL (8.4-25.7); Calc. Creatinine Clearance 24 mL/min (70-130); Calcium 8.4 mg/dL (7.8-10.44); Carbon Dioxide 20 mmol/L (23-31); Chloride 98 mmol/L (98-107); Glucose 126 mg/dL (80-115); Sodium 133 mmol/L (136-145)
[2020-07-11] MEDS ORDERED: Epoetin (ESRD) 20,000 UNITS/ML IVP SCH (07:15)
[2020-07-11 07:38] LABS: SARS-CoV-2 PCR by NAA Not Detected (NotDetected)
[2020-07-11] MEDS ORDERED: NS IVPB SCH ×3 (09:00→21:00)
[2020-07-11] MEDS ORDERED: ADMIXTURE FEE IVPB SCH ×2 (09:00→21:00)
[2020-07-11] MEDS ORDERED: LEVETIRACETAM IVPB SCH ×3 (09:00→21:00)
[2020-07-11] MEDS: EPOETIN ALFA-EPBX (ESRD) 10,000 UNIT/ML VIAL IVP SCH (10:10)
[2020-07-11] MEDS ORDERED: Heparin 10,000 UNITS/ 10 ML VIAL ONE (10:18)
[2020-07-11] MEDS: Pantoprazole 40 MG VIAL IVP SCH (12:35)
[2020-07-11] MEDS ORDERED: Haloperidol Lactate 5 MG/ML VIAL IM PRN (13:02)
[2020-07-11] MEDS ORDERED: SODIUM CHLORIDE 0.9% IVPB SCH (21:00)
[2020-07-11] MEDS ORDERED: Acetaminophen 500 MG TAB PO SCH (21:30)
[2020-07-12] MEDS: Acetaminophen 500 MG TAB PO PRN ×2 (05:43→15:40)
[2020-07-12 06:28] LABS: Anion Gap 17 mmol/L (10-20); BUN (Urea Nitrogen) 39 mg/dL (8.4-25.7); Calc. Creatinine Clearance 29 mL/min (70-130); Calcium 8.6 mg/dL (7.8-10.44); Carbon Dioxide 24 mmol/L (23-31); Chloride 95 mmol/L (98-107); Glucose 119 mg/dL (80-115); Sodium 132 mmol/L (136-145)
[2020-07-12 08:31] LABS: Hemoglobin 8.5 g/dL (14.0-18.0); Platelet Count 223 thou/uL (130-400)
[2020-07-12] MEDS ORDERED: Tuberculin PPD 0.1 ML VIAL I-DERMAL SCH ×2 (09:30)
[2020-07-12] MEDS: Pantoprazole 40 MG VIAL IVP SCH (09:56)
[2020-07-12] MEDS: Gabapentin 100 MG CAP PO SCH ×2 (15:21→20:25)
[2020-07-12] MEDS ORDERED: Polyethylene Glycol 3350 17 GM Packet PO SCH (20:00)
[2020-07-12] MEDS: Rosuvastatin 20 MG TAB PO SCH (20:24)
[2020-07-12] MEDS: hydrALAZINE 25 MG TAB PO SCH (20:25)
[2020-07-12] MEDS: Lantus 1000 UNITS/10 ML VIAL SC SCH (21:51)
[2020-07-13 05:19] LABS: Anion Gap 19 mmol/L (10-20); BUN (Urea Nitrogen) 48 mg/dL (8.4-25.7); Calc. Creatinine Clearance 25 mL/min (70-130); Calcium 8.4 mg/dL (7.8-10.44); Carbon Dioxide 22 mmol/L (23-31); Chloride 93 mmol/L (98-107); Glucose 135 mg/dL (80-115); Sodium 130 mmol/L (136-145)
[2020-07-13] MEDS: Gabapentin 100 MG CAP PO SCH ×3 (09:00→20:37)
[2020-07-13] MEDS: Citalopram 20 MG TAB PO SCH (09:00)
[2020-07-13] MEDS: Pantoprazole 40 MG VIAL IVP SCH (09:00)
[2020-07-13] MEDS: Allopurinol 100 MG TAB PO SCH (09:00)
[2020-07-13] MEDS ORDERED: Calcitriol 0.25 MCG CAP PO SCH (09:00)
[2020-07-13] MEDS: Fluticasone Propionate Nasal Spray 16 gm Bottle NASAL SCH (09:00)
[2020-07-13] MEDS: hydrALAZINE 25 MG TAB PO SCH ×2 (09:00→20:37)
[2020-07-13] MEDS: Amlodipine 10 MG TAB PO SCH (09:00)
[2020-07-13] MEDS: Tamsulosin HCl 0.4 MG CAP PO SCH (09:00)
[2020-07-13] MEDS ORDERED: Midazolam HCl 2 mg/2 ml Vial ONE (09:04)
[2020-07-13] MEDS ORDERED: Fentanyl 100 MCG/2 ML VIAL ONE (09:04)
[2020-07-13] MEDS ORDERED: Sodium Chloride 0.9% 10 ML ONE ×2 (10:13→10:20)
[2020-07-13] MEDS ORDERED: Lidocaine 1% w/Epinephrine 1:100K 20 ML VIAL ONE ×2 (10:13→11:09)
[2020-07-13] MEDS ORDERED: Bupivacaine PF 0.5% 30 ML VIAL ONE ×2 (10:13→11:09)
[2020-07-13] MEDS ORDERED: Heparin 10,000 UNITS/ 10 ML VIAL ONE ×3 (10:13→14:47)
[2020-07-13] MEDS ORDERED: Heparin 5,000 UNITS/ML VIAL ONE (10:20)
[2020-07-13] MEDS ORDERED: Protamine Sulfate 50 MG/5 ML VIAL ONE (10:21)
[2020-07-13] MEDS ORDERED: Lidocaine 1% PF 5 ML VIAL ONE (10:45)
[2020-07-13] MEDS ORDERED: Ondansetron PF 4 MG/2 ML Vial ONE (10:45)
[2020-07-13] MEDS ORDERED: Bupivacaine HCl 0.5%/Epinephrine 1:200,000/PF 30 ml Vial ONE (10:45)
[2020-07-13] MEDS ORDERED: PROPOFOL 200 MG/20 ML VIAL ONE (10:45)
[2020-07-13] MEDS ORDERED: Lidocaine 2% PF 5 ML VIAL ONE (11:09)
[2020-07-13] MEDS ORDERED: Promethazine HCl 25 MG/ML VIAL IM PRN (12:25)
[2020-07-13] MEDS ORDERED: Promethazine HCl 25 MG/ML VIAL SLOW IVP PRN (12:25)
[2020-07-13] MEDS ORDERED: Ondansetron HCl/PF 4 MG/2 ML Vial IVP PRN (12:25)
[2020-07-13] MEDS: EPOETIN ALFA-EPBX (ESRD) 10,000 UNIT/ML VIAL IVP SCH (15:36)
[2020-07-13] MEDS: Rosuvastatin 20 MG TAB PO SCH (20:37)
[2020-07-13] MEDS: Lantus 1000 UNITS/10 ML VIAL SC SCH (20:38)
[2020-07-14] MEDS ORDERED: Nitroglycerin 2% Ointment 1 INCH/1 GM Packet TOP SCH (01:15)
[2020-07-14 01:41] LABS: Troponin I 0.073 ng/mL (< 0.028)
[2020-07-14 05:20] LABS: Anion Gap 18 mmol/L (10-20); BUN (Urea Nitrogen) 46 mg/dL (8.4-25.7); Calc. Creatinine Clearance 25 mL/min (70-130); Calcium 8.3 mg/dL (7.8-10.44); Carbon Dioxide 22 mmol/L (23-31); Chloride 96 mmol/L (98-107); Glucose 94 mg/dL (80-115); Potassium 3.6 mmol/L (3.5-5.1); Sodium 132 mmol/L (136-145)
[2020-07-14 08:06] LABS: Troponin I 0.064 ng/mL (< 0.028)
[2020-07-14] MEDS ORDERED: READ PPD TEST SITE PO SCH (11:00)
[2020-07-14] MEDS: Aspirin 325 MG TAB PO SCH (12:07)
[2020-07-14] MEDS: Allopurinol 100 MG TAB PO SCH (12:07)
[2020-07-14] MEDS: hydrALAZINE 25 MG TAB PO SCH ×2 (12:07→20:56)
[2020-07-14] MEDS: Amlodipine 10 MG TAB PO SCH (12:08)
[2020-07-14] MEDS: Citalopram 20 MG TAB PO SCH (12:08)
[2020-07-14] MEDS: Gabapentin 100 MG CAP PO SCH ×3 (12:08→20:55)
[2020-07-14] MEDS: Tamsulosin HCl 0.4 MG CAP PO SCH (12:08)
[2020-07-14] MEDS: Fluticasone Propionate Nasal Spray 16 gm Bottle NASAL SCH (12:09)
[2020-07-14] MEDS: Pantoprazole 40 MG VIAL IVP SCH (12:09)
[2020-07-14] MEDS ORDERED: Heparin 10,000 UNITS/ 10 ML VIAL ONE (14:44)
[2020-07-14] MEDS: Rosuvastatin 20 MG TAB PO SCH (20:55)
[2020-07-15] MEDS: Morphine 4 MG/ML VIAL SLOW IVP PRN (03:11)
[2020-07-15 04:11] LABS: #Eosinphils 0.1 thou/uL (0.0-0.7); #Lymphocytes 1.1 thou/uL (1.20-3.40); #Monocytes 1.3 thou/uL (0.11-0.59); #Neutrophils 9.1 thou/uL (1.40-6.50); %Basophils 0.1 % (0.0-1.0); %Eosinophils 0.5 % (0.0-10.0); %Lymphocytes 9.7 % (21.0-51.0); %Monocytes 10.9 % (0.0-10.0); %Neutrophils 78.8 % (42.0-75.0); Hemoglobin 7.9 g/dL (14.0-18.0); Mean Corpuscular HGB CONC 32.4 g/dL (32.0-36.0); Mean Corpuscular Volume 92.4 fL (78.0-98.0); Mean Platelet Volume 6.5 fL (7.4-10.4); Platelet Count 155 thou/uL (130-400); RBC Distribution Width 15.8 % (11.5-14.5); Red Blood Cell (RBC) Count 2.63 mill/uL (4.70-6.10); White Blood Cell (WBC) Count 11.6 thou/uL (4.8-10.8)
[2020-07-15 04:31] LABS: Anion Gap 14 mmol/L (10-20); BUN (Urea Nitrogen) 33 mg/dL (8.4-25.7); Calc. Creatinine Clearance 30 mL/min (70-130); Calcium 8.1 mg/dL (7.8-10.44); Carbon Dioxide 26 mmol/L (23-31); Chloride 97 mmol/L (98-107); Glucose 99 mg/dL (80-115); Magnesium 2.3 mg/dL (1.6-2.6); Phosphorus 3.2 mg/dL (2.3-4.7); Potassium 3.8 mmol/L (3.5-5.1); Sodium 133 mmol/L (136-145)
[2020-07-15] MEDS: hydrALAZINE 25 MG TAB PO SCH ×2 (07:58→20:20)
[2020-07-15] MEDS: Tamsulosin HCl 0.4 MG CAP PO SCH (07:58)
[2020-07-15] MEDS: Fluticasone Propionate Nasal Spray 16 gm Bottle NASAL SCH (07:59)
[2020-07-15] MEDS: Allopurinol 100 MG TAB PO SCH (07:59)
[2020-07-15] MEDS: Amlodipine 10 MG TAB PO SCH ×2 (07:59→10:31)
[2020-07-15] MEDS: Pantoprazole 40 MG VIAL IVP SCH (07:59)
[2020-07-15] MEDS: Gabapentin 100 MG CAP PO SCH ×3 (07:59→20:19)
[2020-07-15] MEDS: Aspirin 325 MG TAB PO SCH (07:59)
[2020-07-15] MEDS: Citalopram 20 MG TAB PO SCH (07:59)
[2020-07-15] MEDS: Rosuvastatin 20 MG TAB PO SCH (20:19)
[2020-07-16 04:08] LABS: Anion Gap 14 mmol/L (10-20); BUN (Urea Nitrogen) 48 mg/dL (8.4-25.7); Calc. Creatinine Clearance 25 mL/min (70-130); Calcium 8.4 mg/dL (7.8-10.44); Carbon Dioxide 26 mmol/L (23-31); Chloride 96 mmol/L (98-107); Glucose 154 mg/dL (80-115); Potassium 3.9 mmol/L (3.5-5.1); Sodium 132 mmol/L (136-145)
[2020-07-16] MEDS ORDERED: Heparin 10,000 UNITS/ 10 ML VIAL ONE (10:12)
[2020-07-16] MEDS: Morphine 4 MG/ML VIAL SLOW IVP PRN (10:14)
[2020-07-16] MEDS: Allopurinol 100 MG TAB PO SCH (12:26)
[2020-07-16] MEDS: Amlodipine 10 MG TAB PO SCH (12:26)
[2020-07-16] MEDS: Citalopram 20 MG TAB PO SCH (12:26)
[2020-07-16] MEDS: hydrALAZINE 25 MG TAB PO SCH ×2 (12:26→20:57)
[2020-07-16] MEDS: Pantoprazole 40 MG VIAL IVP SCH (12:26)
[2020-07-16] MEDS: Fluticasone Propionate Nasal Spray 16 gm Bottle NASAL SCH (12:27)
[2020-07-16] MEDS: Tamsulosin HCl 0.4 MG CAP PO SCH (12:27)
[2020-07-16] MEDS: Gabapentin 100 MG CAP PO SCH ×3 (12:27→20:56)
[2020-07-16] MEDS: EPOETIN ALFA-EPBX (ESRD) 10,000 UNIT/ML VIAL IVP SCH (15:42)
[2020-07-16] MEDS ORDERED: [UNRECOGNIZED DRUG - REMARK] FS PRN (19:37)
[2020-07-16] MEDS: Rosuvastatin 20 MG TAB PO SCH (20:57)
[2020-07-17 04:24] LABS: #Eosinphils 0.2 thou/uL (0.0-0.7); #Lymphocytes 1.2 thou/uL (1.20-3.40); #Monocytes 1.5 thou/uL (0.11-0.59); #Neutrophils 8.8 thou/uL (1.40-6.50); %Basophils 0.2 % (0.0-1.0); %Eosinophils 1.4 % (0.0-10.0); %Lymphocytes 10.2 % (21.0-51.0); %Monocytes 12.7 % (0.0-10.0); %Neutrophils 75.6 % (42.0-75.0); Hemoglobin 8.5 g/dL (14.0-18.0); Mean Corpuscular HGB CONC 32.5 g/dL (32.0-36.0); Mean Corpuscular Hemoglobin 30.1 pg (27.0-31.0); Mean Corpuscular Volume 92.5 fL (78.0-98.0); Platelet Count 153 thou/uL (130-400); RBC Distribution Width 15.7 % (11.5-14.5); Red Blood Cell (RBC) Count 2.83 mill/uL (4.70-6.10); White Blood Cell (WBC) Count 11.6 thou/uL (4.8-10.8)
[2020-07-17 04:52] LABS: Anion Gap 14 mmol/L (10-20); BUN (Urea Nitrogen) 31 mg/dL (8.4-25.7); Calc. Creatinine Clearance 31 mL/min (70-130); Calcium 8.1 mg/dL (7.8-10.44); Carbon Dioxide 27 mmol/L (23-31); Chloride 99 mmol/L (98-107); Glucose 116 mg/dL (80-115); Potassium 3.6 mmol/L (3.5-5.1); Sodium 136 mmol/L (136-145)
[2020-07-17] MEDS: Allopurinol 100 MG TAB PO SCH (09:34)
[2020-07-17] MEDS: Gabapentin 100 MG CAP PO SCH ×3 (09:34→21:52)
[2020-07-17] MEDS: Tamsulosin HCl 0.4 MG CAP PO SCH (09:38)
[2020-07-17] MEDS: hydrALAZINE 25 MG TAB PO SCH ×2 (09:38→21:53)
[2020-07-17] MEDS: Amlodipine 10 MG TAB PO SCH (09:38)
[2020-07-17] MEDS: Citalopram 20 MG TAB PO SCH (09:38)
[2020-07-17] MEDS: Pantoprazole 40 MG VIAL IVP SCH (09:39)
[2020-07-17] MEDS: Fluticasone Propionate Nasal Spray 16 gm Bottle NASAL SCH (09:39)
[2020-07-17] MEDS: Rosuvastatin 20 MG TAB PO SCH (21:53)
[2020-07-17] MEDS: Acetaminophen 500 MG TAB PO PRN (21:54)
[2020-07-18] MEDS: Citalopram 20 MG TAB PO SCH (07:41)
[2020-07-18] MEDS: Allopurinol 100 MG TAB PO SCH (07:41)
[2020-07-18] MEDS: Tamsulosin HCl 0.4 MG CAP PO SCH (07:41)
[2020-07-18] MEDS: Gabapentin 100 MG CAP PO SCH ×3 (07:41→21:44)
[2020-07-18] MEDS: Pantoprazole 40 MG VIAL IVP SCH (07:42)
[2020-07-18] MEDS ORDERED: Heparin 10,000 UNITS/ 10 ML VIAL ONE (09:29)
[2020-07-18 10:20] LABS: #Eosinphils 0.2 thou/uL (0.0-0.7); #Lymphocytes 0.8 thou/uL (1.20-3.40); #Monocytes 1.3 thou/uL (0.11-0.59); #Neutrophils 6.6 thou/uL (1.40-6.50); %Basophils 0.4 % (0.0-1.0); %Eosinophils 2.8 % (0.0-10.0); %Lymphocytes 9.3 % (21.0-51.0); %Monocytes 13.9 % (0.0-10.0); %Neutrophils 73.7 % (42.0-75.0); Hemoglobin 8.6 g/dL (14.0-18.0); Mean Corpuscular HGB CONC 31.5 g/dL (32.0-36.0); Mean Corpuscular Hemoglobin 29.1 pg (27.0-31.0); Mean Corpuscular Volume 92.4 fL (78.0-98.0); Mean Platelet Volume 6.9 fL (7.4-10.4); Platelet Count 182 thou/uL (130-400); RBC Distribution Width 15.8 % (11.5-14.5); Red Blood Cell (RBC) Count 2.94 mill/uL (4.70-6.10)
[2020-07-18] MEDS: Amlodipine 10 MG TAB PO SCH (14:38)
[2020-07-18] MEDS: hydrALAZINE 25 MG TAB PO SCH ×2 (14:38→21:44)
[2020-07-18] MEDS: Fluticasone Propionate Nasal Spray 16 gm Bottle NASAL SCH (14:38)
[2020-07-18] MEDS: EPOETIN ALFA-EPBX (ESRD) 10,000 UNIT/ML VIAL IVP SCH (14:42)
[2020-07-18] MEDS: Morphine 4 MG/ML VIAL SLOW IVP PRN (19:48)
[2020-07-18] MEDS: Rosuvastatin 20 MG TAB PO SCH (21:44)
[2020-07-19 04:40] LABS: Anion Gap 13 mmol/L (10-20); BUN (Urea Nitrogen) 25 mg/dL (8.4-25.7); Calc. Creatinine Clearance 35 mL/min (70-130); Calcium 8.1 mg/dL (7.8-10.44); Carbon Dioxide 28 mmol/L (23-31); Chloride 98 mmol/L (98-107); Glucose 119 mg/dL (80-115); Potassium 3.6 mmol/L (3.5-5.1); Sodium 135 mmol/L (136-145)
[2020-07-19] MEDS: Fluticasone Propionate Nasal Spray 16 gm Bottle NASAL SCH (08:51)
[2020-07-19] MEDS: Pantoprazole 40 MG VIAL IVP SCH (08:52)
[2020-07-19] MEDS: Amlodipine 10 MG TAB PO SCH (08:53)
[2020-07-19] MEDS: Allopurinol 100 MG TAB PO SCH (08:53)
[2020-07-19] MEDS: Citalopram 20 MG TAB PO SCH (08:53)
[2020-07-19] MEDS: Gabapentin 100 MG CAP PO SCH ×2 (08:53→15:01)
[2020-07-19] MEDS: Tamsulosin HCl 0.4 MG CAP PO SCH (08:53)
[2020-07-19] MEDS: hydrALAZINE 25 MG TAB PO SCH (09:31)
[2020-07-19 14:17] VITALS: BMI 37.7
[2020-07-19] MEDS: Acetaminophen 500 MG TAB PO PRN (15:38)
[2020-07-19 16:55] VITALS: BP 107/66; TEMP 98.7
== END 2020-07-19 19:00 | DRG 673 ==
LOC: ERS 14:36 → 2NO 17:08 → SURG A 07-11 19:44 → 2NO 07-14 03:02
PROVIDERS: ADMIT Internal Medicine; ATTEND Internal Medicine
PROC: 06HM33Z Insertion of Infusion Device into Right Femoral Vein, Percutaneous Approach (ICD-10-PCS; 2020-07-10)
PROC: 5A1D70Z Performance of Urinary Filtration, Intermittent, Less than 6 Hours Per Day (ICD-10-PCS; principal; 2020-07-13)
PROC: 031B0ZF Bypass Right Radial Artery to Lower Arm Vein, Open Approach (ICD-10-PCS; 2020-07-13)
PROC: 0JH63XZ Insertion of Tunneled Vascular Access Device into Chest Subcutaneous Tissue and Fascia, Percutaneous Approach (ICD-10-PCS; 2020-07-13)
PROC: 05HN33Z Insertion of Infusion Device into Left Internal Jugular Vein, Percutaneous Approach (ICD-10-PCS; 2020-07-13)
DX: N17.9 Acute kidney failure, unspecified (principal); G93.41 Metabolic encephalopathy; I25.810 Atherosclerosis of coronary artery bypass graft(s) without angina pectoris; E87.1 Hypo-osmolality and hyponatremia; E87.2 Acidosis; I13.2 Hypertensive heart and chronic kidney disease with heart failure and with stage 5 chronic kidney disease, or end stage renal disease; N18.6 End stage renal disease; N18.4 Chronic kidney disease, stage 4 (severe); K21.9 Gastro-esophageal reflux disease without esophagitis; E78.5 Hyperlipidemia, unspecified; I48.0 Paroxysmal atrial fibrillation; R29.6 Repeated falls; M85.80 Other specified disorders of bone density and structure, unspecified site; J45.909 Unspecified asthma, uncomplicated; E11.22 Type 2 diabetes mellitus with diabetic chronic kidney disease; E66.01 Morbid (severe) obesity due to excess calories; E87.5 Hyperkalemia; D63.8 Anemia in other chronic diseases classified elsewhere; G40.909 Epilepsy, unspecified, not intractable, without status epilepticus; K59.00 Constipation, unspecified; E11.649 Type 2 diabetes mellitus with hypoglycemia without coma; I25.5 Ischemic cardiomyopathy; Z68.37 Body mass index [BMI] 37.0-37.9, adult; Z95.1 Presence of aortocoronary bypass graft; Z87.891 Personal history of nicotine dependence; Z79.4 Long term (current) use of insulin
CPT/HCPCS: 36415; 36416; 36430; 51702; 70450; 71045; 80048; 81003; 81015; 82140; 83735; 84100; 84484; 85014; 85018; 85025; 85049; 86580; 86704; 86706; 86803; 86850; 86900; 86901; 87340; 87635; 90935; 93005; 93010; 93306; 93970; 96374; C1751; C1752; C9113; G0257; J0690; J1630; J1642; J1644; J1815; J1940; J1953; J2001; J2250; J2270; J2405; J2704; J2720; J3010; J3490; P9016; Q5105; S0020; U0003; U0005

== ENCOUNTER 2020-09-04 22:31 | Emergency (ER) | payer MEDICARE, MEDICAID ==
[2020-09-04 23:40] LABS: #Eosinphils 0.1 thou/uL (0.0-0.7); #Lymphocytes 1.2 thou/uL (1.20-3.40); #Neutrophils 6.5 thou/uL (1.40-6.50); %Basophils 0.3 % (0.0-1.0); %Eosinophils 0.9 % (0.0-10.0); %Lymphocytes 13.6 % (21.0-51.0); %Monocytes 11.6 % (0.0-10.0); %Neutrophils 73.6 % (42.0-75.0); Hemoglobin 11.1 g/dL (14.0-18.0); Mean Corpuscular HGB CONC 32.7 g/dL (32.0-36.0); Mean Corpuscular Hemoglobin 30.6 pg (27.0-31.0); Mean Corpuscular Volume 93.7 fL (78.0-98.0); Mean Platelet Volume 7.4 fL (7.4-10.4); Platelet Count 187 thou/uL (130-400); RBC Distribution Width 17.6 % (11.5-14.5); Red Blood Cell (RBC) Count 3.62 mill/uL (4.70-6.10); White Blood Cell (WBC) Count 8.8 thou/uL (4.8-10.8)
[2020-09-05 00:05] LABS: ALT (SGPT) 16 U/L (8-55); AST (SGOT) 28 U/L (5-34); Albumin 3.2 g/dL (3.4-4.8); Alkaline Phosphatase 121 U/L (40-110); Anion Gap 12 mmol/L (10-20); BUN (Urea Nitrogen) 17 mg/dL (8.4-25.7); Bilirubin, Total 0.7 mg/dL (0.2-1.2); Calc. Creatinine Clearance 0 mL/min (70-130); Calcium 8.2 mg/dL (7.8-10.44); Carbon Dioxide 25 mmol/L (23-31); Chloride 100 mmol/L (98-107); Globulin 3.2 g/dL (2.4-3.5); Glucose 133 mg/dL (80-115); Potassium 3.4 mmol/L (3.5-5.1); Protein, Total 6.4 g/dL (5.8-8.1); Sodium 134 mmol/L (136-145)
[2020-09-05] MEDS ORDERED: Fentanyl 100 MCG/2 ML VIAL ONE (01:14)
[2020-09-05] MEDS ORDERED: Ondansetron PF 4 MG/2 ML Vial ONE ×2 (01:14→04:24)
[2020-09-05 03:52] LABS: Bacteria/HPF None Seen HPF (None Seen); Bilirubin Negative (Negative); Blood, Urine Negative (Negative); Clarity Clear (Clear); Glucose, Urine (Dipstick) Normal (Negative); Ketone, Urine Negative (Negative); Leukocyte 25 Leu/uL (Negative); Nitrite Negative (Negative); Protein, Urine (Dipstick) 100 mg/dL (Neg-Trace); RBC/HPF 0-3 HPF (0-3); Specific Gravity, Urine 1.028 (1.002-1.036); Squamous Epithelial 0-3 HPF (0-3); Urobilinogen Normal mg/dL (Less than 2)
== END 2020-09-05 05:40 | disposition home or self-care (01) ==
LOC: ERS 22:31
DX: Q61.3 Polycystic kidney, unspecified (principal); D63.8 Anemia in other chronic diseases classified elsewhere; M84.48XA Pathological fracture, other site, initial encounter for fracture; R19.7 Diarrhea, unspecified; I13.0 Hypertensive heart and chronic kidney disease with heart failure and stage 1 through stage 4 chronic kidney disease, or unspecified chronic kidney disease; I50.9 Heart failure, unspecified; N18.9 Chronic kidney disease, unspecified; E11.22 Type 2 diabetes mellitus with diabetic chronic kidney disease; Z79.899 Other long term (current) drug therapy
CPT/HCPCS: 36415; 74177; 80053; 81003; 81015; 82274; 83630; 83690; 85025; 87045; 87046; 87324; 87427; 87449; 93005; 96374; 96375; 96376; J2405; J3010

== ENCOUNTER 2020-10-20 12:49 | Outpatient (CLI) | payer MEDICARE, MEDICAID ==
[2020-10-21 14:19] LABS: #Basophils 0.1 thou/uL (0.0-0.2); #Eosinphils 0.3 thou/uL (0.0-0.7); #Monocytes 0.6 thou/uL (0.11-0.59); #Neutrophils 4.1 thou/uL (1.40-6.50); %Basophils 0.8 % (0.0-1.0); %Eosinophils 4.5 % (0.0-10.0); %Lymphocytes 28.3 % (21.0-51.0); %Monocytes 7.8 % (0.0-10.0); %Neutrophils 58.6 % (42.0-75.0); Hemoglobin 12.5 g/dL (14.0-18.0); Mean Corpuscular HGB CONC 31.7 g/dL (32.0-36.0); Mean Corpuscular Hemoglobin 31.6 pg (27.0-31.0); Mean Corpuscular Volume 99.6 fL (78.0-98.0); Mean Platelet Volume 8.2 fL (7.4-10.4); Platelet Count 249 thou/uL (130-400); RBC Distribution Width 15.8 % (11.5-14.5); Red Blood Cell (RBC) Count 3.94 mill/uL (4.70-6.10); White Blood Cell (WBC) Count 7.1 thou/uL (4.8-10.8)
[2020-10-21 14:38] LABS: ALT (SGPT) 8 U/L (8-55); AST (SGOT) 10 U/L (5-34); Albumin 3.8 g/dL (3.4-4.8); Alkaline Phosphatase 80 U/L (40-110); Anion Gap 14 mmol/L (10-20); BUN (Urea Nitrogen) 19 mg/dL (8.4-25.7); Bilirubin, Total 0.5 mg/dL (0.2-1.2); Calc. Creatinine Clearance 0 mL/min (70-130); Calcium 8.7 mg/dL (7.8-10.44); Carbon Dioxide 26 mmol/L (23-31); Cardiac Risk 5.3 (Less than 4.5); Chloride 103 mmol/L (98-107); Cholesterol 189 mg/dl (< 200 Desired); Globulin 3.1 g/dL (2.4-3.5); Glucose 149 mg/dL (80-115); HDL Cholesterol 36 mg/dL (>60 Neg Risk); LDL Cholesterol, Calculated 118 mg/dL; Potassium 4.1 mmol/L (3.5-5.1); Protein, Total 6.9 g/dL (5.8-8.1); Sodium 139 mmol/L (136-145); Triglycerides 175 mg/dL (Less than 150)
== END 2020-10-20 12:50 | disposition home or self-care (01) ==
LOC: LAB 12:49
PROVIDERS: ATTEND Emergency Medicine
DX: I25.10 Atherosclerotic heart disease of native coronary artery without angina pectoris (principal)
CPT/HCPCS: 36415; 80053; 80061; 85025

== ENCOUNTER 2021-07-11 16:34 | Outpatient (CLI) | payer MEDICARE, MEDICAID ==
[2021-07-12 11:54] LABS: SARS-CoV-2 PCR by NAA Not Detected (NotDetected)
== END 2021-07-11 16:35 | disposition home or self-care (01) ==
LOC: LABBT 16:34
PROVIDERS: ATTEND Neurological Surgery
DX: Z01.818 Encounter for other preprocedural examination (principal); M41.9 Scoliosis, unspecified; Z20.822 Contact with and (suspected) exposure to COVID-19
CPT/HCPCS: 93005; U0003; U0005; 93010

== ENCOUNTER 2021-07-11 18:30 | Inpatient (IN) | payer MEDICARE, OTHER ==
[2021-07-16] MEDS ORDERED: Bupivacaine PF 0.5% 30 ML VIAL ONE (06:10)
[2021-07-16] MEDS ORDERED: Thrombin 5000 UNITS/5 ML VIAL ONE (06:10)
[2021-07-16] MEDS ORDERED: Neomycin-Polymyxin 1 ML AMP ONE (06:10)
[2021-07-16] MEDS ORDERED: EPINEPHrine 1 MG/ML AMP ONE (06:10)
[2021-07-16] MEDS ORDERED: Lidocaine 2% Jelly 5 ML TUBE ONE (06:38)
[2021-07-16] MEDS ORDERED: fentaNYL Citrate/PF 100 MCG/2 ML SYRINGE ONE (06:38)
[2021-07-16 06:39] LABS: #Basophils 0.1 thou/uL (0.0-0.2); #Eosinphils 0.2 thou/uL (0.0-0.7); #Lymphocytes 1.2 thou/uL (1.20-3.40); #Monocytes 0.7 thou/uL (0.11-0.59); %Basophils 0.8 % (0.0-1.0); %Eosinophils 2.1 % (0.0-10.0); %Lymphocytes 17.2 % (21.0-51.0); %Monocytes 9.9 % (0.0-10.0); Hemoglobin 11.3 g/dL (14.0-18.0); Mean Corpuscular HGB CONC 31.8 g/dL (32.0-36.0); Mean Platelet Volume 6.9 fL (7.4-10.4); Platelet Count 154 thou/uL (130-400); RBC Distribution Width 12.7 % (11.5-14.5); Red Blood Cell (RBC) Count 3.54 mill/uL (4.70-6.10); White Blood Cell (WBC) Count 7.1 thou/uL (4.8-10.8)
[2021-07-16 06:51] LABS: INR-International Normal Ratio 1.3; Prothrombin Time 15.9 sec (12.0-14.7)
[2021-07-16] MEDS ORDERED: ceFAZolin (BATCH) 2 GM/100 ML BAG ONE (06:51)
[2021-07-16 06:52] LABS: PTT 38.9 sec (22.9-36.1)
[2021-07-16] MEDS ORDERED: HYDROcodone/Acetaminophen 10/325 mg Tablet PO PRN (06:53)
[2021-07-16] MEDS ORDERED: Promethazine 25 MG TAB PO PRN (06:53)
[2021-07-16] MEDS ORDERED: Mag-Al 1200 mg/1200 mg/30 ML UDCUP PO PRN (06:53)
[2021-07-16] MEDS ORDERED: Milk Of Magnesia 30 ML UDCUP PO PRN (06:53)
[2021-07-16] MEDS ORDERED: Ondansetron PF 4 MG/2 ML Vial IVP PRN (06:53)
[2021-07-16] MEDS ORDERED: HYDROcodone/Acetaminophen 7.5/325 mg Tablet PO PRN (06:53)
[2021-07-16] MEDS ORDERED: diphenhydrAMINE 50 MG/ML VIAL IVP PRN (06:53)
[2021-07-16 06:59] LABS: Anion Gap 14 mmol/L (10-20); BUN (Urea Nitrogen) 26 mg/dL (8.4-25.7); Calc. Creatinine Clearance 28 mL/min (70-130); Calcium 8.8 mg/dL (7.8-10.44); Carbon Dioxide 25 mmol/L (23-31); Chloride 101 mmol/L (98-107); Glucose 115 mg/dL (80-115); Sodium 136 mmol/L (136-145)
[2021-07-16] MEDS ORDERED: Rocuronium Bromide 10 MG/ML (10ML VIAL) ONE (07:02)
[2021-07-16] MEDS ORDERED: Ondansetron PF 4 MG/2 ML Vial ONE (07:02)
[2021-07-16] MEDS ORDERED: Lidocaine 1% PF 5 ML VIAL ONE (07:02)
[2021-07-16] MEDS ORDERED: Glycopyrrolate 0.2 MG/ML 5 ML SYRINGE ONE (07:02)
[2021-07-16] MEDS ORDERED: Albumin 25% 0 ML ONE (07:07)
[2021-07-16] MEDS ORDERED: Phenylephrine 10 MG/ML VIAL ONE (07:07)
[2021-07-16] MEDS ORDERED: Norepinephrine 4 MG/4 ML VIAL ONE (07:07)
[2021-07-16 11:11] LABS: Hemoglobin 10.4 g/dL (14.0-18.0)
[2021-07-16] MEDS ORDERED: Fentanyl 100 MCG/2 ML VIAL ONE ×2 (12:56→13:23)
[2021-07-16] MEDS ORDERED: Promethazine HCl 25 MG/ML VIAL IVPB PRN (12:57)
[2021-07-16] MEDS ORDERED: Ondansetron HCl/PF 4 MG/2 ML Vial IVP PRN (12:57)
[2021-07-16] MEDS ORDERED: Promethazine HCl 25 MG/ML VIAL IM PRN (12:57)
[2021-07-16] MEDS ORDERED: HumaLOG 300 UNITS/3 ML VIAL SC PRN (16:41)
[2021-07-16] MEDS ORDERED: Dextrose 50% Abboject 50 ML SYRINGE SLOW IVP PRN (16:41)
[2021-07-16] MEDS ORDERED: Dextrose 5% in Water 1,000 ML IV PRN (16:41)
[2021-07-16] MEDS: Sodium Chloride 0.9% 1,000 ML IV SCH ×2 (17:04)
[2021-07-16] MEDS: Cyclobenzaprine 10 MG TAB PO PRN (17:04)
[2021-07-16] MEDS: ceFAZolin (BATCH) 2 GM in Premix Bag 1 BAG IVPB SCH ×2 (18:01→23:25)
[2021-07-16] MEDS ORDERED: Bisacodyl 5 MG TAB PO PRN (18:34)
[2021-07-16] MEDS ORDERED: Mag-Al Plus 1200 MG/1200 MG/120 MG/30 ML UDCUP PO PRN (18:34)
[2021-07-16] MEDS ORDERED: Meclizine HCl 25 MG TAB PO PRN (18:34)
[2021-07-16] MEDS ORDERED: Senokot S 8.6-50 MG TAB PO PRN (18:34)
[2021-07-16] MEDS ORDERED: Albuterol Sulfate 2.5 mg/3 ml Neb NEB PRN (19:45)
[2021-07-16] MEDS: Rosuvastatin 20 MG TAB PO SCH (20:44)
[2021-07-16] MEDS: Amlodipine 10 MG TAB PO SCH (20:46)
[2021-07-16] MEDS: Tamsulosin HCl 0.4 MG CAP PO SCH (20:46)
[2021-07-16] MEDS: Citalopram 20 MG TAB PO SCH (20:59)
[2021-07-16] MEDS: Acetaminophen/Codeine 30-300mg Tablet PO PRN (20:59)
[2021-07-16] MEDS ORDERED: levETIRAcetam 500 MG TAB PO SCH (21:00)
[2021-07-16] MEDS ORDERED: Gabapentin 100 MG CAP PO SCH (21:00)
[2021-07-16] MEDS ORDERED: Magnesium Oxide 400 MG TAB PO SCH (21:00)
[2021-07-16] MEDS ORDERED: hydrALAZINE 25 MG TAB PO SCH (21:00)
[2021-07-16] MEDS ORDERED: Insulin Glargine 30 UNITS/0.3 ML VIAL SC SCH (21:00)
[2021-07-16] MEDS ORDERED: Fluticasone Propionate Nasal Spray 16 gm Bottle NASAL SCH (21:00)
[2021-07-16] MEDS ORDERED: Dicyclomine 10 MG CAP PO PRN (23:47)
[2021-07-17] MEDS: Fentanyl 100 MCG/2 ML VIAL SLOW IVP PRN ×2 (00:28→08:28)
[2021-07-17] MEDS ORDERED: Oxymetazoline HCl 0.05% (30 ML BOT) NS SCH (01:00)
[2021-07-17] MEDS: Cyclobenzaprine 10 MG TAB PO PRN (03:46)
[2021-07-17] MEDS: Acetaminophen/Codeine 30-300mg Tablet PO PRN ×3 (03:46→20:29)
[2021-07-17 05:29] LABS: #Monocytes 1.3 thou/uL (0.11-0.59); #Neutrophils 12.2 thou/uL (1.40-6.50); %Basophils 0.1 % (0.0-1.0); %Lymphocytes 6.7 % (21.0-51.0); %Monocytes 8.7 % (0.0-10.0); %Neutrophils 84.5 % (42.0-75.0); Hemoglobin 10.1 g/dL (14.0-18.0); Mean Corpuscular HGB CONC 32.1 g/dL (32.0-36.0); Mean Corpuscular Volume 99.8 fL (78.0-98.0); Mean Platelet Volume 6.7 fL (7.4-10.4); Platelet Count 151 thou/uL (130-400); RBC Distribution Width 12.8 % (11.5-14.5); Red Blood Cell (RBC) Count 3.15 mill/uL (4.70-6.10); White Blood Cell (WBC) Count 14.4 thou/uL (4.8-10.8)
[2021-07-17 05:51] LABS: Anion Gap 16 mmol/L (10-20); BUN (Urea Nitrogen) 33 mg/dL (8.4-25.7); Calc. Creatinine Clearance 23 mL/min (70-130); Calcium 8.3 mg/dL (7.8-10.44); Carbon Dioxide 23 mmol/L (23-31); Chloride 101 mmol/L (98-107); Glucose 109 mg/dL (80-115); Potassium 3.6 mmol/L (3.5-5.1); Sodium 136 mmol/L (136-145)
[2021-07-17] MEDS ORDERED: ceFAZolin (BATCH) 2 GM in Premix Bag 1 BAG IVPB SCH (06:00)
[2021-07-17] MEDS ORDERED: ceFAZolin 2 GM/Dextrose 50 ML 2 GM in Premix Bag 1 BAG IVPB SCH (06:00)
[2021-07-17] MEDS: Carvedilol 6.25 MG TAB PO SCH ×2 (08:27→20:27)
[2021-07-17] MEDS ORDERED: Floranex 1 GM Packet PO SCH (09:00)
[2021-07-17] MEDS ORDERED: Tamsulosin HCl 0.4 MG CAP PO SCH (09:00)
[2021-07-17] MEDS ORDERED: Gabapentin 100 MG CAP PO SCH (09:00)
[2021-07-17] MEDS ORDERED: Calcitriol 0.25 MCG CAP PO SCH ×3 (09:00→21:00)
[2021-07-17] MEDS ORDERED: Non-Formulary Item 1 EACH (Vitamin B Complex [Vitamin B Complex] 1 CAP Capsule) PO SCH (09:00)
[2021-07-17] MEDS ORDERED: Non-Formulary Item 1 EACH (Ubidecarenone [Co Q-10] 200 MG Capsule) PO SCH (09:00)
[2021-07-17] MEDS ORDERED: Non-Formulary Item 1 EACH (Fluticasone Propionate [Flonase Allergy Relief] 9.9 ML Bottle) NASAL SCH (09:00)
[2021-07-17] MEDS ORDERED: Lidocaine 5% Patch TD SCH (09:00)
[2021-07-17] MEDS ORDERED: Amlodipine 10 MG TAB PO SCH (09:00)
[2021-07-17] MEDS ORDERED: Citalopram 20 MG TAB PO SCH ×2 (09:00→21:00)
[2021-07-17] MEDS ORDERED: Stress 600 With Zinc 1 TAB PO SCH (09:00)
[2021-07-17] MEDS ORDERED: Magnesium Oxide 400 MG TAB PO SCH (09:00)
[2021-07-17] MEDS: Tamsulosin HCl 0.4 MG CAP PO SCH (20:23)
[2021-07-17] MEDS: Citalopram 20 MG TAB PO SCH (20:24)
[2021-07-17] MEDS: Amlodipine 10 MG TAB PO SCH (20:24)
[2021-07-17] MEDS: Rosuvastatin 20 MG TAB PO SCH (20:25)
[2021-07-17] MEDS: levETIRAcetam 500 MG TAB PO SCH (20:26)
[2021-07-17] MEDS: Gabapentin 100 MG CAP PO SCH (20:28)
[2021-07-17] MEDS ORDERED: VITAMIN B COMPLEX PO SCH (21:00)
[2021-07-17] MEDS ORDERED: Clopidogrel Bisulfate 75 MG TAB PO SCH (21:00)
[2021-07-17] MEDS ORDERED: Transdermal Patch Removal TOP PRN (21:00)
[2021-07-18] MEDS: Senokot S 8.6-50 MG TAB PO SCH ×3 (00:14→20:41)
[2021-07-18] MEDS: Acetaminophen/Codeine 30-300mg Tablet PO PRN ×3 (00:14→15:30)
[2021-07-18] MEDS ORDERED: Lidocaine-Prilocaine 2.5% Cream 5 GM TUBE TOP PRN (01:01)
[2021-07-18] MEDS: Cyclobenzaprine 10 MG TAB PO PRN (02:27)
[2021-07-18] MEDS: CEFAZOLIN 1 GM in Sodium Chloride 0.9% 100 ML IVPB SCH (06:04)
[2021-07-18] MEDS ORDERED: Furosemide 40 MG TAB PO SCH (09:00)
[2021-07-18] MEDS: Carvedilol 6.25 MG TAB PO SCH ×2 (09:51→20:42)
[2021-07-18] MEDS ORDERED: Dexamethasone 4 MG TAB PO SCH ×2 (12:15→17:00)
[2021-07-18] MEDS: HumaLOG 300 UNITS/3 ML VIAL SC PRN (16:12)
[2021-07-18] MEDS: Rosuvastatin 20 MG TAB PO SCH (20:40)
[2021-07-18] MEDS: Amlodipine 10 MG TAB PO SCH (20:40)
[2021-07-18] MEDS: Tamsulosin HCl 0.4 MG CAP PO SCH (20:41)
[2021-07-18] MEDS: Citalopram 20 MG TAB PO SCH (20:41)
[2021-07-18] MEDS: Gabapentin 100 MG CAP PO SCH (20:41)
[2021-07-18] MEDS: levETIRAcetam 500 MG TAB PO SCH (20:42)
[2021-07-19] MEDS: HumaLOG 300 UNITS/3 ML VIAL SC PRN ×2 (05:38→17:08)
[2021-07-19] MEDS: CEFAZOLIN 1 GM in Sodium Chloride 0.9% 100 ML IVPB SCH (05:54)
[2021-07-19] MEDS: Senokot S 8.6-50 MG TAB PO SCH ×2 (09:37→22:14)
[2021-07-19] MEDS: Carvedilol 6.25 MG TAB PO SCH ×2 (09:37→22:10)
[2021-07-19] MEDS: Rosuvastatin 20 MG TAB PO SCH (22:07)
[2021-07-19] MEDS: Amlodipine 10 MG TAB PO SCH (22:09)
[2021-07-19] MEDS: levETIRAcetam 500 MG TAB PO SCH (22:11)
[2021-07-19] MEDS: Tamsulosin HCl 0.4 MG CAP PO SCH (22:12)
[2021-07-19] MEDS: Gabapentin 100 MG CAP PO SCH (22:13)
[2021-07-19] MEDS: Citalopram 20 MG TAB PO SCH (22:14)
[2021-07-20] MEDS: Calcium Carbonate 500 MG ChewTAB PO PRN (00:15)
[2021-07-20] MEDS: Cyclobenzaprine 10 MG TAB PO PRN (00:15)
[2021-07-20] MEDS: CEFAZOLIN 1 GM in Sodium Chloride 0.9% 100 ML IVPB SCH ×2 (06:35→06:42)
[2021-07-20] MEDS: HumaLOG 300 UNITS/3 ML VIAL SC PRN ×3 (06:35→16:09)
[2021-07-20] MEDS ORDERED: Dexamethasone 4 MG TAB PO SCH (08:00)
[2021-07-20] MEDS: Carvedilol 6.25 MG TAB PO SCH ×2 (09:32→22:24)
[2021-07-20] MEDS: Senokot S 8.6-50 MG TAB PO SCH ×2 (09:33→22:22)
[2021-07-20] MEDS: Acetaminophen/Codeine 30-300mg Tablet PO PRN (16:08)
[2021-07-20] MEDS: Amlodipine 10 MG TAB PO SCH (22:22)
[2021-07-20] MEDS: Rosuvastatin 20 MG TAB PO SCH (22:22)
[2021-07-20] MEDS: Citalopram 20 MG TAB PO SCH (22:23)
[2021-07-20] MEDS: levETIRAcetam 500 MG TAB PO SCH (22:23)
[2021-07-20] MEDS: Gabapentin 100 MG CAP PO SCH (22:24)
[2021-07-20] MEDS: Tamsulosin HCl 0.4 MG CAP PO SCH (22:24)
[2021-07-21] MEDS: Calcium Carbonate 500 MG ChewTAB PO PRN ×3 (03:24→21:51)
[2021-07-21 06:41] LABS: Anion Gap 24 mmol/L (10-20); BUN (Urea Nitrogen) 61 mg/dL (8.4-25.7); Calc. Creatinine Clearance 17 mL/min (70-130); Calcium 8.6 mg/dL (7.8-10.44); Carbon Dioxide 24 mmol/L (23-31); Chloride 89 mmol/L (98-107); Glucose 128 mg/dL (80-115); Magnesium 2.3 mg/dL (1.6-2.6); Phosphorus 6.5 mg/dL (2.3-4.7); Potassium 5.5 mmol/L (3.5-5.1); Sodium 131 mmol/L (136-145)
[2021-07-21] MEDS: CEFAZOLIN 1 GM in Sodium Chloride 0.9% 100 ML IVPB SCH (06:58)
[2021-07-21 07:21] LABS: #Basophils 0.1 thou/uL (0.0-0.2); #Lymphocytes 0.5 thou/uL (1.20-3.40); #Monocytes 0.9 thou/uL (0.11-0.59); #Neutrophils 9.1 thou/uL (1.40-6.50); %Basophils 0.8 % (0.0-1.0); %Eosinophils 0.1 % (0.0-10.0); %Monocytes 8.2 % (0.0-10.0); %Neutrophils 85.9 % (42.0-75.0); Hemoglobin 10.4 g/dL (14.0-18.0); MDiff Complete? YES; Mean Corpuscular Hemoglobin 32.7 pg (27.0-31.0); Mean Corpuscular Volume 99.2 fL (78.0-98.0); Mean Platelet Volume 8.1 fL (7.4-10.4); Platelet Count 108 thou/uL (130-400); Platelet Morphology Comment Appears Decreased; Polychromasia SLIGHT = 2-3 cells (100X) (0-2/hpf); RBC Distribution Width 12.5 % (11.5-14.5); Red Blood Cell (RBC) Count 3.18 mill/uL (4.70-6.10); White Blood Cell (WBC) Count 10.6 thou/uL (4.8-10.8)
[2021-07-21] MEDS: Glimepiride 2 MG TAB PO SCH (09:42)
[2021-07-21] MEDS: Carvedilol 6.25 MG TAB PO SCH ×2 (09:43→21:31)
[2021-07-21] MEDS: Senokot S 8.6-50 MG TAB PO SCH ×2 (09:43→21:32)
[2021-07-21] MEDS: Acetaminophen/Codeine 30-300mg Tablet PO PRN ×2 (12:26→21:47)
[2021-07-21 13:05] LABS: Anion Gap 24 mmol/L (10-20); BUN (Urea Nitrogen) 71 mg/dL (8.4-25.7); Calc. Creatinine Clearance 17 mL/min (70-130); Calcium 8.5 mg/dL (7.8-10.44); Carbon Dioxide 24 mmol/L (23-31); Chloride 88 mmol/L (98-107); Glucose 128 mg/dL (80-115); Potassium 5.5 mmol/L (3.5-5.1); Sodium 130 mmol/L (136-145)
[2021-07-21] MEDS: Amlodipine 10 MG TAB PO SCH (21:30)
[2021-07-21] MEDS: Citalopram 20 MG TAB PO SCH (21:31)
[2021-07-21] MEDS: Tamsulosin HCl 0.4 MG CAP PO SCH (21:31)
[2021-07-21] MEDS: Rosuvastatin 20 MG TAB PO SCH (21:31)
[2021-07-21] MEDS: levETIRAcetam 500 MG TAB PO SCH (21:32)
[2021-07-21] MEDS: Gabapentin 100 MG CAP PO SCH (21:32)
[2021-07-22 04:59] LABS: Anion Gap 25 mmol/L (10-20); BUN (Urea Nitrogen) 84 mg/dL (8.4-25.7); Calc. Creatinine Clearance 15 mL/min (70-130); Calcium 8.3 mg/dL (7.8-10.44); Carbon Dioxide 23 mmol/L (23-31); Chloride 86 mmol/L (98-107); Glucose 134 mg/dL (80-115); Potassium 5.7 mmol/L (3.5-5.1); Sodium 128 mmol/L (136-145)
[2021-07-22] MEDS ORDERED: Dexamethasone 4 MG TAB PO SCH (08:00)
[2021-07-22] MEDS ORDERED: Polyethylene Glycol 3350 17 GM Packet PO SCH (08:00)
[2021-07-22] MEDS: Glimepiride 2 MG TAB PO SCH (08:45)
[2021-07-22] MEDS: Senokot S 8.6-50 MG TAB PO SCH ×2 (08:45→21:26)
[2021-07-22] MEDS: Carvedilol 6.25 MG TAB PO SCH ×2 (08:45→21:26)
[2021-07-22] MEDS: Calcium Carbonate 500 MG ChewTAB PO PRN (10:26)
[2021-07-22] MEDS: Acetaminophen/Codeine 30-300mg Tablet PO PRN (17:07)
[2021-07-22] MEDS: levETIRAcetam 500 MG TAB PO SCH (21:26)
[2021-07-22] MEDS: Gabapentin 100 MG CAP PO SCH (21:27)
[2021-07-22] MEDS: Rosuvastatin 20 MG TAB PO SCH (21:27)
[2021-07-22] MEDS: Tamsulosin HCl 0.4 MG CAP PO SCH (21:27)
[2021-07-22] MEDS: Citalopram 20 MG TAB PO SCH (21:27)
[2021-07-22] MEDS: Amlodipine 10 MG TAB PO SCH (21:27)
[2021-07-23 07:33] LABS: Hemoglobin 10.2 g/dL (14.0-18.0); Mean Corpuscular Hemoglobin 32.6 pg (27.0-31.0); Mean Platelet Volume 8.4 fL (7.4-10.4); Platelet Count 87 thou/uL (130-400); RBC Distribution Width 12.6 % (11.5-14.5); Red Blood Cell (RBC) Count 3.12 mill/uL (4.70-6.10); White Blood Cell (WBC) Count 14.3 thou/uL (4.8-10.8)
[2021-07-23 07:36] LABS: Anion Gap 15 mmol/L (10-20); BUN (Urea Nitrogen) 45 mg/dL (8.4-25.7); Calc. Creatinine Clearance 21 mL/min (70-130); Calcium 7.9 mg/dL (7.8-10.44); Carbon Dioxide 28 mmol/L (23-31); Chloride 91 mmol/L (98-107); Glucose 92 mg/dL (80-115); Potassium 4.1 mmol/L (3.5-5.1); Sodium 130 mmol/L (136-145)
[2021-07-23 08:04] LABS: Band 1 % (5-11); Eosinophils 1 % (0-10); Lymphocytes 11 % (21-51); MDiff Complete? YES; Metamyelocyte 1 % (0-0); Monocytes 4 % (0-10); Neutrophil 82 % (42-75); Nucleated RBC 7 % (0); Platelet Morphology Comment Appears Decreased; Polychromasia SLIGHT = 2-3 cells (100X) (0-2/hpf)
[2021-07-23] MEDS: Carvedilol 6.25 MG TAB PO SCH ×3 (09:27→20:56)
[2021-07-23] MEDS: Senokot S 8.6-50 MG TAB PO SCH ×2 (09:28→20:55)
[2021-07-23 13:55] LABS: Actual Bicarbonate (HCO3a) 29.7 mEq/L (22-28); Analyzer IN Cardio OR; Base Excess (BEa) 5.7 mEq/L (-2.0 to +3.0); CO2 Tension 41.3 mmHg (35.0-45.0); Calcium, Ionized (arterial) 1.09 mmol/L (1.12-1.30); Carboxyhemoglobin (COHb) 0.7 gm% (0.0-3.0); Hemoglobin (Hb) 10.9 g/dL (14.0-18.0); O2 Tension (PaO2), arterial 228.7 mmHg (> 80.0); Potassium - ABG Lab 3.82 mmol/L (3.70-5.30); Puncture Site Arterial Line; pH, Arterial 7.48 (7.35-7.45)
[2021-07-23] MEDS: cefTRIAXone\\ROCEPHIN 1 GM in Sodium Chloride 0.9% 100 ML IVPB SCH (17:22)
[2021-07-23] MEDS ORDERED: Lactated Ringer's 1,000 ML IV SCH (18:15)
[2021-07-23 18:42] LABS: Bilirubin Negative (Negative); Blood, Urine 3+ (Negative); Clarity Clear (Clear); Glucose, Urine (Dipstick) Normal (Negative); Ketone, Urine Negative (Negative); Leukocyte 75 Leu/uL (Negative); Nitrite Negative (Negative); Protein, Urine (Dipstick) 200 mg/dL (Neg-Trace); Specific Gravity, Urine 1.016 (1.002-1.036); Squamous Epithelial 0-3 HPF (0-3); Urobilinogen Normal mg/dL (Less than 2); WBC/HPF 21-50 HPF (0-3); pH, Urine 6.5 (5.0-9.0)
[2021-07-23 18:43] LABS: Bacteria/HPF 1+ HPF (None Seen)
[2021-07-23] MEDS: Tamsulosin HCl 0.4 MG CAP PO SCH (20:55)
[2021-07-23] MEDS: levETIRAcetam 500 MG TAB PO SCH (20:55)
[2021-07-23] MEDS: Rosuvastatin 20 MG TAB PO SCH (20:55)
[2021-07-23] MEDS: Gabapentin 100 MG CAP PO SCH (20:56)
[2021-07-23] MEDS: Citalopram 20 MG TAB PO SCH (20:56)
[2021-07-23] MEDS: Amlodipine 10 MG TAB PO SCH (20:57)
[2021-07-23] MEDS ORDERED: Sulfameth/Trimethoprim DS 800-160mg TAB PO SCH (21:00)
[2021-07-24 00:02] LABS: Strep pneumo Urine Ag NEGATIVE (NEGATIVE)
[2021-07-24] MEDS: Calcium Carbonate 500 MG ChewTAB PO PRN (00:22)
[2021-07-24 05:48] LABS: Anion Gap 20 mmol/L (10-20); BUN (Urea Nitrogen) 59 mg/dL (8.4-25.7); Calc. Creatinine Clearance 17 mL/min (70-130); Calcium 8.2 mg/dL (7.8-10.44); Carbon Dioxide 27 mmol/L (23-31); Chloride 89 mmol/L (98-107); Glucose 128 mg/dL (80-115); Potassium 4.9 mmol/L (3.5-5.1); Sodium 131 mmol/L (136-145)
[2021-07-24 05:53] LABS: Lymphocytes 5 % (21-51); MDiff Complete? YES; Mean Corpuscular HGB CONC 33.4 g/dL (32.0-36.0); Mean Corpuscular Volume 98.8 fL (78.0-98.0); Mean Platelet Volume 8.8 fL (7.4-10.4); Monocytes 13 % (0-10); Myelocyte 2 % (0-0); Neutrophil 80 % (42-75); Nucleated RBC 6 % (0); Platelet Count 92 thou/uL (130-400); Platelet Morphology Comment Appears Decreased; RBC Distribution Width 13.3 % (11.5-14.5); Red Blood Cell (RBC) Count 3.05 mill/uL (4.70-6.10); White Blood Cell (WBC) Count 17.5 thou/uL (4.8-10.8)
[2021-07-24] MEDS ORDERED: Sulfameth/Trimethoprim SS 400-80MG TAB PO SCH (09:00)
[2021-07-24] MEDS: Carvedilol 6.25 MG TAB PO SCH ×2 (09:27→21:54)
[2021-07-24] MEDS: Senokot S 8.6-50 MG TAB PO SCH ×2 (09:28→21:55)
[2021-07-24] MEDS ORDERED: Lacosamide 100 MG in Sodium Chloride 0.9% 50 ML IVPB SCH (14:30)
[2021-07-24 14:47] LABS: Anion Gap 19 mmol/L (10-20); BUN (Urea Nitrogen) 23 mg/dL (8.4-25.7); Calc. Creatinine Clearance 32 mL/min (70-130); Calcium 8.1 mg/dL (7.8-10.44); Carbon Dioxide 21 mmol/L (23-31); Chloride 97 mmol/L (98-107); Glucose 113 mg/dL (80-115); Potassium 4.1 mmol/L (3.5-5.1); Sodium 133 mmol/L (136-145)
[2021-07-24] MEDS ORDERED: Vancomycin 1.5 GRAM/300 ML BAG 1.5 GM in Premix Bag 1 BAG IVPB SCH (15:15)
[2021-07-24] MEDS ORDERED: Vancomycin Diaylsis Sliding Scale (Wt 71-99) FS SCH (15:15)
[2021-07-24] MEDS: cefTRIAXone\\ROCEPHIN 1 GM in Sodium Chloride 0.9% 100 ML IVPB SCH (17:24)
[2021-07-24] MEDS ORDERED: Melatonin 3 MG TAB PO SCH (21:00)
[2021-07-24] MEDS: Lacosamide 100 MG in Sodium Chloride 0.9% 50 ML IVPB SCH (21:53)
[2021-07-24] MEDS: Tamsulosin HCl 0.4 MG CAP PO SCH (21:54)
[2021-07-24] MEDS: Gabapentin 100 MG CAP PO SCH (21:54)
[2021-07-24] MEDS: Rosuvastatin 20 MG TAB PO SCH (21:54)
[2021-07-24] MEDS: Citalopram 20 MG TAB PO SCH (21:54)
[2021-07-24] MEDS: Amlodipine 10 MG TAB PO SCH (21:55)
[2021-07-25 01:08] LABS: Actual Bicarbonate (HCO3a) 28.7 mEq/L (22-28); Base Excess (BEa) 4.5 mEq/L (-2.0 to +3.0); CO2 Tension 41.2 mmHg (35.0-45.0); Calcium, Ionized (arterial) 1.01 mmol/L (1.12-1.30); Carboxyhemoglobin (COHb) 0.4 gm% (0.0-3.0); Hemoglobin (Hb) 10.7 g/dL (14.0-18.0); O2 Tension (PaO2), arterial 89.7 mmHg (> 80.0); Potassium - ABG Lab 4.12 mmol/L (3.70-5.30); pH, Arterial 7.46 (7.35-7.45)
[2021-07-25 05:57] LABS: ALT (SGPT) 24 U/L (8-55); AST (SGOT) 817 U/L (5-34); Albumin 3.1 g/dL (3.4-4.8); Alkaline Phosphatase 225 U/L (40-110); Anion Gap 15 mmol/L (10-20); BUN (Urea Nitrogen) 38 mg/dL (8.4-25.7); Bilirubin, Total 1.1 mg/dL (0.2-1.2); Calc. Creatinine Clearance 23 mL/min (70-130); Calcium 8.1 mg/dL (7.8-10.44); Carbon Dioxide 29 mmol/L (23-31); Chloride 94 mmol/L (98-107); Globulin 3.5 g/dL (2.4-3.5); Glucose 133 mg/dL (80-115); Potassium 4.3 mmol/L (3.5-5.1); Protein, Total 6.6 g/dL (5.8-8.1); Sodium 134 mmol/L (136-145)
[2021-07-25] MEDS ORDERED: ceFAZolin (BATCH) 2 GM in Premix Bag 1 BAG IVPB SCH (06:45)
[2021-07-25 06:48] LABS: Band 5 % (5-11); Eosinophils 1 % (0-10); Hemoglobin 10.1 g/dL (14.0-18.0); Lymphocytes 4 % (21-51); MDiff Complete? YES; Macrocytosis SLIGHT = 6-15 cells (100X) (0-5/hpf); Mean Corpuscular Hemoglobin 34.1 pg (27.0-31.0); Mean Platelet Volume 8.9 fL (7.4-10.4); Monocytes 7 % (0-10); Neutrophil 83 % (42-75); Nucleated RBC 5 % (0); Platelet Count 94 thou/uL (130-400); Platelet Morphology Comment Appears Decreased; RBC Distribution Width 12.8 % (11.5-14.5); Red Blood Cell (RBC) Count 2.96 mill/uL (4.70-6.10); White Blood Cell (WBC) Count 13.9 thou/uL (4.8-10.8)
[2021-07-25 07:29] LABS: Hemoglobin 9.9 g/dL (14.0-18.0); Mean Corpuscular HGB CONC 32.3 g/dL (32.0-36.0); Mean Corpuscular Hemoglobin 32.2 pg (27.0-31.0); Mean Corpuscular Volume 99.8 fL (78.0-98.0); Mean Platelet Volume 8.5 fL (7.4-10.4); Platelet Count 93 thou/uL (130-400); Red Blood Cell (RBC) Count 3.07 mill/uL (4.70-6.10); White Blood Cell (WBC) Count 13.5 thou/uL (4.8-10.8)
[2021-07-25 07:41] LABS: Prothrombin Time 22.7 sec (12.0-14.7)
[2021-07-25 07:47] LABS: Anion Gap 19 mmol/L (10-20); BUN (Urea Nitrogen) 37 mg/dL (8.4-25.7); CK (CPK) 601 U/L (30-200); Calc. Creatinine Clearance 22 mL/min (70-130); Carbon Dioxide 25 mmol/L (23-31); Chloride 95 mmol/L (98-107); Gamma GT (GGT) 88 U/L (12-64); Glucose 126 mg/dL (80-115); Potassium 4.2 mmol/L (3.5-5.1); Sodium 135 mmol/L (136-145)
[2021-07-25 07:58] LABS: Band 1 % (5-11); Lymphocytes 4 % (21-51); MDiff Complete? YES; Monocytes 10 % (0-10); Neutrophil 85 % (42-75); Nucleated RBC 3 % (0); Platelet Morphology Comment Appears Decreased; Polychromasia MODERATE = 3-4 cells (100X) (0-2/hpf)
[2021-07-25 08:09] LABS: CKMB 3.3 ng/mL (0-6.6)
[2021-07-25 08:24] LABS: SARS-CoV-2 NAA Rapid Test Not Detected (NotDetected)
[2021-07-25] MEDS ORDERED: Furosemide 40 MG TAB PO SCH (09:00)
[2021-07-25] MEDS ORDERED: Lorazepam 2 MG/ML VIAL SLOW IVP SCH ×2 (09:30)
[2021-07-25] MEDS: Carvedilol 6.25 MG TAB PO SCH ×2 (10:16→21:38)
[2021-07-25] MEDS: Lacosamide 100 MG in Sodium Chloride 0.9% 50 ML IVPB SCH ×3 (10:17→21:18)
[2021-07-25] MEDS: Senokot S 8.6-50 MG TAB PO SCH ×2 (10:17→21:39)
[2021-07-25 10:50] LABS: Troponin I 0.159 ng/mL (< 0.028)
[2021-07-25] MEDS ORDERED: Bupivacaine PF 0.5% 30 ML VIAL ONE (10:58)
[2021-07-25] MEDS ORDERED: EPINEPHrine 1 MG/ML AMP ONE (10:58)
[2021-07-25] MEDS ORDERED: Thrombin 5000 UNITS/5 ML VIAL ONE (10:58)
[2021-07-25] MEDS ORDERED: Neomycin-Polymyxin 1 ML AMP ONE (10:58)
[2021-07-25] MEDS ORDERED: fentaNYL Citrate/PF 100 MCG/2 ML SYRINGE ONE (11:18)
[2021-07-25] MEDS ORDERED: Ketamine 50 MG/ML (10ML VIAL) ONE (11:18)
[2021-07-25] MEDS ORDERED: ceFAZolin (BATCH) 2 GM/100 ML BAG ONE (11:25)
[2021-07-25] MEDS ORDERED: Phenylephrine 10 MG/ML VIAL ONE (11:25)
[2021-07-25] MEDS ORDERED: PHENYLEPHRINE-NS 100 MCG/ML 10 ML SYRINGE ONE ×2 (11:33→13:38)
[2021-07-25] MEDS ORDERED: Norepinephrine 8 MG/0.9% NS 250 ML ONE (14:23)
[2021-07-25 14:39] LABS: Actual Bicarbonate (HCO3a) 26.3 mEq/L (22-28); Base Excess (BEa) 2.4 mEq/L (-2.0 to +3.0); CO2 Tension 38.3 mmHg (35.0-45.0); Calcium, Ionized (arterial) 0.98 mmol/L (1.12-1.30); Carboxyhemoglobin (COHb) 0.3 gm% (0.0-3.0); Hemoglobin (Hb) 10.2 g/dL (14.0-18.0); O2 Tension (PaO2), arterial 148.9 mmHg (> 80.0); Potassium - ABG Lab 4.13 mmol/L (3.70-5.30); Puncture Site LRA; pH, Arterial 7.46 (7.35-7.45)
[2021-07-25 14:40] LABS: ALV-art Gradient 231.025 mmHg (0-20)
[2021-07-25 15:38] LABS: Troponin I 0.167 ng/mL (< 0.028)
[2021-07-25] MEDS ORDERED: Meropenem 1 GM in Sodium Chloride 0.9% 100 ML IVPB SCH (16:00)
[2021-07-25] MEDS: Sodium Chloride 0.9% 1,000 ML IV SCH (16:33)
[2021-07-25] MEDS ORDERED: Haloperidol Lactate 5 MG/ML VIAL SLOW IVP SCH (17:15)
[2021-07-25] MEDS ORDERED: Haloperidol Lactate 5 MG/ML VIAL SLOW IVP PRN (17:37)
[2021-07-25] MEDS: Amlodipine 10 MG TAB PO SCH (21:38)
[2021-07-25] MEDS: Citalopram 20 MG TAB PO SCH (21:39)
[2021-07-25] MEDS: Gabapentin 100 MG CAP PO SCH (21:39)
[2021-07-25] MEDS: Rosuvastatin 20 MG TAB PO SCH (21:39)
[2021-07-25] MEDS: Tamsulosin HCl 0.4 MG CAP PO SCH (21:40)
[2021-07-26] MEDS: Meropenem 500 MG in Sodium Chloride 0.9% 100 ML IVPB SCH ×2 (00:44→23:07)
[2021-07-26] MEDS: Norepinephrine 8 MG/0.9% NS 250 ML IVPB SCH ×3 (03:17→16:03)
[2021-07-26 04:46] LABS: Anion Gap 21 mmol/L (10-20); BUN (Urea Nitrogen) 52 mg/dL (8.4-25.7); Calc. Creatinine Clearance 18 mL/min (70-130); Calcium 7.9 mg/dL (7.8-10.44); Carbon Dioxide 23 mmol/L (23-31); Chloride 97 mmol/L (98-107); Glucose 129 mg/dL (80-115); Potassium 4.6 mmol/L (3.5-5.1); Sodium 136 mmol/L (136-145)
[2021-07-26 05:20] LABS: Band 2 % (5-11); Eosinophils 1 % (0-10); Hemoglobin 9.4 g/dL (14.0-18.0); Hypochromia SLIGHT = 6-15 cells (100X) (0-5/hpf); Lymphocytes 21 % (21-51); MDiff Complete? YES; Mean Corpuscular HGB CONC 32.1 g/dL (32.0-36.0); Mean Corpuscular Hemoglobin 32.2 pg (27.0-31.0); Monocytes 3 % (0-10); Neutrophil 73 % (42-75); Platelet Count 105 thou/uL (130-400); Platelet Morphology Comment Appears Decreased; RBC Distribution Width 13.4 % (11.5-14.5); Red Blood Cell (RBC) Count 2.93 mill/uL (4.70-6.10); White Blood Cell (WBC) Count 15.2 thou/uL (4.8-10.8)
[2021-07-26] MEDS: Sodium Chloride 0.9% 1,000 ML IV SCH (05:24)
[2021-07-26 07:25] LABS: Vancomycin, Random 17.2 ug/mL (See Comment)
[2021-07-26 07:39] LABS: INR-International Normal Ratio 1.8; Prothrombin Time 21.2 sec (12.0-14.7)
[2021-07-26 07:40] LABS: PTT 46.6 sec (22.9-36.1)
[2021-07-26 07:52] LABS: Magnesium 2.2 mg/dL (1.6-2.6)
[2021-07-26] MEDS ORDERED: Phenylephrine 40 MG in Sodium Chloride 0.9% 250 ML 250 ML IVPB SCH (08:15)
[2021-07-26] MEDS ORDERED: Digoxin 0.5 MG/2 ML AMP SLOW IVP SCH (08:15)
[2021-07-26] MEDS ORDERED: Phenylephrine 40 MG, Admixture Fee 1 EACH in Sodium Chloride 0.9% 250 ML 250 ML IVPB SCH (08:45)
[2021-07-26 08:49] LABS: ALT (SGPT) 19 U/L (8-55); AST (SGOT) 599 U/L (5-34); Alkaline Phosphatase 216 U/L (40-110); Bilirubin, Direct 0.8 mg/dL (0.1-0.3); Bilirubin, Total 1.1 mg/dL (0.2-1.2); Protein, Total 6.5 g/dL (5.8-8.1)
[2021-07-26] MEDS ORDERED: Hydrocortisone Sod Succ/PF 100 mg/2 ml Vial IVP SCH (09:15)
[2021-07-26] MEDS ORDERED: Vasopressin 20 UNIT, Admixture Fee 1 EACH in Sodium Chloride 0.9% 50 ML IV SCH (09:15)
[2021-07-26] MEDS ORDERED: Sodium Bicarb 50 MEQ/50 ML VIAL ONE ×2 (09:39→11:16)
[2021-07-26 09:42] LABS: ALV-art Gradient 93.735 mmHg (0-20); Base Excess (BEa) -5.6 mEq/L (-2.0 to +3.0); CO2 Tension 53.7 mmHg (35.0-45.0); Calcium, Ionized (arterial) 1.01 mmol/L (1.12-1.30); Carboxyhemoglobin (COHb) 0.3 gm% (0.0-3.0); O2 Tension (PaO2), arterial 67.3 mmHg (> 80.0); Potassium - ABG Lab 5.13 mmol/L (3.70-5.30); Puncture Site LRA; pH, Arterial 7.23 (7.35-7.45)
[2021-07-26] MEDS ORDERED: Sodium Bicarb 50 MEQ/50 ML VIAL IVP SCH (09:45)
[2021-07-26] MEDS: Carvedilol 6.25 MG TAB PO SCH ×2 (09:46→21:03)
[2021-07-26] MEDS: Senokot S 8.6-50 MG TAB PO SCH ×2 (09:46→21:02)
[2021-07-26] MEDS: Sodium Bicarbonate 150 MEQ in Dextrose 5% in Water 1,000 ML IV SCH ×2 (10:11→23:07)
[2021-07-26] MEDS ORDERED: Fentanyl 100 MCG/2 ML VIAL ONE (10:41)
[2021-07-26] MEDS ORDERED: Rocuronium Bromide 10 MG/ML (10ML VIAL) IVP SCH (11:00)
[2021-07-26] MEDS ORDERED: Fentanyl 100 MCG/2 ML VIAL SLOW IVP SCH (11:00)
[2021-07-26] MEDS ORDERED: Propofol 1,000 MG/100 ML VIAL IV SCH (11:00)
[2021-07-26] MEDS ORDERED: Ventilator Sedation Protocol 1 EACH FS ONE (11:01)
[2021-07-26] MEDS ORDERED: Sodium Bicarb 50 MEQ/50 ML Abboject 8.4% SYRINGE IVP SCH (11:15)
[2021-07-26] MEDS ORDERED: fentaNYL Citrate/PF 2,000 MCG in Sodium Chloride 0.9% 60 ML IV SCH (11:45)
[2021-07-26] MEDS ORDERED: Propofol BOLUS 1,000 MG/100 ML VIAL IV PRN (11:45)
[2021-07-26] MEDS ORDERED: Fentanyl BOLUS 250 ML IVPB PRN (11:45)
[2021-07-26] MEDS ORDERED: Propofol 1,000 MG/100 ML VIAL IV PRN (11:45)
[2021-07-26 11:54] LABS: Troponin I 0.164 ng/mL (< 0.028)
[2021-07-26 11:55] LABS: Actual Bicarbonate (HCO3a) 20.4 mEq/L (22-28); Base Excess (BEa) -3.6 mEq/L (-2.0 to +3.0); CO2 Tension 32.8 mmHg (35.0-45.0); Calcium, Ionized (arterial) 0.95 mmol/L (1.12-1.30); Carboxyhemoglobin (COHb) 0.1 gm% (0.0-3.0); Hemoglobin (Hb) 10.4 g/dL (14.0-18.0); O2 Tension (PaO2), arterial 101.3 mmHg (> 80.0); Potassium - ABG Lab 4.92 mmol/L (3.70-5.30); Puncture Site LRA; pH, Arterial 7.41 (7.35-7.45)
[2021-07-26 12:04] LABS: Anion Gap 22 mmol/L (10-20); BUN (Urea Nitrogen) 56 mg/dL (8.4-25.7); Calc. Creatinine Clearance 17 mL/min (70-130); Calcium 7.1 mg/dL (7.8-10.44); Carbon Dioxide 20 mmol/L (23-31); Chloride 97 mmol/L (98-107); Glucose 109 mg/dL (80-115); Potassium 5.2 mmol/L (3.5-5.1); Sodium 134 mmol/L (136-145)
[2021-07-26] MEDS: fentaNYL Citrate-0.9 % NaCl/PF 100 ML IV SCH (12:29)
[2021-07-26] MEDS: Phenylephrine 40 MG/NS 250 ML 250 ML IVPB SCH ×3 (12:38→23:07)
[2021-07-26] MEDS: Hydrocortisone Sod Succ/PF 100 mg/2 ml Vial IVP SCH ×3 (12:46→23:07)
[2021-07-26] MEDS: Famotidine/PF 20 mg/2ml Vial SLOW IVP SCH (12:46)
[2021-07-26] MEDS: Lorazepam 2 MG/ML VIAL SLOW IVP PRN ×2 (13:56→22:33)
[2021-07-26] MEDS: Lacosamide 100 MG in Sodium Chloride 0.9% 50 ML IVPB SCH ×2 (15:30→16:15)
[2021-07-26] MEDS ORDERED: Vancomycin HCl 500 MG in Sodium Chloride 0.9% 100 ML IVPB SCH (17:00)
[2021-07-26] MEDS: Rosuvastatin 10 MG TAB PO SCH (21:02)
[2021-07-26] MEDS: Gabapentin 100 MG CAP PO SCH (21:02)
[2021-07-26] MEDS: Citalopram 20 MG TAB PO SCH (21:02)
[2021-07-26] MEDS: Tamsulosin HCl 0.4 MG CAP PO SCH (21:03)
[2021-07-26] MEDS: Amlodipine 10 MG TAB PO SCH (21:03)
[2021-07-27] MEDS: fentaNYL Citrate-0.9 % NaCl/PF 100 ML IV SCH (02:06)
[2021-07-27] MEDS: Lacosamide 100 MG in Sodium Chloride 0.9% 50 ML IVPB SCH ×2 (03:03→14:44)
[2021-07-27 04:48] LABS: #Lymphocytes 0.8 thou/uL (1.20-3.40); #Monocytes 1.2 thou/uL (0.11-0.59); #Neutrophils 8.5 thou/uL (1.40-6.50); %Eosinophils 0.1 % (0.0-10.0); %Lymphocytes 7.8 % (21.0-51.0); %Monocytes 11.2 % (0.0-10.0); %Neutrophils 80.9 % (42.0-75.0); Hemoglobin 8.7 g/dL (14.0-18.0); Mean Corpuscular HGB CONC 32.6 g/dL (32.0-36.0); Mean Corpuscular Volume 98.3 fL (78.0-98.0); Mean Platelet Volume 8.5 fL (7.4-10.4); Platelet Count 99 thou/uL (130-400); RBC Distribution Width 14.3 % (11.5-14.5); Red Blood Cell (RBC) Count 2.72 mill/uL (4.70-6.10); White Blood Cell (WBC) Count 10.4 thou/uL (4.8-10.8)
[2021-07-27 04:52] LABS: Prothrombin Time 22.6 sec (12.0-14.7)
[2021-07-27 04:53] LABS: PTT 47.4 sec (22.9-36.1)
[2021-07-27] MEDS: HumaLOG 300 UNITS/3 ML VIAL SC PRN ×3 (05:00→22:47)
[2021-07-27] MEDS: Lorazepam 2 MG/ML VIAL SLOW IVP PRN (05:00)
[2021-07-27] MEDS: Hydrocortisone Sod Succ/PF 100 mg/2 ml Vial IVP SCH ×3 (05:00→18:15)
[2021-07-27 05:07] LABS: Anion Gap 21 mmol/L (10-20); BUN (Urea Nitrogen) 44 mg/dL (8.4-25.7); Calc. Creatinine Clearance 23 mL/min (70-130); Calcium 7.5 mg/dL (7.8-10.44); Carbon Dioxide 23 mmol/L (23-31); Chloride 98 mmol/L (98-107); Glucose 193 mg/dL (80-115); Potassium 3.9 mmol/L (3.5-5.1); Sodium 138 mmol/L (136-145); Vancomycin, Random 17.9 ug/mL (See Comment)
[2021-07-27 07:00] LABS: ALT (SGPT) 30 U/L (8-55); AST (SGOT) 534 U/L (5-34); Albumin 2.7 g/dL (3.4-4.8); Alkaline Phosphatase 202 U/L (40-110); Bilirubin, Total 1.6 mg/dL (0.2-1.2); Protein, Total 5.9 g/dL (5.8-8.1)
[2021-07-27 07:27] LABS: Actual Bicarbonate (HCO3a) 26.1 mEq/L (22-28); Base Excess (BEa) 4.8 mEq/L (-2.0 to +3.0); Calcium, Ionized (arterial) 0.92 mmol/L (1.12-1.30); Carboxyhemoglobin (COHb) 0.2 gm% (0.0-3.0); Hemoglobin (Hb) 9.1 g/dL (14.0-18.0); O2 Tension (PaO2), arterial 61.4 mmHg (> 80.0); Potassium - ABG Lab 3.39 mmol/L (3.70-5.30)
[2021-07-27 07:31] LABS: Puncture Site Arterial Line
[2021-07-27] MEDS ORDERED: Sodium Chloride 0.9% 1,000 ML IV SCH (08:15)
[2021-07-27] MEDS: Carvedilol 6.25 MG TAB PO SCH ×2 (11:11→20:47)
[2021-07-27] MEDS: Famotidine/PF 20 mg/2ml Vial SLOW IVP SCH (11:32)
[2021-07-27] MEDS: Senokot S 8.6-50 MG TAB PO SCH ×2 (11:33→20:47)
[2021-07-27] MEDS ORDERED: Vancomycin HCl 500 MG in Sodium Chloride 0.9% 100 ML IVPB SCH (17:00)
[2021-07-27] MEDS: Tamsulosin HCl 0.4 MG CAP PO SCH (20:47)
[2021-07-27] MEDS: Gabapentin 100 MG CAP PO SCH (20:47)
[2021-07-27] MEDS: Citalopram 20 MG TAB PO SCH (20:47)
[2021-07-27] MEDS: Rosuvastatin 10 MG TAB PO SCH (20:47)
[2021-07-28] MEDS: Hydrocortisone Sod Succ/PF 100 mg/2 ml Vial IVP SCH ×4 (00:01→18:01)
[2021-07-28] MEDS: Meropenem 500 MG in Sodium Chloride 0.9% 100 ML IVPB SCH (00:01)
[2021-07-28] MEDS: Lacosamide 100 MG in Sodium Chloride 0.9% 50 ML IVPB SCH ×2 (03:57→14:48)
[2021-07-28] MEDS: HumaLOG 300 UNITS/3 ML VIAL SC PRN ×3 (04:04→22:36)
[2021-07-28 05:19] LABS: INR-International Normal Ratio 1.7; Prothrombin Time 19.8 sec (12.0-14.7)
[2021-07-28 05:20] LABS: PTT 43.3 sec (22.9-36.1)
[2021-07-28 05:22] LABS: ALT (SGPT) 27 U/L (8-55); AST (SGOT) 429 U/L (5-34); Albumin 2.7 g/dL (3.4-4.8); Alkaline Phosphatase 229 U/L (40-110); Anion Gap 21 mmol/L (10-20); BUN (Urea Nitrogen) 61 mg/dL (8.4-25.7); Bilirubin, Total 1.1 mg/dL (0.2-1.2); Calc. Creatinine Clearance 19 mL/min (70-130); Calcium 7.2 mg/dL (7.8-10.44); Carbon Dioxide 24 mmol/L (23-31); Chloride 97 mmol/L (98-107); Globulin 3.3 g/dL (2.4-3.5); Glucose 201 mg/dL (80-115); Potassium 3.8 mmol/L (3.5-5.1); Sodium 138 mmol/L (136-145)
[2021-07-28 05:50] LABS: Band 5 % (5-11); Hypochromia SLIGHT = 6-15 cells (100X) (0-5/hpf); Lymphocytes 7 % (21-51); MDiff Complete? YES; Mean Corpuscular HGB CONC 32.1 g/dL (32.0-36.0); Mean Corpuscular Hemoglobin 32.1 pg (27.0-31.0); Mean Platelet Volume 8.6 fL (7.4-10.4); Monocytes 4 % (0-10); Neutrophil 84 % (42-75); Platelet Count 86 thou/uL (130-400); Platelet Morphology Comment Appears Decreased; RBC Distribution Width 14.3 % (11.5-14.5)
[2021-07-28 07:16] LABS: Actual Bicarbonate (HCO3a) 26.4 mEq/L (22-28); Base Excess (BEa) 3.7 mEq/L (-2.0 to +3.0); CO2 Tension 32.9 mmHg (35.0-45.0); Calcium, Ionized (arterial) 0.94 mmol/L (1.12-1.30); Carboxyhemoglobin (COHb) 0.2 gm% (0.0-3.0); Hemoglobin (Hb) 9.5 g/dL (14.0-18.0); O2 Tension (PaO2), arterial 98.5 mmHg (> 80.0); Potassium - ABG Lab 3.42 mmol/L (3.70-5.30); pH, Arterial 7.52 (7.35-7.45)
[2021-07-28 07:20] LABS: Puncture Site Arterial Line
[2021-07-28 07:22] LABS: ALV-art Gradient 216.875 mmHg (0-20)
[2021-07-28] MEDS: Carvedilol 6.25 MG TAB PO SCH (09:45)
[2021-07-28] MEDS: Famotidine/PF 20 mg/2ml Vial SLOW IVP SCH (10:30)
[2021-07-28] MEDS: Senokot S 8.6-50 MG TAB PO SCH ×2 (10:30→22:35)
[2021-07-28 13:07] LABS: HBCM Index 0.14 S/CO (0-0.79); HBSAg Index 0.23 S/CO (0-0.99); Hep A IgM AB Non-Reactive (NonReactive); Hep B Surf Ag Non-Reactive S/CO (NonReactive); Hep C IgG Ab Non-Reactive (NonReactive); Hepatitis B Core IgM Abs Non-Reactive (NonReactive)
[2021-07-28] MEDS: Citalopram 20 MG TAB PO SCH (22:34)
[2021-07-28] MEDS: Tamsulosin HCl 0.4 MG CAP PO SCH (22:35)
[2021-07-29] MEDS: Hydrocortisone Sod Succ/PF 100 mg/2 ml Vial IVP SCH ×2 (00:38→06:42)
[2021-07-29] MEDS: Meropenem 500 MG in Sodium Chloride 0.9% 100 ML IVPB SCH (00:39)
[2021-07-29] MEDS: Lacosamide 100 MG in Sodium Chloride 0.9% 50 ML IVPB SCH (03:44)
[2021-07-29 04:16] LABS: INR-International Normal Ratio 1.5; Prothrombin Time 18.3 sec (12.0-14.7)
[2021-07-29 04:17] LABS: PTT 37.3 sec (22.9-36.1)
[2021-07-29 04:18] LABS: ALT (SGPT) 24 U/L (8-55); AST (SGOT) 391 U/L (5-34); Alkaline Phosphatase 236 U/L (40-110); Anion Gap 24 mmol/L (10-20); BUN (Urea Nitrogen) 80 mg/dL (8.4-25.7); Bilirubin, Total 1.2 mg/dL (0.2-1.2); Calc. Creatinine Clearance 16 mL/min (70-130); Calcium 7.6 mg/dL (7.8-10.44); Carbon Dioxide 23 mmol/L (23-31); Chloride 95 mmol/L (98-107); Globulin 3.7 g/dL (2.4-3.5); Glucose 189 mg/dL (80-115); Potassium 4.5 mmol/L (3.5-5.1); Protein, Total 6.7 g/dL (5.8-8.1); Sodium 137 mmol/L (136-145)
[2021-07-29 04:20] LABS: Band 5 % (5-11); Hemoglobin 9.7 g/dL (14.0-18.0); Lymphocytes 6 % (21-51); MDiff Complete? YES; Macrocytosis MODERATE=16-30 cells (100X) (0-5/hpf); Mean Corpuscular HGB CONC 32.5 g/dL (32.0-36.0); Mean Corpuscular Hemoglobin 33.2 pg (27.0-31.0); Mean Platelet Volume 9.1 fL (7.4-10.4); Metamyelocyte 1 % (0-0); Monocytes 1 % (0-10); Neutrophil 87 % (42-75); Platelet Count 86 thou/uL (130-400); Platelet Morphology Comment Appears Decreased; RBC Distribution Width 14.5 % (11.5-14.5); Red Blood Cell (RBC) Count 2.92 mill/uL (4.70-6.10); White Blood Cell (WBC) Count 20.9 thou/uL (4.8-10.8)
[2021-07-29] MEDS: HumaLOG 300 UNITS/3 ML VIAL SC PRN (04:28)
[2021-07-29 04:33] LABS: Vancomycin, Random 21.3 ug/mL (See Comment)
[2021-07-29 07:06] LABS: Actual Bicarbonate (HCO3a) 23.1 mEq/L (22-28); Base Excess (BEa) -0.2 mEq/L (-2.0 to +3.0); CO2 Tension 32.7 mmHg (35.0-45.0); Calcium, Ionized (arterial) 0.92 mmol/L (1.12-1.30); Carboxyhemoglobin (COHb) 0.6 gm% (0.0-3.0); Hemoglobin (Hb) 10.4 g/dL (14.0-18.0); O2 Tension (PaO2), arterial 70.8 mmHg (> 80.0); Potassium - ABG Lab 4.61 mmol/L (3.70-5.30); pH, Arterial 7.47 (7.35-7.45)
[2021-07-29 07:07] LABS: ALV-art Gradient 87.965 mmHg (0-20); Puncture Site LRA
[2021-07-29] MEDS ORDERED: Insulin Glargine 30 UNITS/0.3 ML VIAL SC SCH (09:15)
[2021-07-29 11:22] VITALS: BMI 31.9
[2021-07-29] MEDS: Norepinephrine 8 MG/0.9% NS 250 ML IVPB SCH (11:27)
[2021-07-29] MEDS ORDERED: EPINEPHrine 1 MG/10 ML Abboject SYRINGE ONE ×2 (12:00)
[2021-07-29] MEDS ORDERED: Amiodarone 450 MG, Admixture Fee 1 EACH in Dextrose 5% in Water 250 ML IVPB SCH (12:00)
[2021-07-29 12:24] VITALS: BP 106/77
[2021-07-29] MEDS ORDERED: Sodium Bicarbonate 150 MEQ in Dextrose 5% in Water 850 ML IV SCH (13:00)
[2021-07-29] MEDS ORDERED: Sodium Bicarbonate 150 MEQ in Dextrose 5% in Water 1,000 ML IV SCH ×2 (13:00→13:30)
[2021-07-29] MEDS ORDERED: EPINEPHrine 4 MG in Dextrose 5% in Water 250 ML IV SCH (13:30)
[2021-07-29 14:11] LABS: Actual Bicarbonate (HCO3a) 21.5 mEq/L (22-28); Base Excess (BEa) -5.1 mEq/L (-2.0 to +3.0); CO2 Tension 46.4 mmHg (35.0-45.0); Calcium, Ionized (arterial) 1.14 mmol/L (1.12-1.30); Carboxyhemoglobin (COHb) 0.7 gm% (0.0-3.0); Hemoglobin (Hb) 11.1 g/dL (14.0-18.0); O2 Tension (PaO2), arterial 44.5 mmHg (> 80.0); Potassium - ABG Lab 5.17 mmol/L (3.70-5.30); pH, Arterial 7.28 (7.35-7.45)
[2021-07-29 14:12] LABS: Puncture Site LRA
[2021-07-29 18:35] VITALS: TEMP 97.3
[2021-07-29] MEDS ORDERED: levETIRAcetam 100 mg/ml Oral Solution PO SCH (21:00)
[2021-07-29] MEDS ORDERED: levETIRAcetam 500 mg/5 ml Oral Solution PO SCH (21:00)
[2021-07-29] MEDS ORDERED: Hydrocortisone Sod Succ/PF 100 mg/2 ml Vial IVP SCH (21:00)
[2021-07-30] MEDS ORDERED: Lantus 1000 UNITS/10 ML VIAL SC SCH (09:00)
[2021-07-30] MEDS ORDERED: Insulin Glargine 30 UNITS/0.3 ML VIAL SC SCH (09:00)
== END 2021-07-29 14:24 | disposition expired | DRG 459 ==
LOC: SURG A 07-16 05:39 → MSONC 07-16 14:47 → NEURO 07-24 17:40 → CCU 07-25 12:57
PROVIDERS: ADMIT Neurological Surgery; ATTEND Neurological Surgery
PROC: 0SG10K1 Fusion of 2 or more Lumbar Vertebral Joints with Nonautologous Tissue Substitute, Posterior Approach, Posterior Column, Open Approach (ICD-10-PCS; principal; 2021-07-16)
PROC: 01NB0ZZ Release Lumbar Nerve, Open Approach (ICD-10-PCS; 2021-07-16)
PROC: 0SB20ZZ Excision of Lumbar Vertebral Disc, Open Approach (ICD-10-PCS; 2021-07-16)
PROC: 5A1D70Z Performance of Urinary Filtration, Intermittent, Less than 6 Hours Per Day (ICD-10-PCS; 2021-07-17)
PROC: 0WQL0ZZ Repair Lower Back, Open Approach (ICD-10-PCS; 2021-07-25)
PROC: 3E043XZ Introduction of Vasopressor into Central Vein, Percutaneous Approach (ICD-10-PCS; 2021-07-25)
PROC: 06HY33Z Insertion of Infusion Device into Lower Vein, Percutaneous Approach (ICD-10-PCS; 2021-07-25)
PROC: 3E04329 Introduction of Other Anti-infective into Central Vein, Percutaneous Approach (ICD-10-PCS; 2021-07-25)
PROC: 5A1945Z Respiratory Ventilation, 24-96 Consecutive Hours (ICD-10-PCS; 2021-07-26)
PROC: 5A2204Z Restoration of Cardiac Rhythm, Single (ICD-10-PCS; 2021-07-26)
PROC: 0BH18EZ Insertion of Endotracheal Airway into Trachea, Via Natural or Artificial Opening Endoscopic (ICD-10-PCS; 2021-07-26)
PROC: 03HY32Z Insertion of Monitoring Device into Upper Artery, Percutaneous Approach (ICD-10-PCS; 2021-07-26)
PROC: 5A12012 Performance of Cardiac Output, Single, Manual (ICD-10-PCS; 2021-07-29)
PROC: 5A2204Z Restoration of Cardiac Rhythm, Single (ICD-10-PCS; 2021-07-29)
PROC: 0BH17EZ Insertion of Endotracheal Airway into Trachea, Via Natural or Artificial Opening (ICD-10-PCS; 2021-07-29)
PROC: 5A1935Z Respiratory Ventilation, Less than 24 Consecutive Hours (ICD-10-PCS; 2021-07-29)
DX: M48.062 Spinal stenosis, lumbar region with neurogenic claudication (principal); N18.6 End stage renal disease; J18.9 Pneumonia, unspecified organism; A41.9 Sepsis, unspecified organism; J96.01 Acute respiratory failure with hypoxia; J96.02 Acute respiratory failure with hypercapnia; R65.21 Severe sepsis with septic shock; G93.41 Metabolic encephalopathy; I50.43 Acute on chronic combined systolic (congestive) and diastolic (congestive) heart failure; I13.2 Hypertensive heart and chronic kidney disease with heart failure and with stage 5 chronic kidney disease, or end stage renal disease; I25.810 Atherosclerosis of coronary artery bypass graft(s) without angina pectoris; I38 Endocarditis, valve unspecified; E87.2 Acidosis; E87.1 Hypo-osmolality and hyponatremia; E87.3 Alkalosis; N39.0 Urinary tract infection, site not specified; I47.2 Ventricular tachycardia; T81.31XA Disruption of external operation (surgical) wound, not elsewhere classified, initial encounter; I45.2 Bifascicular block; Z66 Do not resuscitate; Z20.822 Contact with and (suspected) exposure to COVID-19; S32.021G Stable burst fracture of second lumbar vertebra, subsequent encounter for fracture with delayed healing; M40.209 Unspecified kyphosis, site unspecified; E11.22 Type 2 diabetes mellitus with diabetic chronic kidney disease; M10.9 Gout, unspecified; E78.5 Hyperlipidemia, unspecified; J45.909 Unspecified asthma, uncomplicated; N28.1 Cyst of kidney, acquired; F32.A Depression, unspecified; N40.0 Benign prostatic hyperplasia without lower urinary tract symptoms; K21.9 Gastro-esophageal reflux disease without esophagitis; M51.16 Intervertebral disc disorders with radiculopathy, lumbar region; R29.6 Repeated falls; E11.51 Type 2 diabetes mellitus with diabetic peripheral angiopathy without gangrene; D63.1 Anemia in chronic kidney disease; E66.9 Obesity, unspecified; E11.69 Type 2 diabetes mellitus with other specified complication; I77.9 Disorder of arteries and arterioles, unspecified; I48.0 Paroxysmal atrial fibrillation; I25.5 Ischemic cardiomyopathy; G89.29 Other chronic pain; Y83.8 Other surgical procedures as the cause of abnormal reaction of the patient, or of later complication, without mention of misadventure at the time of the procedure; I44.7 Left bundle-branch block, unspecified; R13.10 Dysphagia, unspecified; R74.01 Elevation of levels of liver transaminase levels; R56.9 Unspecified convulsions; E87.5 Hyperkalemia; E11.649 Type 2 diabetes mellitus with hypoglycemia without coma; R04.0 Epistaxis; I95.81 Postprocedural hypotension; Y95 Nosocomial condition; R57.0 Cardiogenic shock; I25.2 Old myocardial infarction; Z99.2 Dependence on renal dialysis; Z86.73 Personal history of transient ischemic attack (TIA), and cerebral infarction without residual deficits; Z95.1 Presence of aortocoronary bypass graft; Z98.890 Other specified postprocedural states; Z84.1 Family history of disorders of kidney and ureter; Z82.49 Family history of ischemic heart disease and other diseases of the circulatory system; Z87.891 Personal history of nicotine dependence; Z79.51 Long term (current) use of inhaled steroids; Z79.84 Long term (current) use of oral hypoglycemic drugs; Z79.899 Other long term (current) drug therapy; Z88.1 Allergy status to other antibiotic agents; Z88.5 Allergy status to narcotic agent; Z88.8 Allergy status to other drugs, medicaments and biological substances; Z98.1 Arthrodesis status; Z79.4 Long term (current) use of insulin; Z79.01 Long term (current) use of anticoagulants; Z68.32 Body mass index [BMI] 32.0-32.9, adult; Z78.1 Physical restraint status; I46.8 Cardiac arrest due to other underlying condition
CPT/HCPCS: 36415; 36416; 36600; 70450; 71045; 72148; 76000; 76705; 80048; 80053; 80074; 80076; 80202; 81001; 82140; 82533; 82550; 82553; 82805; 82977; 83605; 83735; 84100; 84145; 84484; 85025; 85384; 85610; 85730; 86141; 86335; 86850; 86900; 86901; 87040; 87070; 87086; 87205; 87449; 90935; 93005; 93010; 93306; 93970; 94002; 94003; 95700; 95712; 95819; 95957; C1713; C1768; C9254; G0257; J0171; J0690; J0696; J1160; J1610; J1630; J1720; J1815; J2060; J2185; J2370; J2405; J2704; J3010; J3370; J3490; J7050; J7070; J7120; J8540; P9047; S0020; S0028; U0002